=== PATIENT | female | born 1965 | race Caucasian/White ===

== ENCOUNTER → 2017-12-07 10:44 | Outpatient (CLI) | payer MEDICARE, MEDICAID, SELFPAY ==
[2017-12-07 11:14] LABS: Absolute Lymphocyte Count 1.41 X10^3/ul (0.83-4.51); Absolute Neutrophil Count 2.9 X10^3/uL (2.0-7.7); Basophil# 0.03 X10^3/uL; Basophil% 0.6 % (0-1); Eosinophil# 0.07 X10^3/uL; Eosinophils% 1.4 % (0-5); Hematocrit 39.7 % (37-47); Hemoglobin 12.5 g/dl (12.0-15.0); Lymphocyte # 1.41 X10^3/ul (4.0); Mean Corp Hgb Conc 31.5 g/gl (32-36); Mean Corpuscular Hgb 29.7 pg (27.0-32.0); Mean Corpuscular Volume 94.3 fL (81-99); Mean Platelet Vol. 9.4 fl (6.2-12.0); Monocyte# 0.58 X10^3/uL; Monocyte% 11.5 % (0-10); Neutrophil # 2.93 X10^3/uL (2.7-7.7); Neutrophil % 58.3 % (47-70); Platelet Count 241 K/mm3 (150-450); RBC Distribution Width CV 12.9 % (11.6-14.6); Red Blood Count 4.21 M/mm3 (4.2-5.4)
[2017-12-07 11:15] LABS: POSITIVE COUNT NO; POSITIVE DIFFERENTIAL NO; POSITIVE MORPHOLOGY NO
[2017-12-07 11:51] LABS: AST(SGOT) 44 U/L (15-37); Alanine Aminotransfer ALT/SGPT 57 U/L (13-56); Albumin, Serum 3.7 g/dL (3.2-5.0); Alkaline Phosphatase 81 U/L (45-117); Bilirubin, Direct 0.08 mg/dL (0.00-0.30); Cholesterol 209 mg/dL (200); Globulin 3.5 g/dL (2.2-4.2); High Density Lipoprotein 51 mg/dL; Protein, Total 7.2 g/dL (6.4-8.2); Triglycerides 93 mg/dL; Very Low Density Lipoprotein 19 mg/dL (5-40)
[2017-12-07 11:51] LABS: T3 Total - Triiodothyronine 1.12 ng/mL (0.6-1.81)
[2017-12-07 11:53] LABS: T4 Total, Thyroxin 6.1 ug/dL (4.8-13.9); Thyroid Stim Hormone (TSH) 0.47 uIU/mL (0.358-3.74)
== END ==
PROVIDERS: Internal Medicine Cardiovascular Disease; Family Provider Family Medicine; PCP Family Medicine; Referring Provider Internal Medicine Cardiovascular Disease; Visit Provider Family Medicine
DX: R53.83 Other fatigue (principal); R00.1 Bradycardia, unspecified; R55 Syncope and collapse; E78.5 Hyperlipidemia, unspecified; Z95.0 Presence of cardiac pacemaker; I47.1 Supraventricular tachycardia; I51.81 Takotsubo syndrome
CPT/HCPCS: 36415; 80061; 80076; 84436; 84443; 84480; 85025

== ENCOUNTER → 2017-12-14 12:52 | Outpatient (CLI) | payer MEDICARE, MEDICAID, SELFPAY ==
--- NOTE | 2017-12-14 12:54 | ECHOD_ITS ---
Reason For Study: syncope/near syncope Procedure This was a 2D Doppler, Color Flow transthoracic echocardiogram. Exam performed in department. Left Ventricle Normal size and thickness. The estimated ejection fraction is 65 %. Normal diastology for age. No regional wall motion abnormalities noted. Right Ventricle Normal size and thickness. ICD or pacer leads identified within the right ventricle. Normal systolic function. Atria Normal left atrium. Normal right atrium. ICD or pacer leads identified within the right atrium. Normal atrial septum. Mitral Valve The mitral valve is structurally normal. No prolapse or stenosis seen. Tricuspid Valve Normal tricuspid valve. Trivial tricuspid valve insufficiency. Right ventricular systolic pressure estimated to be 29 mmHg. Aortic Valve Normal aortic valve. Trisinus/trileaflet aortic valve. Pulmonic Valve Normal pulmonic valve. Great Vessels Normal aortic root. Normal arch. Normal inferior vena cava. Inferior vena cava collapse with sniff. Pericardium/Pleural No pericardial effusion. MMode/2D Measurements & Calculations LVIDd: 4.1 cm IVSd: 0.90 cm Ao root diam: 2.6 cm LVIDs: 2.7 cm LVPWd: 0.96 cm RVDd: 2.7 cm FS: 34.2 % LAV(MOD-bp): 31.2 ml LA A4 area: 11.2 cm2 LA dimension(2D): 3.2 cm LAV(MOD-bp) Indexed: 20.8 ml/m2 LAV(MOD-sp2): 28.8 ml LAV(MOD-sp4): 28.6 ml RA A4 area: 12.3 cm2 Doppler Measurements & Calculations MV E max brenton: 97.2 cm/sec Lat Peak E' Brenton: 8.5 cm/sec Med Peak E' Brenton: 9.0 cm/sec MV A max brenton: 76.4 cm/sec E/E' lat: 11.5 E/E' med: 10.8 MV E/A: 1.3 Ao V2 max: 112.0 cm/sec LV V1 max: 109.3 cm/sec TR max brenton: 248.6 cm/sec Ao max P.0 mmHg LV V1 max P.8 mmHg TR max P.7 mmHg Interpretation Summary The estimated ejection fraction is 65 %. Normal diastology for age. Right ventricular systolic pressure estimated to be 29 mmHg. There is no comparison study available. Ordering Physician: Fabián Pierson Referring Physician: Tessy Tovar Performed By: Gabriela Amaya RDCS, RVT
== END ==
PROVIDERS: Family Provider Family Medicine; PCP Family Medicine; Referring Provider Internal Medicine Cardiovascular Disease; Visit Provider Internal Medicine Cardiovascular Disease
DX: I47.1 Supraventricular tachycardia (principal)
CPT/HCPCS: 93306

== ENCOUNTER → 2017-12-26 08:53 | Outpatient (CLI) | payer MEDICARE, MEDICAID, SELFPAY ==
--- NOTE | 2017-12-26 11:38 | PFTCOMP ---
COMPLETE PULMONARY FUNCTION TEST INTERPRETATION Brief HPI: Patient is a 52 year old female, currently under the care of myself, who presents to [facility] for complete pulmonary function tests secondary to diagnosis of COPD. Respiratory therapist reports good effort and reproducible results. Interpretation: Forced expiration spirometry shows no large airways obstructive ventilatory defect with an FEV1 of 104% predicted. There is no significant bronchodilator response by strict ATS criteria. Spirograms are of good quality and plateau normally. The respiratory flow volume loop shows a normal pattern. Lung volumes by body plethysmography show a normal total lung capacity at 4.63 L, 106% predicted. All other lung volumes are within normal limits. Diffusion capacity by carbon monoxide is normal at 100% predicted. The airway resistance is normal. No previous pulmonary function tests were available for review. Impression: These pulmonary function tests are within normal limits. The patient does not have COPD, but may have asthma.
--- NOTE | 2017-12-26 11:41 | PFTCOMP_ITS ---
COMPLETE PULMONARY FUNCTION TEST INTERPRETATION Brief HPI: Patient is a 52 year old female, currently under the care of myself, who presents to [facility] for complete pulmonary function tests secondary to diagnosis of COPD. Respiratory therapist reports good effort and reproducible results. Interpretation: Forced expiration spirometry shows no large airways obstructive ventilatory defect with an FEV1 of 104% predicted. There is no significant bronchodilator response by strict ATS criteria. Spirograms are of good quality and plateau normally. The respiratory flow volume loop shows a normal pattern. Lung volumes by body plethysmography show a normal total lung capacity at 4.63 L, 106% predicted. All other lung volumes are within normal limits. Diffusion capacity by carbon monoxide is normal at 100% predicted. The airway resistance is normal. No previous pulmonary function tests were available for review. Impression: These pulmonary function tests are within normal limits. The patient does not have COPD, but may have asthma.
== END ==
PROVIDERS: Family Provider Family Medicine; PCP Family Medicine; Referring Provider Internal Medicine Critical Care Medicine; Visit Provider Internal Medicine Critical Care Medicine
DX: J44.9 Chronic obstructive pulmonary disease, unspecified (principal)
CPT/HCPCS: 94060; 94726; 94729

== ENCOUNTER → 2018-04-10 12:11 | Outpatient (CLI) | payer MEDICARE, MEDICAID, SELFPAY ==
[2018-04-10 11:56] VITALS: BMI 22.6
--- NOTE | 2018-04-10 12:13 | RAD_ITS ---
STUDY: X-RAY - RIGHT HAND REASON FOR EXAM: Female, 53 years old. Pain. TECHNIQUE: 3 view(s) of the hand. COMPARISON: None. FINDINGS: Normal radiocarpal articulation. Normal distal radioulnar joint. Normal visualized carpal bones. Normal carpal articulations Normal carpometacarpal articulation of the thumb. Normal second through fifth carpometacarpal joints. Normal metacarpi. Normal metacarpophalangeal joint of the thumb. Normal interphalangeal joint of the thumb. Normal proximal and distal phalanges of the thumb. Normal metacarpophalangeal joints of the second through fifth fingers. Normal proximal and distal interphalangeal joints of the second through fifth fingers. Normal phalanges of the second through fifth fingers. The soft tissue structures are unremarkable. RAD/Hand Min 3 Views IMPRESSION: Normal x-ray examination of the hand. Electronically Signed: Emiliano Corrales MD at 13:59 EST , Service support ,
== END ==
PROVIDERS: Family Provider Family Medicine; PCP Family Medicine; Referring Provider Physician Assistant; Visit Provider Physician Assistant
DX: M79.641 Pain in right hand (principal)
CPT/HCPCS: 73130

== ENCOUNTER 2018-06-18 11:36 | Day surgery (SDC) | payer MEDICARE, MEDICAID, SELFPAY ==
[2018-04-10 11:56] VITALS: BMI 22.6
[2018-06-07 15:02] VITALS: BMI 24.7
--- NOTE | 2018-06-07 15:55 | RAD_ITS ---
STUDY: X-RAY CHEST REASON FOR EXAM: Female, 53 years old. Pre-op pacemaker change TECHNIQUE: Frontal and lateral views of the chest. COMPARISON: 10/18/2013. FINDINGS: The lungs are clear and expanded. There is no demonstrated pleural abnormality. Normal size heart. Pacemaker is seen with leads terminating in the right atrium and right ventricle. Normal mediastinum and shefali. Normal visualized pulmonary arteries. Normal visualized aortic arch and descending thoracic aorta. Normal visualized thoracic spine. Normal visualized ribs, clavicles, and shoulders. There is no demonstrated abnormality of the visualized soft tissue structures of the upper abdomen. RAD/Chest PA and Lateral IMPRESSION: No acute chest disease. Electronically Signed: Emiliano Corrales MD at 23:57 EDT , Service support ,
[2018-06-07 16:14] LABS: Bacteria 0 SEEN /hpf (None Seen); Mucous, Urine 0 SEEN /hpf (<or=2+); Red Blood Cells-Urine 0 SEEN /hpf (0-5); White Blood Cells 0 SEEN /hpf (0-5)
[2018-06-07 16:54] LABS: Hematocrit 37.4 % (37-47); Hemoglobin 12.2 g/dl (12.0-15.0); Mean Corp Hgb Conc 32.6 g/gl (32-36); Mean Corpuscular Volume 91.9 fL (81-99); Mean Platelet Vol. 9.7 fl (6.2-12.0); Platelet Count 276 K/mm3 (150-450); RBC Distribution Width CV 12.8 % (11.6-14.6); RBC Distribution Width SD 42.9 fl (35.1-43.9); Red Blood Count 4.07 M/mm3 (4.2-5.4); White Blood Count 5.3 K/mm3 (4.4-11.0)
[2018-06-07 16:55] LABS: Scan Indicated on CBC? Y/N NO
[2018-06-07 16:58] LABS: Color, Urine Yellow (Yellow); Glucose, Dipstick Normal (Normal); Ketone-Dipstick Negative (Negative); Leukocyte Esterase-Dipstick Negative /ul (Negative); Nitrite-Dipstick Negative (Negative); Occult Blood-Urine Negative /ul (Negative); Protein-Dipstick Negative (Negative); Specific Gravity, Urine 1.025 (1.002-1.030); Urine Bilirubin Dipstick Negative (Negative); Urine Clarity Clear (Clear); Urine Urobilinogen Normal (Normal)
[2018-06-07 17:11] LABS: Squamous Epithelial Cells - UA 0-5 SEEN /hpf (5-10)
[2018-06-07 17:14] LABS: Anion Gap 5 (5-15); BUN 13 mg/dL (7-18); BUN/Creat Ratio 16.7 RATIO (10-20); Calcium,Total 8.5 mg/dL (8.5-10.1); Chloride 107 mmol/L (98-107); Creatinine, Serum 0.78 mg/dL (0.55-1.02); EST Glomerular Filtration Rate 83 mL/min (>60); Est Glom Filt Rate - Afr Amer 100 mL/min (>60); Glucose 84 mg/dL (74-106); Sodium Level 141 mmol/L (136-145)
[2018-06-07 17:23] LABS: International Normalized Ratio 1.1; Prothrombin Time (Protime)PT. 13.5 SECONDS (11.7-14.9)
[2018-06-14 11:28] VITALS: BMI 24.7
--- NOTE | 2018-06-18 14:00 | CL.IE_ITS ---
Patient: RAUL ARZOLA Study Date: 06/18/2018 Performing: Buddy Lopez MD : 1965 Age: 53 Gender: female PROCEDURES PERFORMED [id number] REMOVAL+REPLACEMENT PACER-DUAL LEAD INDICATIONS End-of-life replacement indicator Sinoatrial node dysfunction/Sick sinus syndrome PROCEDURE DETAILS The patient was brought to the Catheterization Lab in the postabsorptive nonsedated state. Infor med consent was obtained prior to the procedure. Local anesthetic was given subcutaneously to the le ft upper chest area with Lidocaine 2%. Incision was made to the left upper chest. PPM generator was r emoved. PPM atrial lead (existing) was checked and tested. PPM ventricular lead (existing) was checke d and tested. PPM generator was attached to the lead(s) and inserted into the pocket. Device pocket w as irrigated with antibiotic-ancef. The PPM generator was sutured in place with 3-0 Vicryl. Skin clos ure was completed with 4-0 Vicryl. Steri-strips applied to left subclavicular incision. Instrument, s ponge, and needle counts were noted to be normal. The patient tolerated the procedure well. Estimated Blood Loss: < 10 mls IMPLANTED / EX-PLANTED DEVICES IMPLANTED DEVICE(S): PPM Generator - Bailer Operators Supervisor: [employer], Model # L111 , Serial # [id number] DEVICE PARAMETERS DEVICE PARAMETERS: Mode- DDD Lower rate- 50 Upper rate- 140 CONCLUSIONS / RECOMMENDATIONS Device Conclusions: Successful implantation of a dual chamber pacemaker battery change and replacemen t Device Recommendations: Follow up with Primary Care Physician PROCEDURE MEDICATIONS Versed 1 mg IV Fentanyl 50 mcg IV Versed 1 mg IV Versed 1 mg IV Oxygen: 2 L/min via nasal cannula Antibiotic given in appropriate timeframe. Ancef 1 Gm IV @ 06/18/2018 13:01:59 Signed By Buddy Lopez MD On 06/18/2018 13:59:41 Buddy Lopez MD
== END 2018-06-18 15:32 | disposition home or self-care (01) ==
LOC: CLSP 11:37
PROVIDERS: Family Provider Family Medicine; PCP Family Medicine; Referring Provider Internal Medicine Cardiovascular Disease; Visit Provider Internal Medicine Cardiovascular Disease
DX: Z45.010 Encounter for checking and testing of cardiac pacemaker pulse generator [battery] (principal); I47.1 Supraventricular tachycardia; I49.5 Sick sinus syndrome; I51.81 Takotsubo syndrome; F32.9 Major depressive disorder, single episode, unspecified; Z79.899 Other long term (current) drug therapy; Z87.891 Personal history of nicotine dependence; Z79.82 Long term (current) use of aspirin; Z86.73 Personal history of transient ischemic attack (TIA), and cerebral infarction without residual deficits
CPT/HCPCS: 33228; 36415; 71046; 80048; 81001; 85027; 85610; 99152; 99153; J7040; J7050

== ENCOUNTER 2021-01-20 13:56 | Emergency (ER) | payer MEDICARE, MEDICAID, SELFPAY ==
[2021-01-20 13:57] VITALS: BP 147/86; PULSE 88; RESP 15; TEMP 36.7; O2SAT 98; BMI 28.5
--- NOTE | 2021-01-20 15:16 | ED.VIS.DENTA ---
HPI History of Present Illness Chief Complaint: Dental Informant: patient Onset/Context/Timing Onset: Weeks Context: Gradual Onset Timing: Continuous Current Severity: Mild Maximum Severity: Mild Associated Symptoms Assocated Symptom - Dental: jaw swelling and face swelling Narrative Narrative: 35-year-old female history of depression, COPD and pacemaker. Patient had her teeth removed by a dentist around [place] named . She developed an infection and was started on clindamycin. She has been on the clindamycin I think weeks and still has 2 weeks worth of antibiotics. She was told she needed an oral surgeon to go in and work on her osteomyelitis in her jaw. She has been seen at [facility] multiple times. She said no recent admission. She states she has had mild facial swelling for 40 days. Prior similar symptoms: Yes Recent Illness/Hospitalization: No [facility] Medical History (Updated 01/20/21 @ 15:[address] Robbin Taylor MD) Carotid bruit COPD (chronic obstructive pulmonary disease) Hyperlipemia MAJOR DEPRESSION DISORDER Paroxysmal atrial tachycardia Stroke Takotsubo cardiomyopathy Home Medications aspirin 81 mg PO DAILY@0800 10/18/13 [History Last Taken 12/03/14] alprazolam 1 mg tablet 1 mg PO BID PRN tab 12/05/17 [History Last Taken Unknown] Allergy/AdvReac Type Severity Reaction Status Date / Time Iodinated Contrast Media Allergy Anaphylaxis Verified 01/20/21 13:57 [Iodinated Contrast Media - IV Dye] Family History Father CAD (coronary artery disease) Cancer Mother Arthritis Multiple sclerosis Surgical History Cardiac pacemaker in situ History of appendectomy History of cholecystectomy History of hysterectomy Social History Smoking Status: Former smoker quit date: 09/13/17 Tobacco: How many years used: 10 second hand exposure: No alcohol intake: never substance use type: does not use caffeine: Yes Type: carbonated beverages Number of servings: 1 ROS ROS ED ROS Narrative Denies. Review of Systems ROS Unobtainable: Denies due to encephalopathy Constitutional Constitutional ED: Reports fever(s) and subjective Eyes Eyes: Denies change in vision ENT ENT ED: Denies ear pain Cardiovascular Cardiovascular: Denies chest pain Respiratory/Chest Respiratory/Chest: Denies dyspnea Gastrointestinal Gastrointestinal: Denies abdominal pain Genitourinary Genitourinary ED: Denies dysuria Musculoskeletal Musculoskeletal: Denies myalgias Integumentary Denies rash Neurologic Neurologic: Denies headache(s) Psychiatric Psychiatric: Denies depression Endocrine Endocrinology: Denies polyuria Hematologic/Lymphatic Hematologic/Lymphatic: Denies easy bruising Allergic/Immunologic Allergic/Immunologic ED: Denies urticaria EXAM Physical Exam Narrative Exam Narrative: Erythema no acute distress mild. Patient jaw swelling. Centimeters. Her dentition all been completely pulled. There is no abscess. She can open close her mouth easily. Moist mucous membranes. No trouble swallowing or breathing. Floor of her mouth is unremarkable. Neck nontender no lymphadenopathy. Lungs are clear. Heart regular rate and rhythm no murmur. Otherwise exam unremarkable. Const Vital Signs: 01/20/21 13:57 Temperature 98.1 F Temperature Source Temporal Pulse Rate 88 Respiratory Rate 15 Blood Pressure 147/86 H Blood Pressure Mean 106 Pulse Ox 98 Oxygen Delivery Method Room Air Positive well nourished and well developed; Negative for obese, cachectic, contractures or unkempt General Appearance ED: well developed and NAD; Negative for unkempt, cachectic or contractures Nutritional Appearance: Negative for cachectic or obese HEENT HEENT Narrative: Status post having over teeth removed. Mild gum swelling. No abscess. No trismus. No trouble swallowing or breathing. Negative for trauma Teeth and Gingiva: gingiva abnormal Eyes PERRL and EOMs intact bilaterally Neck no lymphadenopathy, supple and no JVD General: normal visual inspection; Negative for anterior neck swelling, tenderness or submandibular swelling Lymph Lymphatic: no lymphadenopathy noted; Negative for lymphadenopathy Chest Wall inspection of chest normal and palpation of chest normal Resp normal respiratory effort and clear to auscultation bilaterally Cardio regular rate, regular rhythm, S1 normal heart sound, S2 normal heart sound and no murmurs GI normal to inspection, nondistended, normoactive bowel sounds, non-tender, non-distended and no masses Palpation: soft Back/Spine no CVA tenderness General Back: Negative for CVA tenderness Thoracic Spine / Upper Back: Negative for thoracic spinal tenderness Extremity normal to inspection Neuro oriented x3, moves all extremities and no focal motor deficits Sensorium / Orientation: alert, oriented to person, oriented to place and oriented to time; Negative for orientation impaired Psych mental status grossly normal Appearance: Negative for unkempt Mood & Affect: Negative for depressed or tearful Skin no rashes or lesions noted and no wounds MDM MDM MDM Narrative Medical decision making narrative: Middle-aged female needs follow-up with neurosurgery after having teeth pulled has osteomyelitis. She is in no distress. Her vital signs are stable. She has no trouble swallowing or breathing only mild swelling to her cheeks and jaw. She is currently on clindamycin. She will be referred to Dr. Aly Guillen. Patient's had recent labs done and the ones done yesterday had a normal white count of 8.4. Discharge Plan Triage Chief Complaint: Dental ED Provider: Robbin Taylor Dx/Rx/DC Orders Clinical Impression: Acute osteomyelitis of mandible Prescriptions: No Action aspirin 81 MG tablet,chewable 81 mg PO DAILY@0800 RF: 0 alprazolam 1 mg tablet 1 mg PO BID PRN (Reason: Anxiety) RF: 0 Primary Care Provider: Tessy Tovar Referrals: Tessy Tovar MD [Primary Care Provider] - Aly Guillen DDS [STAFF PHYSICIAN] - Activity Restrictions/Additional Instructions: Ice to your jaw. Motrin swelling to help with pain. Continue your clindamycin Call and follow-up with Dr. Herber Guillen, a local oral surgeon and see when you get appointment. Disposition Disposition: Home, Self Care
[2021-01-20 15:39] VITALS: BP 139/76; PULSE 76; RESP 14; O2SAT 98
== END 2021-01-20 15:39 | disposition home or self-care (01) ==
PROVIDERS: Emergency Provider Emergency Medicine
DX: M27.2 Inflammatory conditions of jaws (principal); Z95.0 Presence of cardiac pacemaker; Z87.891 Personal history of nicotine dependence
CPT/HCPCS: 99282

== ENCOUNTER 2022-06-06 10:34 | Day surgery (SDC) | payer MEDICARE, MEDICAID, SELFPAY ==
[2022-06-06] VITALS (8 sets, daily range): BP systolic 99–141; BP diastolic 61–90; PULSE 66–81; RESP 16–18; TEMP 36.6–37.2; O2SAT 98–100; BMI 26.6
--- NOTE | 2022-06-06 | GASB_PTH ---
PATIENT: RAUL ARZOLA LOC: EN U#:[id number] AGE/SX: 57/F ROOM: RE06/06/[address]: Dr. Gerardo Cook DO : 1965 BED: DIS: 06/06/2022 SPEC #: [id number] RECD: 06/06/22 13:11 STATUS: NETTIE EDUAR #: [id number] JAJA: 06/06/22 00:[address]: Gerardo Cook DEPT: SURGICAL PATHOLOGY RECD BY: Ochoa Flowers ENTERED: 06/06/22 13:12 SP TYPE: Gastric Bx OTHR DR: Candice Burkett, ETHERNET NETWORK ARCHITECT-C Tissues: A - Duodenum, NOS B - Gastric mucous membrane C - Esophageal mucous membrane D - Ileum, NOS E - COLON BIOPSY Procedures: Special Stain Group II Surgery Specimen Level IV Alcian Blue/PAS (control) HEADER OPERATION: Colonoscopy, EGD (MAC), biopsies PRE-OP DIAGNOSIS: C. difficile colitis, acid reflux, family history of colon cancer TISSUE SUBMITTED: A - Duodenum biopsy, B - Gastric antrum biopsy for H. pylori and path, C - Distal esophagus biopsy, D - Terminal ileum biopsy, E - Random colonic biopsies MICROSCOPIC DIAGNOSIS A. Duodenum, biopsy: No pathologic change. B. Gastric antrum, biopsy: Mild chronic inflammation. See comment. C. Distal esophagus, biopsy: Gastroesophageal junctional mucosa with mild chronic inflammation. No evidence of goblet cell metaplasia. See comment. D. Terminal ileum, biopsy: No pathologic change. E. Colon, random biopsy: No pathologic change. AM:lindsey 06/07/2022 COMMENT B. The results of immunohistochemistry for Helicobacter pylori will be reported separately ([id number]). C. Alcian blue/PAS stain with matched control supports the above diagnosis. MICROSCOPIC DESCRIPTION Slides are reviewed. GROSS DESCRIPTION A - Received in fixative is one container labeled with the patient's name and designated duodenum biopsy. The specimen consists of multiple irregular fragments of light ball soft tissue that in aggregate measure 1.0 x 0.5 x 0.1 cm. The specimen is totally submitted in one cassette. B - Received in fixative is one container labeled with the patient's name and designated gastric antrum biopsy. The specimen consists of two irregular fragments of light ball soft tissue that in aggregate measure 0.6 x 0.2 x 0.1 cm. The specimen is totally submitted in one cassette. C - Received in fixative is one container labeled with the patient's name and designated distal esophagus biopsy. The specimen consists of two irregular fragments of light ball soft tissue that in aggregate measure 0.7 x 0.5 x 0.1 cm. The specimen is totally submitted in one cassette. D - Received in fixative is one container labeled with the patient's name and designated terminal ileum biopsy. The specimen consists of multiple irregular fragments of light ball soft tissue that in aggregate measure 1.0 x 0.5 x 0.1 cm. The specimen is totally submitted in one cassette. E - Received in fixative is one container labeled with the patient's name and designated random colon biopsy. The specimen consists of multiple irregular fragments of light ball soft tissue that in aggregate measure 2.2 x 1.0 x 0.1 cm. The specimen is totally submitted in one cassette. / AM:lindsey 06/06/2022 TC:3 CPT: 32487 x5, 34546
[2022-06-06] MEDS: Lactated Ringers 1,000 ML 15 ML IV (11:12)
--- NOTE | 2022-06-06 11:29 | HP.PCM_ITS ---
History and Physical Date of Admission: 06/06/22 57 F who presents to the office today to establish with GI for recurrent C difficile colitis. 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 She finished her last course of vancomycin 2 wks ago. She says she has bloody diarrhea regardless of taking vancomycin or not. She takes lomotil but says it doesn't help. She has multiple episodes of watery or loose diarrhea per day, malodorous. She can't remember the last time she had formed stool. Diarrhea wakes her at night. Has blood per rectum a majority of days. She gets cramps in lower abd. Takes ondansetron frequently for nausea. No vomiting. She has regurgitation of stomach contents. Gets heartburn. Chronic thrush, does swish and swallow. Takes prednisone for swelling in jaw and fingers. CT abd pel w/o contrast 01/09/22 at [place]: negative EGD and colonoscopy in [address] Cruz, recommended repeat in 3 yrs due to polyps, pathology: tubular adenoma, hyperplastic polyp Sister of colorectal cancer in her late 40s Past medical history includes anxiety, depression, diabetes, COPD, hypertension, hyperlipidemia, Takotsubo cardiomyopathy, PAT, stroke, hypokalemia, restless leg syndrome Past surgical history includes hemorrhoid surgery, cardiac pacemaker, appendectomy, cholecystectomy, hysterectomy ROS Const Constitutional: Positive for fatigue and headache(s) ENT ENT: Positive for headache(s); No difficulty swallowing Gastro GI: Positive for abdominal pain, change in bowel habits, constipation, diarrhea, Blood in stool and nausea/dyspepsia; No belching, bloating, change in stool character, coffee ground emesis, cramping, heartburn, difficulty swallowing, feeling full early, excessive flatus, incontinent of stools, Vomiting blood/hematemesis, loose stools, Black,tarry stools, pain with swallowing, vomiting or other Musc Musculoskeletal: Positive for numbness, tingling, sciatica and restless legs; No joint pain Skin Skin: No yellowing of the eye or itchy eyes Neuro Neurology: Positive for headache(s), numbness, tingling and restless legs Psych Psychiatric: Positive for anxiety and Positive for depression Endo Endocrine: Positive for fatigue Aller/Imm Allergy/Immunologic: No itchy eyes Yusef/Lymp Hematologic/Lymphatic: No easy bleeding or easy bruising Exam Const General: cooperative and no acute distress Orientation: alert, awake and oriented x3 Eyes Sclera: sclerae normal Resp Effort & Inspection: normal respiratory effort GI Inspection: normal to inspection Palpation: soft, no hepatosplenomegaly, no masses and nontender Skin General: no rashes or lesions noted Psych Mood: congruent mood Quality Reporting Tobacco Screening ([facility] 138) Smoking Status: Former smoker Assessment and Plan Assessment and Plan (1) C. difficile colitis: ?Status:?Chronic ?Plan: 57-year-old female with recurrent C difficile infection, has required months of vancomycin Rx for Dificid 200 mg bid x 10 days, will try to get this authorized She has chronic acid reflux and regurgitation EGD and colonoscopy, f/u 2 wks in office to discuss biopsy results (2) Acid reflux: ?Status:?Acute ?Plan: see above (3) FH: colon cancer in relative <50 years old: ?Status:?Acute ?Plan: see above ? ? ? Medications: New fidaxomicin (Dificid) 200 mg? PO BID 10 days 20 tabs 0RF ? ? I have examined the patient and the H&P has been reviewed. There are no clinical changes since date of exam.
[2022-06-06 11:50] LABS: Bedside Glucose 127 mg/dL (74-106)
--- NOTE | 2022-06-06 12:15 | IMM_PTH ---
PATIENT: RAUL ARZOLA LOC: EN U#:[id number] AGE/SX: 57/F ROOM: RE06/06/[address]: Dr. Gerardo Cook DO : 1965 BED: DIS: 06/06/2022 SPEC #: [id number] RECD: 06/06/22 14:31 STATUS: NETTIE EDUAR #: [id number] JAJA: 06/06/22 12:[address]: Gerardo Cook DEPT: IMMUNOHISTOCHEMISTRY RECD BY: Michelle Villagran ENTERED: 06/06/22 14:31 SP TYPE: IMMUNO OTHR DR: Candice Burkett, VENDING ENTERPRISES SUPERVISOR-C Tissues: B - Stomach, NOS Procedures: H Pylori (initial) PHYSICIAN & INSTITUTION [place] [id number] SPECIMEN INFORMATION: Tissue Source: B ? Gastric antrum Clinical Info: C. difficile colitis; acid reflux; family history colon cancer Specimen Number: [id number] CPT code: 86850 METHODOLOGY: Deparaffinized sections of prefer/formalin-fixed tissue or PAP/DQ stained slides are incubated with monoclonal/polyclonal antibodies/oligonucleotide probes. Localization is made via biotin free immunoperoxidase method. Appropriate controls are performed and reacted as expected. Results on target cell population are indicated in the following table: RESULTS: ANTIBODY / CLONE RESULT Block B H Pylori (polyclonal) negative These tests were developed and their performance characteristics determined by [facility]. They may not have been cleared or approved by the U.S. Food and Drug Administration. The FDA has determined that such clearance or approval is not necessary. The above immunohistochemical/dualISH markers are ordered and reviewed by the Pathologist. INTERPRETATION: B. Gastric antrum, biopsy: Negative for Helicobacter pylori organisms. AM:lindsey 06/07/2022
--- NOTE | 2022-06-06 12:50 | OP.CCLET_ITS ---
06/06/2022 Aimee Islas Re : Upper GI endoscopy procedure for Katina Hatch Dear Np. Burkett This procedure was performed on Monday, June 06, 2022. My impressions and recommendations are as follows: Impressions : - LA Grade A reflux esophagitis. Biopsied. - Bile gastritis. Biopsied. - Bile duodenitis. Biopsied. Recommendations : - Discharge patient to home. - Resume previous diet. - Continue present medications. - Await pathology results. - Repeat upper endoscopy in 1 year for surveillance. - Return to GI office. My findings are described in the full procedure note, which is enclosed. If I can be of further assistance, please feel free to contact me at . Sincerely, Gerardo Cook, 06/06/2022 12:50:04 PM This report has been signed electronically.
--- NOTE | 2022-06-06 12:50 | OP.EGD_ITS ---
Patient Name: Katina Hatch Procedure Date: 06/06/2022 12:09 PM Date of : 1965 Age: 57 Procedure: Upper GI endoscopy Indications: Epigastric abdominal pain Providers: Gerardo Cook DO Referring MD: Gerardo Cook DO Medicines: Monitored Anesthesia Care Patient Profile: This is a 57 year old female. Refer to note in patient chart for documentation of history and physical. Patient has symptoms. Complications: No immediate complications. Procedure: Pre-Anesthesia Assessment: - Prior to the procedure, a History and Physical was performed, and patient medications and allergies were reviewed. The patient is competent. The risks and benefits of the procedure and the sedation options and risks were discussed with the patient. All questions were answered and informed consent was obtained. Patient identification and proposed procedure were verified by the physician in the pre-procedure area. Mental Status Examination: alert and oriented. Airway Examination: normal oropharyngeal airway and neck mobility. Respiratory Examination: clear to auscultation. CV Examination: normal. Prophylactic Antibiotics: The patient does not require prophylactic antibiotics. Prior Anticoagulants: The patient has taken no previous anticoagulant or antiplatelet agents. ASA Grade Assessment: II - A patient with mild systemic disease. After reviewing the risks and benefits, the patient was deemed in satisfactory condition to undergo the procedure. The anesthesia plan was to use monitored anesthesia care (MAC). Immediately prior to administration of medications, the patient was re-assessed for adequacy to receive sedatives. The heart rate, respiratory rate, oxygen saturations, blood pressure, adequacy of pulmonary ventilation, and response to care were monitored throughout the procedure. The physical status of the patient was re-assessed after the procedure. After obtaining informed consent, the endoscope was passed under direct vision. Throughout the procedure, the patient's blood pressure, pulse, and oxygen saturations were monitored continuously. The Colonoscope was introduced through the mouth, and advanced to the second part of duodenum. The upper GI endoscopy was accomplished without difficulty. The patient tolerated the procedure well. Scope In: 12:21:57 PM Scope Out: 12:25:59 PM Total Procedure Duration Time 0 hours 4 minutes 2 seconds Findings: LA Grade A (one or more mucosal breaks less than 5 mm, not extending between tops of 2 mucosal folds) esophagitis with no bleeding was found 36 to 38 cm from the incisors. Biopsies were taken with a cold forceps for histology. Verification of patient identification for the specimen was done. Estimated blood loss was minimal. Patchy moderate inflammation characterized by congestion (edema), erosions and erythema was found in the stomach. Biopsies were taken with a cold forceps for histology. Verification of patient identification for the specimen was done. Estimated blood loss was minimal. Diffuse moderate inflammation characterized by erosions, erythema and granularity was found in the duodenal bulb and in the first portion of the duodenum. Biopsies were taken with a cold forceps for histology. Verification of patient identification for the specimen was done. Estimated blood loss was minimal. Impression: - LA Grade A reflux esophagitis. Biopsied. - Bile gastritis. Biopsied. - Bile duodenitis. Biopsied. Recommendation: - Discharge patient to home. - Resume previous diet. - Continue present medications. - Await pathology results. - Repeat upper endoscopy in 1 year for surveillance. - Return to GI office. Procedure Code(s): --- Professional --- 22120, Esophagogastroduodenoscopy, flexible, transoral; with biopsy, single or multiple CPT copyright 2017 [employer]. All rights reserved. The codes documented in this report are preliminary and upon postdoctoral research associate review may be revised to meet current compliance requirements. Gerardo Cook DO 06/06/2022 12:50:04 PM This report has been signed electronically. Number of Addenda: 0 Note Initiated On: 06/06/2022 12:09 PM
--- NOTE | 2022-06-06 12:56 | OP.CCLET_ITS ---
06/06/2022 Aimee Islas Re : Colonoscopy procedure for Katina Hatch Dear Np. Burkett This procedure was performed on Monday, June 06, 2022. My impressions and recommendations are as follows: Impressions : - Anal fissure found on perianal exam. - The entire examined colon is normal. Biopsied. - The examined portion of the ileum was normal. Biopsied. Recommendations : - Discharge patient to home. - Resume previous diet. - Continue present medications. - Await pathology results. - Repeat colonoscopy in 5 years for surveillance. My findings are described in the full procedure note, which is enclosed. If I can be of further assistance, please feel free to contact me at . Sincerely, Gerardo Cook, 06/06/2022 12:56:03 PM This report has been signed electronically.
--- NOTE | 2022-06-06 12:56 | OP.COLON_ITS ---
Patient Name: Katina Hatch Procedure Date: 06/06/2022 12:26 PM Date of : 1965 Age: 57 Procedure: Colonoscopy Indications: Chronic diarrhea Providers: Gerardo Cook DO Referring MD: Gerardo Cook DO Medicines: Monitored Anesthesia Care Patient Profile: This is a 57 year old female. Refer to note in patient chart for documentation of history and physical. Patient has symptoms. Last Colonoscopy: 5 years ago. Complications: No immediate complications. Procedure: Pre-Anesthesia Assessment: - Prior to the procedure, a History and Physical was performed, and patient medications and allergies were reviewed. The patient is competent. The risks and benefits of the procedure and the sedation options and risks were discussed with the patient. All questions were answered and informed consent was obtained. Patient identification and proposed procedure were verified by the physician in the pre-procedure area. Mental Status Examination: alert and oriented. Airway Examination: normal oropharyngeal airway and neck mobility. Respiratory Examination: clear to auscultation. CV Examination: normal. Prophylactic Antibiotics: The patient does not require prophylactic antibiotics. Prior Anticoagulants: The patient has taken no previous anticoagulant or antiplatelet agents. ASA Grade Assessment: II - A patient with mild systemic disease. After reviewing the risks and benefits, the patient was deemed in satisfactory condition to undergo the procedure. The anesthesia plan was to use monitored anesthesia care (MAC). Immediately prior to administration of medications, the patient was re-assessed for adequacy to receive sedatives. The heart rate, respiratory rate, oxygen saturations, blood pressure, adequacy of pulmonary ventilation, and response to care were monitored throughout the procedure. The physical status of the patient was re-assessed after the procedure. After I obtained informed consent, the scope was passed under direct vision. Throughout the procedure, the patient's blood pressure, pulse, and oxygen saturations were monitored continuously. The Colonoscope was introduced through the anus and advanced to the terminal ileum. The colonoscopy was performed without difficulty. The patient tolerated the procedure well. The quality of the bowel preparation was adequate. Scope In: 12:27:55 PM Scope Withdrawal Time 0 hours 8 minutes 12 seconds Scope Out: 12:40:06 PM Total Procedure Duration Time 0 hours 12 minutes 11 seconds Findings: An anal fissure was found on perianal exam. The colon (entire examined portion) appeared normal. Biopsies were taken with a cold forceps for histology. Verification of patient identification for the specimen was done. Estimated blood loss was minimal. The terminal ileum appeared normal. This was biopsied with a cold forceps for histology. Verification of patient identification for the specimen was done. Estimated blood loss was minimal. Impression: - Anal fissure found on perianal exam. - The entire examined colon is normal. Biopsied. - The examined portion of the ileum was normal. Biopsied. Recommendation: - Discharge patient to home. - Resume previous diet. - Continue present medications. - Await pathology results. - Repeat colonoscopy in 5 years for surveillance. Procedure Code(s): --- Professional --- 44332, Colonoscopy, flexible; with biopsy, single or multiple CPT copyright 2017 [employer]. All rights reserved. The codes documented in this report are preliminary and upon media relations intern review may be revised to meet current compliance requirements. Gerardo Cook DO 06/06/2022 12:56:03 PM This report has been signed electronically. Number of Addenda: 0 Note Initiated On: 06/06/2022 12:26 PM
== END 2022-06-06 13:43 | disposition home or self-care (01) ==
LOC: EN 10:39 → AC 10:40
PROVIDERS: PCP Nurse Practitioner Family; Referring Provider Nurse Practitioner Family; Visit Provider Internal Medicine Gastroenterology
PROC: 0DJD8ZZ Inspection of Lower Intestinal Tract, Via Natural or Artificial Opening Endoscopic (ICD-10-PCS; CPT 45378; principal; 2022-06-06 12:10)
DX: K60.2 Anal fissure, unspecified (principal); E11.9 Type 2 diabetes mellitus without complications; K21.00 Gastro-esophageal reflux disease with esophagitis, without bleeding; K29.70 Gastritis, unspecified, without bleeding; K31.89 Other diseases of stomach and duodenum; K29.80 Duodenitis without bleeding; A04.71 Enterocolitis due to Clostridium difficile, recurrent; I10 Essential (primary) hypertension; E87.6 Hypokalemia; E55.9 Vitamin D deficiency, unspecified; Z79.82 Long term (current) use of aspirin; Z79.84 Long term (current) use of oral hypoglycemic drugs; Z79.899 Other long term (current) drug therapy; Z86.73 Personal history of transient ischemic attack (TIA), and cerebral infarction without residual deficits; Z87.891 Personal history of nicotine dependence; Z80.0 Family history of malignant neoplasm of digestive organs
CPT/HCPCS: 45380; 43239; 82962; 88305; 88313; 88342; J7120; J2405

== ENCOUNTER 2022-10-12 10:50 | Day surgery (SDC) | payer MEDICARE, MEDICAID, SELFPAY ==
--- NOTE | 2022-10-12 | HEM_PTH ---
PATIENT: RAUL ARZOLA LOC: [facility] [place] U#:[id number] AGE/SX: 57/F ROOM: RE10/12/[address]: Dr. Marcus Bedolla MD : 1965 BED: DIS: 10/12/2022 SPEC #: [id number] RECD: 10/12/22 15:20 STATUS: NETTIE EDUAR #: [id number] JAJA: 10/12/22 00:[address]: Marcus Bedolla DEPT: SURGICAL PATHOLOGY RECD BY: Ochoa Flowers ENTERED: 10/13/22 09:34 SP TYPE: HEMORRHOID OTHR DR: Candice Burkett, MANAGER PROGRAM-C Tissues: HEMORRHOIDS Procedures: Surgery Specimen Level III HEADER OPERATION: Fissurectomy and hemorrhoidectomy x2 PRE-OP DIAGNOSIS: Anal fissure TISSUE SUBMITTED: Hemorrhoids x2 and fissure MICROSCOPIC DIAGNOSIS Hemorrhoids x2 and fissure, Fissurectomy and hemorrhoidectomy: Pieces of anorectal mucosa with dilated and congested blood vessels, consistent with hemorrhoid. A piece of skin with underlying tissue with reactive changes, clinically fissure. CHARLY:lindsey 10/14/2022 MICROSCOPIC DESCRIPTION Slides are reviewed. GROSS DESCRIPTION Received in fixative is one container labeled with the patient's name and designated hemorrhoids and fissure. The specimen consists of two pieces of congested and hemorrhagic soft tissue measuring in aggregate 1.5 x 2.0 x 1.0 cm. Also present in the container is a detached piece of soft tissue measuring 0.7 x 0.4 x 0.2 cm. Sections of the largest pieces reveal congested and hemorrhagic cut surfaces. The entire specimen is submitted in one cassette. / CHARLY:lindsey 10/13/2022 TC:5 CPT: 74805
[2022-10-12 11:34] VITALS: BP 147/83; PULSE 80; RESP 16; TEMP 36.7; O2SAT 96; BMI 28.0
[2022-10-12 12:22] LABS: Bedside Glucose 115 mg/dL (74-106)
--- NOTE | 2022-10-12 13:20 | PCM.HP.BLA ---
History and Physical Date of Admission: 10/12/22 Intake Vital Signs 06/06/2310:07 Height 5 ft 1 in Intake Visit Reasons: Anal Fissure/Negative for C-diff will fax Chief Complaint: anal fissure Allergies Iodinated Contrast Media [Iodinated Contrast Media - IV Dye] Allergy (Verified 07/04/22 13:41) Anaphylaxis [facility] Medical History Abdominal pain Anxiety Blackout Brown recluse spider bite Cardiology follow-up encounter Carotid bruit Complete edentulism, class III COPD (chronic obstructive pulmonary disease) Diabetes Diarrhea Dietary restriction Difficulty chewing Easy bruising Edema Former smoker Gastritis Hemorrhoid History of Clostridioides difficile infection History of Clostridium difficile infection History of echocardiogram History of edema History of left heart catheterization (LHC) (~03/15/04) History of renal disease History of steroid therapy History of thrush HTN (hypertension) Hyperlipemia Hypokalemia Low iron MAJOR DEPRESSION DISORDER Nerve damage Paroxysmal atrial tachycardia Stroke Takotsubo cardiomyopathy Vitamin D insufficiency Vomiting Surgical History Cardiac pacemaker in situ History of appendectomy History of cholecystectomy History of hysterectomy History of mandibular surgery Hx of colonoscopy Hx of dilation and curettage Hx of oral surgery Family History Father CAD (coronary artery disease) CancerMother Arthritis Multiple sclerosisSister Colon cancer Social History Smoking Status: Former smoker quit date: 09/13/17 Tobacco: How many years used: 10 second hand exposure: No alcohol intake: never substance use type: does not use caffeine: Yes Type: tea HPI HPI HPI: Patient is a 57-year-old female here to follow-up after treatment for anal fissure. She tried the diltiazem cream for a month but she reports she is still bleeding with every bowel movement. She says she is not having any rectal pain only bright red blood. She reports she has multiple bowel movements a day with no firm bowel movements or constipation. ROS General General: Yes fatigue; No weight change, appetite, colon cancer, breast cancer or weakness HEENT HEENT: Yes difficulty swallowing and swollen glands; No eye injury, eye surgery or hoarseness Endo Endocrine: Yes diabetes mellitus; No thyroid disease, thyroid cancer, Hair loss, heat intolerance or cold intolerance Skin Skin: No rash or changing moles Musc Musculoskeletal: Yes arthritis; No back problems, rheumatoid arthritis, gout or joint pain Cardio Cardiovascular: Yes pacemaker, heart disease and high blood pressure; No murmur, atrial fibrillation, heart attack, heart stent, palpitations, shortness of breat with exertion or chest pain Psych Psychiatric: Yes depression and anxiety; No hearing voices Resp Respiratory: No shortness of breath, No sleep apnea, No cough, No COPD, No asthma, No emphysema and No wheezing Gastro Gastrointestinal: Yes abdominal pain, Yes nausea or vomiting, Yes diarrhea, Yes constipation, Yes blood in stool, No acid reflux, Yes hemorrhoids, Yes ulcers, No gallbladder problem and No black,tarry stools Yusef Hematologic: No blood thinners, No blood disorders, No bleeding, No anemia and No blood clots Neuro Neurologic: No system reviewed and no additional complaints, except as documented, No as per HPI, No abnormal gait, No abnormal hearing, No abnormal movements, No abnormal speech, No behavioral changes, No burning sensations, No confusion, No convulsions, No disequilibrium, No dizziness, No localized weakness, No frequent falls, No headache(s), No lack of coordination, No loss of vision, No memory loss, No numbness, No other visual disturbances, No radicular pain, No restless legs, No sensory deficit, No syncope, No tingling, No tremor(s), No weakness and No other Exam Const General: cooperative Orientation: alert and oriented x3 HENMT Head: normal to inspection Neck Neck: normal visual inspection and full ROM Chest Chest palpation & inspection: normal inspection of the chest Resp Effort & Inspection: normal respiratory effort Auscultation: clear to auscultation bilaterally Cardio Rate: regular rate Rhythm: regular rhythm GI Inspection: non-distended Palpation: soft and nontender Skin General: no rashes or lesions noted Neuro General: patient alert and patient oriented x3 Extrem General: full ROM Psych Appearance: grossly normal Mental Status: mental status grossly normal Assessment and Plan Assessment and Plan (1) Anal fissure: Status: Acute Plan: The patient is still having ongoing bleeding despite diltiazem treatment. I did offer the patient lateral internal sphincterotomy OR I did offer the alternative of trying a fissurectomy versus hemorrhoidectomy depending on what we find on exam under anesthesia with the understanding that if this does not work she would need a lateral internal sphincterotomy subsequently. Patient understands this and would like to try fissurectomy as there is less chance of incontinence. I believe this is reasonable and I will have her do a fleets enema the evening before the procedure in the morning of and I will take her to the operating for exam under anesthesia with fissurectomy versus hemorrhoidectomy. I discussed the risks including modality to bleeding, infection, need for further surgery. Patient understands the risks and is willing to proceed. Marcus Bedolla MD Pager: [facility] [address] [place] [address], [address] [place] [address] Office: I have examined the patient and the H&P has been reviewed. There are no clinical changes since date of exam.
[2022-10-12] MEDS: Cefotetan 2 GM in 0.9% NS 100 ML IV (13:55)
[2022-10-12] MEDS: Dibucaine 30 GM Tube 1 APPLIC (14:34)
[2022-10-12] MEDS: Bupivacaine Mpf 0.5% 30 ML VIAL (14:34)
--- NOTE | 2022-10-12 14:45 | PCM.OPRPT ---
Report of Operation Date of Procedure: 10/12/22 Pre-Operative Diagnosis: Bleeding hemorrhoids and fissure Post-Operative Diagnosis: Same Surgery/Procedure Performed:: Exam under anesthesia with hemorrhoidectomy x2 and fissurectomy Type of Anesthesia: General/Regional Specimen's removed: Hemorrhoid x2 Estimated Blood Loss (mL): 5 Description of Procedure: Patient was brought back to the operating room and general anesthesia was induced. The patient was placed in prone jackknife position. The perianal area and perineal area were prepped and draped. Using well-lubricated speculum the anal canal was inspected. The patient had a fissure at the posterior position. Patient also had 2 enlarged hemorrhoids with that appeared irritated and recently bleeding. The 2 hemorrhoids were removed using harmonic hand-held. The one hemorrhoid was right next to the fissure and the fissure mucosa was removed as well. Both of these areas were then reapproximated using running 3-0 Vicryl suture. There was good hemostasis. A Dibucaine Gelfoam was rolled and placed into the anal canal. Local anesthetic was injected. Patient was brought to PACU in stable condition. Admit VTE Documentation VTE Mechan Device Prophylaxis: SCD's
[2022-10-12 14:46] VITALS: BP 147/83; BP 155/82; PULSE 71; RESP 18; TEMP 36.4; O2SAT 96
--- NOTE | 2022-10-12 14:50 | EX.PCM.DISCH ---
Discharge Instructions Diet Discharge Diet: Light diet - advance as tolerated Activity Discharge Activity: Return to Normal Activity and May Not Drive (while you are taking narcotic pain medications. Do not drive, work with heavy equipment or sign legal documents for 24 hours after your surgery.) May resume sexual activity in: No Restrictions Additional Activity Instructions:: Be aware that pain medications may cause nausea. You should typically eat light foods as you take your pain medications. Pain medications may also cause constipation. If you have difficulty with this please discuss with your doctor. Dressing / Incision Call your doctor if your incision/area has: Continuous Slow Oozing, Sudden Increased Bleeding, Increased Pain/ Swelling, Increased Redness, Foul Smelling Discharge and Swelling at the incision site Call your doctor if you observe: Fever of 101 or Higher, Inability to have a bowel movement and Uncontrolled pain Cleanse incision/area with: Soap & Water Additional Dressing/Incision Instructions:: Leave the operative bandage on for 1 days. If a local anesthetic plug was placed in the anal area, try not to expel for [address]ucaine ointment on the perianal area as needed. Sitz baths twice daily and after bowel movements. Follow Up Care Please Follow Up With: Marcus Bedolla MD When: Please call to schedule 2 week follow up appointment. [phone] Test Results: Test results from this visit will be discussed in further detail at your follow-up appointment, if applicable. Discharge Plan Admission Attending Provider: Marcus Bedolla Primary Care Provider: Candice Burkett Discharge Orders/Prescriptions Prescriptions: New oxycodone-acetaminophen [Percocet] 5-325 mg tablet 1 tab PO Q4H PRN (Reason: pain) 5 Days Qty: 30 0RF No Action glipizide 2.5 mg tablet extended release 24hr 5 mg PO 1500 potassium chloride 20 mEq tablet extended release 20 meq PO DAILY clonidine HCl 0.1 mg tablet 0.1 mg PO QHS ondansetron 4 mg tablet,disintegrating 4 mg PO PRN PRN (Reason: Nausea) (DME) Diltiazem 2% / Lidocaine 5% ointment (compound) Ointment See Rx Instructions .ROUTE Qty: 1 1RF Rx Instructions: As directed hydrochlorothiazide 25 mg Tablet 25 mg PO DAILY Januvia 100 mg Tablet 100 mg PO QHS cholecalciferol (vitamin D3) [Vitamin D3] 50 mcg (2,000 unit) Capsule 50,000 mcg PO QWEEK hydrocodone-acetaminophen 7.5-325 mg tablet 1 tab PO Q8H Patient Comments: TAKE ONE TABLET BY MOUTH EVERY 8 HOURS NEEDED pregabalin 100 mg capsule 150 mg PO Q12H Patient Comments: TAKE ONE CAPSULE BY MOUTH TWICE DAILY sucralfate [Carafate] 1 gram tablet 1 g PO TID Qty: 90 0RF Referrals / Follow Up: Candice Burkett TRAINING PROGRAM DEVELOPER-C [Primary Care Provider] - Disposition Disposition (needs filled in before D/C Order can be placed): Home, Self Care
[2022-10-12 15:00] VITALS: BP 147/83; BP 149/73; PULSE 67; RESP 18; O2SAT 99
[2022-10-12 15:15] VITALS: BP 147/83; PULSE 69; RESP 18; O2SAT 96
[2022-10-12 15:30] VITALS: BP 146/67; BP 147/83; PULSE 67; RESP 18; TEMP 36.8; O2SAT 98
[2022-10-12 15:53] LABS: Bedside Glucose 87 mg/dL (74-106)
[2022-10-12] MEDS: oxyCODONE 5 MG Tablet PO (15:56)
[2022-10-12 16:18] VITALS: BP 147/83
== END 2022-10-12 16:31 | disposition home or self-care (01) ==
LOC: SDC 10:52 → AC 10:53
PROVIDERS: PCP Nurse Practitioner Family; Referring Provider Surgery; Visit Provider Surgery
PROC: (CPT 46261; principal; 2022-10-12 12:25)
DX: K60.2 Anal fissure, unspecified (principal); E11.9 Type 2 diabetes mellitus without complications; K64.9 Unspecified hemorrhoids; I10 Essential (primary) hypertension; Z80.0 Family history of malignant neoplasm of digestive organs; Z79.84 Long term (current) use of oral hypoglycemic drugs; Z79.899 Other long term (current) drug therapy; Z86.73 Personal history of transient ischemic attack (TIA), and cerebral infarction without residual deficits; Z95.0 Presence of cardiac pacemaker; Z87.891 Personal history of nicotine dependence
CPT/HCPCS: 46261; 00902; 82962; 88304; J7120; J2405

== ENCOUNTER 2022-10-15 00:17 | Emergency (ER) | payer MEDICARE, MEDICAID, SELFPAY ==
[2022-10-15 00:18] VITALS: BP 180/104; PULSE 95; RESP 16; TEMP 36.9; O2SAT 98; BMI 27.0
[2022-10-15] MEDS: Ondansetron ODT 4 MG Tablet 8 MG PO (01:43)
[2022-10-15] MEDS: Morphine 4 MG/ML Syringe IM (01:43)
--- NOTE | 2022-10-15 02:04 | EDS_ITS ---
HPI History of Present Illness Chief Complaint: Sore Throat Informant: patient Narrative Narrative: Patient presents with significant throat pain that really hurts to swallow, and she is feeling like her neck is swollen like it is her tonsils or adenoids, this started yesterday, the day before that she was intubated for surgery on her colon. She states she has chronic mandible/jaw issues that include chronic swelling and numbness. The numbness is no different, she does not feel swollen like she typically does when it is bad right now. It just really is painful to swallow. [facility], LAT[facility] Medical History Abdominal pain Anxiety Blackout Brown recluse spider bite Cardiology follow-up encounter Carotid bruit Complete edentulism, class III COPD (chronic obstructive pulmonary disease) Diabetes Diarrhea Dietary restriction Difficulty chewing Easy bruising Edema Former smoker Gastritis Hemorrhoid History of Clostridioides difficile infection History of Clostridium difficile infection History of echocardiogram History of edema History of left heart catheterization (LHC) (~03/15/04) History of renal disease History of steroid therapy History of thrush HTN (hypertension) Hyperlipemia Hypokalemia Low iron MAJOR DEPRESSION DISORDER Nerve damage Paroxysmal atrial tachycardia Stroke Takotsubo cardiomyopathy Vitamin D insufficiency Vomiting Home Medications clonidine HCl 0.1 mg tablet 0.1 mg PO QHS 08/10/21 [History Last Taken Unknown] glipizide 2.5 mg tablet, extended release 24 hr 5 mg PO 1500 08/10/21 [History Last Taken Unknown] potassium chloride 20 mEq tablet,extended release 20 meq PO DAILY 08/10/21 [History Last Taken Unknown] ondansetron 4 mg disintegrating tablet 4 mg PO PRN PRN Nausea 01/17/22 [History Last Taken Unknown] cholecalciferol (vitamin D3) 50 mcg (2,000 unit) capsule (Vitamin D3) 50,000 mcg PO QWEEK 05/31/22 [History Last Taken Unknown] hydrochlorothiazide 25 mg tablet 25 mg PO DAILY 05/31/22 [History Last Taken Unknown] sitagliptin phosphate 100 mg tablet (Januvia) 100 mg PO QHS 05/31/22 [History Last Taken Unknown] sucralfate 1 gram tablet (Carafate) 1 g PO TID #90 tabs 06/06/22 [Rx Last Taken Unknown] Diltiazem 2% / Lidocaine 5% ointment (compound) #1 ea 07/04/22 [Rx Last Taken Unknown] hydrocodone 7.5 mg-acetaminophen 325 mg tablet 1 tab PO Q8H 10/04/22 [History Last Taken Unknown] pregabalin 100 mg capsule 150 mg PO Q12H 10/04/22 [History Last Taken Unknown] oxycodone-acetaminophen 5 mg-325 mg tablet (Percocet) 1 tab PO Q4H PRN pain 5 days #30 tabs 10/12/22 [Rx Last Taken Unknown] nystatin 100,000 unit/mL oral suspension 5 ml PO 4X/DAY #473 mL 10/15/22 [Rx Last Taken Unknown] Allergy/AdvReac Type Severity Reaction Status Date / Time Iodinated Contrast Media Allergy Anaphylaxis Verified 10/15/22 00:17 [Iodinated Contrast Media - IV Dye] Family History Father CAD (coronary artery disease) Cancer Mother Arthritis Multiple sclerosis Sister Colon cancer Surgical History (Updated 10/04/22 @ 14:20 by Ambika Ahmadi) Cardiac pacemaker in situ History of appendectomy History of cholecystectomy History of hysterectomy History of mandibular surgery Hx of colonoscopy Hx of dilation and curettage Hx of oral surgery Social History Smoking Status: Former smoker quit date: 09/13/17 Tobacco: How many years used: 10 second hand exposure: No alcohol intake: never substance use type: does not use caffeine: Yes Type: tea ROS ROS ED Constitutional Constitutional ED: Denies chills or fever(s) ENT ENT ED: Reports sore throat; Denies ear pain Gastrointestinal Gastrointestinal: Reports other Details: Postoperative rectal pain, patient is sitting on a pillow Musculoskeletal Musculoskeletal: Denies back pain or neck pain Integumentary Denies abscess or rash Neurologic Neurologic: Denies headache(s), paresthesias or weakness Psychiatric Psychiatric: Reports anxiety; Denies suicidal ideation EXAM Physical Exam Const Vital Signs: 10/15/22 00:18 Temperature 98.4 F Temperature Source Oral Pulse Rate 95 Respiratory Rate 16 Blood Pressure 180/104 H Blood Pressure Mean 129 Pulse Ox 98 Positive well nourished and well developed General Appearance ED: well developed and NAD HEENT HEENT Narrative: Edentulous. Moist oral mucous membranes. Posterior oropharynx is raw appearing, there are some white patches, but only the soft palate there is noth ing on the tongue or the hard palate or anterior mucosal tissues. No trismus. No tongue elevation or swelling. Eyes PERRL and EOMs intact bilaterally Neck supple Neck Narrative: Mildly tender right submandibular if adenopathy anteriorly no posterior nodes. Chest Wall inspection of chest normal and palpation of chest normal Resp normal respiratory effort and clear to auscultation bilaterally Neuro oriented x3, CN's II-XII intact bilaterally and no sensory deficits noted Motor Exam: strength 5/5 throughout Psych Mood & Affect: anxious and tearful Skin no rashes or lesions noted MDM MDM MDM Narrative Medical decision making narrative: This has the appearance of strep pharyngitis also could be candidiasis. Treatment is opposite each other so I sent testing. Rapid strep was negative, sent KEEGAN smear/prep, but lab told us they will not run it tonight on area loss prevention manager because they do not have the proper supplies. Patient was initially concerned about her uvula. It is very short and stubby and does not appear to be the issue. She is doing better after pain medication, will give her a dose of Magic mouthwash in addition to empiric nystatin swish and swallow. Discharge Plan Triage Chief Complaint: Sore Throat ED Provider: Hola Rivers Dx/Rx/DC Orders Clinical Impression: Candidiasis of mouth Instructions: Malou Infection: Thrush Prescriptions: New nystatin 100,000 unit/mL suspension 5 ml PO 4X/DAY Qty: 473 0RF Rx Instructions: swish and swallow QID x 7-14 days No Action glipizide 2.5 mg tablet extended release 24hr 5 mg PO 1500 potassium chloride 20 mEq tablet extended release 20 meq PO DAILY clonidine HCl 0.1 mg tablet 0.1 mg PO QHS ondansetron 4 mg tablet,disintegrating 4 mg PO PRN PRN (Reason: Nausea) (DME) Diltiazem 2% / Lidocaine 5% ointment (compound) Ointment See Rx Instructions .ROUTE Qty: 1 1RF Rx Instructions: As directed hydrochlorothiazide 25 mg Tablet 25 mg PO DAILY Januvia 100 mg Tablet 100 mg PO QHS cholecalciferol (vitamin D3) [Vitamin D3] 50 mcg (2,000 unit) Capsule 50,000 mcg PO QWEEK hydrocodone-acetaminophen 7.5-325 mg tablet 1 tab PO Q8H Patient Comments: TAKE ONE TABLET BY MOUTH EVERY 8 HOURS NEEDED pregabalin 100 mg capsule 150 mg PO Q12H Patient Comments: TAKE ONE CAPSULE BY MOUTH TWICE DAILY oxycodone-acetaminophen [Percocet] 5-325 mg tablet 1 tab PO Q4H PRN (Reason: pain) 5 Days Qty: 30 0RF sucralfate [Carafate] 1 gram tablet 1 g PO TID Qty: 90 0RF Primary Care Provider: Candice Burkett Referrals: Candice Burkett, TOOL GRINDER OPERATOR SURFACE-C [Primary Care Provider] - 3-5 Days if not improving Disposition Disposition: Home, Self Care
[2022-10-15] MEDS: BMX LIQUID 180 ML PO (03:36)
[2022-10-15 03:42] VITALS: BP 145/87; PULSE 78; RESP 5; O2SAT 95
== END 2022-10-15 03:44 | disposition home or self-care (01) ==
PROVIDERS: Emergency Provider Emergency Medicine; PCP Nurse Practitioner Family; Visit Provider Emergency Medicine
DX: B37.0 Candidal stomatitis (principal); E11.9 Type 2 diabetes mellitus without complications; Z79.84 Long term (current) use of oral hypoglycemic drugs; Z87.891 Personal history of nicotine dependence
CPT/HCPCS: 87210; 87880; 96372; 99283

== ENCOUNTER 2023-05-17 06:36 | Day surgery (SDC) | payer MEDICARE, MEDICAID, SELFPAY ==
[2023-05-17 06:57] VITALS: BP 149/86; PULSE 66; RESP 16; TEMP 36.4; O2SAT 100; BMI 25.4
[2023-05-17] MEDS: Lactated Ringers 1,000 ML 15 ML IV (07:05)
[2023-05-17 07:25] LABS: Bedside Glucose 86 mg/dL (74-106)
--- NOTE | 2023-05-17 07:41 | PCM.HP.BLA ---
History and Physical Date of Admission: 05/17/23 RAUL ARZOLA, is a 58 F who presents to the office today for PMH anxiety/depression; DMII; COPD; HTN; HLD; takotsubo cardiomyopathy; stroke; hypokalemia; restless leg? PSH hemorrhoidectomy; cardiac pacemaker; appendectomy; cholecystectomy; hysterectomy *BGI established 03.31.22 with recurrent C.Difficile; history of long-term ATB use for dental/jaw infection. Last vancomycin dose 2 weeks prior. Current symptoms include loose bloody stool with foul odor. ? EGD and colonoscopy 06.06.22 EGD LA Grade A esophagitis; gastritis; duodenitis. Start sucralfate. ? Colonoscopy anal fissure. Random biopsy path WNL. OV 06.22.22 refer to general surgery to address anal fissure. WSA OV 5 start diltiazem cream. OV 8 with continued painless rectal bleeding despite diltiazem cream. ? Hemorrhoidectomy and fissurectomy 10.12.22 hemorrhoids with recent bleeding. [facility] ED 9 with significant throat pain; treated with nystatin and later Diflucan. OV 11.09.22 she has difficulty with Carafate as it causes constipation; reports ongoing postprandial nausea which she feels is related to her surgery with Dr. Bedolla; Zofran is effective. Start dicyclomine, PPI and scopolamine OV 3 continues to have regurgitation with increased abdominal pressure and indigestion. Scopolamine and bentyl continue. ROS Const Constitutional: Positive for fatigue and weight change ENT ENT: Positive for difficulty swallowing Cardio Cardiology: Positive for leg pain with exertion Gastro GI: Positive for abdominal pain, bloating, constipation, diarrhea, heartburn, difficulty swallowing, Blood in stool, nausea/dyspepsia and vomiting; No belching, change in bowel habits, change in stool character, coffee ground emesis, cramping, feeling full early, excessive flatus, incontinent of stools, Vomiting blood/hematemesis, loose stools, Black,tarry stools, pain with swallowing or other Musc Musculoskeletal: Positive for abnormal gait, sciatica, leg pain at night and leg pain with exertion; No joint pain Skin Skin: No yellowing of the eye or itchy eyes Neuro Neurology: Positive for abnormal gait Psych Psychiatric: No anxiety and Positive for depression Endo Endocrine: Positive for fatigue and weight change Aller/Imm Allergy/Immunologic: No itchy eyes Yusef/Lymp Hematologic/Lymphatic: No easy bleeding or easy bruising Exam Const General: anxious Orientation: alert, awake and oriented x3 Eyes Conjunctivae: conjunctivae normal Sclera: sclerae normal Resp Effort & Inspection: normal respiratory effort Quality Reporting Tobacco Screening ([facility] 138) Smoking Status: Former smoker Assessment and Plan Assessment and Plan (1) C. difficile colitis: Status: Chronic Plan: Patient is status post treatment with vancomycin for 7 months prolonged taper (2) IBS (irritable bowel syndrome): Status: Chronic (3) Nausea: Status: Chronic Plan: I think her nausea is multifactorial. I think part of anxiety and some mild gastritis that was seen on upper endoscopy. She is not on PPI therapy. I will put her on PPI therapy with the caveat that if she gets any diarrhea she is to let us know because there can be association of PPIs with C. difficile colitis. She did try Zantac and Carafate without any success and also she developed constipation. She will likely need a gastric emptying study to evaluate upper GI tract for delayed gastric emptying in the future (4) Abdominal pain: Status: Acute Qualifiers: Abdominal location: generalized Qualified Code(s): R10.84 - Generalized abdominal pain Plan: Will perform an upper endoscopy to evaluate upper GI tract. I suspect she may have some element of motility dysfunction and combined with anxiety from frequent C. difficile infections leading to abdominal pain. Orders: Orders EGD 05/17/23 K58.9 - Irritable bowel syndrome without diarrhea I have examined the patient and the H&P has been reviewed. There are no clinical changes since date of exam.
--- NOTE | 2023-05-17 07:45 | IMM_PTH ---
PATIENT: RAUL ARZOLA LOC: EN U#:[id number] AGE/SX: 58/F ROOM: RE05/17/[address]: Dr. Gerardo Cook DO : 1965 BED: DIS: 05/17/2023 SPEC #: [id number] RECD: 05/17/23 13:53 STATUS: NETTIE RECharles #: [id number] JAJA: 05/17/23 07:[address]: Gerardo Cook DEPT: IMMUNOHISTOCHEMISTRY RECD BY: Julito Koroma ENTERED: 05/17/23 13:54 SP TYPE: IMMUNO OTHR DR: Candice Burkett, REHAB TECHNICIAN-C Tissues: B - Stomach, NOS Procedures: H Pylori (initial) PHYSICIAN & INSTITUTION [place] [id number] SPECIMEN INFORMATION: Tissue Source: B. Gastric ulcer biopsy Clinical Info: Irritable bowel syndrome, Nausea Specimen Number: [id number] CPT code: 52992 METHODOLOGY: Deparaffinized sections of prefer/formalin-fixed tissue or PAP/DQ stained slides are incubated with monoclonal/polyclonal antibodies/oligonucleotide probes. Localization is made via biotin free immunoperoxidase method. Appropriate controls are performed and reacted as expected. Results on target cell population are indicated in the following table: RESULTS: ANTIBODY / CLONE RESULT Block B H Pylori (polyclonal) negative These tests were developed and their performance characteristics determined by [facility]. They may not have been cleared or approved by the U.S. Food and Drug Administration. The FDA has determined that such clearance or approval is not necessary. The above immunohistochemical/dualISH markers are ordered and reviewed by the Pathologist. INTERPRETATION: B. Gastric ulcer, biopsy: Negative for Helicobacter pylori organisms. LIU/ 05/18/23
--- NOTE | 2023-05-17 07:45 | EGD_PTH ---
PATIENT: RAUL ARZOLA LOC: EN U#:[id number] AGE/SX: 58/F ROOM: RE05/17/[address]: Dr. Gerardo Cook DO : 1965 BED: DIS: 05/17/2023 SPEC #: [id number] RECD: 05/17/23 10:17 STATUS: NETTIE EDUAR #: [id number] JAJA: 05/17/23 07:[address]: Gerardo Cook DEPT: SURGICAL PATHOLOGY RECD BY: Jennifer Landaverde ENTERED: 05/17/23 11:22 SP TYPE: EGD BIOPSY ÁNGEL DR: Candice Burkett, PLATE SHOP HELPER-C Tissues: A - Duodenum, NOS B - Gastric mucous membrane Procedures: Surgery Specimen Level IV HEADER OPERATION: EGD and biopsy PRE-OP DIAGNOSIS: Irritable bowel syndrome, CDIFF, Nausea TISSUE SUBMITTED: A- Duodenum, B- Gastric ulcer MICROSCOPIC DIAGNOSIS A. Duodenum, biopsy: Minimal non-specific chronic inflammation. B. Gastric ulcer, biopsy: Mild chronic gastritis. Focal acute gastritis. Focal denudation of mucosa. See comment. / 05/18/23 COMMENT B. The results of immunohistochemistry for Helicobacter pylori will be reported separately ([id number]). MICROSCOPIC DESCRIPTION Slides are reviewed. GROSS DESCRIPTION A. Received in fixative is one container labeled with the patient's name and designated Duodenum. The specimen consists of multiple irregular fragments of light ball soft tissue that in aggregate measure 1.0 x 0.3 x 0.1 cm. The specimen is totally submitted in one cassette. B. Received in fixative is one container labeled with the patient's name and designated Gastric ulcer. The specimen consists of two irregular fragments of light ball soft tissue that in aggregate measure 0.8 x 0.4 x 0.1 cm. The specimen is totally submitted in one cassette. / 05/17/23 TC:2 CPT: 87877e4
[2023-05-17 07:56] VITALS: BP 102/60; BP 149/86; PULSE 61; RESP 16; TEMP 36.2; O2SAT 98
--- NOTE | 2023-05-17 07:59 | OP.CCLET_ITS ---
05/17/2023 Aimee Islas Re : Upper GI endoscopy procedure for Katina Hatch Dear Np. Burkett This procedure was performed on Wednesday, May 17, 2023. My impressions and recommendations are as follows: Impressions : - Normal esophagus. - Non-bleeding gastric ulcers with no stigmata of bleeding. Biopsied. - Chronic duodenitis. Biopsied. Recommendations : - Discharge patient to home. - Resume previous diet. - Continue present medications. - Await pathology results. - Repeat upper endoscopy. - Use Protonix (pantoprazole) 40 mg PO BID for 12 weeks. - Use sucralfate tablets 1 gram PO QID for 4 weeks. My findings are described in the full procedure note, which is enclosed. If I can be of further assistance, please feel free to contact me at . Sincerely, Gerardo Cook, 05/17/2023 7:59:32 AM This report has been signed electronically.
--- NOTE | 2023-05-17 07:59 | OP.EGD_ITS ---
Patient Name: Katina Hatch Procedure Date: 05/17/2023 7:36 AM Date of : 1965 Age: 58 Procedure: Upper GI endoscopy Indications: Epigastric abdominal pain Providers: Gerardo Cook DO Referring MD: Aimee Islas Medicines: Monitored Anesthesia Care Patient Profile: This is a 58 year old female. Refer to note in patient chart for documentation of history and physical. Patient has symptoms of acute abdominal cramping, acute epigastric abdominal pain and chronic nausea. Complications: No immediate complications. Procedure: Pre-Anesthesia Assessment: - Prior to the procedure, a History and Physical was performed, and patient medications and allergies were reviewed. The risks and benefits of the procedure and the sedation options and risks were discussed with the patient. All questions were answered and informed consent was obtained. Patient identification and proposed procedure were verified by the physician. Mental Status Examination: normal. Airway Examination: normal oropharyngeal airway and neck mobility. Prophylactic Antibiotics: The patient does not require prophylactic antibiotics. Prior Anticoagulants: The patient has taken no anticoagulant or antiplatelet agents. After reviewing the risks and benefits, the patient was deemed in satisfactory condition to undergo the procedure. The anesthesia plan was to use monitored anesthesia care (MAC). Immediately prior to administration of medications, the patient was re-assessed for adequacy to receive sedatives. The heart rate, respiratory rate, oxygen saturations, blood pressure, adequacy of pulmonary ventilation, and response to care were monitored throughout the procedure. The physical status of the patient was re-assessed after the procedure. After obtaining informed consent, the endoscope was passed under direct vision. Throughout the procedure, the patient's blood pressure, pulse, and oxygen saturations were monitored continuously. The Endoscope was introduced through the mouth, and advanced to the second part of duodenum. The upper GI endoscopy was accomplished without difficulty. The patient tolerated the procedure well. Scope In: 7:47:39 AM Scope Out: 7:51:56 AM Total Procedure Duration Time 0 hours 4 minutes 17 seconds Findings: The examined esophagus was normal. Many non-bleeding linear gastric ulcers with no stigmata of bleeding were found in the gastric body and in the gastric antrum. The largest lesion was 5 mm in largest dimension. Biopsies were taken with a cold forceps for histology. Verification of patient identification for the specimen was done. Biopsies were taken with a cold forceps for Helicobacter pylori testing. Verification of patient identification for the specimen was done. Patchy mild inflammation characterized by friability, granularity and nodularity was found in the duodenal bulb and in the first portion of the duodenum. Biopsies were taken with a cold forceps for histology. Verification of patient identification for the specimen was done. Estimated blood loss was minimal. Impression: - Normal esophagus. - Non-bleeding gastric ulcers with no stigmata of bleeding. Biopsied. - Chronic duodenitis. Biopsied. Recommendation: - Discharge patient to home. - Resume previous diet. - Continue present medications. - Await pathology results. - Repeat upper endoscopy. - Use Protonix (pantoprazole) 40 mg PO BID for 12 weeks. - Use sucralfate tablets 1 gram PO QID for 4 weeks. Procedure Code(s): --- Professional --- 02493, Esophagogastroduodenoscopy, flexible, transoral; with biopsy, single or multiple CPT copyright 2021 [employer]. All rights reserved. The codes documented in this report are preliminary and upon safe technician review may be revised to meet current compliance requirements. Gerardo Cook DO 05/17/2023 7:59:32 AM This report has been signed electronically. Number of Addenda: 0 Note Initiated On: 05/17/2023 7:36 AM
[2023-05-17 08:00] VITALS: BP 103/62; BP 149/86; PULSE 58; RESP 16; O2SAT 98
[2023-05-17 08:05] VITALS: BP 149/86; BP 98/62; PULSE 58; RESP 16; O2SAT 95
[2023-05-17 08:12] VITALS: BP 149/86; BP 97/61; PULSE 59; RESP 16; TEMP 36.3; O2SAT 95
[2023-05-17 08:28] VITALS: BP 149/86
== END 2023-05-17 08:31 | disposition home or self-care (01) ==
LOC: EN 06:37 → AC 06:39
PROVIDERS: PCP Nurse Practitioner Family; Referring Provider Nurse Practitioner Family; Visit Provider Internal Medicine Gastroenterology
PROC: 0DJ08ZZ Inspection of Upper Intestinal Tract, Via Natural or Artificial Opening Endoscopic (ICD-10-PCS; CPT 43235; principal; 2023-05-17 07:40)
DX: K29.50 Unspecified chronic gastritis without bleeding (principal); J44.9 Chronic obstructive pulmonary disease, unspecified; E11.9 Type 2 diabetes mellitus without complications; A04.72 Enterocolitis due to Clostridium difficile, not specified as recurrent; K29.80 Duodenitis without bleeding; K25.9 Gastric ulcer, unspecified as acute or chronic, without hemorrhage or perforation; I10 Essential (primary) hypertension; E78.5 Hyperlipidemia, unspecified; Z79.84 Long term (current) use of oral hypoglycemic drugs; Z79.899 Other long term (current) drug therapy; Z86.73 Personal history of transient ischemic attack (TIA), and cerebral infarction without residual deficits; Z95.0 Presence of cardiac pacemaker; Z87.891 Personal history of nicotine dependence
CPT/HCPCS: 43239; 82962; 88305; 88342; J2405

== ENCOUNTER → 2023-06-14 | Outpatient (CLI) | payer MEDICARE, MEDICAID, SELFPAY ==
--- NOTE | 2023-06-14 09:55 | NM_ITS ---
CLINICAL: 78-year-old female with history of abdominal pain. SEMI-SOLID PHASE 99m Tc SULFUR COLLOID GASTRIC EMPTYING STUDY COMPARISON: None available FINDINGS: The patient was administered 1.2 mCi of 99m Tc sulfur colloid mixed with oatmeal and consumed per os. Image acquisitions in the anterior-posterior projections were obtained for 60 minutes. There is prompt visualization of the stomach. There is no gastroesophageal reflux identified. Zero order kinetics are demonstrated throughout the duration of the acquisitions. The T ? raw data emptying was calculated to be 8.74 minutes, (Normal: 12-56 minutes). NM/Gastric Emptying Study IMPRESSION: 1. ABNORMAL 99m Tc sulfur colloid semi-solid phase (oatmeal) gastric emptying imaging examination. A. There is accelerated semi-solid phase gastric emptying compared to normal controls with visualized zero order kinetics demonstrated throughout all phases of the examination. (Nolvia et al, J Nucl Med Tech 38: 186, 2010).
== END | disposition home or self-care (01) ==
PROVIDERS: PCP Nurse Practitioner Family; Referring Provider Internal Medicine Gastroenterology; Visit Provider Internal Medicine Gastroenterology
DX: R10.9 Unspecified abdominal pain (principal)
CPT/HCPCS: 78264; A9541

== ENCOUNTER → 2023-11-28 | Outpatient (CLI) | payer MEDICARE, MEDICAID, SELFPAY ==
--- NOTE | 2023-11-28 17:10 | CT_ITS ---
INDICATION: abd pain and hiatal hernia -- oral contrast EXAMINATION: CT ABDOMEN AND PELVIS WITHOUT CONTRAST - CT Abdomen And Pelvis W/O Contrast Injection TECHNIQUE: Helically acquired images were obtained of the abdomen and pelvis without oral or IV contrast. A radiation dose optimization technique was used for this scan. IV Contrast dosage and agent: None. Oral contrast: None. RADIATION DOSAGE (If Supplied By Facility): CTDIvol = ( 14.49 ) mGy, DLP = ( 699.48 ) mGycm COMPARISON: 10/05/2016 FINDINGS: LOWER CHEST: 1. Lung bases are clear. 2. No cardiomegaly or pericardial effusion. Transvenous pacer leads are present. 3. No significant coronary vascular calcifications. LIVER: The liver has normal configuration and density given the limitation of noncontrast exam.. No focal mass. Diffuse fatty infiltration liver. GALLBLADDER AND BILIARY TREE: Not visualized and surgically absent. No ductal dilatation. PANCREAS: No focal cystic or solid mass. SPLEEN: Normal size without focal cystic or solid mass. ADRENAL GLANDS: No nodules. KIDNEYS AND URETERS: Normal renal size and position. No hydronephrosis. PERITONEUM: No ascites or free air. No other fluid collection. BOWEL: The appendix is not visualized. No evidence of masses or bowel obstruction. No significant hiatal hernia identified. No distention the stomach. No bowel inflammatory changes. LYMPH NODES: No enlarged mesenteric or retroperitoneal lymph nodes. VESSELS: Aorta is non-dilated. Scattered aortic calcifications. No aneurysmal dilatation. URINARY BLADDER: Unremarkable. REPRODUCTIVE ORGANS: [Postoperative changes of prior hysterectomy. No pelvic masses or abnormal fluid collections. ABDOMINAL WALL: No discrete abdominal or pelvic wall hernia. BONES: No lytic or blastic abnormality. There is a small sclerotic lesion RIGHT iliac crest of, likely representing a bone island, no other focal bony lesions. CT/Abdomen/Pelvis without Cont IMPRESSION: 1. No masses bowel obstruction abscess free fluid or free air. 2. No hiatal hernia identified. 3. Status post cholecystectomy. No ductal dilatation. 4. Diffuse hepatic steatosis. 5. Status post hysterectomy. 6. The appendix is not visualized. 7. No renal calcification or obstructive uropathy. 8. Stable sclerotic lesion in the RIGHT iliac crest. Electronically Signed: Prince Santana MD at 18:18 EDT ,
== END | disposition home or self-care (01) ==
LOC: CT 17:08
PROVIDERS: PCP Nurse Practitioner Family; Referring Provider Internal Medicine Gastroenterology; Visit Provider Internal Medicine Gastroenterology
DX: R10.84 Generalized abdominal pain (principal); K44.9 Diaphragmatic hernia without obstruction or gangrene
CPT/HCPCS: 74176

== ENCOUNTER 2023-11-30 09:14 | Day surgery (SDC) | payer MEDICARE, MEDICAID, SELFPAY ==
[2023-11-30] VITALS (9 sets, daily range): BP systolic 93–118; BP diastolic 62–82; PULSE 62–78; RESP 16; TEMP 36.1–36.6; O2SAT 94–97; BMI 28.7
--- NOTE | 2023-11-30 | IMM_PTH ---
PATIENT: RAUL ARZOLA LOC: EN U#:[id number] AGE/SX: 58/F ROOM: RE11/30/[address]: Dr. Gerardo Cook DO : 1965 BED: DIS: 11/30/2023 SPEC #: [id number] RECD: 12/04/23 15:57 STATUS: NETTIE RECharles #: [id number] JAJA: 11/30/23 00:[address]: Gerardo Cook DEPT: IMMUNOHISTOCHEMISTRY RECD BY: Julito Koroma ENTERED: 12/04/23 15:57 SP TYPE: IMMUNO OTHR DR: Candice Burkett, SIGNALS ANALYST-C Tissues: B - Esophagus, NOS Procedures: P53 (initial) KI-67 (add) PHYSICIAN & INSTITUTION [place] [id number] SPECIMEN INFORMATION: Tissue Source: B- Distal esophagus biopsy Clinical Info: C.diff colitis, irritable bowel syndrome, nausea, abdominal pain Specimen Number: [id number] CPT code: 21489,00546 METHODOLOGY: Deparaffinized sections of prefer/formalin-fixed tissue or PAP/DQ stained slides are incubated with monoclonal/polyclonal antibodies/oligonucleotide probes. Localization is made via biotin free immunoperoxidase method. Appropriate controls are performed and reacted as expected. Results on target cell population are indicated in the following table: RESULTS: ANTIBODY / CLONE RESULT Block B P53 (DO-7) positive, wild to indeterminate type Ki-67 (30-9) positive, mild to moderate These tests were developed and their performance characteristics determined by [facility]. They may not have been cleared or approved by the U.S. Food and Drug Administration. The FDA has determined that such clearance or approval is not necessary. The above immunohistochemical/dualISH markers are ordered and reviewed by the Pathologist. INTERPRETATION: B. Distal esophagus, biopsy: No definitive evidence of dysplasia. AM/ 12/05/2023
--- NOTE | 2023-11-30 09:47 | HP.PCM_ITS ---
History and Physical Date of Admission: 11/30/23 [facility] [address] [place] [address] OFFICE VISIT Date of Service: 11/07/23 MR#: [id number] Acct: [id number] Name: RAUL ARZOLA Rep #: [id number] : 1965 Provider: Gerardo Cook DO Age/Sex: 58/F [place] [facility] Status: Signed Intake Vital Signs 05/16/2405:57 Height 5 ft 1 in Intake Visit Reasons: Abdominal pain and vomiting Allergies Iodinated Contrast Media (Iodinated Contrast Media - IV Dye) Allergy (Verified 05/17/23 06:54) Anaphylaxis Medications ?Medication ?Instructions ?Recorded ?Confirmed ?Type glipizide 2.5 mg tablet, extended 5 mg PO 1500 08/10/21 11/07/23 History release 24 hr potassium chloride 20 mEq 20 meq PO DAILY 08/10/21 11/07/23 History tablet,extended release hydrochlorothiazide 25 mg tablet 25 mg PO DAILY 05/31/22 11/07/23 History sitagliptin phosphate 100 mg 100 mg PO QHS 05/31/22 11/07/23 History tablet (Januvia) Diltiazem 2% / Lidocaine 5% #1 ea 07/04/22 11/07/23 Rx ointment (compound) clonidine HCl 0.2 mg tablet 0.2 mg PO BID 05/15/23 11/07/23 History ergocalciferol (vitamin D2) 1,250 1,250 mcg PO TU 05/15/23 11/07/23 History mcg (50,000 unit) capsule (Vitamin D2) pregabalin 150 mg capsule 150 mg PO BID 05/15/23 11/07/23 History pantoprazole 40 mg tablet,delayed 40 mg PO Q12H 3 months #180 tabs 05/17/23 11/07/23 Rx release sucralfate 1 gram tablet (Carafate) 1 g PO Q6H 4 weeks #112 tabs 05/17/23 11/07/23 Rx dicyclomine 10 mg capsule 10 mg PO TID #90 caps 07/17/23 11/07/23 Rx scopolamine base 1 mg over 3 days 1 patch transdermal Q72H 30 days 07/18/23 11/07/23 Rx transdermal patch #10 ea ondansetron 4 mg disintegrating 4 mg PO Q8H PRN PRN for 07/26/23 11/07/23 Rx tablet nausea/vomiting #36 ea rifaximin 550 mg tablet (Xifaxan) 550 mg PO TID 14 days #42 tabs 09/12/23 11/07/23 Rx fentanyl 25 mcg/hr transdermal 1 patch transdermal Q72H 11/07/23 11/07/23 History patch PFSH Medical History (Updated 05/15/23 @ 12:32 by Alexandria Guy) History of pacemaker History of rectal fissure Complete edentulism, class III Anxiety Low iron History of renal disease Easy bruising Brown recluse spider bite Blackout Dietary restriction History of thrush Former smoker History of echocardiogram Cardiology follow-up encounter History of Clostridium difficile infection Nerve damage History of edema Diabetes Vitamin D insufficiency Hypokalemia HTN (hypertension) Gastritis Hemorrhoid Abdominal pain Vomiting Diarrhea Edema History of left heart catheterization (LHC) (~03/15/04) COPD (chronic obstructive pulmonary disease) Stroke Carotid bruit Hyperlipemia Paroxysmal atrial tachycardia Takotsubo cardiomyopathy MAJOR DEPRESSION DISORDER Surgical History (Updated 10/26/22 @ 13:34 by Patience Arguello) S/P anal fissurectomy Hx of dilation and curettage Hx of colonoscopy History of mandibular surgery Hx of oral surgery History of cholecystectomy History of hysterectomy History of appendectomy Cardiac pacemaker in situ Family History Father CAD (coronary artery disease) CancerMother Arthritis Multiple sclerosisSister Colon cancer Social History Smoking Status: Former smoker quit date: 09/13/17 Tobacco: How many years used: 10 second hand exposure: No alcohol intake: never substance use type: does not use caffeine: Yes Type: tea HPI HPI Details: RAUL ARZOLA, is a 58 F who presents to the office today for follow up. PMH anxiety/depression; DMII; COPD; HTN; HLD; takotsubo cardiomyopathy; stroke; hypokalemia; restless leg? PSH hemorrhoidectomy; cardiac pacemaker; appendectomy; cholecystectomy; hysterectomy *BGI established 03.31.22 with recurrent C.Difficile; history of long-term ATB use for dental/jaw infection. Last vancomycin dose 2 weeks prior. Current symptoms include loose bloody stool with foul odor. ? EGD and colonoscopy 06.06.22 EGD LA Grade A esophagitis; gastritis; duodenitis. Start sucralfate. ? Colonoscopy anal fissure. Random biopsy path WNL. OV 06.22.22 refer to general surgery to address anal fissure. WSA OV 07.04.22 start diltiazem cream. OV 09.23.22 with continued painless rectal bleeding despite diltiazem cream. ? Hemorrhoidectomy and fissurectomy 10.12.22 hemorrhoids with recent bleeding. [facility] ED 10.15.22 with significant throat pain; treated with nystatin and later Diflucan. OV 11.09.22 she has difficulty with Carafate as it causes constipation; reports ongoing postprandial nausea which she feels is related to her surgery with Dr. Bedolla; Zofran is effective. Start dicyclomine, PPI and scopolamine OV 05.03.23 continues to have regurgitation with increased abdominal pressure and indigestion. Scopolamine and bentyl continue. EGD 05.17.23 Normal esophagus. Non-bleeding gastric ulcers with no stigmata of bleeding. Biopsied. Chronic duodenitis. Biopsied. GET .04.08 abnormal 8.74 minutes OV 11.07.23 pt reports continued symptoms from previous visit, N/V, alternating BMs, abd pain, HB. Pt reports that she looks and can't bend over without throwing up if she's recently eaten. ROS Const Constitutional: Positive for fatigue and weight change (weight gain); No fever(s) ENT ENT: No difficulty swallowing Gastro GI: Positive for abdominal pain, constipation, diarrhea, heartburn, Blood in stool, nausea/dyspepsia and vomiting; No belching, bloating, change in bowel habits, change in stool character, coffee ground emesis, cramping, difficulty swallowing, feeling full early, excessive flatus, incontinent of stools, Vomiting blood/hematemesis, loose stools, Black,tarry stools, pain with swallowing or other Musc Musculoskeletal: Positive for joint pain, back pain, Arthritis and sciatica Skin Skin: No yellowing of the eye or itchy eyes Psych Psychiatric: Positive for anxiety and Positive for depression Endo Endocrine: Positive for fatigue and weight change (weight gain) Aller/Imm Allergy/Immunologic: No itchy eyes Yusef/Lymp Hematologic/Lymphatic: Positive for easy bruising; No easy bleeding Exam Const General: anxious Orientation: alert, awake and oriented x3 Eyes Conjunctivae: conjunctivae normal Sclera: sclerae normal Resp Effort & Inspection: normal respiratory effort Assessment and Plan Assessment and Plan (1) C. difficile colitis: Status: Chronic Plan: Patient is status post treatment with vancomycin for 7 months prolonged taper (2) IBS (irritable bowel syndrome): Status: Chronic (3) Nausea: Status: Chronic Plan: I think her nausea is multifactorial. I think part of anxiety and some mild gastritis that was seen on upper endoscopy. She is not on PPI therapy. I will put her on PPI therapy with the caveat that if she gets any diarrhea she is to let us know because there can be association of PPIs with C. difficile colitis. She did try Zantac and Carafate without any success and also she developed constipation. She will likely need a gastric emptying study to evaluate upper GI tract for delayed gastric emptying in the future (4) Abdominal pain: Status: Acute Qualifiers: Abdominal location: generalized Qualified Code(s): R10.84 - Generalized abdominal pain Plan: Will perform an upper endoscopy and colonoscopy to evaluate upper GI tract and the lower GI tract. I suspect she may have some element of motility dysfunction and combined with anxiety from frequent C. difficile infections leading to abdominal pain. He also has been having ongoing GI bleeding and has a family history of colon cancer in her sister. Therefore we will need to evaluate her lower GI tract. Orders: Orders Abdomen/Pelvis WITH Contrast Today K44.9 - Diaphragmatic hernia without obstruction or gangrene, R10.84 - Generalized abdominal pain I have examined the patient and the H&P has been reviewed. There are no clinical changes since date of exam.
--- NOTE | 2023-11-30 10:27 | PRE.ANES_ITS ---
ASA Classification* ASA Classification ASA Classification: 3 Assessment & Plan Anesthesia* Anesthesia Assessment Anesthesia Assessment: Discussed sedation and/or anesthesia options, risks, benefits, and alternatives with patient/parents/legal guardian/POA. Questions invited. The patient/parents/legal guardian/POA seems to understand and agrees to proceed with anesthesia plan. Reviewed the physical assessment, medical history, allergy history and patient home medications list prior to surgery/procedure/anesthetic and documented any changes. Performed airway and anesthesia risk assessments. Anesthesia Type Anesthesia Type: MAC (see written pre anesthesia record for full assessment) Anesthesia Focused Assessment* Temperature: 97.4 F Pulse Rate: 78 Blood Pressure: 118/82 Respiratory Rate: 16 Pulse Ox: 97 Airway Assessment Mouth opens: >3 cm Mallampati Score: II Focused Labs Anesthesia Preop lab: CBC WBC 5.3 K/mm3 (4.4-11.0) 06/18/18 12:30 RBC 4.07 M/mm3 (4.2-5.4) L 06/18/18 12:30 Hgb 12.2 g/dl (12.0-15.0) 06/18/18 12:30 Hct 37.4 % (37-47) 06/18/18 12:30 Plt Count 276 K/mm3 (150-450) 06/18/18 12:30 CHEMISTRY Potassium 4.0 mmol/L (3.5-5.1) 06/18/18 12:30 Sodium 141 mmol/L (136-145) 06/18/18 12:30 BUN 13 mg/dL (7-18) 06/18/18 12:30 Creatinine 0.78 mg/dL (0.55-1.02) 06/18/18 12:30 Glucose 84 mg/dL (74-106) 06/18/18 12:30 POC Glucose 86 mg/dL (74-106) 05/17/23 07:01 TSH 0.47 uIU/mL (0.358-3.74) 12/07/17 10:57 COAG PT 13.5 SECONDS (11.7-14.9) 06/18/18 12:30 Pre-Assessment Diagnosis/Proposed Procedure Planned Operative Procedure(s): COLONOSCOPY/EGD Anesthesia History 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 When Was Last Pacemaker Check 09/2806/18/18 11:57 QUESTION #4 FULL TEXT: You/Your Family Experience fever (hyperthermia) with Anesthesia Last Oral Intake Last Oral intake: Last Oral Intake NPO since 06:00 11/30/23 09:57 Meds taken in AM with sips of Yes 11/30/23 09:57 water? 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 Female Yes 11/28/23 10:53 HX of Motion Sickness No 11/28/23 10:53 HX of N/V After Surgery No 11/28/23 10:53 Non-Smoker Yes 11/28/23 10:53 Duration of Surgery greater No 11/28/23 10:53 than 60 minutes Number of Risk Factors 2 11/28/23 10:53 PONV Score Moderate Risk 11/28/23 10:53 Height & Weight Height & Weight: Anesthesia: Height & Weight Height 5 ft 1 in 11/30/23 09:57 Weight: 69 kg 11/30/23 09:57 Body Mass Index (BMI) 28.7 11/30/23 09:57 Respiratory Assessment Respiratory Assessment - analytical chemistry teacher: Respiratory Tract Infection Hx - analytical chemistry teacher Hx Respiratory Tract Infection No 11/28/23 10:53 STOP Sleep Apnea STOP Sleep Apnea - analytical chemistry teacher: STOP Sleep Apnea - analytical chemistry teacher Hx Hypertension Yes: CONTROLLED WITH MED 11/28/23 10:53 Hx Sleep Apnea No 11/28/23 10:53 CPAP No 11/28/23 10:53 BIPAP No 11/28/23 10:53 Do you snore loudly (louder No 11/28/23 10:53 than talking or can be heard Do you often feel tired/ No 11/28/23 10:53 fatigued/ sleepy during daytime? Has anyone observed you stop No 11/28/23 10:53 breathing during sleep? STOP Results Negative 11/28/23 10:53 QUESTION #5 FULL TEXT : Do you snore loudly (louder than talking or can be heard through closed doors)? 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 Specify any problems Hx of Preganancy in last 3 No 11/28/23 10:53 Months Nurse Filling Out Transfusion VCHRISTIN 11/28/23 10:53 & Questions: Date: 11/28/23 11/28/23 10:53 Time: 10:54 11/28/23 10:53 Patient unable to answer at this time (ie. 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: /Reproductive Hx- analytical chemistry teacher Hx Now Gestational Age (in weeks): EDC: Hx Hx Para Hx Section SAB No 11/28/23 10:53 PFSH Medical History History of pacemaker History of rectal fissure Complete edentulism, class III Anxiety Low iron History of renal disease Easy bruising Brown recluse spider bite Blackout Dietary restriction History of thrush Former smoker History of echocardiogram Cardiology follow-up encounter History of Clostridium difficile infection Nerve damage History of edema Diabetes Vitamin D insufficiency Hypokalemia HTN (hypertension) Gastritis Hemorrhoid Abdominal pain Vomiting Diarrhea Edema History of left heart catheterization (LHC) (~03/15/04) COPD (chronic obstructive pulmonary disease) Stroke Carotid bruit Hyperlipemia Paroxysmal atrial tachycardia Takotsubo cardiomyopathy MAJOR DEPRESSION DISORDER Home Medications ?Medication ?Instructions ?Recorded ?Last Taken ?Type glipizide 2.5 mg tablet, extended 5 mg PO 1500 08/10/21 Unknown History release 24 hr potassium chloride 20 mEq 20 meq PO DAILY 08/10/21 Unknown History tablet,extended release hydrochlorothiazide 25 mg tablet 25 mg PO DAILY PRN WATER PILL 05/31/22 Unknown History sitagliptin phosphate 100 mg 100 mg PO QHS 05/31/22 Unknown History tablet (Januvia) Diltiazem 2% / Lidocaine 5% #1 ea 07/04/22 Unknown Rx ointment (compound) clonidine HCl 0.2 mg tablet 0.2 mg PO BID 05/15/23 Unknown History ergocalciferol (vitamin D2) 1,250 1,250 mcg PO TU 05/15/23 Unknown History mcg (50,000 unit) capsule (Vitamin D2) pregabalin 150 mg capsule 150 mg PO TID 05/15/23 Unknown History sucralfate 1 gram tablet (Carafate) 1 g PO Q6H 4 weeks #112 tabs 05/17/23 U nknown Rx ondansetron 4 mg disintegrating 4 mg PO Q8H PRN PRN for 07/26/23 Unknown Rx tablet nausea/vomiting #36 ea fentanyl 25 mcg/hr transdermal 1 patch transdermal Q72H 11/07/23 Unknown History patch dicyclomine 10 mg capsule 10 mg PO TID #90 caps 11/14/23 Unknown Rx albuterol sulfate 90 mcg/actuation 2 puff inhalation 4X/DAY PRN PRN 11/28/23 Unknown History aerosol inhaler wheezing glipizide 5 mg tablet 2.5 mg PO DAILY PRN HIGH GLUCOSE 11/28/23 Unknown History LEVEL nystatin 100,000 unit/mL oral 5 ml PO DAILY PRN THRUSH 11/28/23 Unknown History suspension pantoprazole 40 mg tablet,delayed 40 mg PO Q12H PRN GERD 11/28/23 Unknown History release simvastatin 20 mg tablet 20 mg PO QPM 11/28/23 Unknown History Allergy/AdvReac Type Severity Reaction Status Date / Time Iodinated Contrast Media Allergy Anaphylaxis Verified 11/28/23 10:29 (Iodinated Contrast Media - IV Dye) Family History Father CAD (coronary artery disease) Cancer Mother Arthritis Multiple sclerosis Sister Colon cancer Surgical History History of esophagogastroduodenoscopy (EGD) S/P anal fissurectomy Hx of dilation and curettage Hx of colonoscopy History of mandibular surgery Hx of oral surgery History of cholecystectomy History of hysterectomy History of appendectomy Cardiac pacemaker in situ Social History Smoking Status: Former smoker quit date: 09/13/17 Tobacco: How many years used: 10 second hand exposure: No alcohol intake: never substance use type: does not use caffeine: Yes Type: tea Review of Systems (Anesthesia) ROS Narrative System reviewed and no additional complaints, except as documented.
--- NOTE | 2023-11-30 10:30 | EGD_PTH ---
PATIENT: RAUL ARZOLA LOC: EN U#:[id number] AGE/SX: 58/F ROOM: RE11/30/[address]: Dr. Gerardo Cook DO : 1965 BED: DIS: 11/30/2023 SPEC #: [id number] RECD: 11/30/23 18:02 STATUS: NETTIE EDUAR #: [id number] JAJA: 11/30/23 10:[address]: Gerardo Cook DEPT: SURGICAL PATHOLOGY RECD BY: Jennifer Landaverde ENTERED: 12/01/23 10:06 SP TYPE: EGD BIOPSY OT DR: Candice Burkett, ERP IMPLEMENTATION CONSULTANT-C Tissues: A - Duodenum, NOS B - Esophagus, NOS C - Ileum, NOS D - COLON BIOPSY Procedures: Special Stain Group I Surgery Specimen Level IV Alcian Blue/PAS (control) HEADER OPERATION: Colonoscopy, biopsy, EGD PRE-OP DIAGNOSIS: C. diff colitis, irritable bowel syndrome, nausea, abdominal pain TISSUE SUBMITTED: A- Duodenum biopsy, B- Distal esophagus biopsy, C- Terminal ileum biopsy,D- Random colonic biopsy MICROSCOPIC DIAGNOSIS A. Duodenum, biopsy: Minimal non-specific chronic inflammation. B. Distal esophagus, biopsy: Gastroesophageal junction mucosa with mild chronic inflammation. 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 No definitive evidence of dysplasia. See comment. C. Terminal ileum, biopsy: No pathologic change. D. Colon, random biopsy: Melanosis coli. AM. 12/04/2023 COMMENT B. Alcian blue/PAS stain with matched control is used in the evaluation of the specimen. Immunohistochemistry ([id number]) for P53 and Ki-67 will be performed and results will be reported separately. MICROSCOPIC DESCRIPTION Slides are reviewed. GROSS DESCRIPTION A. Received in fixative is one container labeled with the patient's name and designated Duodenum biopsy. The specimen consists of multiple irregular fragments of light ball soft tissue that in aggregate measure 0.6 x 0.6 x 0.1 cm. The specimen is totally submitted in one cassette. B. Received in fixative is one container labeled with the patient's name and designated Distal esophagus biopsy. The specimen consists of multiple irregular fragments of light ball soft tissue that in aggregate measure 1.0 x 0.3 x 0.1 cm. The specimen is totally submitted in one cassette. C. Received in fixative is one container labeled with the patient's name and designated Terminal ileum biopsy. The specimen consists of two irregular fragments of light ball soft tissue that in aggregate measure 0.6 x 0.3 x 0.1 cm. The specimen is totally submitted in one cassette. D. Received in fixative is one container labeled with the patient's name and designated Random colonic biopsy. The specimen consists of multiple irregular fragments of light ball soft tissue that in aggregate measure 2.0 x 0.5 x 0.1 cm. The specimen is totally submitted in one cassette. SJGabymr 12/01/2023 TC:3 CPT:03949o9,22005
[2023-11-30 10:34] LABS: Bedside Glucose 129 mg/dL (74-106)
--- NOTE | 2023-11-30 11:22 | PCM.POST.ANE ---
Anesthesia: Postop Eval I Current Vital Signs Temperature: 97 F Pulse Rate: 62 Blood Pressure: 96/64 Respiratory Rate: 16 Pulse Ox: 97 Oxygen Delivery Method: Room Air Assessment Airway patent: Yes Spontaneous unlabored respirations: Yes Mental status: Asleep nausea: No Vomiting: No Anesthesia Complication: No Fluid Hydration Crystalloid volume administer (ml): 60 Total IV fluid infused: 60 Progress Note Anesthesia document: Postop Eval 1 completed: Yes
--- NOTE | 2023-11-30 11:27 | PCM.POSTANE2 ---
Anesthesia Postop Eval I Sum Postop Eval Completion status Anesthesia document: Postop Eval 1 completed: Yes Anesthesia Postop Eval I Summary Anesthesia Postop Eval I Summary: Anesthesia Postop Eval I: Assessment Summary Airway patent Yes 11/30/23 11:23 [email or web address] Spontaneous unlabored Yes 11/30/23 11:23 [email or web address] respirations Mental status Asleep 11/30/23 11:23 [email or web address] nausea No 11/30/23 11:23 [email or web address] Vomiting No 11/30/23 11:23 [email or web address] Anesthesia Postop Eval I: Fluid Summary Crystalloid volume administer 60 11/30/23 11:23 [email or web address] (ml) Colloids volume administered ( ml) Blood Product volume administered (ml) Total IV fluid infused 60 11/30/23 11:23 [email or web address] Anesthesia Postop Eval I: Summary Notes Anesthesia Complication No 11/30/23 11:23 [email or web address] Anesthesia Complication Comment: Post-operative progress note Anesthesia: Postop Eval II Evaluation Mental status: Awake Pain Level: 0 nausea: No Vomiting: No
--- NOTE | 2023-12-04 15:27 | OP.COLON_ITS ---
Patient Name: Katina Hatch Procedure Date: 11/30/2023 10:55 AM Date of : 1965 Age: 58 Procedure: Colonoscopy Indications: Abdominal pain in the left lower quadrant, Clinically significant diarrhea of unexplained origin Providers: Gerardo Cook DO Referring MD: Aimee Islas Patient Profile: This is a 58 year old female. Refer to note in patient chart for documentation of history and physical. Patient has symptoms of chronic abdominal cramping and chronic epigastric abdominal pain. Last Colonoscopy: date unknown. Unable to locate last colonoscopy report. Complications: No immediate complications. Procedure: Pre-Anesthesia Assessment: - Prior to the procedure, a History and Physical was performed, and patient medications and allergies were reviewed. The patient is competent. The risks and benefits of the procedure and the sedation options and risks were discussed with the patient. All questions were answered and informed consent was obtained. Patient identification and proposed procedure were verified by the physician in the pre-procedure area. Mental Status Examination: alert and oriented. Airway Examination: normal oropharyngeal airway and neck mobility. Respiratory Examination: clear to auscultation. CV Examination: normal. Prophylactic Antibiotics: The patient does not require prophylactic antibiotics. Prior Anticoagulants: The patient has taken no anticoagulant or antiplatelet agents except for NSAID medication. ASA Grade Assessment: III - A patient with severe systemic disease. After reviewing the risks and benefits, the patient was deemed in satisfactory condition to undergo the procedure. The anesthesia plan was to use monitored anesthesia care (MAC). Immediately prior to administration of medications, the patient was re-assessed for adequacy to receive sedatives. The heart rate, respiratory rate, oxygen saturations, blood pressure, adequacy of pulmonary ventilation, and response to care were monitored throughout the procedure. The physical status of the patient was re-assessed after the procedure. After I obtained informed consent, the scope was passed under direct vision. Throughout the procedure, the patient's blood pressure, pulse, and oxygen saturations were monitored continuously. The Colonoscope was introduced through the anus and advanced to the terminal ileum. The colonoscopy was performed without difficulty. The patient tolerated the procedure well. The quality of the bowel preparation was adequate. The terminal ileum, ileocecal valve, appendiceal orifice, and rectum were photographed. The patient tolerated the procedure well. Scope In: 10:56:17 AM Scope Withdrawal Time 0 hours 8 minutes 43 seconds Scope Out: 11:07:34 AM Total Procedure Duration Time 0 hours 11 minutes 17 seconds Findings: An area of mildly congested mucosa was found in the entire colon. Biopsies were taken with a cold forceps for histology. Verification of patient identification for the specimen was done. Estimated blood loss was minimal. Impression: - Congested mucosa in the entire examined colon. Biopsied. Recommendation: - Discharge patient to home. - Resume previous diet. - Continue present medications. - Await pathology results. - Repeat colonoscopy is recommended [Repeat reason]. The colonoscopy date will be determined after pathology results from today's exam become available for review. Procedure Code(s): --- Professional --- 82954, Colonoscopy, flexible; with biopsy, single or multiple CPT copyright 2021 [employer]. All rights reserved. The codes documented in this report are preliminary and upon cable engineer review may be revised to meet current compliance requirements. Gerardo Cook DO 11/30/2023 11:19:25 AM This report has been signed electronically. Number of Addenda: 0 Note Initiated On: 11/30/2023 10:55 AM
--- NOTE | 2023-12-04 15:27 | OP.CCLET_ITS ---
11/30/2023 Aimee Islas Re : Colonoscopy procedure for Katina Hatch Dear Np. Burkett This procedure was performed on November. My impressions and recommendations are as follows: Impressions : - Congested mucosa in the entire examined colon. Biopsied. Recommendations : - Discharge patient to home. - Resume previous diet. - Continue present medications. - Await pathology results. - Repeat colonoscopy is recommended [Repeat reason]. The colonoscopy date will be determined after pathology results from today's exam become available for review. My findings are described in the full procedure note, which is enclosed. If I can be of further assistance, please feel free to contact me at . Sincerely, Gerardo Cook, 11/30/2023 11:19:25 AM This report has been signed electronically.
--- NOTE | 2023-12-04 15:27 | OP.EGD_ITS ---
Patient Name: Katina Hatch Procedure Date: 11/30/2023 10:40 AM Date of : 1965 Age: 58 Procedure: Upper GI endoscopy Indications: Epigastric abdominal pain, Functional Dyspepsia Providers: Gerardo Cook DO Referring MD: Aimee Islas Medicines: Monitored Anesthesia Care Patient Profile: This is a 58 year old female. Refer to note in patient chart for documentation of history and physical. Patient has symptoms of chronic abdominal cramping and chronic epigastric abdominal pain. Complications: No immediate complications. Procedure: Pre-Anesthesia Assessment: - Prior to the procedure, a History and Physical was performed, and patient medications and allergies were reviewed. The patient is competent. The risks and benefits of the procedure and the sedation options and risks were discussed with the patient. All questions were answered and informed consent was obtained. Patient identification and proposed procedure were verified by the physician in the pre-procedure area. Mental Status Examination: alert and oriented. Airway Examination: normal oropharyngeal airway and neck mobility. Respiratory Examination: clear to auscultation. CV Examination: normal. Prophylactic Antibiotics: The patient does not require prophylactic antibiotics. Prior Anticoagulants: The patient has taken no anticoagulant or antiplatelet agents except for NSAID medication. ASA Grade Assessment: III - A patient with severe systemic disease. After reviewing the risks and benefits, the patient was deemed in satisfactory condition to undergo the procedure. The anesthesia plan was to use monitored anesthesia care (MAC). Immediately prior to administration of medications, the patient was re-assessed for adequacy to receive sedatives. The heart rate, respiratory rate, oxygen saturations, blood pressure, adequacy of pulmonary ventilation, and response to care were monitored throughout the procedure. The physical status of the patient was re-assessed after the procedure. After obtaining informed consent, the endoscope was passed under direct vision. Throughout the procedure, the patient's blood pressure, pulse, and oxygen saturations were monitored continuously. The Colonoscope was introduced through the mouth, and advanced to the second part of duodenum. The upper GI endoscopy was accomplished without difficulty. The patient tolerated the procedure well. Scope In: 10:49:32 AM Scope Out: 10:54:53 AM Total Procedure Duration Time 0 hours 5 minutes 21 seconds Findings: The examined esophagus was normal. The Z-line was irregular and was found 39 cm from the incisors. Biopsies were taken with a cold forceps for histology. Verification of patient identification for the specimen was done. Estimated blood loss was minimal. No gross lesions were noted in the entire examined stomach. Patchy mild inflammation characterized by erosions and erythema was found in the duodenal bulb. Biopsies were taken with a cold forceps for histology. Verification of patient identification for the specimen was done. Estimated blood loss was minimal. Impression: - Normal esophagus. - Z-line irregular, 39 cm from the incisors. Biopsied. - No gross lesions in the entire stomach. - Chronic duodenitis. Biopsied. Recommendation: - Discharge patient to home. - Resume previous diet. - Continue present medications. - Await pathology results. - Repeat upper endoscopy in 1 year for surveillance. Procedure Code(s): --- Professional --- 00287, Esophagogastroduodenoscopy, flexible, transoral; with biopsy, single or multiple CPT copyright 2021 [employer]. All rights reserved. The codes documented in this report are preliminary and upon turn supervisor review may be revised to meet current compliance requirements. Gerardo Cook DO 11/30/2023 11:13:32 AM This report has been signed electronically. Number of Addenda: 0 Note Initiated On: 11/30/2023 10:40 AM
--- NOTE | 2023-12-04 15:27 | OP.CCLET_ITS ---
11/30/2023 Aimee Islas Re : Upper GI endoscopy procedure for Katina Hatch Dear Np. Burkett This procedure was performed on November. My impressions and recommendations are as follows: Impressions : - Normal esophagus. - Z-line irregular, 39 cm from the incisors. Biopsied. - No gross lesions in the entire stomach. - Chronic duodenitis. Biopsied. Recommendations : - Discharge patient to home. - Resume previous diet. - Continue present medications. - Await pathology results. - Repeat upper endoscopy in 1 year for surveillance. My findings are described in the full procedure note, which is enclosed. If I can be of further assistance, please feel free to contact me at . Sincerely, Gerardo Cook, 11/30/2023 11:13:32 AM This report has been signed electronically.
== END 2023-11-30 12:19 | disposition home or self-care (01) ==
LOC: EN 09:16 → AC 09:20
PROVIDERS: PCP Nurse Practitioner Family; Referring Provider Nurse Practitioner Family; Visit Provider Internal Medicine Gastroenterology
PROC: 0DJD8ZZ Inspection of Lower Intestinal Tract, Via Natural or Artificial Opening Endoscopic (ICD-10-PCS; CPT 45378; principal; 2023-11-30 10:25)
DX: K63.89 Other specified diseases of intestine (principal); J44.9 Chronic obstructive pulmonary disease, unspecified; E11.9 Type 2 diabetes mellitus without complications; K31.89 Other diseases of stomach and duodenum; I10 Essential (primary) hypertension; R10.13 Epigastric pain; Z87.891 Personal history of nicotine dependence; Z79.51 Long term (current) use of inhaled steroids; Z79.84 Long term (current) use of oral hypoglycemic drugs; Z79.899 Other long term (current) drug therapy; Z80.0 Family history of malignant neoplasm of digestive organs; Z95.0 Presence of cardiac pacemaker
CPT/HCPCS: 43239; 45380; 82962; 88305; 88312; 88341; 88342; A4216; J2405

== ENCOUNTER → 2023-12-15 | Outpatient (CLI) | payer MEDICARE, MEDICAID, SELFPAY ==
--- NOTE | 2023-12-15 09:04 | US_ITS ---
STUDY: ABDOMINAL ULTRASOUND - RIGHT UPPER QUADRANT; ELASTOGRAPHY REASON FOR VISIT: Female, 58 years old. Fatty infiltration of the liver. TECHNIQUE: Ultrasound evaluation of the right upper quadrant was performed with real-time and static babcock-scale imaging. Point quantification shear wave elastography was performed ([employer]). TECHNICAL QUALITY: Adequate. COMPARISON: Comparison is made with prior scan dated November 28, 2023. FINDINGS: Liver: The liver is enlarged and measures 19.2 cm. There is increased echogenicity consistent with fatty infiltration. The bile ducts are within normal limits. There is hepatic color flow. The direction of portal flow is hepatopetal. There is no demonstrated mass lesion. Median liver stiffness measured 7.4 kPa. Gallbladder: The patient is status post cholecystectomy. Common Bile Duct (C.B.D.): The common bile duct measures 8.5 mm. Pancreas: There is increased echogenicity of the pancreas. There is no demonstrated pancreatic mass or cyst. Right Kidney: Normal size of the right kidney. The right kidney measures 11.3 cm x 4.9 cm x 3.6 cm. Normal renal cortex. The right cortex measures 1.1 cm. There is no demonstrated renal mass or cyst. There is no right hydronephrosis. US/[facility] Limited w/ Elastography IMPRESSION: 1. Liver stiffness measures 7.4 kPa compatible with F2-F3 (Mild to moderate liver fibrosis) Metavir score. 2. Hepatomegaly. Fatty infiltration of liver. Electronically Signed: Vahid Dent MD at 10:05 EDT ,
== END | disposition home or self-care (01) ==
LOC: US 09:01
PROVIDERS: PCP Nurse Practitioner Family; Referring Provider Student in an Organized Health Care Education/Training Program; Visit Provider Student in an Organized Health Care Education/Training Program
DX: K76.0 Fatty (change of) liver, not elsewhere classified (principal)
CPT/HCPCS: 76705; 76981

== ENCOUNTER → 2024-05-16 | Outpatient (CLI) | payer MEDICARE, SELFPAY ==
--- NOTE | 2024-05-16 09:32 | RAD_ITS ---
EXAM: Air-contrast esophagram barium swallow. CLINICAL HISTORY: Dysphagia. COMPARISON: None TECHNIQUE: The patient ingested barium. Multiple images of the esophagus were obtained. Fluoroscopy: 1 minute and 20 seconds. 5.6 mGy. FINDINGS: The patient ingested barium. No evidence of obstruction to the flow of contrast. No mass lesion is seen. No gastroesophageal reflux is seen. The patient ingested a 12 mm tablet the barium without any difficulty. RAD/Esophagus Dual Contrast IMPRESSION: Unremarkable air contrast barium swallow. Reading Location: [facility]
== END | disposition home or self-care (01) ==
LOC: RAD 09:29
PROVIDERS: Referring Provider Student in an Organized Health Care Education/Training Program; Visit Provider Student in an Organized Health Care Education/Training Program
DX: R13.10 Dysphagia, unspecified (principal)
CPT/HCPCS: 74221

== ENCOUNTER → 2024-10-11 | Outpatient (CLI) | payer MEDICARE, SELFPAY ==
[2024-10-11 16:09] LABS: Hematocrit 37.8 % (37-47); Hemoglobin 12.0 g/dL (12.0-15.0); Immature Granulocytes Count 0.020 X10^3/uL (0.0-0.0); Mean Corp Hgb Conc 31.7 g/dL (32-36); Mean Corpuscular Volume 87.7 fL (81-99); Mean Platelet Vol. 9.7 fl (6.2-12.0); NRBC Flagged by Analyzer 0 % (0-5); Platelet Count 324 K/mm3 (150-450); RBC Distribution Width CV 13.0 % (11.6-14.6); RBC Distribution Width SD 41.6 fl (35.1-43.9); Red Blood Count 4.31 M/mm3 (4.2-5.4); White Blood Count 5.0 K/mm3 (4.4-11.0)
[2024-10-11 16:49] LABS: AST(SGOT) 41 U/L (<=31); Alanine Aminotransfer ALT/SGPT 21 U/L (<=34); Albumin, Serum 4.0 g/dL (3.5-5.0); Alkaline Phosphatase 70 U/L (35-104); Anion Gap 11 (5-15); BUN 9 mg/dL (4-19); BUN/Creat Ratio 8.6 RATIO (10-20); Calcium,Total 9.0 mg/dL (7.6-11.0); Carbon Dioxide 25.9 mmol/L (21.0-32.0); Chloride 106 mmol/L (98-108); Globulin 3.1 g/dL (2.2-4.2); Glucose 110 mg/dL (70-99); Potassium 3.6 mmol/L (3.3-5.1)
--- OUTSIDE RECORDS SUMMARY | 2024-10-11 18:09 | XMS RPT_ITS | CCD ---
Author Organization [facility] Care Team Providers Care Cocoa Room Operator Name Role Phone AnnGabriela Unavailable Unavailable Manisha YUAN, Heavenly Gonzalez Unavailable [phone] Jessy Lopez Unavailable Unavailable Nancy AGUILAR, Fabián Hough Unavailable Tessy Dukes Primary Care Provider [phone] Pcp, No Primary Care Provider Unavailabl e Pcp, No Primary Care Provider Unavailabl e Ungerer Candice LANGSTON Primary Care Provider [phone] [facility] Doctor, Out of Primary Care Provider Unavai vinny [facility] Doctor, Out of Referring Provider Unavailab frank Kramer MEDICAL REGISTRAR, MEDICAL REGISTRAR-C Lisseth Ramachandran Attending Provider Fernandor, NP. Harvey Primary Care Provider NP. Candice Tello Referring Provider FriendDr. Carrillo Attending Provider Friend, Dr. Carrillo Other Provider [facility] Doctor, Out of Referring Provider Unavailab frank Kramer MEDICAL REGISTRAR, MEDICAL REGISTRAR-C Lisseth Ramachandran Attending Provider FernandorNP. Harvey Primary Care Provider [phone] NP. Candice Tello Referring Provider Dr. Marcus Bedolla Attending Provider Dr. Marcus Bedolla Referring Provider Dr. Marcus Bedolla Other Provider Tessy Dukes Primary Care Provider NP. Candice Tello Primary Care Provider Ungerer, MEDICAL REGISTRAR. Candice Referring Provider [phone] Friend, Dr. Carrillo Attending Provider Friend, Dr. Carrillo Other Provider La Tessy Marquis Primary Care Provider [phone] Katerin Farias Attending Provider [phone] Katerin Farias Referring Provider Care Physician, No Primary Primary Care Provider Unavailable Friend, Gerardo Attending Unavailable Friend, Gerardo Referring Unavailable Ungerer, Candice Primary Care Unavailable Care Physician, No Primary Primary Care Unava ilable Katerin Johnson Referring Unavailable Katerin Johnson Attending Unavailable Ungerer, Candice Primary Care Unavailable Friend, Gerrado Referring Unavailable Friend, Gerardo Attending Unavailable Ungerer, Candice Primary Care Unavailable Katerin Johnson Referring Unavailable Katerin Johnson Attending Unavailable Friend, Gerardo Attending Unavailable Ungerer, Candice Referring Unavailable Ungerer, Candice Primary Care Unavailable Friend, Gerardo Consulting Unavailable Friend, Gerardo Attending Unavailable Ungerer, Candice Referring Unavailable Friend, Gerardo Attending Unavailable Ungerer, Candice Referring Unavailable Ungerer, Candice Primary Care Unavailable UNGERER, CANDICE MEDICAL REGISTRAR Admitting Unavailable UNGERER, CANDICE MEDICAL REGISTRAR Primary Care Unavailable UNGERER, CANDICE MEDICAL REGISTRAR Attending Unavailable UNGERER, CANDICE MEDICAL REGISTRAR Consulting Unavailable PROVIDER, UNKNOWN Consulting Unavailable UNGERER, CANDICE MEDICAL REGISTRAR Admitting Unavailable UNGERER, CANDICE MEDICAL REGISTRAR Primary Care Unavailable UNGERER, CANDICE MEDICAL REGISTRAR Attending Unavailable UNGERER, CANDICE MEDICAL REGISTRAR Consulting Unavailable PROVIDER, UNKNOWN Consulting Unavailable PERLA, SHASHI Admitting Unavailable RIOS, SHASHI Primary Care Unavailable PERLA, SHASHI Attending Unavailable UNGERER, CANDICE MEDICAL REGISTRAR Consulting Unavailable PROVIDER, UNKNOWN Consulting Unavailable MAIK, ROGER E Primary Care Unavailable MAIK, ROGER E Admitting Unavailable MAIK, ROGER E Attending Unavailable MAIK, ROGER E Primary Care Unavailable MAIK, ROGER E Admitting Unavailable MAIK, ROGER E Attending Unavailable PERLA, SHASHI Attending Unavailable RIOS, SHASHI Admitting Unavailable RIOS, SHASHI Primary Care Unavailable UNGERER, CANDICE MEDICAL REGISTRAR Primary Care Unavailable UNGERER, CANDICE MEDICAL REGISTRAR Admitting Unavailable UNGERER, CANDICE MEDICAL REGISTRAR Attending Unavailable UNGERER, CANDICE MEDICAL REGISTRAR Consulting Unavailable PROVIDER, UNKNOWN Consulting Unavailable MAIK, ROGER E Primary Care Unavailable MAIK, ROGER E Admitting Unavailable MAIK, ROGER E Attending Unavailable UNGERER, CANDICE MEDICAL REGISTRAR Primary Care Unavailable UNGERER, CANDICE MEDICAL REGISTRAR Admitting Unavailable UNGERER, CANDICE MEDICAL REGISTRAR Attending Unavailable UNGERER, CANDICE MEDICAL REGISTRAR Consulting Unavailable PROVIDER, UNKNOWN Consulting Unavailable UNGERER, CANDICE MEDICAL REGISTRAR Primary Care Unavailable UNGERER, CANDICE MEDICAL REGISTRAR Admitting Unavailable UNGERER, CANDICE MEDICAL REGISTRAR Attending Unavailable UNGERER, CANDICE MEDICAL REGISTRAR Consulting Unavailable PROVIDER, UNKNOWN Consulting Unavailable RIOS, SHASHI Primary Care Unavailable RIOS, SHASHI Attending Unavailable RIOS, SAHSHI Admitting Unavailable RIOS, SHASHI Attending Unavailable RIOS, SHASHI Admitting Unavailable RIOS, SHASHI Primary Care Unavailable RIOS, SHASHI Admitting Unavailable RIOS, SHASHI Primary Care Unavailable RIOS, SHASHI Attending Unavailable UNGERER, CANDICE MEDICAL REGISTRAR Consulting Unavailable PROVIDER, UNKNOWN Consulting Unavailable RIOS, SHASHI Attending Unavailable RIOS, SHASHI Admitting Unavailable RIOS, SHASHI Primary Care Unavailable PAULA, PRINCESS T Admitting Unavailable PAULA, PRINCESS T Primary Care Unavailable PAULA, PRINCESS T Attending Unavailable OSMIN SKINNER DO Attending Unavailable OSMIN SKINNER DO Admitting Unavailable UNGERER, CANDICE MEDICAL REGISTRAR Referring Unavailable OSMIN SKINNER DO Primary Care Unavailable UNGERER, CANDICE MEDICAL REGISTRAR Consulting Unavailable PROVIDER, UNKNOWN Consulting Unavailable DIDJORDAN DUFFY DO Attending Unavailable DIDJORDAN DUFFY DO Admitting Unavailable DIDJORDAN DUFFY DO Primary Care Unavailable UNGERER, CANDICE MEDICAL REGISTRAR Referring Unavailable UNGERER, CANDICE MEDICAL REGISTRAR Consulting Unavailable PROVIDER, UNKNOWN Consulting Unavailable BUSTILLO GILLIAN C Primary Care Unavailable BUSTILLO, GILLIAN C Admitting Unavailable BUSTILLO, GILLIAN C Attending Unavailable PAULA, PRINCESS T Admitting Unavailable PAULA, PRINCESS T Primary Care Unavailable PAULA, PRINCESS T Attending Unavailable UNGERER, CANDICE MEDICAL REGISTRAR Primary Care Unavailable UNGERER, CANDICE MEDICAL REGISTRAR Admitting Unavailable UNGERER, CANDICE MEDICAL REGISTRAR Attending Unavailable UNGERER, CANDICE MEDICAL REGISTRAR Consulting Unavailable PROVIDER, UNKNOWN Consulting Unavailable Care Physician, No Primary Primary Care Provider Unavailable Care Physician, No Primary Referring Provider Un available Katerin Farias Attending Provider [phone] Allergies Allergy Classification Reported Allergen(s) Allergy Type Date of Onset Reaction(s) Facility (5 sources) iodine drug allergy 2 Hives [facility] Work Phone: (17 sources) Contrast media Propensity to adverse reactions [address] [facility] Work Phone: (7 sources) Triiodobenzoic Acids Allergy to substance 3 Anaphylaxis [facility] (1 source) Iodinated Contrast Media Drug allergy (disorder) 4 [facility] (1 source) CONTRAST MEDIA, IODINE RELATED Drug allergy (disorder) [facility] (1 source) 06/29/2021 (+) CDIFF AG; Translations: [06/29/2021 (+) CDIFF AG] Propensity to adverse reactions (disorder) [facility] (1 source) 10/21/22 (+) CDIFF AG; Translations: [10/21/22 (+) CDIFF AG] Propensity to adverse reactions (disorder) [facility] Medications Current Medications Medication Drug Class(es) Dates Sig (Normalized) Sig (Original) [id number] 200 actuat albuterol 0.09 mg/actuat metered dose inhaler (2 sources) beta2-Adrenergic Agonist Start: 11-28-2023 Albuterol Sulfate 90 mcg/actuation HFA aerosol inhaler Active 2 NMA INHALATION 4 TIMES DAILY NEEDED as needed for wheezing November 28, 2023 12:00am amoxicillin 500 mg oral capsule (7 sources) Penicillin-class Antibacterial Start: 08-26-2021 End: 09-05-2021 take 1 capsule by mouth three times daily amoxicillin (POLYMOX, AMOXIL) 500 mg capsule Take 1 capsule by mouth three times daily for 7 days. 21 capsule 0 08/27/2021 09/03/2021 Active Comment on above: Take 1 capsule by mo uth three times daily for 10 days. FOR 10 DAYS. Take 1 capsule by mo uth three times daily for 10 days. Take 1 capsule by mo uth three times daily for 7 days. cholecalciferol 0.05 mg oral capsule (3 sources) Vitamin D Start: 05-31-2022 take 1 capsule by mouth every week Cholecalciferol (Vitamin D3) (Vitamin D3) 50 mcg (2,000 unit) Capsule Active 42944 MCG PO EVERY WEEK May 31, 2022 12:00am Start: 05-31-2022 take 1 capsule by [facility] once daily Cholecalciferol (Vitamin D3) (Vitamin D3) 50 mcg (2,000 unit) Capsule Active 50 MCG PO DAILY May 31, 2022 12:00am cloNIDine hydrochloride 0.2 mg oral tablet (13 sources) Central alpha-2 Adrenergic Agonist Start: 05-15-2023 take 1 tablet by mouth twice daily Clonidine Hcl 0.2 mg tablet Active 0.2 mg PO TWICE A DAY May 15, 2023 12:00am Start: 08-10-2021 End: 05-15-2023 take 1 tablet by mouth at bedtime Clonidine Hcl 0.1 mg tablet Discontinued 0.1 mg PO AT BEDTIME August 10, 2021 12:00am May 15, 2023 12:22pm End: 08-02-2021 cloNIDine TTS (CATAPRES-TTS) 0.1 mg/24 hr Apply 1 Patch as directed one time a week. 0 08/02/2021 Discontinued Comment on above: Apply 1 Patch as dir ected one time a week. Diltiazem 2% / Lidocaine 5% Ointment (Compound) (4 sources) Start: 07-04-2022 Diltiazem 2% / Lidocaine 5% Ointment (Compound) Active 0 .Route 1 July 04, 2022 12:00am As directed Start: 07-04-2022 Diltiazem 2% / Lidocaine 5% Ointment (Compound) Active 0 .ROUTE July 04, 2022 12:00am As directed Diltiazem 2% / Lidocaine 5% Ointment (Compound) ointment (2 sources) Start: 07-04-2022 Diltiazem 2% / Lidocaine 5% Ointment (Compound) ointment Active 0 .Route 1 July 04, 2022 12:00am As directed Start: 07-04-2022 Diltiazem 2% / Lidocaine 5% Ointment (Compound) ointment Active 0 .Route July 04, 2022 12:00am As directed ergocalciferol 1.25 mg oral capsule (4 sources) Provitamin D2 Compound Start: 05-15-2023 Ergocalciferol (Vitamin D2) (Vitamin D2) 1,250 mcg (50,000 unit) capsule Active 1250 ug PO May 15, 2023 12:00am 72 hr fentaNYL 0.025 mg/hr transdermal system (2 sources) Opioid Agonist Start: 11-07-2023 Fentanyl 25 mcg/hr patch 72 hour Active 1 NMA TD Q72H 0 November 07, 2023 12:00am gabapentin-lidocaine -menthol 300-4-1 mg-%-% ktgc (17 sources) gabapentin-lidoc ain e-menthol 300-4-1 mg-%-% ktgc glipiZIDE 5 mg oral tablet (20 sources) Sulfonylurea Start: 11-28-2023 take 2.5 mg by mouth once daily as needed Glipizide 5 mg tablet Active 2.5 mg PO DAILY as needed for HIGH GLUCOSE LEVEL November 28, 2023 12:00am Start: 08-10-2021 take 1 tablet by jose th every twenty-four hours Glipizide 2.5 mg tablet extended release 24hr Active 5 mg PO 1500 August 10, 2021 12:00am Start: 08-10-2021 Glipizide Acti ve 5 MG PO 1500 August 10, 2021 12:00am take 1 tablet by jose th twice daily before mealtime glipiZIDE (GLUCOTROL) 10 mg tablet Take 10 mg by mouth twice daily before meals. 0 Active Comment on above: Take 10 mg by mouth twice daily before meals. hydroCHLOROthiazide 25 mg oral tablet (20 sources) Thiazide Diuretic Start: 023 take 1 tablet by mouth once daily as needed Hydrochlorothiazide 25 mg Tablet Active 25 mg PO DAILY as needed for WATER PILL May 31, 2022 12:00am take 1 capsule by mouth once irene ly hydroCHLOROthiazide (HYDRODIURIL, ESIDRIX) 12.5 mg capsule Take 12.5 mg by mouth once daily. 0 Active Comment on above: Take 12.5 mg by mout h once daily. ibuprofen 800 mg oral tablet (14 sources) Nonsteroidal Anti-inflammatory Drug Start: 05-31-2022 take 800 mg by mouth every six hours Ibuprofen Active 800 MG PO EVERY 6 HOURS May 31, 2022 12:00am Start: 08-26-2021 End: 08-26-2021 take 1 tablet by mouth every six hours as needed ibuprofen (MOTRIN) 600 mg tablet Take 1 tablet by mouth every 6 hours as needed for pain. 30 tablet 0 08/26/2021 Active Comment on above: Take 1 tablet by jose every 6 hours as needed for pain. nystatin 211862 unt/ml oral suspension (9 sources) Polyene Antifungal Start: 11-28-2023 End: 12-15-2023 take 1 mL by mouth once daily as needed Nystatin 100,000 unit/mL suspension Active 5 mL PO DAILY as needed for THRUSH 60 0 December 15, 2023 9:06am Start: 10-15-2022 End: 10-26-2022 take 1 mL by mouth four times daily Nystatin 100,000 unit/mL suspension Discontinued 5 mL PO 4 TIMES DAILY 473 0 October 15, 2022 12:00am October 26, 2022 1:32pm swish and swallow QID x 7-14 days Start: 10-15-2022 End: 10-26-2022 take 1 mL by mouth four times daily Nystatin Discontinued 5 ML PO 4 TIMES DAILY 473 October 15, 2022 12:00am October 26, 2022 1:32pm swish and swallow QID x 7-14 days ondansetron 4 mg disintegrating oral tablet (20 sources) Serotonin-3 Receptor Antagonist Start: 01-17-2022 End: 07-26-2023 take 1 tablet by mouth every eight hours as needed for nausea Ondansetron 4 mg tablet,disintegrating Active 4 mg PO EVERY 8 HOURS NEEDED as needed for for nausea/vomiting 36 5 July 26, 2023 10:41am Start: 10-11-2016 take 1 tablet by [facility] once daily ONDANSETRON HCL 4 MG TABS One tablet by mouth daily ONDANSETRON HCL [id number] Fabián Cruz MD Start: 10-05-2016 End: 12-05-2017 take 1 tablet by mouth every eight hours as needed for nausea Ondansetron 4 MG tablet Discontinued 4 mg PO EVERY 8 HOURS NEEDED as needed for Nausea October 05, 2016 12:00am December 05, 2017 11:40am pantoprazole 40 mg delayed release oral tablet (20 sources) Proton Pump Inhibitor Start: 05-17-2023 End: 11-28-2023 take 1 tablet by mouth every twelve hours as needed for gastroesophageal reflux disease Pantoprazole 40 mg tablet,delayed release (DR/EC) Active 40 mg PO Q12H as needed for GERD November 28, 2023 12:00am Start: 04-17-2023 End: 05-17-2023 take 1 tablet by mouth once daily Pantoprazole 40 mg tablet,delayed release (DR/EC) Discontinued 40 mg PO DAILY 90 0 April 17, 2023 1:58pm May 17, 2023 8:00am Start: 11-09-2022 End: 04-17-2023 take 1 tablet by mouth twice daily Pantoprazole 40 mg tablet,delayed release (DR/EC) Discontinued 40 mg PO TWICE A DAY 60 2 January 16, 2023 9:22am April 17, 2023 1:59pm Start: 10-05-2016 End: 12-05-2017 take 1 tablet by mouth once daily Pantoprazole 40 MG tablet Discontinued 40 mg PO DAILY 30 0 October 05, 2016 12:00am December 05, 2017 11:40am potassium chloride 20 meq extended release oral tablet (9 sources) Start: 08-10-2021 take 1 tablet by mouth once daily Potassium Chloride 20 mEq tablet extended release Active 20 meq PO DAILY August 10, 2021 12:00am End: 08-02-2021 inject 20 mEq intravenously once potassium chloride 20 mEq in D5W 100 mL Inject 20 mEq intravenously one time only. 0 08/02/2021 Discontinued inject 20 mEq intravenously once potassium chloride 20 mEq in D5W 100 mL Inject 20 mEq intravenously one time only. 0 Active Comment on above: Inject 20 mEq intrav enously one time only. predniSONE 1 mg oral tablet (17 sources) take 10 mg by mouth once daily predniSONE (DELTASONE) 1 mg tablet Take 10 mg by mouth once daily. 0 Active take 1 tablet by mouth once deo y predniSONE (DELTASONE) 1 mg tablet Take 1 mg by mouth once daily. 0 Active Comment on above: Take 1 mg by mouth o nce daily. Take 10 mg by mouth once daily. pregabalin 150 mg oral capsule (10 sources) Start: 05-15-2023 take 1 capsule by mouth three times daily Pregabalin 150 mg capsule Active 150 mg PO THREE TIMES A DAY May 15, 2023 12:00am Start: 05-15-2023 take 150 mg by mouth twice daily Pregabalin Active 150 MG PO TWICE A DAY May 15, 2023 12:00am Start: 10-04-2022 End: 05-15-2023 Pregabalin 100 mg capsule Discontinued 150 mg PO Q12H October 04, 2022 12:00am May 15, 2023 12:17pm Start: 10-04-2022 End: 05-15-2023 take 150 mg by mouth every twelve hours Pregabalin Discontinued 150 MG PO Q12H October 04, 2022 12:00am May 15, 2023 12:17pm simvastatin 20 mg oral tablet (2 sources) HMG-CoA Reductase Inhibitor Start: 11-28-2023 take 1 tablet by mouth once daily in the evening Simvastatin 20 mg tablet Active 20 mg PO EVERY EVENING November 28, 2023 12:00am SITagliptin 100 mg oral tablet (7 sources) Dipeptidyl Peptidase 4 Inhibitor Start: 05-31-2022 take 1 tablet by mouth at bedtime Sitagliptin Phosphate (Januvia) 100 mg Tablet Active 100 mg PO AT BEDTIME May 31, 2022 12:00am Completed/Discontinued Medications Medication Drug Class(es) Dates Sig (Normalized) Sig (Original) acetaminophen 325 mg / HYDROcodone bitartrate 10 mg oral tablet (20 sources) Opioid Agonist Start: 05-15-2023 End: 11-07-2023 Hydrocodone-Acetami nophen 10-325 mg tablet Discontinued 1 {tbl} PO THREE TIMES A DAY May 15, 2023 12:00am November 07, 2023 8:29am Start: 05-15-2023 take 1 tablet by jose th three times daily Hydrocodone-Acetaminophen Active 1 TABLE T PO THREE TIMES A DAY May 15, 2023 12:00am Start: 10-04-2022 End: 10-26-2022 Hydrocodone-Acetaminophen 7. 5-325 mg tablet Discontinued 1 {tbl} PO Q8H October 04, 2022 12:00am October 26, 2022 1:32pm Start: 10-04-2022 End: 10-26-2022 take 1 tablet by mouth every eight hours Hydrocodone-Acetaminophen Discontinued 1 TABLET PO Q8H October 04, 2022 12:00am October 26, 2022 1:32pm Start: 05-31-2022 take 1 tablet by jose th every eight hours Hydrocodone-Acetaminophen Active 1 TABLE T PO Q8H May 31, 2022 12:00am Start: 12-05-2017 End: 04-10-2018 Hydrocodone-Acetaminophen (N orco) 5-325 mg tablet Discontinued 1 {tbl} PO Q4H as needed 0 December 05, 2017 12:00am April 10, 2018 1:05pm Start: 10-11-2016 VICODIN 5-300 MG TABS PRN HYDROCODONE-ACETAMINOPHEN [id number] Fabián Cruz MD Start: 12-11-2014 End: 08-26-2021 take 1 tablet by mouth every eight hours as needed HYDROcodone-acetaminophen (NORCO) 5-325 mg per tablet Take 1 tablet by mouth every 8 hours as needed. 10 tablet 0 12/11/2014 08/26/2021 Discontinued (Auto ) Comment on above: Take 1 tablet by jose th every 8 hours as needed. acetaminophen 325 mg / oxyCODONE hydrochloride 5 mg oral tablet (20 sources) Opioid Agonist Start: 10-12-2022 End: 05-15-2023 Oxycodone-Acetaminophen (Percocet) 5-325 mg tablet Discontinued 1 {tbl} PO Q4H as needed for pain 30 5 0 October 12, 2022 May 15, 2023 12:15pm Anal fissure Anal fissure, unspecified Start: 08-26-2021 take 1 tablet by jose th every six hours as needed for pain oxyCODONE-acetaminophen (PERCOCET) 5-325 mg tablet Indications: pain Take 1 tablet by mouth every 6 hours as needed for pain. 10 tablet 0 08/26/2021 Active Start: 12-04-2014 End: 12-06-2014 Oxycodone-Acetaminophen 1 TA BLET tablet Discontinued 1 - 2 {tbl} PO EVERY 4 HOURS NEEDED as needed for Pain 30 0 December 04, 2014 12:00am December 06, 2014 6:22am Start: 12-04-2014 End: 12-06-2014 take 1 tablet by mouth every four hours as needed Oxycodone-Acetaminophen Discontinued 1 - 2 TABLET PO EVERY 4 HOURS NEEDED December 04, 2014 12:00am December 06, 2014 6:22am Comment on above: Take 1 tablet by jose th every 6 hours as needed for pain. ALPRAZolam 1 mg oral tablet (20 sources) Benzodiazepine Start: 12-06-19 End: 08-11-19 take 1 tablet by mouth twice daily as needed for anxiety Alprazolam 1 mg tablet Discontinued 1 mg PO TWICE A DAY as needed for Anxiety December 05, 2017 11:39am August 10, 2021 3:33pm Start: 10-18-2013 End: 12-05-2017 take 1 tablet by mouth three times daily as needed for anxiety Alprazolam (Xanax) 1 MG tablet Discontinued 1 mg PO 3 TIMES DAILY NEEDED as needed for Anxiety October 18, 2013 12:00am December 05, 2017 11:40am Start: 07-06-2011 take 1 tablet by jose th twice daily XANAX 1 MG TABS One tablet by mouth twice daily ALPRAZOLAM [id number] Jim George MD Start: 07-01-2011 take 1 tablet by jose th once daily XANAX 0.5 MG TABS One tablet by mouth daily ALPRAZOLAM [id number] Jessica Perdomo Start: 11-17-2008 End: 08-02-2021 alprazolam(XANAX 0.5 MG TAB) Take twice daily 0 11/17/2008 08/02/2021 Discontinued Comment on above: Take twice daily aspirin 81 mg chewable tablet (20 sources) Platelet Aggregation Inhibitor, Nonsteroidal Anti-inflammatory Drug Start: 4 End: 3 take 1 tablet by mouth once daily Aspirin 81 MG tablet,chewable Discontinued 81 mg PO DAILY@0800 October 18, 2013 12:00am July 04, 2022 1:41pm Start: 07-01-2011 take 1 tablet by jose th once daily ASPIRIN 81 MG TABS One tablet by mouth daily ASPIRIN [id number] Jessica Perdomo Start: 07-01-2011 take 1 tablet by jose th once daily ASPIRIN 81 MG TABS One tablet by mouth daily ASPIRIN [id number] Jessica Perdomo Comment on above: Take 81 mg by mouth. dicyclomine hydrochloride 10 mg oral capsule (20 sources) Anticholinergic Start: 11-10-19 End: 11-14-19 take 1 capsule by mouth three times daily Dicyclomine 10 mg capsule Discontinued 10 mg PO THREE TIMES A DAY 90 3 July 17, 2023 8:56am November 14, 2023 10:59am Start: 12-05-2017 End: 06-07-2018 take 2 capsules by mouth once daily as needed Dicyclomine 10 mg capsule Discontinued 20 mg PO DAILY as needed December 05, 2017 11:40am June 07, 2018 3:03pm Start: 12-05-2017 End: 06-07-2018 take 20 mg by mouth once daily Dicyclomine Discontinue d 20 MG PO DAILY December 05, 2017 11:40am June 07, 2018 3:03pm Start: 12-05-2014 End: 12-05-2017 take 2 capsules by mouth three times daily Dicyclomine 10 MG capsule Discontinued 20 mg PO THREE TIMES A DAY December 05, 2014 12:00am December 05, 2017 11:40am Start: 12-05-2014 End: 12-05-2017 take 20 mg by mouth three times daily Dicyclomine Discontinued 20 MG PO THREE TIMES A DAY December 05, 2014 12:00am December 05, 2017 11:40am Start: 09-19-2014 End: 08-02-2021 take 1 tablet by mouth three times daily before mealtime dicyclomine (BENTYL) 20 mg tablet Take 1 tablet by mouth three times daily before meals. 90 tablet 3 09/19/2014 08/02/2021 Discontinued Comment on above: Take 1 tablet by jose three times daily before meals. dilTIAZem (6 sources) Calcium Channel Oriana Start: 07-04-2022 End: 07-04-2022 Diltiazem 2% Ointment (Compound) (Diltiazem 2% Ointment) ointment Discontinued 0 .Route 1 July 04, 2022 12:00am July 04, 2022 1:48pm As directed Start: 07-04-2022 End: 07-04-2022 Diltiazem 2% Ointment ([place] und) (Diltiazem 2% Ointment) ointment Discontinued 0 .Route 1 July 04, 2022 12:00am July 04, 2022 1:48pm As directed DULoxetine 30 mg delayed release oral capsule (9 sources) Serotonin and Norepinephrine Reuptake Inhibitor Start: 04-10-2018 End: 06-07-2018 take 1 capsule by mouth once daily Duloxetine (Cymbalta) 30 mg capsule,delayed release(DR/EC) Discontinued 30 mg PO DAILY April 10, 2018 1:00am June 07, 2018 3:04pm End: 08-02-2021 take 1 capsule by mouth once daily DULoxetine (CYMBALTA) 20 mg capsule Take 20 mg by mouth once daily. 0 08/02/2021 Discontinued Comment on above: Take 20 mg by mouth once daily. estradiol 0.1 mg/ml vaginal cream (2 sources) Estrogen Start: 3 End: 2 estradiol (ESTRACE) 0.01 % (0.1 mg/gram) vaginal cream Indications: Atrophic vaginitis Apply small amount to external vaginal area nightly X 2weeks, then may decrease to 1-3 times weekly 1 Tube 2 09/13/2012 08/02/2021 Discontinued Comment on above: Apply small amount t o external vaginal area nightly X 2weeks, then may decrease to 1-3 times weekly fidaxomicin 200 mg oral tablet (11 sources) Macrolide Antibacterial Start: 3 End: 3 take 1 tablet by mouth twice daily Fidaxomicin (Dificid) 200 mg tablet Discontinued 200 mg PO TWICE A DAY 20 10 0 March 31, 2022 1:00am April 09, 2022 1:00am April 10, 2022 1:05am Comment on above: Take 200 mg by mouth twice daily. fluconazole 200 mg oral tablet (4 sources) Azole Antifungal Start: 3 End: 4 Fluconazole 200 mg tablet Discontinued mg PO October 26, 2022 12:00am May 15, 2023 12:15pm Start: 10-26-2022 End: 05-15-2023 Fluconazole Discontinued MG PO October 26, 2022 12:00am May 15, 2023 12:15pm hydrocortisone acetate 25 mg rectal suppository (7 sources) Corticosteroid Start: 10-19-2016 End: 12-05-2017 take 25 mg rectal route twice daily as needed Hydrocortisone Acetate 25 MG suppository Discontinued 25 mg RECTAL TWICE DAILY NEEDED as needed for Bleeding 14 0 October 19, 2016 12:00am December 05, 2017 11:40am metFORMIN hydrochloride 500 mg oral tablet (20 sources) Biguanide Start: 08-10-2021 End: 03-31-2022 take 1 tablet by mouth twice daily Metformin 500 mg tablet Discontinued 500 mg PO TWICE A DAY August 10, 2021 12:00am March 31, 2022 2:06pm take 1 tablet by jose once daily at breakfast metFORMIN (GLUCOPHAGE) 1,000 mg tablet T mary 1,000 mg by mouth daily with breakfast. 0 Active Comment on above: Take 1,000 mg by jose th daily with breakfast. midodrine hydrochloride 2.5 mg oral tablet (10 sources) alpha-Adrenergic Agonist Start: 2 End: 2 take 1 tablet by mouth three times daily MIDODRINE HCL 2.5 MG TABS One tablet by mouth three times daily MIDODRINE HCL [id number] Jessica Perdomo 24 hr niacin 1000 mg extended release oral tablet (20 sources) Nicotinic Acid Start: 2 End: 9 take 1 tablet by mouth once daily Niacin 1,000 MG tablet extended release 24 hr Discontinued 1000 mg PO DAILY October 18, 2013 12:00am April 10, 2018 1:06pm Start: 06-27-2006 take 2 tablets by mo [facility] once daily Niacin (Antihyperlipidemic) (NIASPAN) 1,000 mg ORAL TbSR take 2 tablets everyday by mouth 0 06/27/2006 Active Comment on above: take 2 tablets every day by mouth penicillin v potassium 500 mg oral tablet (7 sources) Start: 12-05-2017 End: 04-10-2018 Penicillin V Potassium 500 mg tablet Discontinued 1000 mg PO TWICE A DAY December 05, 2017 12:00am April 10, 2018 1:06pm Start: 12-05-2017 End: 04-10-2018 take 1000 mg by mouth twice daily Penicillin V Potassium Discontinued 1000 MG PO TWICE A DAY December 05, 2017 12:00am April 10, 2018 1:06pm PEG [id number]-NASULF (3 sources) Osmotic Laxative Start: 10-18-2016 End: 10-19-2016 GOLYTELY 236 GM SOLR As directed per package PEG [id number] [id number] Heavenly Dyer PA-C pramipexole dihydrochloride 0.25 mg oral tablet (7 sources) Nonergot Dopamine Agonist Start: 12-21-2017 End: 04-10-2018 take 1 tablet by mouth at bedtim e Pramipexole 0.25 mg tablet Discontinued 0.25 mg PO AT BEDTIME 30 December 21, 2017 1:00am April 10, 2018 1:07pm Restless legs syndrome raNITIdine 150 mg oral tablet (7 sources) Histamine-2 Receptor Antagonist Start: 07-06-2011 End: 08-02-2021 take 1 tablet by mouth twice daily, then take 1 tablet by mouth twice daily ranitidine (ZANTAC) 150 mg tablet Take 1 tablet by mouth twice daily. Take one (1) tablet twice a day. 60 tablet 2 11/19/2014 08/02/2021 Discontinued Comment on above: Take 1 tablet by jose twice daily. Take one (1) tablet twice a day. rifAXIMin 550 mg oral tablet (4 sources) Rifamycin Antibacterial Start: 07-18-2023 End: 11-28-2023 take 1 tablet by mouth three times daily Rifaximin (Xifaxan) 550 mg tablet Discontinued 550 mg PO THREE TIMES A DAY 42 14 2 September 12, 2023 2:12pm November 28, 2023 10:41am 72 hr scopolamine 0.0139 mg/hr transdermal system (14 sources) Anticholinergi c Start: 07-18-2023 End: 11-28-2023 Scopolamine Base 1 mg over 3 days patch 3 day Discontinued 1 NMA TD Q72H 10 30 July 18, 2023 12:00am November 28, 2023 10:39am Start: 11-09-2022 End: 05-15-2023 Scopolamine Base 1 mg over 3 days patch 3 day Discontinued 1 NMA TD Q72H 4 30 March 29, 2023 3:15pm May 15, 2023 12:20pm Start: 11-09-2022 End: 05-15-2023 Scopolamine Base Discontinue d 1 PATCH TD Q72H 4 March 29, 2023 3:15pm May 15, 2023 12:20pm SODIUM [id number] ORAL (1 source) End: 08-02-2021 SODIUM [id number]-DAG ORAL Take by mouth. 0 08/02/2021 Discontinued Comment on above: Take by mouth. sucralfate 1000 mg oral tablet (11 sources) Aluminum Complex Start: 05-17-2023 End: 04-25-2024 take 1 tablet by mouth every six hours Sucralfate (Carafate) 1 gram tablet Discontinued 1 g PO EVERY 6 HOURS 112 28 2 May 17, 2023 12:00am April 25, 2024 9:53am Start: 06-06-2022 End: 05-15-2023 take 1 tablet by mouth three times daily Sucralfate (Carafate) 1 gram tablet Discontinued 1 g PO THREE TIMES A DAY 90 0 June 06, 2022 12:00am May 15, 2023 12:20pm traZODone hydrochloride 100 mg oral tablet (2 sources) Serotonin Reuptake Inhibitor End: 08-02-2021 take 1 tablet by mouth once daily at bedtime traZODone (DESYREL) 100 mg tablet Take 100 mg by mouth daily at bedtime. 0 08/02/2021 Discontinued Comment on above: Take 100 mg by mouth daily at bedtime. Problems Active Problems Problem Classification Problem Date Documented Da te Episodic/Chronic Abdominal pain (8 sources) Abdominal pain; Translations: [Unspecified abdominal pain] Onset: 4 11-09-2022 Episodic Acute cerebrovascular disease (7 sources) Cerebrovascular accident; Translations: [Cerebral infarction, unspecified] 05-31-2022 Chronic Comment on above: 1998 Anal and rectal conditions (12 sources) Anal fissure; Translations: [Anal fissure, unspecified] 06-22-2022 Episodic Anxiety disorders (18 sources) Anxiety; Translations: [Anxiety disorder, unspecified] 11-17-2008 Chronic Cardiac dysrhythmias (20 sources) Atrial paroxysmal tachycardia; Translations: [Sick sinus syndrome] Onset: 2 07-01-2011 Chronic Conduction disorders (20 sources) Cardiac pacemaker in situ; Translations: [Presence of cardiac pacemaker] Onset: 2 07-01-2011 Chronic Comment on above: Initial Implant 03/[address] Arboleda @ [facility]:Sandip/DANIELLA 1294 Insignia, serial# [id number]; Gen change 06/18/[address] Lopez: PPM Generator - Surgical Scrub Technician: I[employer], Model # L111 , Serial # [id number] Diabetes mellitus with complications (1 source) Type 2 diabetes mellitus with diabetic neuropathy, unspecified; Translations: [Type 2 diabetes mellitus with diabetic neuropathy, unspecified] Onset: 5 Chronic Diabetes mellitus without complication (19 sources) Type 2 diabetes mellitus without complication; Translations: [Type 2 diabetes mellitus without complications] Onset: 2 Chronic Disorders of lipid metabolism (12 sources) Hyperlipidemia; Translations: [Hyperlipidemia, unspecified] Onset: 2 07-01-2011 Chronic Disorders of teeth and jaw (20 sources) Periapical abscess; Translations: [Periapical abscess without sinus] Onset: 2 Episodic Esophageal disorders (8 sources) Gastroesophageal reflux disease; Translations: [Gastro-esophageal reflux disease without esophagitis] 03-31-2022 Chronic Essential hypertension (18 sources) Benign essential hypertension; Translations: [Essential (primary) hypertension] Onset: 2 Chronic Gastrointestinal hemorrhage (20 sources) Hematochezia; Translations: [Melena] Onset: 7 10-11-2016 Episodic Intestinal infection (11 sources) Clostridium difficile colitis; Translations: [Enterocolitis due to Clostridium difficile, not specified as recurrent] Onset: 4 03-31-2022 Episodic Mood disorders (20 sources) Manic episode, unspecified; Translations: [Depressive disorder] Onset: 2 07-01-2011 Chronic Mood disorders (7 sources) Mood disorders 05-31-2022 Comment on above: NO MEDS Mycoses (5 sources) Candidiasis of mouth; Translations: [Candidal stomatitis] 10-15-2022 Episodic Nausea and vomiting (20 sources) Nausea and vomiting; Translations: [Nausea] Onset: 7 10-11-2016 Episodic Osteoarthritis (1 source) Unilateral primary osteoarthritis, left knee; Translations: [Unilateral primary osteoarthritis, left knee] Onset: 5 Chronic Other and ill-defined heart disease (7 sources) Takotsubo cardiomyopathy; Translations: [Takotsubo syndrome] 12-04-2017 Chronic Other bone disease and musculoskeletal deformities (1 source) Disorder of bone; Translations: [Other specified disorders of bone, unspecified site] Episodic Other bone disease and musculoskeletal deformities (4 sources) Other specified disorders of bone, unspecified site; Translations: [Other disorders of bone and cartilage] Episodic Other circulatory disease (12 sources) Carotid bruit; Translations: [Other specified symptoms and signs involving the circulatory and respiratory systems] Onset: 2 07-01-2011 Episodic Other gastrointestinal disorders (4 sources) Irritable bowel syndrome; Translations: [Irritable bowel syndrome without diarrhea] 05-03-2023 Chronic Other gastrointestinal disorders (2 sources) Irritable bowel syndrome without diarrhea; Translations: [Irritable bowel syndrome] 05-03-2023 Chronic Other gastrointestinal disorders (2 sources) Dysphagia; Translations: [Dysphagia, unspecified] 04-25-2024 Episodic Other gastrointestinal disorders (1 source) Dysphagia, unspecified; Translations: [Dysphagia, unspecified] Onset: 5 Episodic Other hereditary and degenerative nervous system conditions (7 sources) Restless legs; Translations: [Restless legs syndrome] 12-22-2017 Chronic Other liver diseases (2 sources) Steatosis of liver; Translations: [Fatty (change of) liver, not elsewhere classified] 12-05-2023 Chronic Other liver diseases (1 source) Fatty (change of) liver, not elsewhere classified; Translations: [Fatty (change of) liver, not elsewhere classified] Onset: 4 Chronic Other lower respiratory disease (7 sources) Dyspnea; Translations: [Dyspnea, unspecified] 03-29-2018 Episodic Other nutritional; endocrine; and metabolic disorders (17 sources) Weight loss; Translations: [Abnormal weight loss] 11-17-2008 Episodic Residual codes; unclassified (7 sources) Family history of cancer of colon; Translations: [Family history of malignant neoplasm of digestive organs] 03-31-2022 Episodic Residual codes; unclassified (1 source) Family history of malignant neoplasm of digestive organs; Translations: [Family history of malignant neoplasm of gastrointestinal tract] 03-31-2022 Episodic Spondylosis; intervertebral disc disorders; other back problems (5 sources) Spondylosis without myelopathy or radiculopathy, lumbar region; Translations: [Spondylosis without myelopathy or radiculopathy, lumbosacral region] Onset: 5 Chronic Unclassified (1 source) Long-term drug therapy; Translations: [Other snf (current) drug therapy] Onset: 2 07-01-2011 Unclassified (1 source) Esophagitis, unspecified without bleeding; Translations: [Esophagitis, unspecified without bleeding] Onset: 4 Past or Other Problems Problem Classification Problem Date Documented Da te Episodic/Chronic Abdominal hernia (1 source) Diaphragmatic hernia without obstruction or gangrene; Translations: [Diaphragmatic hernia without obstruction or gangrene] Onset: 11-07-2023 Episodic Allergic reactions (1 source) Radiographic dye allergy status; Translations: [Radiographic dye allergy status] Onset: 05-06-2024 Episodic Bacterial infection; unspecified site (1 source) Other bacterial infections of unspecified site; Translations: [Other bacterial infections of unspecified site] Onset: 03-15-2024 Episodic Conditions associated with dizziness or vertigo (5 sources) Dizziness and giddiness; Translations: [Dizziness and giddiness] Onset: 07-01-2011 07-01-2011 Episodic Fever of unknown origin (4 sources) Pyrexia of unknown origin; Translations: [Fever, unspecified] Onset: 10-11-2016 10-11-2016 Episodic Fluid and electrolyte disorders (1 source) Hypokalemia; Translations: [Hypokalemia] Onset: 12-28-2023 Episodic Nonmalignant breast conditions (1 source) Pain of breast; Translations: [Mastodynia] Onset: 12-29-2008 Resolved: 09-13-2012 09-13-2012 Episodic Other aftercare (5 sources) Other medical terminologist (current) drug therapy; Translations: [Other snf (current) drug therapy] Onset: 07-01-2011 07-01-2011 Episodic Other aftercare (1 source) group home (current) use of oral hypoglycemic drugs; Translations: [group home (current) use of oral hypoglycemic drugs] Onset: 05-06-2024 Episodic Other circulatory disease (1 source) Personal history of transient ischemic attack (TIA), and cerebral infarction without residual deficits; Translations: [Personal history of transient ischemic attack (TIA), and cerebral infarction without residual deficits] Onset: 05-06-2024 Episodic Other female genital disorders (17 sources) Cyst of vagina; Translations: [Other specified noninflammatory disorders of vagina] Onset: 12-29-2008 12-29-2008 Episodic Other gastrointestinal disorders (4 sources) Hemorrhagic diarrhea ; Translations: [Diarrhea, unspecified] Onset: 10-11-2016 10-11-2016 Episodic Other gastrointestinal disorders (1 source) Abdominal mass; Translations: [Right lower quadrant abdominal swelling, mass and lump] Onset: 12-29-2008 Resolved: 08-28-2012 08-28-2012 Episodic Other nervous system disorders (3 sources) Atypical facial pain; Translations: [Atypical facial pain] Onset: 04-23-2024 Episodic Other skin disorders (3 sources) Rash and other nonspecific skin eruption; Translations: [Rash and other nonspecific skin eruption] Onset: 05-06-2024 Episodic Ovarian cyst (1 source) Cyst of ovary; Translations: [Unspecified ovarian cyst, unspecified side] Onset: 12-29-2008 Resolved: 08-28-2012 08-28-2012 Episodic Residual codes; unclassified (7 sources) History of cardiac catheterization; Translations: [Other specified postprocedural states] Onset: 02-14-2004 08-09-2021 Episodic Comment on above: Normal Coronary da clement per cardiac cath 03/15/04 Residual codes; unclassified (1 source) Acquired absence of other specified parts of digestive tract; Translations: [Acquired absence of other specified parts of digestive tract] Onset: 05-06-2024 Episodic Screening and history of mental health and substance abuse codes (1 source) Personal history of nicotine dependence; Translations: [Personal history of nicotine dependence] Onset: 05-23-2024 Episodic Spondylosis; intervertebral disc disorders; other back problems (1 source) Spinal stenosis, lumbar region with neurogenic claudication; Translations: [Spinal stenosis, lumbar region with neurogenic claudication] Onset: 04-23-2024 Episodic Syncope (5 sources) Syncope and collapse; Translations: [Syncope and collapse] Onset: 07-01-2011 07-01-2011 Episodic Results Test Name Value Interpretation Reference Range Facility ED MED ADMINISTRATION DETAIL on 08-17-2024 ED MED ADMINISTRATION DETAIL [employer] Medication Administration Record [address] [address] [id number] 08/13/2024 Patient: RAUL HATCH Sex: Female : 1965 Age: 59y MEASUREMENTS: Wt: 61.2 kg, Ht/Jose Juan: 61.0 in, BMI: 25.51 ALLERGIES: Iodinated Contrast Media Medication Ordered Medication Administration Date/Time IV NS 0.9 % 1000 20:08/13 IV NS 0.9 % 1000 mL started in bag#1 1000 mL at Started mL at 999 mL/hr 999 mL/hr via Site# 1. Allergies verified and confirmed 5 rights. IV 20:08/13/2024 (NOW x1) patency established. IV site checked: no pain, redness, or swelling. Thang Yifan, R.N. IV flushed thoroughly pre-medication administration. Information Stopped reviewed with patient including reason for taking this medication. 00:08/14/2024 Verbalizes understanding. - 20:24 Thang Saha R.N. Thang Saha, R.N. Scanned 00:08/14 Medication Discontinued: bag #1 completed. Total amount infused: 1000 mL. IV patency established. IV site checked: no pain, redness, or swelling. IV flushed thoroughly post-medication administration. - 00: Thang Saha, R.N. Zofran IVP 4 mg 20:08/13 Zofran IVP 4 mg given via Site# 1. Allergies verified Given (NOW x1) and confirmed 5 rights. IV patency established. IV site checked: no 20:08/13/2024 pain, redness, or swelling. IV flushed thoroughly pre-medication Thang Yifan, R.N. administration. Information reviewed with patient including reason Scanned for taking this medication. Verbalizes understanding. - 20:25 Thang Saha, R.N. 1 of 2 [employer] Medication Ordered Medication Administration Date/Time DiphenhydrAMINE 20:08/13 DiphenhydrAMINE (Benadryl) IVP 50 mg given via Given (Benadryl) IVP 50 Site# 1. Allergies verified and confirmed 5 rights. IV patency 20:08/13/2024 mg (NOW x1) established. IV site checked: no pain, redness, or swelling. IV Thangalexandro Bunchp, R.N. flushed thoroughly pre-medication administration. Information Scanned reviewed with patient including reason for taking this medication. Verbalizes understanding. - 20: Chantelle AnayaN. MethylPREDNISolo 20:08/13 MethylPREDNISolone Sodium Succ (Solu-Medrol) IVP Given ne Sodium Succ 125 mg given via Site# 1. Allergies verified and confirmed 5 rights. 20:08/13/2024 (Solu-Medrol) IVP IV patency established. IV site checked: no pain, redness, or Thang Saha R.N. 125 mg (NOW x1) swelling. IV flushed thoroughly pre-medication administration. Scanned Information reviewed with patient including reason for taking this medication. Verbalizes understanding. - 20:31 Thang Saha RGabyN. Flagyl IVPB Premix 23:08/13 Flagyl IVPB Premix 500 mg started at 100 mL/hr via Started 500 mg at 100 Site# 1. Allergies verified and confirmed 5 rights. Via IV pump. IV 23:42 08/13/2024 mL/hr (NOW x1) patency established. IV site checked: no pain, redness, or swelling. Thang Saha R.N. IV flushed thoroughly pre-medication administration. Information Stopped reviewed with patient including reason for taking this medication. 00:42 08/14/2024 Verbalizes understanding. - 23:43 Thang Saha R.N. Thang Saha R.N. Scanned 00:42 08/14 Medication Discontinued: IV completed. Total amount infused: 100 mL. IV patency established. IV site checked: no pain, redness, or swelling. IV flushed thoroughly post-medication administration. - 00:50 Chantelle AnayaN. KetorOLAC 00:39 08/14 KetorOLAC (Toradol) IVP 15 mg given via Site# 1. Given (Toradol) IVP 15 mg Allergies verified and confirmed 5 rights. IV patency established. IV 00:39 08/14/2024 (NOW x1) site checked: no pain, redness, or swelling. IV flushed thoroughly Thagn Saha R.N. pre-medication administration. Information reviewed with patient Scanned including reason for taking this medication. Verbalizes understanding. Medication Wastage: 15 mg wasted. - 00:49 Thang Saha R.N. 2 of 2 Normal [facility] ED NURSES CLINICAL NOTEon ED NURSES CLINICAL NOTE Nurse Narrative Nurse Clinical Narrative [facility] [address] [place] [address] [id number] 08/13/2024 18:54:00 Patient: RAUL HATCH Sex: Female : 1965 Age: 59y Disposition: Discharge to Home Disposition Decision Time: 23:53 08/13/2024 Departure Time: 00:45 08/14/2024 TRIAGE Arrived by private vehicle. Historian: (patient). Accompanied by family. Patient has a primary care physician. Primary physician (none). Triage time: 18:56 08/13/2024. Acuity: LEVEL 3. Chief Complaint: ABDOMINAL PAIN, NAUSEA, VOMITING and DIARRHEA. This started yesterday. SEPSIS SCREEN: NEGATIVE. SIRS criteria negative: heart rate greater than 90. Possible sources of infection. -- 19:08/13/24 EDT Natalya Matamoros R.N. 19:00 08/13/24. BP: 133/86 MAP: 102. HR: 108. RR: 16. O2 saturation: 94% Temperature: 97.9 F (temporal). Pain level now 7/10. -- 19:08/13/24 EDT Natalya Matamoros R.N. Measurements: 19:00 08/13/24 Wt: 61.2 kg, Ht/Jose Juan: 61.0 in, BMI: 25.51 -- 19:00 08/13/24 EDT Natalya Matamoros R.N. Medications: Vitamin D2 1,250 mcg (50,000 unit) capsule: 1 once a week . -- 18:58 08/13/24 EDT Natalya Matamoros R.N. hydrochlorothiazide 50 mg tablet: 1 tablet once a day . -- 18:08/13/24 EDT Natalya Matamoros R.N. glipizide 5 mg tablet: 1/2 tablet once a day . -- 18:08/13/24 EDT Natalya Matamoros R.N. 1 of 5 Nurse Narrative clonidine HCl 0.2 mg tablet: 1 tablet twice a day . -- 18:08/13/24 EDT Natalya Matamoros R.N. ondansetron 4 mg disintegrating tablet: 1 tablet every eight hours. Stopped 08/13/2024. -- 23:33 08/13/24 EDT Jordan Downs D.O. 18:56 08/13/24. Preferred Pharmacy: [facility] [place] -- 19:01 08/13/24 EDT Natalya Matamoros R.N. Allergies: Iodinated Contrast Media -- 18:58 08/13/24 EDT Natalya Matamoros R.N. Problems: shingles -- 18:58 08/13/24 EDT Natalya Matamoros R.N. Hypertension -- 18:58 08/13/24 EDT Natalya Matamoros R.N. TIA - Transient Ischemic Attack -- 18:58 08/13/24 EDT Natalya Matamoros R.N. Diabetes Mellitus -- 18:58 08/13/24 EDT Natalya Matamoros R.N. Pacemaker -- 18:58 08/13/24 EDT Natalya Matamoros R.N. Back Pain -- 18:58 08/13/24 EDT Natalya Matamoros R.N. Clostridium difficile infection -- 18:58 08/13/24 EDT Natalya Matamoros R.N. Rios's esophagus -- 18:58 08/13/24 EDT Natalya Matamoros R.N. Gastroesophageal Reflux Disease -- 18:58 08/13/24 EDT Natalya Matamoros R.N. Anxiety disorder -- 18:58 08/13/24 EDT Natalya Matamoros R.N. Surgeries: fissure surgery -- 18:59 08/13/24 NERYT Natalya Matamoros R.N. Gallbladder Surgery -- 18:59 08/13/24 EDT Natalya Matamoros R.N. Back Surgery -- 18:59 08/13/24 EDT Natalya Matamoros R.N. Appendectomy -- 18:59 08/13/24 EDT Natalya Matamoros R.N. History 18:56 08/13/24. SOCIAL HX: Never smoker. No alcohol use or drug use. The patient has not traveled outside the [place] Infectious disease exposure: No infectious disease exposure. The patient was exposed to C-diff. ABUSE ASSESSMENT: The patient answered yes to the question(s) Do you feel safe in your home? and no to the question(s) Are you afraid to go home?. 2 of 5 Nurse Narrative SELF HARM ASSESSMENT: Self harm assessment was performed. The patient answered no to the question(s) Have you recently felt down, depressed, or hopeless? and Do you have thoughts of harming or killing yourself?. FALL RISK ASSESSMENT: Fall risk assessment completed. No risk factors identified. -- 19:08/13/24 EDT Natalya Matamoros R.N. Interventions 18:56 08/13/24. Advanced care plan discussed with patient. Patient does not have advanced directive. -- 19:08/13/24 EDT Natlaya Matamoros R.N. PHYSICAL ASSESSMENT 21:39 08/13/24. Ambulatory to room. ( diarrhea for past several days. on antibiotics for thrush, states hx of cdiff, states diarrhea smeels like cdiff). GENERAL / NEURO / PSYCH: Alert. Oriented X 4. Appears in distress. RESPIRATORY: Respirations not labored. CVS: Normal sinus rhythm noted. -- 21:08/13/24 EDT Thang Saha R.N. NURSING PROGRESS NOTES 20:08/13/24. Site #1 started in the right antecubital space with a 20g angiocath with aseptic technique and good blood return; 1 attempt. Blood drawn: rainbow set tube(s). Labeled in the presence of the patient and sent to the lab. Saline lock flushed with 5 mL saline. -- 20:08/13/24 EDT Thang Saha R.N. 20:08/13/24. IV NS 0.9 % 1000 mL started in bag#1 1000 mL at 999 mL/hr via Site# 1. Allergies verified and confirmed 5 rights. IV patency established. IV site checked: no pain, redness, or swelling. IV flushed thoroughly pre-medication administration. Information reviewed with patient including reason for taking this medication. Verbalizes understanding. -- 20:08/13/24 MANNY Saha R.N. 20:08/13/24. Zofran IVP 4 mg given via Site# 1. Allergies verified and confirmed 5 rights. IV patency established. IV site checked: no pain, redness, or s (more content not included)... Normal [facility] ED ORDER SHEET (CPOE ONLY)on 08-17-2024 ED ORDER SHEET (CPOE ONLY) Order Sheet Order Sheet [facility] [place] [address] [id number] 08/13/2024 Patient: RAUL HATCH Sex: Female : 1965 Age: 59y MEASUREMENTS: Wt: 61.2 kg, Ht/Jose Juan: 61.0 in, BMI: 25.51 ALLERGIES: Iodinated Contrast Media MEDICATION/IV/DRIP/FLUI D ORDERS Order Description Priority Entered Acknowledged Completed IV NS 0.9 %1000 mL at 999 19:46 08/13/2024 20:12 20:24 mL/hr (NOW x1) Jordan Downs D.O. 08/13/2024 08/13/2024 Tim Anaya R.N. Zofran IVP4 mg (NOW x1) 20:12 08/13/2024 20:12 20:25 Thang Saha R.N. 08/13/2024 08/13/2024 Verbal Order, Auth by: Tim Anaya R.N. David Didur, D.O. Read back and verified DiphenhydrAMINE (Benadryl) 20:27 08/13/2024 20:31 IVP50 mg (NOW x1) Jordan Downs D.O. 08/13/2024 Thang Saha R.N. MethylPREDNISolone Sodium 20:27 08/13/2024 20:31 Succ (Solu-Medrol) [id number] mg Jordan Downs D.O. 08/13/2024 (NOW x1) Thang Saha R.N. Flagyl IVPB [id number] mg at 22:51 08/13/2024 23:03 23:43 1 of 4 Order Sheet 100 mL/hr (NOW x1) Jordan Downs D.O. 08/13/2024 08/13/2024 Tim Anaya R.N. KetorOLAC (Toradol) IVP15 mg 23:55 08/13/2024 23:57 00:49 (NOW x1) Jordan Downs D.O. 08/13/2024 08/14/2024 Tim Anaya, R.N. Reason for ordering with alerts: Clinical consideration given --23:55 08/13/2024 Jordan Downs D.O. LAB ORDERS Order Description Priority Entered Acknowledged Collected Completed CBC w Diff Stat Stat 19:46 08/13/2024 19:59 08/13/2024 20:22 08/13/2024 Alejandro Kramer R.N. Seth Lapp, R.N. CMP Stat Stat 19:46 08/13/2024 19:59 08/13/2024 20:22 08/13/2024 Alejandro Kramer, Tim Saha, R.N. Blood Culture Stat 19:46 08/13/2024 19:58 08/13/2024 20:22 08/13/2024 [[place]] # 1 Stat Alejandro Kramer R.N. Seth Lapp, R.N. Blood Culture Stat 19:46 08/13/2024 19:59 08/13/2024 23:44 08/13/2024 [Tati] # 2 Stat Alejandro Kramer, Tim Saha, R.N. Troponin-I Stat Stat 19:46 08/13/2024 19:59 08/13/2024 20:22 08/13/2024 Alejandro Kramer, Tim Saha, R.N. EKG - ED Stat Stat 19:46 08/13/2024 Cancelled: Unable to Collect Jordan Downs D.O. 00:36 EDT Thang Saha R.NGaby Lactate, Serum Stat Stat 19:46 08/13/2024 19:59 08/13/2024 20:22 08/13/2024 Alejandro Kramer, Tim Saha, R.N. 2 of 4 Order Sheet Urinalysis Stat Stat 19:46 08/13/2024 Cancelled: Unable to Collect Jordan Downs D.O. 23:24 EDT Thang Saha R.N. C Diff Complete Stat Stat 19:46 08/13/2024 19:59 08/13/2024 21:00 08/13/2024 Alejandro Kramer, RGabyNGaby Saha, R.N. Stool Culture Stat 19:46 08/13/2024 19:59 08/13/2024 21:00 08/13/2024 [TATI] Stat Alejandro Kramer, RGabyNGaby Saha, R.N. Occult Blood, Stool Stat 19:46 08/13/2024 19:59 08/13/2024 21:00 08/13/2024 (Non-Cancer Screening) Alejandro Kramer, R.NGaby Saha, R.N. Stat Lipase Stat Stat 20:20 08/13/2024 20:23 08/13/2024 20:23 08/13/2024 Alejandro Kramer, R.NGaby Saha, R.N. Flu Swab (Influenzae Stat 20:20 08/13/2024 20:23 08/13/2024 21:00 08/13/2024 AAg) Stat Alejandro Kramer, R.NGaby Saha, R.N. Rapid COVID (SARS) Stat 20:20 08/13/2024 20:23 08/13/2024 21:00 08/13/2024 ANTIGEN TEST Stat Alejandro Kramer, R.NGaby Saha, R.N. Stool Culture Stat 22:52 08/13/2024 Cancelled: Duplicate Order [TATI] Stat Jordan Downs D.O. 23:03 EDT Thang Saha, R.NGaby DIAGNOSTIC STUDY ORDERS Order Description Priority Entered Acknowledged Completed CT ABD/PEL w Cont Stat Stat 22:06 08/13/2024 23:03 23:03 Jordan Downs D.O. 08/13/2024 08/13/2024 Tim Anaya R.NGaby 3 of 4 Order Sheet Order Comments: 22:06 08/13/2024: Status: Not . Jordan Downs D.O. 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 Seth Lapp RGabyNGaby Oxygen titrate to 92% 19:46 08/13/2024 19:59 08/13/2024 Alejandro Kramer RSamuel Splint (UE) 23:17 08/13/2024 Cancelled: Wrong Patient Jordan Downs D.O. 23:18 EDT Jordan Downs D.O. [Electronically signed by Jordan Downs D.O. (08/14/2024 01:05 EDT)] 4 of 4 Normal [facility] ED PHYSICIAN CLINICAL REPORT on 08-17-2024 ED PHYSICIAN CLINICAL REPORT Narrative Physician Clinical Narrative [address] [address] [id number] 08/13/2024 18:54:00 Patient: RAUL HATCH Sex: Female : 1965 Age: 59y Disposition: Discharge to Home Disposition Decision Time: 23:53 08/13/2024 Departure Time: 00:45 08/14/2024 Measurements Wt: 61.2 kg, Ht/Jose Juan: 61.0 in, BMI: 25.51 Initial Vital Sign Measured Time BP MAP HR RR O2Sat ETCO2 Temp Pain GCS RTS 19:00 08/13/2024 133/86 102 108 16 94% 97.9 F 7 Time Seen: 19:20 08/13/2024. Arrived- By private vehicle. Historian- patient. HISTORY OF PRESENT ILLNESS Chief Complaint: ABDOMINAL PAIN. It is described as sharp and it is described as located in the periumbilical area. This started yesterday. The patient has had nausea and moderate diarrhea. The patient has had vomiting. The vomiting has occurred numerous times. No blood-tinged emesis. Similar symptoms previously. Patient has had similar symptoms several times. Recent medical care: The patient was seen recently at this facility. REVIEW OF SYSTEMS CVS: No chest pain. NEUROLOGICAL: No headache. CONSTITUTIONAL: No fever. The patient has had chills but not had weight loss. : No difficulty with urination, pain with urination or urinary frequency. GI: No 1 of 17 Narrative constipation, black stools or hematemesis. RESPIRATORY: No difficulty breathing or cough. MUSCULOSKELETAL: No joint pain. The patient has had back pain. SKIN: No skin rash. EYES: No blurred vision. THROAT: No sore throat. Status: Not . PAST HISTORY See nurses notes. Anxiety disorder Back Pain Rios's esophagus Clostridium difficile infection Diabetes Mellitus Gastroesophageal Reflux Disease Hypertension Pacemaker shingles TIA - Transient Ischemic Attack Surgeries: Appendectomy Back Surgery fissure surgery Gallbladder Surgery Medications: clonidine HCl 0.2 mg tablet: 1 tablet twice a day . glipizide 5 mg tablet: 1/2 tablet once a day . hydrochlorothiazide 50 mg tablet: 1 tablet once a day . ondansetron 4 mg disintegrating tablet: 1 tablet every eight hours. Stopped 08/13/2024. Vitamin D2 1,250 mcg (50,000 unit) capsule: 1 once a week . Allergies: Iodinated Contrast Media SOCIAL HISTORY Never smoker. No alcohol use. 2 of 17 Narrative ADDITIONAL NOTES The nursing notes have been reviewed. PHYSICAL EXAM Appearance: Alert. Oriented X3. No acute distress. Eyes: Pupils equal, round and reactive to light. ENT: Nose normal. Dry mucous membranes present. Pharynx normal. Neck: Normal inspection. Neck supple. CVS: Normal heart rate and rhythm. Heart sounds normal. Pulses normal. Respiratory: No respiratory distress. Breath sounds normal. Chest nontender. Abdomen: Soft. Moderate tenderness in the periumbilical area with guarding present. No rebound tenderness. Abnormal bowel sounds: diminished. No organomegaly. No mass. No rebound tenderness or distention. Skin: Skin warm and dry. No rash. Extremities: Extremities exhibit normal ROM. No lower extremity edema. Neuro: Oriented X 3. No motor deficit. No sensory deficit. LABS, X-RAYS, AND EKG CT Abdomen - Pelvis: No urinary tract calculi or hydronephrosis. No free air or fluid. No thickened bowel or evidence of appendicitis. No inflammatory changes or hepatic steatosis. No bowel obstruction. Lung bases show no acute process. Abdomen - pelvic CT performed with IV contrast. The study was interpreted by the radiologist. Interpretation time: 22:46 08/13/2024. Laboratory Tests: C DIFF COMPLETE Final JAJA: 08/13/2024 20:49:00 EDT MsgRcvd: 08/13/2024 22:11 EDT Lab Test Result Reference Status Received Comments 0{ C-DIFF TOXIN C DIFF 08/13/2024 _NEGATIVE__ Final COMPLETE 22:11 EDT (NRL: NEGATIVE ) 08/13/24.9.SO . 3 of 17 Narrative Lab Test Result Reference Status Received Comments 08/13/2024 C-DIFF AG NEGATIVE NRL: NEGATIVE Final 22:11 EDT INTERNAL NEG 08/13/2024 PASS Final QC 22:11 EDT INTERNAL POS 08/13/2024 PASS Final QC 22:11 EDT INTERPRETATION: POSITIVE Ag,POSITIVE Tox = C. Diff is present producing toxins POSITIVE Ag,NEGATIVE Tox = C. Diff is present NEGATICE EXTERNAL QC 08/13/2024 Ag,NEGATICE Tox YES Final DONE? 22:11 EDT = C. Diff is not present A low percentage of specimens may test negative for antigen but positive for toxin. A fresh specimen should be resumbitted for retesting. CBC + DIFF Final JAJA: 08/13/2024 20:49:00 EDT MsgRcvd: 08/13/2024 21:20 EDT Lab Test Result Reference Status Received Comments 4 of 17 Narrative Lab Test Result Reference Status Received Comments 08/13/2024 21:20 CBC-COMPLETE CBC + DIFF Final EDT BLOOD COUNT 08/13/2024 21:20 WBC 8.0 x 10/UL 4.5 - 10.8 Final EDT (more content not included)... Normal [facility] ED [facility] 08-17-2024 ED [facility] [address] [place] [address] [id number] 08/13/2024 Patient: RAUL HATCH Sex: Female : 1965 Age: 59y Item Facility Professional Category Description Code Code Quantity Fee Total Drugs Normal Saline 947050 1 $0.00 $0.00 1000cc (930411) Nurse/E/M EMERGENCY 029069 1 $0.00 $0.00 DEPARTMENT VISIT HIGH/URGENT SEVERITY (05664-93) Nurse/IV/IM/Infusions Drip/IVPB initial 851612 1 $0.00 $0.00 (33101) Nurse/IV/IM/Infusions Hydration 577530 3 $0.00 $0.00 additional hour (96193) Nurse/IV/IM/Infusions IVP additional 877798 4 $0.00 $0.00 push (45160) Grand Total $0.00 Providers Jordan Downs D.O. 1 of 2 Superbil Chief Complaint ABDOMINAL PAIN. Principal Diagnosis Acute generalized abdominal pain. Vomiting with nausea and dehydration. Diarrhea ICD-10 Codes R11.2: Nausea with vomiting, unspecified R19.7: Diarrhea, unspecified R10.84: Generalized abdominal pain 2 of 2 Normal [facility] ED VISIT SUMMARYon ED VISIT SUMMARY Visit Overview Visit Overview [address] [address] [id number] 08/13/2024 Patient: RAUL HATCH Sex: Female : 1965 Age: 59y 08/17/2024 12:27 PM EDT ED Arrival:18:54 08/13/2024 EDT Status:not Recent Travel:no Language:eng Adv Directive:No Isolation Status: Ethnicity:N Fall Risk:no risk Infectious Disease Exposure:yes Measurements:5'1 / 154.9 Self-Harm Status:risk Sepsis Screen:negative cm 135.0 lb / 61.2 kg Chief Complaint:ABDOMINAL PAIN, DIARRHEA, NAUSEA, VOMITING, and (none) ALLERGIES Iodinated Contrast Media HOME MEDICATIONS clonidine HCl 0.2 mg tablet: 1 tablet twice a day . glipizide 5 mg tablet: 1/2 tablet once a day . hydrochlorothiazide 50 mg tablet: 1 tablet once a day . ondansetron 4 mg disintegrating tablet: 1 tablet every eight hours. Stopped 08/13/2024. Vitamin D2 1,250 mcg (50,000 unit) capsule: 1 once a week . Visit Overview PAST MEDICAL HISTORY / PROBLEMS Anxiety disorder Back Pain Rios's esophagus Clostridium difficile infection Diabetes Mellitus Gastroesophageal Reflux Disease Hypertension Pacemaker See nurses notes shingles TIA - Transient Ischemic Attack PAST SURGICAL HISTORY Appendectomy Back Surgery fissure surgery Gallbladder Surgery SOCIAL HISTORY Smoking status: No Alcohol use: No Drug use: No ED COURSE MEDICATIONS GIVEN IN EMERGENCY DEPARTMENT 20:24 08/13/24 IV NS 0.9 % 1000 mL 999 mL/hr 20:24 08/13/24 Zofran IVP 4 mg 20:08/13/24 MethylPREDNISolone Sodium Succ (Solu-Medrol) IVP 125 mg 20:08/13/24 DiphenhydrAMINE (Benadryl) IVP 50 mg 23:42 08/13/24 Flagyl IVPB Premix 500 mg 100 mL/hr 00:39 08/14/24 KetorOLAC (Toradol) IVP 15 mg IV SITE INFORMATION INTAKE Visit Overview OUTPUT REASSESMENT (most recent) 21:39 08/13/24. Ambulatory to room. ( diarrhea for past several days. on antibiotics for thrush, states hx of cdiff, states diarrhea smeels like cdiff). GENERAL / NEURO / PSYCH: Alert. Oriented X 4. Appears in distress. RESPIRATORY: Respirations not labored. CVS: Normal sinus rhythm noted. VITAL SIGNS First Vitals Last Vitals Temp 19:00 08/13/24 97.9 F Temp 00:08/14/24 98.2 F BP 19:00 08/13/24 133/86 BP 00:08/14/24 124/72 HR 19:00 08/13/24 108 HR 00:40 08/14/24 68 RR 19:00 08/13/24 16 RR 00:40 08/14/24 18 O2 Sat 19:08/13/24 94% O2 Sat 00:40 08/14/24 98% Pain 19:00 08/13/24 7 Pain 00:40 08/14/24 2 ETCO2 19:08/13/24 ETCO2 00:40 08/14/24 GCS 19:08/13/24 GCS 00:08/14/24 RTS 19:00 08/13/24 RTS 00:40 08/14/24 PROCEDURES NURSING INTERVENTIONS LABS / STUDIES LABS / STUDIES ORDERED Blood Culture [Tati] # 1 Blood Culture [Tati] # 2 C Diff Complete CBC w Diff CMP CT ABD/PEL w Cont Flu Swab (Influenzae AAg) Lactate, Serum Lipase Occult Blood, Stool (Non-Cancer Screening) Rapid COVID (SARS) ANTIGEN TEST Stool Culture [TATI] 3 of 4 Visit Overview Troponin-I LABS / STUDIES PENDING IMPORT CT ABDOMEN/PELVIS W CLINICAL IMPRESSION ACUTE GENERALIZED ABDOMINAL PAIN DIARRHEA VOMITING WITH NAUSEA AND DEHYDRATION 4 of 4 [facility] ED VITALS FLOW SHEETon 08-17 ED VITALS FLOW SHEET Vitals Vital Sign Flow Sheet [address] [address] [id number] 08/13/2024 Patient: RAUL HATCH Sex: Female : 1965 Age: 59y Measurements Wt: 61.2 kg, Ht/Jose Juan: 61.0 in, BMI: 25.51 Measured Time BP MAP HR RR O2Sat ETCO2 Temp Pain GCS RTS 00:40 08/14/2024 124/72 89 68 18 98% 98.2 F 2 19:00 08/13/2024 133/86 102 108 16 94% 97.9 F 7 1 of 1 [facility] ED MED ADMINISTRATION DETAIL on 08-14-2024 ED MED ADMINISTRATION DETAIL Chief [employer] Medication Administration Record [address] [address] [id number] 08/09/2024 Patient: RAUL HATCH Sex: Female : 1965 Age: 59y MEASUREMENTS: Wt: 61.2 kg, Ht/Jose Juan: 61.0 in, BMI: 25.51 ALLERGIES: Iodinated Contrast Media Medication Ordered Medication Administration Date/Time 1 of 1 [facility] ED NURSES CLINICAL NOTEon ED NURSES CLINICAL NOTE Nurse Narrative Nurse Clinical Narrative [address] [address] [id number] 08/09/2024 15:22:00 Patient: RAUL HATCH Sex: Female : 1965 Age: 59y Disposition: Discharge to Home Disposition Decision Time: 15:49 08/09/2024 Departure Time: 16:02 08/09/2024 TRIAGE Arrived by private vehicle. Historian: (patient). Accompanied by family. Primary physician (christian). Triage time: 15:24 08/09/2024. Acuity: LEVEL 5. Chief Complaint: MOUTH SORE. This started last night. ( Pt states was placed on ATB a couple days ago for cellulitis after getting the shingles shot and states she has thrush now. pt states roof of mouth is sore and swollen and has white coating on her tongue.). Treatment SDE: None. SEPSIS SCREEN: NEGATIVE. SIRS criteria negative. No possible sources of infection. -- 15:32 08/09/24 EDT Vidya Rivera R.N. 15:30 08/09/24. BP: 168/105 MAP: 126. HR: 84. RR: 16. O2 saturation: 95% Temperature: 97.9 F. Pain level now 7/10. -- 15:31 08/09/24 EDT Vidya Rivera R.N. Measurements: 15:30 08/09/24 Wt: 61.2 kg, Ht/Jose Juan: 61.0 in, BMI: 25.51 -- 15:30 08/09/24 EDT Vidya Rivera R.N. 1 of 3 Nurse Narrative Medications: Vitamin D2 1,250 mcg (50,000 unit) capsule: 1 once a week . -- 15:28 08/09/24 EDT Vidya Rivera R.N. hydrochlorothiazide 50 mg tablet: 1 tablet once a day. -- 15:40 08/09/24 EDT Vidya Rivera R.N. glipizide 5 mg tablet: 1/2 tablet once a day. -- 15:40 08/09/24 EDT Vidya Rivera R.N. clonidine HCl 0.2 mg tablet: 1 tablet twice a day. -- 15:40 08/09/24 NERYT Vidya Rivera R.N. 15:24 08/09/24. Preferred Pharmacy: ([facility]). -- 15:32 08/09/24 EDT Vidya Rivera R.N. Allergies: Iodinated Contrast Media -- 15:28 08/09/24 EDT Vidya Rivera R.N. Problems: shingles -- 15:28 08/09/24 EDT Vidya Rivera R.N. Hypertension -- 15:28 08/09/24 EDT Vidya Rivera R.N. TIA - Transient Ischemic Attack -- 15:28 08/09/24 EDT Vidya Rivera R.N. Diabetes Mellitus -- 15:28 08/09/24 EDT Vidya Rivera R.N. Pacemaker -- 15:28 08/09/24 EDT Vidya Rivera R.N. Back Pain -- 15:28 08/09/24 EDT Vidya Rivera R.N. Clostridium difficile infection -- 15:28 08/09/24 EDT Vidya Rivera R.N. Rios's esophagus -- 15:28 08/09/24 EDT Vidya Rivera R.N. Gastroesophageal Reflux Disease -- 15:28 08/09/24 EDT Vidya Rivera R.N. Anxiety disorder -- 15:28 08/09/24 EDT Vidya Rivera R.N. Surgeries: fissure surgery -- 15:28 08/09/24 EDT Vidya Rivera R.N. Gallbladder Surgery -- 15:28 08/09/24 EDT Vidya Rivera R.N. Back Surgery -- 15:28 08/09/24 EDT Vidya Rivera R.N. Appendectomy -- 15:28 08/09/24 EDT Vidya Rivera R.N. History 15:08/09/24. SOCIAL HX: Former smoker. No alcohol use or drug use. The patient has not traveled outside the [place] 2 of 3 Nurse Narrative Infectious disease exposure: No infectious disease exposure. ABUSE ASSESSMENT: The patient answered yes to the question(s) Do you feel safe in your home? and no to the question(s) Are you afraid to go home?. SELF HARM ASSESSMENT: Self harm assessment was performed. The patient answered no to the question(s) Have you recently felt down, depressed, or hopeless? and Do you have thoughts of harming or killing yourself?. FALL RISK ASSESSMENT: Fall risk assessment completed. No risk factors identified. -- 15:32 08/09/24 EDT Vidya Rivera R.N. Interventions 15:24 08/09/24. Advanced care plan discussed with patient. Patient does not have advanced directive. -- 15:32 08/09/24 EDT Vidya Rivera R.N. PHYSICAL ASSESSMENT 15:25 08/09/24. Ambulatory to room. GENERAL / NEURO / PSYCH: Alert. Oriented X 4. Appears in no acute distress. HEENT: Pharynx within normal limits. Voice within normal limits. ( roof of mouth with swelling and tongue coated white). RESPIRATORY: Respirations not labored. SKIN: Skin is warm and dry. -- 15:34 08/09/24 EDT Vidya Rivera R.N. DISPOSITION / DISCHARGE Departure time: 16:08/09/2024. Condition at departure: improved. No learning barriers present. Discharge instructions provided and reviewed with the patient. Reviewed medication(s). Treatments reviewed. Follow up contact number. Patient verbalized understanding. Written instructions provided in Belarusian. The patient was discharged by the physician. The patient was discharged home and accompanied by neurocritical care physician. The patient left ambulatory and via private vehicle. Night Supervisor driving. -- 16:11 08/09/24 EDT Ander Matamoros R.N. (Electronically signed by Vidya Rivera R.N. 08/14/24 07:21:15 EDT) Generated by [facility] 3 of 3 Normal [facility] ED ORDER SHEET (CPOE ONLY)on 08-14-2024 ED ORDER SHEET (CPOE ONLY) Order Sheet Order Sheet [address] [address] [id number] 08/09/2024 Patient: RAUL HATCH Sex: Female : 1965 Age: 59y MEASUREMENTS: Wt: 61.2 kg, Ht/Jose Juan: 61.0 in, BMI: 25.51 ALLERGIES: Iodinated Contrast Media MEDICATION/IV/DRIP/FLUI D ORDERS Order Description Priority Entered Acknowledged Completed LAB ORDERS Order Description Priority Entered Acknowledged Collected Completed DIAGNOSTIC STUDY ORDERS Order Description Priority Entered Acknowledged Completed STAFF ORDERS Order Description Priority Entered Acknowledged Collected Completed of 1 Normal [facility] ED PHYSICIAN CLINICAL REPORT on 08-14-2024 ED PHYSICIAN CLINICAL REPORT Narrative Physician Clinical Narrative [facility] [address] [place] [address] [id number] 08/09/2024 15:22:00 [id number] Sex: Female : 1965 Age: 59y Disposition: Discharge to Home Disposition Decision Time: 15:49 08/09/2024 Departure Time: 16:02 08/09/2024 Measurements Wt: 61.2 kg, Ht/Jose Juan: 61.0 in, BMI: 25.51 Initial Vital Sign Measured Time BP MAP HR RR O2Sat ETCO2 Temp Pain GCS RTS 15:30 08/09/2024 168/105 126 84 16 95% 97.9 F 7 Time Seen: 15:20 08/09/2024. Arrived- By private vehicle. Historian- patient. Independent historian- family. HISTORY OF PRESENT ILLNESS Chief Complaint: MOUTH SORE. This started today and is still present. Pain described as moderate. No sore throat, nasal discharge or congestion, ear pain or toothache. No swollen jaw or face, jaw pain or facial pain. The patient has had mouth sores. REVIEW OF SYSTEMS GI: No nausea. CONSTITUTIONAL: No fever. NEUROLOGICAL: No headache. MUSCULOSKELETAL: No joint pain. RESPIRATORY: No cough. PAST HISTORY 1 of 4 Narrative See nurses notes. Anxiety disorder Back Pain Rios's esophagus Clostridium difficile infection Diabetes Mellitus Gastroesophageal Reflux Disease Hypertension Pacemaker shingles TIA - Transient Ischemic Attack Surgeries: Appendectomy Back Surgery fissure surgery Gallbladder Surgery Medications: clonidine HCl 0.2 mg tablet: 1 tablet twice a day. glipizide 5 mg tablet: 1/2 tablet once a day. hydrochlorothiazide 50 mg tablet: 1 tablet once a day. Vitamin D2 1,250 mcg (50,000 unit) capsule: 1 once a week . Allergies: Iodinated Contrast Media SOCIAL HISTORY Never smoker. No alcohol use. ADDITIONAL NOTES The nursing notes have been reviewed. PHYSICAL EXAM 2 of 4 Narrative Appearance: Alert. No acute distress. Head: Normal external inspection. Eyes: Conjunctivae and eyelids normal. ENT: Dental decay. Ears normal. Nose normal. No trismus present. (patient has some gingival swelling in her upper gums. He has no no obvious whitish areas she says feels like her thrush which she has had in the past. She is on antibiotics). Neck: Trachea midline. No adenopathy. CVS: Normal heart rate and rhythm. Heart sounds normal. Respiratory: No respiratory distress. Breath sounds normal. Chest nontender. Abdomen: Soft. No organomegaly. Skin: Normal skin color. No rash. Normal skin turgor. Extremities: Extremities exhibit normal ROM. Extremities nontender. Neuro: Oriented X 3. No motor deficit. PROGRESS AND PROCEDURES MEDICAL DECISION MAKING: (patient came in complaining of pain to her upper gum on the left. Said she had some swelling it felt like her thrush which she has had in the past she is on antibiotics for possible cellulitis. We will treat her for thrush with nystatin and she is told return if increasing pain problems or concerns). Disposition: Condition: stable. Discharged in fair condition. Discharge decision based on the following: patient's condition is stable; patient's exam is stable. CLINICAL IMPRESSION Acute nontraumatic pain in the throat. Possible thrush. DISCHARGE INSTRUCTIONS Prescription Medications: nystatin 100,000 unit/mL oral suspension: Take 5 ml to inside of mouth (buccal) twice a day for 7 days, dispense 70 ml. Refills 0. Pharmacy: [facility] [phone] [place] [address]. Follow-up with: Christin Ly, MARCELLUS, TUBE DISPATCHER, [employer]CHANDISER-C, [facility] Pediatric, Family [facility], Phone: [phone], [address] [facility] [address], [place] [address]. (return if increasing pain problems or concerns. 3 of 4 Narrative I would have your urine test did not about 2 weeks to make sure symptoms resolve. return if any difficulties or concerns.). (Electronically signed by Roger Arrieta D.O. 08/10/24 20:31:13 EDT) Generated by [facility] 4 of 4 Normal [facility] ED SUPER BILLon 08-14-2024 ED SUPER BILL [facility] [address] [address] [id number] 08/09/2024 Patient: RAUL HATCH Sex: Female : 1965 Age: 59y Item Professional Category Description Facility Code Code Quantity Fee Total Nurse/E/M EMERGENCY 853023 1 $0.00 $0.00 DEPARTMENT VISIT LOW/MODER SEVERITY (04950) Grand Total $0.00 Providers Roger Arrieta D.O. Chief Complaint MOUTH SORE. Principal Diagnosis Acute nontraumatic pain in the throat. ICD-10 Codes 1 of 2 [facility] R07.0: Pain in throat 2 of 2 Normal [facility] ED VISIT SUMMARYon ED VISIT SUMMARY Visit Overview Visit Overview [address] [address] [id number] 08/09/2024 Patient: RAUL HATCH Sex: Female : 1965 Age: 59y 08/14/2024 07:21 AM EDT ED Arrival:15:22 08/09/2024 EDT Status: Recent Travel:no Language:eng Adv Directive:No Isolation Status: Ethnicity:N Fall Risk:no risk Infectious Disease Exposure:no Measurements:5'1 / 154.9 Self-Harm Status:risk Sepsis Screen:negative cm 135.0 lb / 61.2 kg Chief Complaint:MOUTH SORE, (Pt states was placed on ATB a couple days ago for cellulitis after getting the shingles shot and states she has thrush now. pt states roof of mouth is sore and swollen and has white coating on her tongue. ), and (christian) ALLERGIES Iodinated Contrast Media HOME MEDICATIONS clonidine HCl 0.2 mg tablet: 1 tablet twice a day. 1 of 3 Visit Overview glipizide 5 mg tablet: 1/2 tablet once a day. hydrochlorothiazide 50 mg tablet: 1 tablet once a day. Vitamin D2 1,250 mcg (50,000 unit) capsule: 1 once a week . PAST MEDICAL HISTORY / PROBLEMS Anxiety disorder Back Pain Rios's esophagus Clostridium difficile infection Diabetes Mellitus Gastroesophageal Reflux Disease Hypertension Pacemaker See nurses notes shingles TIA - Transient Ischemic Attack PAST SURGICAL HISTORY Appendectomy Back Surgery fissure surgery Gallbladder Surgery SOCIAL HISTORY Smoking status: No Alcohol use: No Drug use: No ED COURSE MEDICATIONS GIVEN IN EMERGENCY DEPARTMENT IV SITE INFORMATION INTAKE 2 of 3 Visit Overview OUTPUT REASSESMENT (most recent) 15:25 08/09/24. Ambulatory to room. GENERAL / NEURO / PSYCH: Alert. Oriented X 4. Appears in no acute distress. HEENT: Pharynx within normal limits. Voice within normal limits. ( roof of mouth with swelling and tongue coated white). RESPIRATORY: Respirations not labored. SKIN: Skin is warm and dry. VITAL SIGNS First Vitals Last Vitals Temp 15:30 08/09/24 97.9 F Temp 15:30 08/09/24 97.9 F BP 15:30 08/09/24 168/105 BP 15:30 08/09/24 168/105 HR 15:30 08/09/24 84 HR 15:30 08/09/24 84 RR 15:30 08/09/24 16 RR 15:30 08/09/24 16 O2 Sat 15:30 08/09/24 95% O2 Sat 15:30 08/09/24 95% Pain 15:30 08/09/24 7 Pain 15:30 08/09/24 7 ETCO2 15:30 08/09/24 ETCO2 15:30 08/09/24 GCS 15:30 08/09/24 GCS 15:30 08/09/24 RTS 15:30 08/09/24 RTS 15:30 08/09/24 PROCEDURES NURSING INTERVENTIONS LABS / STUDIES CLINICAL IMPRESSION ACUTE NONTRAUMATIC PAIN IN THE THROAT POSSIBLE THRUSH 3 of 3 Normal [facility] ED VITALS FLOW SHEETon 08-14 ED VITALS FLOW SHEET Vitals Vital Sign Flow Sheet [address] [address] [id number] 08/09/2024 Patient: RAUL HATCH Sex: Female : 1965 Age: 59y Measurements Wt: 61.2 kg, Ht/Jose Juan: 61.0 in, BMI: 25.51 Measured Time BP MAP HR RR O2Sat ETCO2 Temp Pain GCS RTS 15:30 08/09/2024 168/105 126 84 16 95% 97.9 F 7 1 of 1 [facility] [facility] DIFF COMPLETEon 08-13-2024 C DIFF COMPLETE C DIFF COMPLETE 0{ C-DIFF TOXIN _NEGATIVE__ (NRL: NEGATIVE ) 08/13/24.2209.SO . C-DIFF AG NEGATIVE INTERNAL NEG QC PASS INTERNAL POS QC PASS EXTERNAL QC DONE? YES INTERPRETATION: POSITIVE Ag,POSITIVE Tox = C. Diff is present & producing toxins POSITIVE Ag,NEGATIVE Tox = C. Diff is present NEGATICE Ag,NEGATICE Tox = C. Diff is not present A low percentage of specimens may test negative for antigen but positive for toxin. A fresh specimen should be resumbitted for retesting. Normal [facility] Comment on above: Performed By: #### 2 79915 ####[facility],[address] [place] [address] 90000 CBC + DIFFon 08-13-2024 Baso # 0.02 x10EE3/UL Normal 0.00 - 0.10 [facility] Comment on above: Performed By: #### 2 86716 #### [facility],[address] [place] [address] 58526 Basophils/100 WBC (Bld) 0.2 % Normal 0.0 - 2.0 [facility] Comment on above: Performed By: #### 2 71606 #### [facility],[address] [place] [address] 92677 CBC + DIFF Normal [facility] Comment on above: Result Comment: CBC- COMPLETE BLOOD COUNT Performed By: #### 2 41683 #### [facility],[address] [place] [address] 27796 EO # 0.05 x10EE3/UL Normal 0.00 - 0.50 [facility] Comment on above: Performed By: #### 2 62878 #### [facility],[address] [place] [address] 22256 Eosinophils/100 WBC (Bld) 0.6 % Normal 0.0 - 7.0 [facility] Comment on above: Performed By: #### 2 66801 #### [facility],[address] [place] [address] Erythrocyte distribution width (RBC) [Ratio] 13.5 % Normal 12.0 - 15.6 [facility] Comment on above: Performed By: #### 2 18309 #### [facility],[address] [place] [address] Hematocrit (Bld) [Volume fraction] 41.4 % Normal 34.0 - 46.0 [facility] Comment on above: Performed By: #### 2 07560 #### [facility],[address] [place] [address] Hemoglobin (Bld) [Mass/Vol] 14.2 g/dL Normal 12.0 - 16.0 [facility] Comment on above: Performed By: #### 2 85900 #### [facility],[address] [place] [address] Lymph # 0.38 x10EE3/UL Low 0.80 - 2.80 [facility] Comment on above: Performed By: #### 2 88843 #### [facility],[address] [place] [address] Lymphocytes/100 WBC (Bld) 4.7 % Low 20.0 - 45.0 [facility] Comment on above: Performed By: #### 2 60419 #### [facility],[address] [place], [place] [address] MANUAL DIFF N/A Normal [facility] Comment on above: Performed By: #### 2 19127 #### [facility],[address] [place], [place] [address] MCH (RBC) [Entitic mass] 30 pg Normal 27 - 33 [facility] Comment on above: Performed By: #### 2 76572 #### [facility],[address] [place], [place] [address] MCHC 34 X10 3 Normal 32 - 36 [facility] Comment on above: Performed By: #### 2 52476 #### [facility],[address] [place] [address] MCV (RBC) [Entitic vol] 86 fL Normal 80 - 99 [facility] Comment on above: Performed By: #### 2 03757 #### [facility],[address] [place] [address] [place] # 0.35 x10EE3/UL Normal 0.20 - 1.00 [facility] Comment on above: Performed By: #### 2 61637 #### [facility],[address] [place] [address] MONOS % 4.3 % Normal 0.0 - 10.0 [facility] Comment on above: Performed By: #### 2 99184 #### [facility],[address] [place] [address] Morphology Coy (Bld) [Interp] N/A Normal [facility] Comment on above: Performed By: #### 2 82423 #### [facility],[address] [place] [address] Neut # 7.22 x10EE3/UL High 1.50 - 7.10 [facility] Comment on above: Performed By: #### 2 64051 #### [facility],[address] [place] [address] Neutrophils/100 WBC (Bld) 90.1 % High 46.0 - 76.0 [facility] Comment on above: Performed By: #### 2 55395 #### [facility],[address] [place] [address] PLATELET 309 x10EE3/UL Normal 150 - 450 [facility] Comment on above: Performed By: #### 2 53879 #### [facility],[address],[place] [address] Platelet mean volume (Bld) [Entitic vol] 8.1 fL Normal 6.6 - 10.5 [facility] Comment on above: Result Comment: AUTO MATED DIFFERENTIAL Performed By: #### 2 02656 #### [facility],[address] [place] [address] 70522 RBC 4.79 x 10EE6/UL Normal 4.10 - 5.30 [facility] Comment on above: Performed By: #### 2 32384 #### [facility],[address] [place] [address] 68563 WBC 8.0 x 10EE3/UL Normal 4.5 - 10.8 [facility] Comment on above: Performed By: #### 2 32136 #### [facility],[address] [place] [address] 77908 CMP with eGFRon 08-13-2024 AGE 59 years Normal [facility] Comment on above: Performed By: #### 2 34448 #### [facility],[address] [place] [address] 82563 Albumin [Mass/Vol] 3.9 g/dL Normal 3.4 - 5.0 [facility] Comment on above: Performed By: #### 2 64350 #### [facility],[address] [place] [address] 38242 Albumin/Globulin [Mass ratio] 0.9 {ratio} Normal 0.9 - 1.6 [facility] Comment on above: Performed By: #### 2 57944 #### [facility],[address] [place] [address] 58028 ALK PHOS 90 U/L Normal 46 - 116 [facility] Comment on above: Performed By: #### 2 95158 #### [facility],[address] [place] [address] 13967 ALT [Catalytic activity/Vol] 41 U/L Normal 16 - 63 [facility] Comment on above: Performed By: #### 2 80376 #### [facility],[address] [place] [address] 47727 Anion gap [Moles/Vol] 14 mmol/L Normal 10 - 20 [facility] Comment on above: Performed By: #### 2 94630 #### [facility],[address] [place] [address] 89909 AST [Catalytic activity/Vol] 27 U/L Normal 13 - 39 [facility] Comment on above: Performed By: #### 2 03642 #### [facility],[address] [place] [address] 77162 B/C RATIO 19 ratio Normal 0 - 30 [facility] Comment on above: Performed By: #### 2 20613 #### [facility],[address] [place] [address] 33621 Bilirubin [Mass/Vol] 0.5 mg/dL Normal 0.2 - 1.0 [facility] Comment on above: Performed By: #### 2 93301 #### [facility],[address] [place] [address] 18585 Calcium [Mass/Vol] 9.4 mg/dL Normal 8.5 - 10.1 [facility] Comment on above: Performed By: #### 2 67628 #### [facility],[address] [place] [address] 34745 Chloride [Moles/Vol] 103 mmol/L Normal 98 - 107 [facility] Comment on above: Performed By: #### 2 04790 #### [facility],[address] [place] [address] 52128 CMP with eGFR Normal [facility] Comment on above: Result Comment: COMP REHENSIVE METABOLIC PANEL Performed By: #### 2 76072 #### [facility],[address] [place] [address] 11301 CO2 [Moles/Vol] 27.9 mmol/L Normal 21.0 - 32.0 [facility] Comment on above: Performed By: #### 2 03894 #### [facility],[address] [place] [address] 87765 Creatinine [Mass/Vol] 1.02 mg/dL Normal 0.55 - 1.02 [facility] Comment on above: Performed By: #### 2 83091 #### [facility],[address] [place] [address] 78175 eGFR 56 ML/MINUTE Low 60 - 999 [facility] Comment on above: Performed By: #### 2 24662 #### [facility],[address] [place] [address] 91519 GFR/1.73 sq M.predicted among non-blacks MDRD (S/P/Bld) [Vol rate/Area] mL/min/{1.73_m2} Normal 60 - 999 [facility] Comment on above: Result Comment: ACCO RDING TO THE NATIONAL KIDNEY DISEASE EDUCATION PROGRAM(NKDE), A NORMAL eGFR IS A VALUE GREATER THAN OR EQUAL TO 60 ML/MIN/1.73 SQ METERS. CHRONIC KIDNEY DISEASE: <60mL/MIN/1.73 SQ METERS KIDNEY FAILURE: <15mL/MIN/1.73 SQ METERS THIS TEST SHOULD ONLY BE USED FOR PATIENTS 18 YEARS OF AGE AND OLDER. Performed By: #### 2 97259 #### [facility],[address] [place] [address] 90930 Globulin (S) [Mass/Vol] 4.5 g/dL High 1.5 - 3.8 [facility] Comment on above: Performed By: #### 2 08865 #### [facility],[address] [place] [address] 41811 Glucose [Mass/Vol] 148 mg/dL High 74 - 106 [facility] Comment on above: Performed By: #### 2 46002 #### [facility],[address] [place] [address] 93288 Potassium [Moles/Vol] 4.1 mmol/L Normal 3.5 - 5.1 [facility] Comment on above: Performed By: #### 2 37744 #### [facility],[address] [place] [address] 85771 Protein [Mass/Vol] 8.4 g/dL High 6.4 - 8.2 [facility] Comment on above: Performed By: #### 2 20623 #### [facility],[address] [place] [address] 88903 Sodium [Moles/Vol] 141 mmol/L Normal 136 - 145 [facility] Comment on above: Performed By: #### 2 98877 #### [facility],[address] [place] [address] 64581 Urea nitrogen [Mass/Vol] 19 mg/dL High 7 - 18 [facility] Comment on above: Performed By: #### 2 68900 #### [facility],[address] [place] [address] 77343 CORONAVIRUS (SARS) ANTIGEN T ESTon 08-13-2024 EXTERNAL QC DONE? YES Normal [facility] Comment on above: Performed By: #### 2 62207 #### [facility],[address] [place] [address] 30411 INTERNAL CONTROL PASS Normal [facility] Comment on above: Performed By: #### 2 87756 #### [facility],[address] [place] [address] 42466 SARS ANTIGEN Negative Normal NORMAL: NEGATIVE [facility] Comment on above: Performed By: #### 2 37029 #### [facility],[address] [place] [address] 41834 SEND TO ? NO Normal [facility] Comment on above: Result Comment: SARS -CoV-2 THIS TEST IS BEING USED UNDER THE FDA EUA PROCEDURE. THIS ASSAY HAS BEEN VALIDATED AT [facility] FOR USE WITH NASAL AND NASOPHARYNGEAL SWAB SPECIMENS. INTERPRETIVE DATA TEST RESULTS SHOULD ALWAYS BE CONSIDERED IN THE CONTEXT OF CLINICAL OBSERVATIONS AND EPIDEMIOLOGICAL DATA IN MAKING FINAL DIAGNOSIS AND PATIENT MANAGEMENT DECISIONS. PATIENT MANAGEMENT SHOULD FOLLOW CURRENT CDC GUIDELINES. THE CRISTINA SARS ANTIGEN KATHERINE DOES NOT DIFFERENTIATE BETWEEN SARS-CoV & SARS-CoV-2. A POSITIVE TEST RESULT INDICATES THE PRESENCE OF SARS-CoV-2 NUCLEOCAPSID PROTEIN ANTIGEN, AND THE PATIENT IS INFECTED WITH THE VIRUS AND PRESUMED TO BE CONTAGIOUS. A NEGATIVE TEST RESULT FOR THIS TEST MEANS THAT SARS-CoV-2 NUCLEOCAPSID PROTEIN ANTIGEN WAS NOT PRESENT IN THE SPECIMEN ABOVE THE LIMIT OF DETECTION. HOWEVER, A NEGATIVE RESULT DOES NOT RULE OUT COVID-19 AND SHOULD NOT BE USED THE SOLE BASIS FOR TREATMENT OR PATIENT MANAGEMENT DECISIONS. A NEGATIVE RESULT DOES NOT EXCLUDE THE POSSIBILITY OF COVID-19. NEGATIVE RESULTS, FROM PATIENTS WITH SYMPTOM ONSET BEYOND FIVE DAYS, SHOULD BE TREATED PRESUMPTIVE AND CONFIRMATION WITH A MOLECULAR ASSAY, IF NECESSARY, FOR PATIENT MANAGEMENT, MAY BE PERFORMED. WHEN DIAGNOSTIC TESTING IS NEGATIVE, THE POSSIBLILTY OF A FALSE NEGATIVE RESULT SHOULD BE CONSIDERED IN THE CONTEXT OF A PATIENT'S RECENT EXPOSURES AND THE PRESENCE OF CLINICAL SIGNS AND SYMPTOMS CONSISTENT WITH COVID-19. THE POSSIBILITY OF A FALSE NEGATIVE RESULT SHOULD ESPECIALLY BE CONSIDERED IF THE PATIENT'S RECENT EXPOSURES OR CLINICAL PRESENTATION INDICATE THAT COVID-19 IS LIKELY, AND DIAGNOSTIC TESTS FOR OTHER CAUSES OF ILLNESS (e.g., OTHER RESPIRATORY ILLNESS) ARE NEGATIVE. IF COVID-19 IS STILL SUSPECTED BASED ON EXPOSURE HISTORY TOGETHER WITH OTHER CLINICAL FINDINGS, RE-TESTING SHOULD BE CONSIDERED BY HEALTHCARE PROVIDERS IN CONSULTATION WITH PUBLIC HEALTH AUTHORITIES. Performed By: #### 2 34041 #### [facility],[address] [place] [address] CT ABDOMEN/PELVIS Won 2024 CT ABDOMEN/PELVIS [place] [address] Patient: RAUL HATCH Phone#: : [phone] Age: 59 Gender: F Pt. Type: ER Account: [id number] Location: 052 Ordering: JORDAN DOWNS Exam Date: 08/13/2024/22:27 Family Phys: Charge Code: 723958 Physician: Sequoyah Order #: [id number] Dose#: 14.4 PROCEDURE: CT ABDOMEN/PELVIS WITH CONTRAST COMPARISON: [facility], CT, ABDOMEN/PELVIS W W/O CON, 10/22/2022, 2:04. INDICATIONS: Abdominal pain. TECHNIQUE: After obtaining the patient's consent, CT images were created with non-ionic intravenous contrast material. All CT scans at this facility use dose modulation, iterative reconstruction, and/or weight based dosing when appropriate to reduce radiation dose to as low as reasonably achievable. IV CONTRAST: Omnipaque 350,80ml TOTAL DOSE: 14.4 CTDIvol(mGy) FINDINGS: LIVER: Fatty changes of the liver are present. There is no evidence of focal abnormality. BILIARY: The gallbladder is absent. PANCREAS: Normal. No lesion, fluid collection, ductal dilatation, or atrophy. SPLEEN: Normal. No enlargement or focal lesion. KIDNEYS: Normal. No mass, obstruction, or calcification. ADRENALS: Normal. No mass or enlargement. AORTA/VASCULAR: Normal. No aneurysm or dissection. RETROPERITONEUM: Normal. No mass or adenopathy. BOWEL/MESENTERY: Small-bowel mucosal thickening is present. Small bowel is nondilated fluid- filled. Liquid stool is present in the colon. ABDOMINAL WALL: Normal. No mass or hernia. URINARY BLADDER: Normal. No visible focal wall thickening, lesion, or calculus. PELVIC NODES: Normal. No adenopathy. PELVIC ORGANS: Uterus is absent. BONES: Degenerative changes are present at the L4-5 and L5-S1 levels. LUNG BASES: Cardiac pacing device is present. OTHER: Negative. Continued Report - Page 2 of 2 Patient: RAUL HATCH Phone#: : [phone] Age: 59 Gender: F Pt. Type: ER Account: [id number] Location: 052 Ordering: JORDAN DOWNS Exam Date: 08/13/2024/22:27 Family Phys: Charge Code: [id number] Physician: Sequoyah Order #: [id number] Dose#: 14.4 CONCLUSION: 1. Findings consistent with enteritis. Dictated by: Dianna Swanson MD on 08/14/2024 at 11:13 Approved by: Dianna Swanson MD on 08/14/2024 at 11:18 Normal [facility] CULTURE BLOOD [TATI]on Microscopic examination of blood, culture CULTURE BLOOD [TATI] _BLOOD CULTURE_ GO TO CPSI REPORTS AND ATTACHMENTS FOR SCANNED REPORT 08/20/24.1058.DNP.COMPL ETE [facility] Comment on above: Performed By: #### 2 45154 ####[facility],[address] [place] [address] 02594 Microscopic examination of blood, culture CULTURE BLOOD [TATI] _BLOOD CULTURE_ GO TO CPSI REPORTS AND ATTACHMENTS FOR SCANNED REPORT 08/20/24.1058.DNP.COMPL ETE Normal [facility] Comment on above: Performed By: #### 2 89266 ####[facility],[address] [place] [address] 05453 ED MED ADMINISTRATION DETAIL on 08-13-2024 ED MED ADMINISTRATION DETAIL [employer] Medication Administration Record [address] [address] [id number] 08/07/2024 Patient: RAUL HATCH Sex: Female : 1965 Age: 59y MEASUREMENTS: Wt: 61.2 kg, Ht/Jose Juan: 61.0 in, BMI: 25.51 ALLERGIES: Iodinated Contrast Media Medication Ordered Medication Administration Date/Time 1 of 1 [facility] ED NURSES CLINICAL NOTEon ED NURSES CLINICAL NOTE Nurse Narrative Nurse Clinical Narrative [address] [address] [id number] 08/07/2024 17:28:00 Patient: RAUL HATCH Sex: Female : 1965 Age: 59y Disposition: Discharge to Home Disposition Decision Time: 17:58 08/07/2024 Departure Time: 18:04 08/07/2024 TRIAGE Arrived by private vehicle. Historian: (patient). Primary physician (None). Triage time: 17:28 08/07/2024. Acuity: LEVEL 4. Chief Complaint: SKIN PROBLEM and . shingles. Reported as located on the scalp, neck and right shoulder. Onset. (Monday). SEPSIS SCREEN: NEGATIVE. SIRS criteria negative. No possible sources of infection. -- 17:35 08/07/24 MANNY Gallagher R.N. 17:33 08/07/24. BP: 159/96 MAP: 117. HR: 86. RR: 17. O2 saturation: 97% Temperature: 98.3 F. Pain level now 610. -- 17:34 08/07/24 MANNY Gallagher R.N. Measurements: 17:33 08/07/24 Wt: 61.2 kg, Ht/Jose Juan: 61.0 in, BMI: 25.51 -- 17:33 08/07/24 MANNY Gallagher R.N. Medications: Vitamin D2 1,250 mcg (50,000 unit) capsule: 1 once a week. -- 17:37 08/07/24 MANNY Gallagher R.N. ketorolac 0.5 % eye drops: Stopped 08/07/2024. -- 17:37 08/07/24 MANNY Gallagher R.N. 1 of 4 Nurse Narrative 17:28 08/07/24. Preferred Pharmacy: ([facility]). -- 17:35 08/07/24 MANNY Gallagher R.N. Allergies: Iodinated Contrast Media -- 17:31 08/07/24 MANNY Gallagher R.N. Home Medications/Allergy Information Source: patient -- 17:08/07/24 MANNY Gallagher R.N. Problems: Hypertension -- 17:31 08/07/24 MANNY Gallagher R.N. TIA - Transient Ischemic Attack -- 17:31 08/07/24 MANNY Gallagher R.N. Diabetes Mellitus -- 17:08/07/24 MANNY Gallagher R.N. Pacemaker -- 17:31 08/07/24 MANNY Gallagher R.N. Back Pain -- 17:31 08/07/24 MANNY Gallagher R.N. Clostridium difficile infection -- 17:08/07/24 MANNY Gallagher R.N. shingles -- 17:31 08/07/24 MANNY Gallagher R.N. Rios's esophagus -- 17:31 08/07/24 EDT Ansley Gallagher, R.N. Gastroesophageal Reflux Disease -- 17:39 08/07/24 NERYT Ansley Gallagher R.N. Anxiety disorder -- 17:39 08/07/24 NERYT Ansley Gallagher R.N. Surgeries: Gallbladder Surgery -- 17:32 08/07/24 NERYT Ansley Gallagher R.N. Back Surgery -- 17:32 08/07/24 NERYT Ansley Gallagher R.N. Appendectomy -- 17:32 08/07/24 NERYT Ansley Gallagher R.N. fissure surgery -- 17:35 08/07/24 NERYT Ansley Gallagher R.N. History 17:28 08/07/24. PAST MEDICAL HX: Immunizations: up-to-date. SOCIAL HX: Never smoker. Alcohol use. No drug use. The patient has not traveled outside the [place] Infectious disease exposure: No infectious disease exposure. 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 2 of 4 Nurse Narrative ABUSE ASSESSMENT: The patient answered yes to the question(s) Do you feel safe in your home? and no to the question(s) Are you afraid to go home?. Abuse denied. No suspicion of abuse. SELF HARM ASSESSMENT: Self harm assessment was performed. The patient answered no to the question(s) Have you recently felt down, depressed, or hopeless? and Do you have thoughts of harming or killing yourself?. FALL RISK ASSESSMENT: Fall risk assessment completed. No risk factors identified. -- 17:35 08/07/24 NERYT Ansley Gallagher R.N. Interventions 17:28 08/07/24. Advanced care plan discussed with patient (pt request she wants DNR- no paperwork signed). -- 17:35 08/07/24 MANNY Gallagher R.N. PHYSICAL ASSESSMENT 18:00 08/07/24. Ambulatory to room. GENERAL / NEURO / PSYCH: Alert. The patient does not appear to be in acute distress. Oriented X 4. HEENT: Pupils equal, round and reactive to light. Mucous membranes are pink. RESPIRATORY: Respirations not labored. CVS: Capillary refill less than 2 seconds. Pulses within normal limits. GI / : Abdomen nontender. SKIN: Skin is intact, warm and dry. Tenderness on the scalp and right shoulder. -- 18:00 08/07/24 EDT Ray Tarango R.N. NURSING PROGRESS NOTES 17:53 08/07/24. Two patient identifiers checked. Call light placed in reach. Side rails up x 1. Bed placed in lowest position. Brakes of bed on. -- 18:03 08/07/24 EDT Ray Tarango R.N. DISPOSITION / DISCHARGE Departure time: 18:04 08/07/2024. Condition at departure: unchanged. No learning barriers present. Discharge instructions provided and reviewed with the patient. Reviewed medication(s) side effects and course information. Reviewed referral to a route sales delivery driver and family practice for followup. The patient was discharged by the physician. The patient was discharged home and unaccompanied at time of discharge. The patient left ambulatory and via private vehicle. Patient driving. -- 18:04 08/07/24 EDT Ray Tarango R.N. 3 of 4 Nurse Narrative (Electronically signed by Ray Tarango R.N. 08/13/24 11:40:22 EDT) Generated by [facility] 4 of 4 Normal [facility] ED ORDER SHEET ([facility] ONLY)on 08-13-2024 ED ORDER SHEET ([facility] ONLY) Order Sheet Order Sheet [address] [address] [id number] 08/07/2024 Patient: RAUL HATCH Sex: Female : 1965 Age: 59y MEASUREMENTS: Wt: 61.2 kg, Ht/Jose Juan: 61.0 in, BMI: 25.51 ALLERGIES: Iodinated Contrast Media MEDICATION/IV/DRIP/FLUI D ORDERS Order Description Priority Entered Acknowledged Completed LAB ORDERS Order Description Priority Entered Acknowledged Collected Completed DIAGNOSTIC STUDY ORDERS Order Description Priority Entered Acknowledged Completed STAFF ORDERS Order Description Priority Entered Acknowledged Collected Completed 1 of 1 Normal [facility] ED PHYSICIAN CLINICAL REPORT on 08-13-2024 ED PHYSICIAN CLINICAL REPORT Narrative Physician Clinical Narrative [address] [address] [id number] 08/07/2024 17:28:00 Patient: RAUL HATCH Sex: Female : 1965 Age: 59y Disposition: Discharge to Home Disposition Decision Time: 17:58 08/07/2024 Departure Time: 18:04 08/07/2024 Measurements Wt: 61.2 kg, Ht/Jose Juan: 61.0 in, BMI: 25.51 Initial Vital Sign Measured Time BP MAP HR RR O2Sat ETCO2 Temp Pain GCS RTS 17:33 08/07/2024 159/96 117 86 17 97% 98.3 F 6 Time Seen: 17:39 08/07/2024. Arrived- By private vehicle. Historian- patient. HISTORY OF PRESENT ILLNESS Chief Complaint: SKIN RASH. This started 4 days; patient said she has had multiple episodes of shingles. She had the shingle vaccine on Monday and an after the vaccine she had chills she vomited and then she has developed a red rash on her right arm where she has a vaccine. Thinks she may have shingles on her scalp. She went to [place] at [facility] and he said to come back into the emergency department to get the antidote so she is coming in. She is in between providers. I will give her Dr. Hodge for her provider but I do not know if she takes her insurance. I did show her the medical card where it says for member services no further get her a provider. I will write her for antivirals for possible shingles not really sure it is shingles and also write her for Keflex for possible cellulitis where she had her injection. It is described as itchy, painful and burning. REVIEW OF SYSTEMS 1 of 4 Narrative GI: No abdominal pain. EYES: No eye irritation. RESPIRATORY: No cough. THROAT: No sore throat. CONSTITUTIONAL: No fever. CVS: No chest pain. PAST HISTORY See nurses notes. Anxiety disorder Back Pain Rios's esophagus Clostridium difficile infection Diabetes Mellitus Gastroesophageal Reflux Disease Hypertension Pacemaker shingles TIA - Transient Ischemic Attack Surgeries: Appendectomy Back Surgery fissure surgery Gallbladder Surgery Medications: ketorolac 0.5 % eye drops: Stopped 08/07/2024. Vitamin D2 1,250 mcg (50,000 unit) capsule: 1 once a week. Allergies: Iodinated Contrast Media Home Medications/Allergy Information Source: patient - Ansley Gallagher R.N., 08/07/2024 17:31 EDT SOCIAL HISTORY Never smoker. No alcohol use. 2 of 4 Narrative ADDITIONAL NOTES The nursing notes have been reviewed. PHYSICAL EXAM Appearance: Alert. Oriented X3. No acute distress. Eyes: Pupils equal, round and reactive to light. Conjunctivae and eyelids normal. ENT: Ears normal. Neck: Neck supple. CVS: Normal heart rate and rhythm. Heart sounds normal. Respiratory: No respiratory distress. Breath sounds normal. Abdomen: Nontender. Skin: Skin warm. Normal skin color. No rash. Rash present on the scalp. The rash is maculopapular. There is warmth and tenderness. Extremities: Normal external inspection. Extremities nontender. Neuro: Oriented X 3. No motor deficit. PROGRESS AND PROCEDURES MEDICAL DECISION MAKING: (patient said she has had multiple episodes of shingles. She had the shingle vaccine on Monday and an after the vaccine she had chills she vomited and then she has developed a red rash on her right arm where she has a vaccine. Thinks she may have shingles on her scalp. She went to [place] at [facility] and he said to come back into the emergency department to get the antidote so she is coming in. She is in between providers. I will give her Dr. Hodge for her provider but I do not know if she takes her insurance. I did show her the medical card where it says for member services no further get her a provider. I will write her for antivirals for possible shingles not really sure it is shingles and also write her for Keflex for possible cellulitis where she had her injection.). Disposition: Condition: stable. Discharged in fair condition. Discharge decision based on the following: patient's condition is stable; patient's exam is stable. CLINICAL IMPRESSION Acute nontraumatic pain. Skin rash. Possible cellulitis of the right upper arm. Possible herpes zoster. 3 of 4 Narrative DISCHARGE INSTRUCTIONS Prescription Medications: acyclovir 800 mg tablet: Take 1 tablet by mouth five times a day for 7 days, dispense 35 tablet. Refills 0. Pharmacy: [facility] [id number] [place] [address]. cephalexin 500 mg tablet: Take 1 tablet by mouth three times a day for 7 days, dispense 21 tablet. Refills 0. Pharmacy: [facility] [id number] [place] [address]. Follow-up with: Татьяна Hodge MD, [facility], Internal Medicine, Phone: [phone], [address] [facility] [address] [facility], [place] [id number]. Follow up in (more content not included)... Normal [facility] ED SUPER BILLon 08-13-2024 ED SUPER BILL [facility] [address] [address] [phone] 08/07/2024 Patient: RAUL HATCH Sex: Female : 1965 Age: 59y Item Professional Category Description Facility Code Code Quantity Fee Total Nurse/E/M EMERGENCY 954825 1 $0.00 $0.00 DEPARTMENT VISIT LOW/MODER SEVERITY (91020) Grand Total $0.00 Providers Roger Arrieta D.O. Chief Complaint SKIN RASH. Principal Diagnosis Acute nontraumatic pain. Skin rash. 1 of 2 [facility] ICD-10 Codes R52: Pain, unspecified R21: Rash and other nonspecific skin eruption 2 of 2 [facility] ED VISIT SUMMARYon ED VISIT SUMMARY Visit Overview Visit Overview [address] [address] [id number] 08/07/2024 Patient: RAUL HATCH Sex: Female : 1965 Age: 59y 08/13/2024 11:40 AM EDT ED Arrival:17:28 08/07/2024 EDT Status: Recent Travel:no Language:eng Adv Directive: Isolation Status: Ethnicity:N Fall Risk:no risk Infectious Disease Exposure:no Measurements:5'1 / 154.9 Self-Harm Status:risk Sepsis Screen:negative cm 135.0 lb / 61.2 kg Chief Complaint:SKIN PROBLEM, (None), (Monday ), and (shingles) ALLERGIES Iodinated Contrast Media HOME MEDICATIONS ketorolac 0.5 % eye drops: Stopped 08/07/2024. Vitamin D2 1,250 mcg (50,000 unit) capsule: 1 once a week. PAST MEDICAL HISTORY / PROBLEMS Anxiety disorder 1 of 3 Visit Overview Back Pain Rios's esophagus Clostridium difficile infection Diabetes Mellitus Gastroesophageal Reflux Disease Hypertension Immunizations: up-to-date Pacemaker See nurses notes shingles TIA - Transient Ischemic Attack PAST SURGICAL HISTORY Appendectomy Back Surgery fissure surgery Gallbladder Surgery SOCIAL HISTORY Smoking status: No Alcohol use: Yes Drug use: No ED COURSE MEDICATIONS GIVEN IN EMERGENCY DEPARTMENT IV SITE INFORMATION INTAKE OUTPUT REASSESMENT (most recent) 2 of 3 Visit Overview 18:00 08/07/24. Ambulatory to room. GENERAL / NEURO / PSYCH: Alert. The patient does not appear to be in acute distress. Oriented X 4. HEENT: Pupils equal, round and reactive to light. Mucous membranes are pink. RESPIRATORY: Respirations not labored. CVS: Capillary refill less than 2 seconds. Pulses within normal limits. GI / : Abdomen nontender. SKIN: Skin is intact, warm and dry. Tenderness on the scalp and right shoulder. VITAL SIGNS First Vitals Last Vitals Temp 17:33 08/07/24 98.3 F Temp 17:33 08/07/24 98.3 F BP 17:33 08/07/24 159/96 BP 17:33 08/07/24 159/96 HR 17:33 08/07/24 86 HR 17:33 08/07/24 86 RR 17:33 08/07/24 17 RR 17:33 08/07/24 17 O2 Sat 17:33 08/07/24 97% O2 Sat 17:33 08/07/24 97% Pain 17:33 08/07/24 6 Pain 17:33 08/07/24 6 ETCO2 17:33 08/07/24 ETCO2 17:33 08/07/24 GCS 17:33 08/07/24 GCS 17:33 08/07/24 RTS 17:33 08/07/24 RTS 17:33 08/07/24 PROCEDURES NURSING INTERVENTIONS LABS / STUDIES CLINICAL IMPRESSION ACUTE NONTRAUMATIC PAIN POSSIBLE CELLULITIS OF THE RIGHT UPPER ARM POSSIBLE HERPES ZOSTER SKIN RASH 3 of 3 Normal [facility] ED VITALS FLOW SHEETon 08-13 ED VITALS FLOW SHEET Vitals Vital Sign Flow Sheet [facility] [address] [place] [address]. [place] [address] [phone] 08/07/2024 Patient: RAUL HATCH Sex: Female : 1965 Age: 59y Measurements Wt: 61.2 kg, Ht/Jose Juan: 61.0 in, BMI: 25.51 Measured Time BP MAP HR RR O2Sat ETCO2 Temp Pain GCS RTS 17:33 08/07/2024 159/96 117 86 17 97% 98.3 F 6 1 of 1 Normal [facility] INFLUENZA VIRUS RAPID A/Bon 08-13-2024 INFLUENZA VIRUS RAPID A/B INFLUENZA A NEGATIVE INFLUENZA B NEGATIVE INTERNAL NEG QC PASS INTERNAL POS QC PASS EXTERNAL QC DONE? YES SEND TO IC? NO A NEGATIVE TEST RESULT DOES NOT EXCLUDE INFECTION WITH INFLUENZA A OR B. THEREFORE, THE RESULTS OBTAINED FROM THIS FLU TEST SHOULD BE USED IN CONJUCTION WITH CLINICAL FINDINGS TO MAKE AN ACCURATE DIAGNOSIS. A POSITIVE RESULT DOES NOT RULE OUT CO-INFECTIONS WITH OTHER PATHOGENS OR IDENTIFY ANY SPECIFIC INFLUENZA A VIRUS SUBTYPE.CO-INFECTION WITH INFLUENZA A AND B IS RARE. IT IS RECOMMENDED THAT DUAL POSITIVE RESULTS BE CONFIRMED BY VIRAL CULTURE OR AN FDA-CLEARED INFLUENZA A AND B MOLECULAR ASSAY. INDIVIDUALS WHO HAVE RECEIVED NASALLY ADMINISTERED INFLUENZA A VACCINE MAY TEST POSITIVE IN COMMERCIALLY AVAILABLE INFLUENZA RAPID DIAGNOSTIC TESTS FOR UP TO THREE DAYS. RESULT CRITICAL? NO Normal [facility] Comment on above: Performed By: #### 2 18993 ####[address] [address] LACTATEon 08-13-2024 Lactate [Moles/Vol] 2.2 mmol/L High 0.4 - 2.0 [facility] Comment on above: Result Comment: LACT ATE 3 HR NOTIFIED TO: _RAUL,_RN_AT_2200 08/13/24.SO . . . LACTATE 3 HR NOTIFIED BY: _SO 08/13/24.SO . . . Performed By: #### 2 81632 #### [facility],[address] [place] [address] LIPASEon 08-13-2024 Lipase [Catalytic activity/Vol] 45.0 U/L Normal 15.0 - 78.0 [facility] Comment on above: Result Comment: *PLE ASE NOTE THAT RANGES FOR LIPASE HAVE CHANGED OF 02/10/23 DUE TO AN ASSAY UPDATE BY THE ACCOUNT COLLECTOR.THE NEW ASSAY RANGE IS 6-250 U/L, WITH A REFERENCE RANGE OF 16-77 U/L. Performed By: #### 2 22599 #### [facility],[address] [place], [place] [address] OCCULT BLOOD STOOL(NON-CANCE R SCREENING)on 08-13-2024 OCCULT BLOOD STOOL Positive Abnormal [facility] Comment on above: Performed By: #### 2 66869 #### [facility],[address] [place], [place] [address] STOOL CULTURE [TATI]on Stool culture STOOL CULTURE [AULTM AN] 08/19/24.0938.DNP.COMPL ETE Normal [facility] Comment on above: Performed By: #### 2 34730 ####[facility],[address] [place], [place] [address] TROPONINon 08-13-2024 HS TROPONIN 5.5 pg/mL Normal 0.0 - 51.4 [facility] Comment on above: Performed By: #### 2 86449 #### [facility],[address] [place] [address] OPERATIVE PROCEDURESon 07-29 OPERATIVE PROCEDURES [facility] OPERATIVE REPORT NAME ACCOUNT SEX AGE ADMIT DISCHARGE PT MED. RECORD# NUMBER DATE DATE TYPE JUSTICE, [id number] F 59 07/29/24 07/29/24 2 RAUL Joseph [id number] ROOM: DATE OF : 1965 DICTATING PHYSICIAN: Shashi Rios DATE OF PROCEDURE: July 29, 2024 SURGEON: Shashi Rios DO STAFFING RN: None. ANESTHESIA: Local. PREPROCEDURE DIAGNOSES: 1. Osteoarthritis left knee. 2. Left knee/joint pain. POSTPROCEDURE DIAGNOSES: 1. Osteoarthritis left knee. 2. Left knee/joint pain. PROCEDURE: Left knee injections under palpatory guidance. COMPLICATIONS: None. IV FLUIDS: None. ESTIMATED BLOOD LOSS: None. INDICATIONS OF PROCEDURE: This is a 59-year-old female who has had previous injection therapy, injection x1. It was quite effective to decrease her pain, and her pain is now returning and it is swollen back into the left knee. The patient agrees to repeat injection, and if this continues we will have to send her for orthopedic evaluation. Given the patient's lability of her sugars from 70 to 300, we will use a low-dose Kenalog injection. The patient agrees with the risks and benefits. DESCRIPTION OF OPERATION: This 59-year-old female was taken to the Pain Block room and was placed in the sitting position. Under sterile prep of the left knee on the medial inferior aspect, a #25 gauge needle was placed into the left knee/joint space under palpatory guidance. After negative aspiration, Kenalog 20 mg with Marcaine Page 1 of 2 RAUL HATCH Operative Report RAUL HATCH : 1965 0.25% preservative-free 4 mL was then injected. The needle was then removed intact. Dictated By: Shashi Rios DO 07/29/24 13:22 JOB #: [id number] Transcribed By: liu 07/29/24 13:39 Electronically signed by: E-SIGN: SHASHI RIOS 07/29/24 14:52 Page 2 of 2 RAUL HATCH Operative Report Normal [facility] Final Surgical Pathology Rep [facility] 06-10-2024 Final Surgical Pathology Report . Pathology Reports Accession: Collected Date/Time: Received Date/Time: Pathologist: [id number] 06/06/2024 11:45 EDT 06/07/2024 08:52 EDT FABIÁN VANG MD Final Surgical Pathology Report DIAGNOSIS: GASTROESOPHAGEAL JUNCTION, BIOPSY: - GASTRIC BODY OR FUNDIC TYPE MUCOSA WITHOUT SIGNIFICANT MICROSCOPIC PATHOLOGY COMMENT: JP - [id number] CLINICAL INFORMATION: RIOS'S ESOPHAGUS SPECIMEN: A GE JUNCTION GROSS DESCRIPTION: All parts labelled with patient name and [id number] Received in formalin labeled GE junction are 2 ball-brown tissue fragments each measuring 0.3 x 0.2 cm. TS-1 Saloni Barros, Grossing Pipe Fitter Welding/ Dr. Fabián Vang, Pathologist Performed by Saloni Barros MICROSCOPIC DESCRIPTION: The microscopic examination is performed, except in the case of Gross Only. Verified by Pathology Report verified by [facility] FABIÁN VANG Sign out Date: 06/10/2024 16:34 Performing Lab: [facility], [address] [place] [address] Pathology Dept Disclaimer If ancillary studies were utilized, the following Laboratory Developed Test (LDT) disclaimer will apply: Under CLIA requirements, [facility] Laboratory is qualified to perform high complexity testing. For all ancillary stains, positive and negative controls stain appropriately. Performance characteristics of immunohistochemical and chromogenic in-situ hybridization tests have been determined by [facility]. These tests are used for clinical purposes, They should not be regarded as investigational or for research. . Normal [facility] BMP with eGFRon 06-03-2024 AGE 59 years Normal [facility] Comment on above: Performed By: #### 2 30468 ####[facility],[address] [place] [address] Anion gap [Moles/Vol] 6 mmol/L Low 10 - 20 [facility] Comment on above: Performed By: #### 2 98290 ####[facility],[address] [place] [address] BMP with eGFR Normal [facility] Comment on above: Result Comment: BASI C METABOLIC PANEL Performed By: #### 2 20973 ####[facility],[address] [place] [address] Calcium [Mass/Vol] 8.7 mg/dL Normal 8.5 - 10.1 [facility] Comment on above: Performed By: #### 2 21614 ####[facility],[address] [place] [address] Chloride [Moles/Vol] 98 mmol/L Normal 98 - 107 [facility] Comment on above: Performed By: #### 2 93434 ####[facility],[address] [place] [address] CO2 [Moles/Vol] 32.5 mmol/L High 21.0 - 32.0 [facility] Comment on above: Performed By: #### 2 07075 ####[facility],[address] [place] [address] Creatinine [Mass/Vol] 0.82 mg/dL Normal 0.55 - 1.02 [facility] Comment on above: Performed By: #### 2 71684 ####[facility],[address] [place] [address] GFR/1.73 sq M.predicted among non-blacks MDRD (S/P/Bld) [Vol rate/Area] mL/min/{1.73_m2} Normal 60 - 999 [facility] Comment on above: Performed By: #### 2 60407 ####[facility],[address] [place] [address] Result Comment: ACCO RDING TO THE NATIONAL KIDNEY DISEASE EDUCATION PROGRAM(NKDE), A NORMAL eGFR IS A VALUE GREATER THAN OR EQUAL TO 60 ML/MIN/1.73 SQ METERS. CHRONIC KIDNEY DISEASE: <60mL/MIN/1.73 SQ METERS KIDNEY FAILURE: <15mL/MIN/1.73 SQ METERS THIS TEST SHOULD ONLY BE USED FOR PATIENTS 18 YEARS OF AGE AND OLDER. Glucose [Mass/Vol] 114 mg/dL High 74 - 106 [facility] Comment on above: Performed By: #### 2 51583 ####[facility],[address] [place] [address] Potassium [Moles/Vol] 4.4 mmol/L Normal 3.5 - 5.1 [facility] Comment on above: Performed By: #### 2 14591 ####[facility],[address] [place] [address] Sodium [Moles/Vol] 132 mmol/L Low 136 - 145 [facility] Comment on above: Performed By: #### 2 68605 ####[facility],[address] [place] [address] Urea nitrogen [Mass/Vol] 15 mg/dL Normal 7 - 18 [facility] Comment on above: Performed By: #### 2 27906 ####[facility],[address] [place] [address] CBC + DIFFon 06-03-2024 Baso # 0.02 x10EE3/UL Normal 0.00 - 0.10 [facility] Comment on above: Performed By: #### 2 41244 #### [facility],[address] [place] [address] Basophils/100 WBC (Bld) 0.3 % Normal 0.0 - 2.0 [facility] Comment on above: Performed By: #### 2 69998 #### [facility],[address] [place] [address] CBC + DIFF Normal [facility] Comment on above: Result Comment: CBC- COMPLETE BLOOD COUNT Performed By: #### 2 37102 #### [facility],[address] [place] [address] EO # 0.06 x10EE3/UL Normal 0.00 - 0.50 [facility] Comment on above: Performed By: #### 2 32928 #### [facility],[address] [place], [place] [address] Eosinophils/100 WBC (Bld) 0.8 % Normal 0.0 - 7.0 [facility] Comment on above: Performed By: #### 2 50564 #### [facility],[address] [place] [address] Erythrocyte distribution width (RBC) [Ratio] 13.6 % Normal 12.0 - 15.6 [facility] Comment on above: Performed By: #### 2 60059 #### [facility],[address] [place] [address] Hematocrit (Bld) [Volume fraction] 35.9 % Normal 34.0 - 46.0 [facility] Comment on above: Performed By: #### 2 40177 #### [facility],[address] [place], [place] [address] Hemoglobin (Bld) [Mass/Vol] 12.4 g/dL Normal 12.0 - 16.0 [facility] Comment on above: Performed By: #### 2 82613 #### [facility],[address] [place] [address] Lymph # 2.05 x10EE3/UL Normal 0.80 - 2.80 [facility] Comment on above: Performed By: #### 2 52846 #### [facility],[address] [place] [address] Lymphocytes/100 WBC (Bld) 26.4 % Normal 20.0 - 45.0 [facility] Comment on above: Performed By: #### 2 91712 #### [facility],[address] [place] [address] MANUAL DIFF N/A Normal [facility] Comment on above: Performed By: #### 2 12453 #### [facility],[address] [place] [address] MCH (RBC) [Entitic mass] 30 pg Normal 27 - 33 [facility] Comment on above: Performed By: #### 2 61087 #### [place] [address] MCHC 34 X10 3 Normal 32 - 36 [facility] Comment on above: Performed By: #### 2 37741 #### [place] [address] MCV (RBC) [Entitic vol] 86 fL Normal 80 - 99 [facility] Comment on above: Performed By: #### 2 17024 #### [place] [address] [place] # 0.70 x10EE3/UL Normal 0.20 - 1.00 [facility] Comment on above: Performed By: #### 2 69797 #### [place] [address] MONOS % 9.0 % Normal 0.0 - 10.0 [facility] Comment on above: Performed By: #### 2 56773 #### [facility],[address] [place] [address] Morphology Coy (Bld) [Interp] N/A Normal [facility] Comment on above: Performed By: #### 2 74777 #### [facility],[address] [place] [address] Neut # 4.93 x10EE3/UL Normal 1.50 - 7.10 [facility] Comment on above: Performed By: #### 2 83312 #### [place] [id number] Neutrophils/100 WBC (Bld) 63.5 % Normal 46.0 - 76.0 [facility] Comment on above: Performed By: #### 2 63497 #### [place] [address] PLATELET 369 x10EE3/UL Normal 150 - 450 [facility] Comment on above: Performed By: #### 2 01441 #### [place] [address] Platelet mean volume (Bld) [Entitic vol] 7.9 fL Normal 6.6 - 10.5 [facility] Comment on above: Result Comment: AUTO MATED DIFFERENTIAL Performed By: #### 2 97521 #### [facility],[address] [place], [place] [address] RBC 4.15 x 10EE6/UL Normal 4.10 - 5.30 [facility] Comment on above: Performed By: #### 2 91248 #### [place] [id number] WBC 7.8 x 10EE3/UL Normal 4.5 - 10.8 [facility] Comment on above: Performed By: #### 2 93432 #### [facility],[address] [place] [address] HEMOGLOBIN A1C (POM)on 06-03 Glucose [Mass/Vol] 151.3 mg/dL High 0.0 - 0.0 [facility] Comment on above: Result Comment: BLDo HEMOGLOBIN A1C REFERENCE RANGESBLDo Suggested Diagnosis HbA1c(%) HbA1C (mmol/mol Diabetic >/=6.5 >/=48 Prediabetes 5.7 - 6.4 39 - 47 Normal <5.7 <39 Performed By: #### 2 54728 #### [facility],[address] [place] [address] HbA1c (Bld) [Mass fraction] 6.9 % High 0.0 - 6.5 [facility] Comment on above: Performed By: #### 2 78519 #### [place] [address] OPERATIVE PROCEDURESon 05-23 OPERATIVE PROCEDURES [facility] OPERATIVE REPORT NAME ACCOUNT SEX AGE ADMIT DISCHARGE PT MED. RECORD# NUMBER DATE DATE TYPE HOLDEN, [id number] F 59 05/23/24 2 RAUL Joseph [id number] ROOM: [facility] DATE OF : 1965 DICTATING PHYSICIAN: Shashi Rios DATE OF PROCEDURE: May 23, 2024 SURGEON: Shashi Rios DO STAFFING RN: None. ANESTHESIA: Local. PREPROCEDURE DIAGNOSIS: Lumbar spondylosis without myelopathy/M47.816. POSTPROCEDURE DIAGNOSIS: Lumbar spondylosis without myelopathy/M47.816. PROCEDURE: Bilateral medial branch block of the L5-S1 and L4-5 lumbar facets under fluoroscopic guidance. COMPLICATIONS: None. IV FLUIDS: None. ESTIMATED BLOOD LOSS: None. INDICATIONS OF PROCEDURE: This is a 59-year-old female with severe lumbar axial pain refractory to medications. She agrees with the risks and benefits of the procedure under local anesthesia. DESCRIPTION OF OPERATION: This 59-year-old female was taken to the operating room and was placed in the prone position. Under sterile prep of the lumbar region, the bilateral L5-S1 and L4-5 lumbar facets were identified utilizing fluoroscopy. A #25 gauge needle was placed into the lateral aspect of each joint under live fluoroscopic x-ray. After appropriate confirmation and negative aspiration, Kenalog 20 mg with lidocaine 1% preservative-free 0.5 mL was injected into each needle. The needles were then removed intact, and the patient was transferred to Ambulatory Surgery in satisfactory condition. The patient was put through the range of motion of the lumbar spine with almost 100% pain relief as she is states she is numb. Page 1 of 2 RAUL HATCH Operative Report RAUL HATCH : 1965 Dictated By: Shashi Rios DO 05/23/24 10:24 JOB #: [id number] Transcribed By: am 05/23/24 10:32 Electronically signed by: E-SIGN: SHASHI RIOS 05/23/24 14:13 Page 2 of 2 RAUL HATCH Operative Report Normal [facility] Esophagus Dual Contraston Esophagus Dual Contrast [facility] [address] [place] [id number] Esophagus Dual Contrast MR#: [id number] Acct: [id number] Name: RAUL HATCH Rep #: [id number] : 1965 F 59 From: Vahid fofana MD PCP: Care Physician,No Primary Status: REG CLI Study: Esophagus Dual Contrast Date of Exam: 05/16/24 Exam# [id number] Ordering Dr: Katerin Johnson EXAM: Air-contrast esophagram barium swallow. CLINICAL HISTORY: Dysphagia. COMPARISON: None TECHNIQUE: The patient ingested barium. Multiple images of the esophagus were obtained. Fluoroscopy: 1 minute and 20 seconds. 5.6 mGy. FINDINGS: The patient ingested barium. No evidence of obstruction to the flow of contrast. No mass lesion is seen. No gastroesophageal reflux is seen. The patient ingested a 12 mm tablet the barium without any difficulty. RAD/Esophagus Dual Contrast IMPRESSION: Unremarkable air contrast barium swallow. Reading Location: [facility] CC: MIRELLA Zaragoza; No Primary Care Physician Water Truck Driver: Signed [facility] ED MED ADMINISTRATION DETAIL on 05-06-2024 ED MED ADMINISTRATION DETAIL Chief Engineer [employer] Medication Administration Record [address] [address] [id number] 05/06/2024 Patient: RAUL HATCH Sex: Female : 1965 Age: 59y MEASUREMENTS: Wt: 61.2 kg, Ht/Jose Juan: 61.0 in, BMI: 25.51 ALLERGIES: Iodinated Contrast Media Medication Ordered Medication Administration Date/Time PredniSONE PO 20 14:43 05/06 PredniSONE PO 20 mg given. Confirmed 5 rights. - Given mg 14:43 Brandon Benton R.N. 14:43 05/06/2024 Brandon Benton R.N. Scanned 1 of 1 Normal [facility] ED NURSES CLINICAL NOTEon ED NURSES CLINICAL NOTE Nurse Narrative Nurse Clinical Narrative [address] [address] [id number] 05/06/2024 Patient: RAUL HATCH Sex: Female : 1965 Age: 59y Primary Insurance: [facility] [employer] MEDICARE OUTPATIENT Policy Number: [id number] Group Number: [id number] Subscriber: Other Disposition: Discharge to Home Disposition Decision Time: 14:41 05/06/2024 Departure Time: 14:46 05/06/2024 TRIAGE Arrived by private vehicle. Historian: (patient). Primary physician (No PCP). Triage time: 13:28 05/06/2024. Acuity: LEVEL 4. Chief Complaint: (Shingles). Alert. Onset. (about 1 week). SEPSIS SCREEN: NEGATIVE. SIRS criteria negative. No possible sources of infection. -- 13:36 05/06/24 EDT Diego Beckett RGabyNGaby 13:34 05/06/24. BP: 153/101 MAP: 118. HR: 80. RR: 16. O2 saturation: 98% on room air. Temperature: 98.2 F. Pain level now 7/10. -- 13:36 05/06/24 NERYT Diego Beckett RSamuel Measurements: 13:34 05/06/24 Wt: 61.2 kg, Ht/Jose Juan: 61.0 in, BMI: 25.51 -- 13:34 05/06/24 EDT Chantelle CaballeroNGaby Medications: 1 of 4 Nurse Narrative venlafaxine ER 75 mg capsule,extended release 24 hr: 1 capsule once a day . -- 13:05/06/24 MANNY Beckett R.N. tizanidine 4 mg tablet: 1 tablet twice a day . -- 13:05/06/24 [facility] Diego Beckett R.N. sucralfate 1 gram tablet: 1 tablet four times a day . -- 13:05/06/24 [facility] Diego Beckett R.N. simvastatin 20 mg tablet: 1 tablet every evening . -- 13:05/06/24 [facility] Diego Beckett R.N. pregabalin 150 mg capsule: 1 capsule three times a day . -- 13:05/06/24 NERY Diego Beckett R.N. potassium chloride ER 20 mEq tablet,extended release(part/cryst): 1 tablet once a day . -- 13:05/06/24 NERY Diego Beckett R.N. ondansetron 4 mg disintegrating tablet: 1 tablet every eight hours . -- 13:05/06/24 [facility] Diego Beckett R.N. Januvia 100 mg tablet: 1 tablet once a day . -- 13:05/06/24 NERY Diego Beckett R.N. hydrochlorothiazide 50 mg tablet: 1 tablet once a day . -- 13:05/06/24 NERY Dieog Beckett R.N. glipizide 5 mg tablet: 1/2 tablet once a day . -- 13:05/06/24 NERY Diego Beckett R.N. fentanyl 25 mcg/hr transdermal patch: 1 patch every 72 hours . -- 13:05/06/24 NERY Diego Beckett R.N. clonidine HCl 0.2 mg tablet: 1 tablet twice a day . -- 13:05/06/24 MANNY Beckett R.N. ketorolac 0.5 % eye drops -- 13:05/06/24 NERY Diego Beckett R.N. Vitamin D2 1,250 mcg (50,000 unit) capsule -- 13:05/06/24 MANNY Beckett R.N. 13:05/06/24. Preferred Pharmacy: ([facility]). -- 13:05/06/24 EDT Diego Beckett R.N. Allergies: Iodinated Contrast Media -- 13:05/06/24 EDT Diego Beckett R.N. Problems: Hypertension -- 13:05/06/24 NERYT Tesha Caballero.Lee. TIA - Transient Ischemic Attack -- 13:05/06/24 EDT Tesha Caballero.N. Diabetes Mellitus -- 13:05/06/24 EDT Tesha Caabllero.N. Pacemaker -- 13:05/06/24 NERYT Tesha Caballero.Lee. Back Pain -- 13:05/06/24 NERYT Tesha Caballero.Lee. Clostridium difficile infection -- 13:05/06/24 NERYT Tesha Caballero.Lee. ADDITIONAL SURGERIES: Gallbladder Surgery -- 13:05/06/24 NERYT Tesha Caballero.Lee. Back Surgery -- 13:05/06/24 EDT Tesha Caballero.N. Appendectomy -- 13:05/06/24 NERYT Diego Beckett R.N. 2 of 4 Nurse Narrative History 13:05/06/24. SOCIAL HX: Never smoker. No alcohol use or drug use. The patient has not traveled outside the [place] Infectious disease exposure: No infectious disease exposure. ABUSE ASSESSMENT: The patient answered yes to the question(s) Do you feel safe in your home? and no to the question(s) Are you afraid to go home?. SELF HARM ASSESSMENT: Self harm assessment was performed. The patient answered no to the question(s) Have you recently felt down, depressed, or hopeless? and Do you have thoughts of harming or killing yourself?. FALL RISK ASSESSMENT: Fall risk assessment completed. No risk factors identified. -- 13:05/06/24 MANNY Beckett R.N. Interventions 13:05/06/24. Identification band and allergy band on patient. -- 13:05/06/24 MANNY Beckett R.N. PHYSICAL ASSESSMENT 14:05/06/24. ( PATIENT STATES THAT SHE HAS SHINGLES SHE HAS A SMALL RASH RIGHT LOWER BACK LEFT AC RIGHT AC AND RIGHT BREAST). GENERAL / NEURO / PSYCH: Alert. Oriented X 4. RESPIRATORY: Respirations not labored. Breath sounds within normal limits. CVS: Normal sinus rhythm noted. Capillary refill less than 2 seconds. GI / : Abdomen soft and nontender. SKIN: Skin is warm and dry. -- 14:05/06/24 EDT Brandon Benton R.N. NURSING PROGRESS NOTES 14:05/06/24. RESPIRATORY: No respiratory distress. Breath sounds normal. Two patient identifiers checked. Call light placed in reach. Side rails up x 2. Bed placed in lowest position. Brakes of bed on. Brakes of chair on. -- 14:05/06/24 EDT Brandon Hernandes (more content not included)... [facility] ED ORDER SHEET (CPOE ONLY)on 05-06-2024 ED ORDER SHEET (CPOE ONLY) Order Sheet Order Sheet [address] [address] [id number] 05/06/2024 Patient: RAUL HATCH Sex: Female : 1965 Age: 59y MEASUREMENTS: Wt: 61.2 kg, Ht/Jose Juan: 61.0 in, BMI: 25.51 ALLERGIES: Iodinated Contrast Media MEDICATION/IV/DRIP/FLUI D ORDERS Order Description Priority Entered Acknowledged Completed PredniSONE PO20 mg 14:38 05/06/2024 14:41 14:43 Roger Arrieta, 05/06/2024 05/06/2024 Brandon Resendez R.N. R.N. LAB ORDERS Order Description Priority Entered Acknowledged Collected Completed DIAGNOSTIC STUDY ORDERS Order Description Priority Entered Acknowledged Completed STAFF ORDERS Order Description Priority Entered Acknowledged Collected Completed [Electronically signed by Roger Arrieta D.O. (05/06/2024 18:23 EDT)] 1 of 1 [facility] ED PHYSICIAN CLINICAL REPORT on 05-06-2024 ED PHYSICIAN CLINICAL REPORT Narrative Physician Clinical Narrative [address] [address] [id number] 05/06/2024 Patient: RAUL HATCH Sex: Female : 1965 Age: 59y Primary Insurance: [facility] [employer] CROSS MEDICARE OUTPATIENT Policy Number: [id number] Group Number: [id number] Subscriber: Other Disposition: Discharge to Home Disposition Decision Time: 14:41 05/06/2024 Departure Time: 14:46 05/06/2024 Measurements Wt: 61.2 kg, Ht/Jose Juan: 61.0 in, BMI: 25.51 Initial Vital Sign Measured Time BP MAP HR RR O2Sat ETCO2 Temp Pain GCS RTS 13:34 05/06/2024 153/101 118 80 16 98% RA 98.2 F 7 Time Seen: 14:16 05/06/2024. Arrived- By private vehicle. Historian- patient. Independent historian- family. HISTORY OF PRESENT ILLNESS Chief Complaint: SKIN RASH, LESION and TENDER AREA. (1 month rash right lumber area itch and durbin). Is still present. It is described as itchy, painful and burning. It has not been generalized in location. No rash to face or trunk. REVIEW OF SYSTEMS EYES: No eye irritation. RESPIRATORY: No cough or difficulty breathing. THROAT: No sore throat. CONSTITUTIONAL: No fever. GI: No nausea. NEUROLOGICAL: No headache. 1 of 4 Narrative PAST HISTORY See nurses notes. Back Pain Clostridium difficile infection Diabetes Mellitus Hypertension Pacemaker TIA - Transient Ischemic Attack Surgeries: Appendectomy Back Surgery Gallbladder Surgery Medications: clonidine HCl 0.2 mg tablet: 1 tablet twice a day . fentanyl 25 mcg/hr transdermal patch: 1 patch every 72 hours . glipizide 5 mg tablet: 1/2 tablet once a day . hydrochlorothiazide 50 mg tablet: 1 tablet once a day . Januvia 100 mg tablet: 1 tablet once a day . ketorolac 0.5 % eye drops ondansetron 4 mg disintegrating tablet: 1 tablet every eight hours . potassium chloride ER 20 mEq tablet,extended release(part/cryst): 1 tablet once a day . pregabalin 150 mg capsule: 1 capsule three times a day . simvastatin 20 mg tablet: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 [address] Morphology Coy (Bld) [Interp] N/A Normal [facility] Comment on above: Performed By: #### 2 31028 #### [facility],[address] [place] [address] Neut # 3.02 x10EE3/UL Normal 1.50 - 7.10 [facility] Comment on above: Performed By: #### 2 20265 #### [facility],[address] [place] [address] 28196 Neutrophils/100 WBC (Bld) 56.1 % Normal 46.0 - 76.0 [facility] Comment on above: Performed By: #### 2 25725 #### [facility],[address] [place] [address] 10755 PLATELET 266 x10EE3/UL Normal 150 - 450 [facility] Comment on above: Performed By: #### 2 71115 #### [facility],[address] [place] [address] 10001 Platelet mean volume (Bld) [Entitic vol] 8.1 fL Normal 6.6 - 10.5 [facility] Comment on above: Result Comment: AUTO MATED DIFFERENTIAL Performed By: #### 2 60831 #### [facility],[address] [place] [address] 71307 RBC 4.28 x 10EE6/UL Normal 4.10 - 5.30 [facility] Comment on above: Performed By: #### 2 18136 #### [facility],[address] [place] [address] 67312 WBC 5.4 x 10EE3/UL Normal 4.5 - 10.8 [facility] Comment on above: Performed By: #### 2 71898 #### [facility],[address] [place] [address] 99257 CMP with eGFRon 03-19-2024 AGE 59 years Normal [facility] Comment on above: Performed By: #### 2 22780 #### [facility],[address] [place] [address] 77678 Albumin [Mass/Vol] 3.6 g/dL Normal 3.4 - 5.0 [facility] Comment on above: Performed By: #### 2 54143 #### [facility],[address] [place] [address] 46120 Albumin/Globulin [Mass ratio] 1.1 {ratio} Normal 0.9 - 1.6 [facility] Comment on above: Performed By: #### 2 67869 #### [facility],[address] [place] [address] 48861 ALK PHOS 79 U/L Normal 46 - 116 [facility] Comment on above: Performed By: #### 2 57413 #### [facility],[address] [place] [address] 48706 ALT [Catalytic activity/Vol] 25 U/L Normal 16 - 63 [facility] Comment on above: Performed By: #### 2 94274 #### [facility],[address] [place] [address] 55762 Anion gap [Moles/Vol] 13 mmol/L Normal 10 - 20 [facility] Comment on above: Performed By: #### 2 38339 #### [facility],[address] [place] [address] 42453 AST [Catalytic activity/Vol] 31 U/L Normal 13 - 39 [facility] Comment on above: Performed By: #### 2 40665 #### [facility],[address] [place] [address] 61260 B/C RATIO 11 ratio Normal 0 - 30 [facility] Comment on above: Performed By: #### 2 02942 #### [facility],[address] [place] [address] 99304 Bilirubin [Mass/Vol] 0.4 mg/dL Normal 0.2 - 1.0 [facility] Comment on above: Performed By: #### 2 18165 #### [facility],[address] [place] [address] 75051 Calcium [Mass/Vol] 9.1 mg/dL Normal 8.5 - 10.1 [facility] Comment on above: Performed By: #### 2 05396 #### [facility],[address] [place] [address] 83498 Chloride [Moles/Vol] 105 mmol/L Normal 98 - 107 [facility] Comment on above: Performed By: #### 2 27421 #### [facility],[address] [place] [address] 61747 CMP with eGFR Normal [facility] Comment on above: Result Comment: COMP REHENSIVE METABOLIC PANEL Performed By: #### 2 60260 #### [facility],[address] [place] [address] 37217 CO2 [Moles/Vol] 28.7 mmol/L Normal 21.0 - 32.0 [facility] Comment on above: Performed By: #### 2 05520 #### [facility],[address] [place] [address] 22091 Creatinine [Mass/Vol] 0.89 mg/dL Normal 0.55 - 1.02 [facility] Comment on above: Performed By: #### 2 98674 #### [facility],[address] [place] [address] 09397 GFR/1.73 sq M.predicted among non-blacks MDRD (S/P/Bld) [Vol rate/Area] mL/min/{1.73_m2} Normal 60 - 999 [facility] Comment on above: Performed By: #### 2 23094 #### [facility],[address] [place], [place] [address] Result Comment: ACCO RDING TO THE NATIONAL KIDNEY DISEASE EDUCATION PROGRAM(NKDE), A NORMAL eGFR IS A VALUE GREATER THAN OR EQUAL TO 60 ML/MIN/1.73 SQ METERS. CHRONIC KIDNEY DISEASE: <60mL/MIN/1.73 SQ METERS KIDNEY FAILURE: <15mL/MIN/1.73 SQ METERS THIS TEST SHOULD ONLY BE USED FOR PATIENTS 18 YEARS OF AGE AND OLDER. Globulin (S) [Mass/Vol] 3.3 g/dL Normal 1.5 - 3.8 [facility] Comment on above: Performed By: #### 2 12723 #### [facility],[address] [place] [address] 92224 Glucose [Mass/Vol] 88 mg/dL Normal 74 - 106 [facility] Comment on above: Performed By: #### 2 18370 #### [facility],[address] [place] [address] 85375 Potassium [Moles/Vol] 4.0 mmol/L Normal 3.5 - 5.1 [facility] Comment on above: Performed By: #### 2 95594 #### [facility],[address] [place] [address] 17590 Protein [Mass/Vol] 6.9 g/dL Normal 6.4 - 8.2 [facility] Comment on above: Performed By: #### 2 61349 #### [facility],[address] [place] [address] 52558 Sodium [Moles/Vol] 143 mmol/L Normal 136 - 145 [facility] Comment on above: Performed By: #### 2 09527 #### [facility],[address] [place] [address] 98061 Urea nitrogen [Mass/Vol] 10 mg/dL Normal 7 - 18 [facility] Comment on above: Performed By: #### 2 74752 #### [facility],[address] [place] [address] 63187 LIPID PROFILEon 03-19-2024 Cholesterol [Mass/Vol] 165 mg/dL Normal 0 - 240 [facility] Comment on above: Performed By: #### 2 65481 #### [facility],[address] [place] [address] 17536 Cholesterol in HDL [Mass/Vol] 41 mg/dL Normal 40 - 60 [facility] Comment on above: Performed By: #### 2 50056 #### [facility],[address] [place] [address] 94300 Cholesterol in LDL [Mass/Vol] 100 mg/dL Normal 0 - 129 [facility] Comment on above: Performed By: #### 2 38990 #### [facility],[address] [place] [address] 26062 Cholesterol.total/Ch olesterol in HDL [Mass ratio] 4.0 {ratio} Normal 0.0 - 5.0 [facility] Comment on above: Performed By: #### 2 67411 #### [facility],[address] [place] [address] 77739 Lipid 1996 panel Normal [facility] Comment on above: Result Comment: LIPI D PROFILE Performed By: #### 2 58286 #### [facility],[address] [place] [address] Triglyceride [Mass/Vol] 121 mg/dL Normal 0 - 150 [facility] Comment on above: Performed By: #### 2 66398 #### [facility],[address] [place], [place] [address] OPERATIVE PROCEDURESon 01-23 OPERATIVE PROCEDURES [facility] OPERATIVE REPORT NAME ACCOUNT SEX AGE ADMIT DISCHARGE PT MED. RECORD# NUMBER DATE DATE TYPE JUSTICE, [id number] F 58 01/23/24 01/23/24 2 RAUL Joseph [id number] ROOM: DATE OF : 1965 DICTATING PHYSICIAN: Shashi Rios DATE OF PROCEDURE: January 23, 2024 SURGEON: Shashi Rios DO STAFFING RN: None. ANESTHESIA: Local. PREPROCEDURE DIAGNOSES: 1. Left joint/knee pain/M25.562. 2. Osteoarthritis left knee/M17.12. POSTPROCEDURE DIAGNOSES: 1. Left joint/knee pain/M25.562. 2. Osteoarthritis left knee/M17.12. PROCEDURE: Left knee injection under palpatory guidance. COMPLICATIONS: None. IV FLUIDS: None. ESTIMATED BLOOD LOSS: None. INDICATIONS OF PROCEDURE: This is a 58-year-old female who complains of continued left knee pain, medial more than lateral, with swelling. There are no signs of infection. She is on opioid therapy for benign pain with no change in the pain pattern. X-ray shows osteoarthritis of the left knee, and she was seen in the emergency department. The patient agrees with the risks and benefits of diagnostic/therapeutic left knee injection under palpatory guidance. DESCRIPTION OF OPERATION: This 58-year-old female was taken to the Pain Block room and was placed in the sitting position. Under sterile prep with Betadine and alcohol to the medial inferior aspect of the left knee, a #25 gauge needle was placed Page 1 of 2 RAUL HATCH Operative Report RAUL Jake HOLDEN : 1965 into the left knee/joint space. After negative aspiration, Kenalog 40 mg with Marcaine 0.25% preservative-free 4 mL was then injected through the needle. The needle was then removed intact. Dictated By: Shashi Rios DO 01/23/24 13:50 JOB #: [id number] Transcribed By: am 01/24/24 06:47 Electronically signed by: E-SIGN: SHASHI RIOS 01/24/24 12:53 Page 2 of 2 RAUL HATCH Operative Report Normal [facility] DRUG SCREEN URINE MEDICon AMPHETAMINES [facility] Comment on above: Performed By: #### 2 88429 ####[facility],[address] [place] [address] B-DIAZEPINES [facility] Comment on above: Performed By: #### 2 39124 ####[facility],[address] [place], [place] [address] BARBITURATES [facility] Comment on above: Performed By: #### 2 87089 ####[facility],[address] [place] [address] COCAINE Negative [facility] Comment on above: Performed By: #### 2 35598 ####[facility],[address] [place] [address] DRUG SCREEN URINE MEDIC Normal [facility] Comment on above: Result Comment: DRUG SCREEN - URINE Performed By: #### 2 97644 ####[facility],[address] [place] [address] 74739 METHADONE Negative [facility] Comment on above: Performed By: #### 2 42758 ####[facility],[address] [place] [address] 51345 OPIATES Negative Normal [facility] Comment on above: Performed By: #### 2 46899 ####[facility],[address] [place] [address] 39237 PCP Negative Normal [facility] Comment on above: Performed By: #### 2 55897 ####[facility],[address] [place] [address] 96676 THC Negative Normal [facility] Comment on above: Result Comment: CHRISTIAN ENTS RECEIVING PROTON PUMP INHIBITORS MAY DEMONSTRATE FALSE POSITIVE THC/CANNABINOID RESULTS. AN ALTERNATIVE CONFIRMATORY METHOD SHOULD BE CONSIDERED TO VERIFY POSITIVE RESULTS. Performed By: #### 2 69678 ####[facility],[address] [place] [address] 44437 3D MAMM UNILAT RT DIAGNOSTIC on 01-19-2024 3D MAMM UNILAT RT DIAGNOSTIC [place] [address] Patient: RAUL HATCH Phone#: : 1965 Age: 58 Gender: F Pt. Type: Out Account: [id number] Location: [facility] Ordering: CANDICE TELLO Exam Date: 01/19/2024/10:15 Family Phys: Charge Code: [id number] Physician: Sequoyah Order #: [id number] Dose#: PROCEDURE: RIGHT DIAGNOSTIC BREAST TOMOSYNTHESIS MAMMOGRAM WITH CAD COMPARISON: [facility], 3D BILAT SCREEN, 01/08/2024, 9:46. INDICATIONS: Abnormal mammogram. BREAST COMPOSITION: Heterogeneously dense, which may obscure small masses. FINDINGS: DIAGNOSTIC CATEGORY 1--NEGATIVE: RIGHT BREAST: No significant suspicious finding with spot compression. RECOMMENDATIONS: ROUTINE MAMMOGRAM AND CLINICAL EVALUATION IN 12 MONTHS. PLEASE NOTE: A NORMAL MAMMOGRAM DOES NOT EXCLUDE THE POSSIBILITY OF BREAST CANCER. A CLINICALLY SUSPICIOUS PALPABLE LUMP SHOULD BE BIOPSIED. THIS FACILITY UTILIZES A REMINDER SYSTEM TO ENSURE THAT ALL PATIENTS RECEIVE REMINDER LETTERS FOR APPOINTMENTS. THIS INCLUDES REMINDERS FOR ROUTINE MAMMOGRAMS, DIAGNOSITC MAMMOGRAMS, OR OTHER BREAST IMAGING INTERVENTIONS WHEN APPROPRIATE. THIS PATIENT WILL BE PLACED IN THE APPROPRIATE REMINDER SYSTEM. Dictated by: Rocío Sorensen MD on 01/19/2024 at 13:09 Approved by: Rocío Sorensen MD on 01/19/2024 at 13:11 [facility] 3D MAMM BILAT SCREENon 01-07 3D MAMM BILAT SCREEN [place] [address] Patient: RAUL HATCH Phone#: : 1965 Age: 58 Gender: F Pt. Type: Out Account: [id number] Location: [facility] Ordering: CANDICE TELLO Exam Date: 01/08/2024/9:46 Family Phys: Charge Code: [id number] Physician: Sequoyah Order #: [id number] Dose#: PROCEDURE: BILATERAL SCREENING BREAST TOMOSYNTHESIS MAMMOGRAM WITH CAD COMPARISON: [facility], 3D BILAT DIAGNOSTIC, 08/23/2022, 13:44. INDICATIONS: Screening. BREAST COMPOSITION: Heterogeneously dense, which may obscure small masses. FINDINGS: DIAGNOSTIC CATEGORY 0--INCOMPLETE: NEED ADDITIONAL IMAGING EVALUATION. RIGHT BREAST: ASYMMETRY visible on only the cc view, located in the central breast, at the mid-breast depth, with size of approximately 5 x 5 mm. Additional spot compression views will be obtained. LEFT BREAST: No significant suspicious finding. No significant change has occurred. RECOMMENDATIONS: ADDITIONAL MAMMOGRAPHIC VIEWS REQUIRED: RIGHT BREAST --We will call the patient back for additional views and issue an addendum report. PLEASE NOTE: A NORMAL MAMMOGRAM DOES NOT EXCLUDE THE POSSIBILITY OF BREAST CANCER. A CLINICALLY SUSPICIOUS PALPABLE LUMP SHOULD BE BIOPSIED. THIS FACILITY UTILIZES A REMINDER SYSTEM TO ENSURE THAT ALL PATIENTS RECEIVE REMINDER LETTERS FOR APPOINTMENTS. THIS INCLUDES REMINDERS FOR ROUTINE MAMMOGRAMS, DIAGNOSITC MAMMOGRAMS, OR OTHER BREAST IMAGING INTERVENTIONS WHEN APPROPRIATE. THIS PATIENT WILL BE PLACED IN THE APPROPRIATE REMINDER SYSTEM. Dictated by: Dianna Swanson MD on 01/08/2024 at 17:33 Approved by: Dianna Swanson MD on 01/08/2024 at 17:41 [facility] KNEE COMPLETE LT MIN 4 VIEWS on 01-08-2024 KNEE COMPLETE LT MIN 4 VIEWS [place] [address] Patient: RAUL HATCH Phone#: : 1965 Age: 58 Gender: F Pt. Type: Out Account: [id number] Location: [facility] Ordering: CANDICE ETLLO Exam Date: 01/08/2024/14:17 Family Phys: Charge Code: [id number] Physician: Sequoyah Order #: [id number] Dose#: PROCEDURE: X-RAY KNEE LT COMPLETE 4 VIEWS COMPARISON: None. INDICATIONS: Knee Pain. FINDINGS: BONES: Charlene degenerative changes of the knee are present. There is narrowing of medial compartment. SOFT TISSUES: Negative. No visible soft tissue swelling. EFFUSION: Small suprapatellar joint effusion is present. OTHER: Negative. CONCLUSION: 1. Mild degenerative changes of the knee are present. Dictated by: Dianna Swanson MD on 01/08/2024 at 16:34 Approved by: Dianna Swanson MD on 01/08/2024 at 16:36 Normal [facility] C-REACTIVE PROTEINon 024 CRP 0.63 mg/dl Normal 0.00 - 0.90 [facility] Comment on above: Performed By: #### 2 92797 ####[facility],[address] [place] [address] 86074 CBC + DIFFon 12-28-2023 Baso # 0.02 x10EE3/UL Normal 0.00 - 0.10 [facility] Comment on above: Performed By: #### 2 72588 #### [facility],[address] [place] [address] 24315 Basophils/100 WBC (Bld) 0.3 % Normal 0.0 - 2.0 [facility] Comment on above: Performed By: #### 2 67189 #### [facility],[address] [place] [address] 69037 CBC + DIFF Normal [facility] Comment on above: Result Comment: CBC- COMPLETE BLOOD COUNT Performed By: #### 2 75326 #### [facility],[address] [place] [address] 01692 EO # 0.10 x10EE3/UL Normal 0.00 - 0.50 [facility] Comment on above: Performed By: #### 2 49792 #### [facility],[address] [place] [address] 68875 Eosinophils/100 WBC (Bld) 1.9 % Normal 0.0 - 7.0 [facility] Comment on above: Performed By: #### 2 25277 #### [facility],[address] [place], [place] [address] Erythrocyte distribution width (RBC) [Ratio] 13.0 % Normal 12.0 - 15.6 [facility] Comment on above: Performed By: #### 2 35391 #### [facility],[address] [place], [place] [address] Hematocrit (Bld) [Volume fraction] 37.7 % Normal 34.0 - 46.0 [facility] Comment on above: Performed By: #### 2 46224 #### [facility],[address] [place] [address] 50622 Hemoglobin (Bld) [Mass/Vol] 12.4 g/dL Normal 12.0 - 16.0 [facility] Comment on above: Performed By: #### 2 21738 #### [facility],[address] [place] [address] 62854 Lymph # 1.38 x10EE3/UL Normal 0.80 - 2.80 [facility] Comment on above: Performed By: #### 2 27389 #### [facility],[address] [place] [address] 78553 Lymphocytes/100 WBC (Bld) 24.6 % Normal 20.0 - 45.0 [facility] Comment on above: Performed By: #### 2 80695 #### [facility],[address] [place] [address] MANUAL DIFF N/A Normal [facility] Comment on above: Performed By: #### 2 51009 #### [facility],[address] [place] [address] MCH (RBC) [Entitic mass] 29 pg Normal 27 - 33 [facility] Comment on above: Performed By: #### 2 00278 #### [facility],[address] [place] [address] MCHC 33 X10 3 Normal 32 - 36 [facility] Comment on above: Performed By: #### 2 64761 #### [facility],[address] [place] [address] MCV (RBC) [Entitic vol] 89 fL Normal 80 - 99 [facility] Comment on above: Performed By: #### 2 53299 #### [facility],[address] [place] [address] [place] # 0.46 x10EE3/UL Normal 0.20 - 1.00 [facility] Comment on above: Performed By: #### 2 84972 #### [facility],[address] [place] [address] MONOS % 8.2 % Normal 0.0 - 10.0 [facility] Comment on above: Performed By: #### 2 27192 #### [facility],[address] [place] [address] Morphology Coy (Bld) [Interp] N/A Normal [facility] Comment on above: Performed By: #### 2 01496 #### [facility],[address] [place] [address] Neut # 3.65 x10EE3/UL Normal 1.50 - 7.10 [facility] Comment on above: Performed By: #### 2 70197 #### [facility],[address] [place] [address] 01729 Neutrophils/100 WBC (Bld) 65.1 % Normal 46.0 - 76.0 [facility] Comment on above: Performed By: #### 2 73573 #### [facility],[address] [place] [address] 85055 PLATELET 252 x10EE3/UL Normal 150 - 450 [facility] Comment on above: Performed By: #### 2 29932 #### [facility],[address] [place] [address] 80189 Platelet mean volume (Bld) [Entitic vol] 8.0 fL Normal 6.6 - 10.5 [facility] Comment on above: Result Comment: AUTO MATED DIFFERENTIAL Performed By: #### 2 58864 #### [facility],[address] [place] [address] 11680 RBC 4.26 x 10EE6/UL Normal 4.10 - 5.30 [facility] Comment on above: Performed By: #### 2 87527 #### [facility],[address] [place] [address] 01876 WBC 5.6 x 10EE3/UL Normal 4.5 - 10.8 [facility] Comment on above: Performed By: #### 2 29422 #### [facility],[address] [place] [address] 47190 CMP with eGFRon 12-28-2023 AGE 58 years Normal [facility] Comment on above: Performed By: #### 2 16345 #### [facility],[address] [place] [address] 14338 Albumin [Mass/Vol] 3.6 g/dL Normal 3.4 - 5.0 [facility] Comment on above: Performed By: #### 2 59461 #### [facility],[address] [place] [address] 24698 Albumin/Globulin [Mass ratio] 1.1 {ratio} Normal 0.9 - 1.6 [facility] Comment on above: Performed By: #### 2 45123 #### [facility],[address] [place] [address] 67721 ALK PHOS 72 U/L Normal 46 - 116 [facility] Comment on above: Performed By: #### 2 25928 #### [facility],[address] [place] [address] 61440 ALT [Catalytic activity/Vol] 23 U/L Normal 16 - 63 [facility] Comment on above: Performed By: #### 2 27281 #### [facility],[address] [place] [address] 82951 Anion gap [Moles/Vol] 10 mmol/L Normal 10 - 20 [facility] Comment on above: Performed By: #### 2 76914 #### [facility],[address] [place] [address] 42661 AST [Catalytic activity/Vol] 17 U/L Normal 13 - 39 [facility] Comment on above: Performed By: #### 2 78662 #### [facility],[address] [place] [address] 61027 B/C RATIO 12 ratio Normal 0 - 30 [facility] Comment on above: Performed By: #### 2 58201 #### [facility],[address] [place] [address] 15692 Bilirubin [Mass/Vol] 0.4 mg/dL Normal 0.2 - 1.0 [facility] Comment on above: Performed By: #### 2 40746 #### [facility],[address] [place] [address] 25368 Calcium [Mass/Vol] 9.0 mg/dL Normal 8.5 - 10.1 [facility] Comment on above: Performed By: #### 2 10513 #### [facility],[address] [place] [address] 33094 Chloride [Moles/Vol] 105 mmol/L Normal 98 - 107 [facility] Comment on above: Performed By: #### 2 39563 #### [facility],[address] [place] [address] 69728 CMP with eGFR Normal [facility] Comment on above: Result Comment: COMP REHENSIVE METABOLIC PANEL Performed By: #### 2 50065 #### [facility],[address] [place], [place] [id number] CO2 [Moles/Vol] 30.9 mmol/L Normal 21.0 - 32.0 [facility] Comment on above: Performed By: #### 2 46365 #### [facility],[address] [place] [address] Creatinine [Mass/Vol] 0.95 mg/dL Normal 0.55 - 1.02 [facility] Comment on above: Performed By: #### 2 73263 #### [place] [address] GFR/1.73 sq M.predicted among non-blacks MDRD (S/P/Bld) [Vol rate/Area] mL/min/{1.73_m2} Normal 60 - 999 [facility] Comment on above: Performed By: #### 2 60737 #### [facility],[address] [place] [address] Result Comment: ACCO RDING TO THE NATIONAL KIDNEY DISEASE EDUCATION PROGRAM(NKDE), A NORMAL eGFR IS A VALUE GREATER THAN OR EQUAL TO 60 ML/MIN/1.73 SQ METERS. CHRONIC KIDNEY DISEASE: <60mL/MIN/1.73 SQ METERS KIDNEY FAILURE: <15mL/MIN/1.73 SQ METERS THIS TEST SHOULD ONLY BE USED FOR PATIENTS 18 YEARS OF AGE AND OLDER. Globulin (S) [Mass/Vol] 3.2 g/dL Normal 1.5 - 3.8 [facility] Comment on above: Performed By: #### 2 76106 #### [place] [id number] Glucose [Mass/Vol] 133 mg/dL High 74 - 106 [facility] Comment on above: Performed By: #### 2 14295 #### [facility],[address] [place] [address] 71183 Potassium [Moles/Vol] 3.9 mmol/L Normal 3.5 - 5.1 [facility] Comment on above: Performed By: #### 2 95822 #### [facility],[address] [place] [address] 79301 Protein [Mass/Vol] 6.8 g/dL Normal 6.4 - 8.2 [facility] Comment on above: Performed By: #### 2 85593 #### [place] [id number] Sodium [Moles/Vol] 142 mmol/L Normal 136 - 145 [facility] Comment on above: Performed By: #### 2 55121 #### [facility],[address] [place], [place] [address] Urea nitrogen [Mass/Vol] 11 mg/dL Normal 7 - 18 [facility] Comment on above: Performed By: #### 2 40957 #### [place] [id number] HEMOGLOBIN A1C (POM)on 12-27 Glucose [Mass/Vol] 134.1 mg/dL High 0.0 - 0.0 [facility] Comment on above: Result Comment: BLDo HEMOGLOBIN A1C REFERENCE RANGESBLDo Suggested Diagnosis HbA1c(%) HbA1C (mmol/mol Diabetic >/=6.5 >/=48 Prediabetes 5.7 - 6.4 39 - 47 Normal <5.7 <39 Performed By: #### 2 32343 #### [facility],[address] [place] [address] 02018 HbA1c (Bld) [Mass fraction] 6.3 % Normal 0.0 - 6.5 [facility] Comment on above: Performed By: #### 2 27015 #### [facility],[address] [place] [address] 54385 SEDRATEon 12-28-2023 SEDRATE 12 mm/hr Normal 0 - 30 [facility] Comment on above: Performed By: #### 2 38000 #### [facility],[address] [place] [address] 19026 ABD Limited w/ Elastographyo n 12-15-2023 ABD Limited w/ Elastography [facility] Services [address] [place], [place] [address] ABD Limited w/ Elastography MR#: [id number] Acct: [id number] Name: RAUL HATCH Rep #: [id number] : 1965 F 58 From: Vahid fofana MD PCP: MEDICAL REGISTRAR. EFREN Islas Status: REG CLI Study: ABD Limited w/ Elastography Date of Exam: 03/08 Exam# [id number] Ordering Dr: Katerin Johnson [id number] STUDY: ABDOMINAL ULTRASOUND - RIGHT UPPER QUADRANT; ELASTOGRAPHY REASON FOR VISIT: Female, 58 years old. Fatty infiltration of the liver. TECHNIQUE: Ultrasound evaluation of the right upper quadrant was performed with real-time and static babcock-scale imaging. Point quantification shear wave elastography was performed ([employer]). TECHNICAL QUALITY: Adequate. COMPARISON: Comparison is made with prior scan dated November 28, 2023. FINDINGS: Liver: The liver is enlarged and measures 19.2 cm. There is increased echogenicity consistent with fatty infiltration. The bile ducts are within normal limits. There is hepatic color flow. The direction of portal flow is hepatopetal. There is no demonstrated mass lesion. Median liver stiffness measured 7.4 kPa. Gallbladder: The patient is status post cholecystectomy. Common Bile Duct (C.B.D.): The common bile duct measures 8.5 mm. Pancreas: There is increased echogenicity of the pancreas. There is no demonstrated pancreatic mass or cyst. Right Kidney: Normal size of the right kidney. The right kidney measures 11.3 cm x 4.9 cm x 3.6 cm. Normal renal cortex. The right cortex measures 1.1 cm. There is no demonstrated renal mass or cyst. There is no right hydronephrosis. US/ABD Limited w/ Elastography IMPRESSION: 1. Liver stiffness measures 7.4 kPa compatible with F2-F3 (Mild to moderate liver fibrosis) Metavir score. 2. Hepatomegaly. Fatty infiltration of liver. Electronically Signed: Vahid Dent MD at 10:05 EDT , CC: EFREN Tello; MIRELLA Zaragoza Water Truck Driver: Signed [facility] Colonoscopy Reporton 024 Colonoscopy Report [facility] Medical Records Department [address] [place] [address] Colonoscopy Report MR#: [id number] Acct: [id number] Name: RAUL HATCH Rep #: [id number] : 1965 58 From: Gerardo Cook DO PCP: EFREN Medina Status:[facility] Patient Name: Raul Hatch Procedure Date: 11/30/2023 10:55 AM Date of : 1965 Age: 58 Procedure: Colonoscopy Indications: Abdominal pain in the left lower quadrant, Clinically significant diarrhea of unexplained origin Providers: Gerardo Cook DO Referring MD: Efren Islas Patient Profile: This is a 58 year old female. Refer to note in patient chart for documentation of history and physical. Patient has symptoms of chronic abdominal cramping and chronic epigastric abdominal pain. Last Colonoscopy: date unknown. Unable to locate last colonoscopy report. Complications: No immediate complications. Procedure: Pre-Anesthesia Assessment: - Prior to the procedure, a History and Physical was performed, and patient medications and allergies were reviewed. The patient is competent. The risks and benefits of the procedure and the sedation options and risks were discussed with the patient. All questions were answered and informed consent was obtained. Patient identification and proposed procedure were verified by the physician in the pre-procedure area. Mental Status Examination: alert and oriented. Airway Examination: normal oropharyngeal airway and neck mobility. Respiratory Examination: clear to auscultation. CV Examination: normal. Prophylactic Antibiotics: The patient does not require prophylactic antibiotics. Prior Anticoagulants: The patient has taken no anticoagulant or antiplatelet agents except for NSAID medication. ASA Grade Assessment: III - A patient with severe systemic disease. After reviewing the risks and benefits, the patient was deemed in satisfactory condition to undergo the procedure. The anesthesia plan was to use monitored anesthesia care (MAC). Immediately prior to administration of medications, the patient was re-assessed for adequacy to receive sedatives. The heart rate, respiratory rate, oxygen saturations, blood pressure, adequacy of pulmonary ventilation, and response to care were monitored throughout the procedure. The physical status of the patient was re-assessed after the procedure. After I obtained informed consent, the scope was passed under direct vision. Throughout the procedure, the patient's blood pressure, pulse, and oxygen saturations were monitored continuously. The Colonoscope was introduced through the anus and advanced to the terminal ileum. The colonoscopy was performed without difficulty. The patient tolerated the procedure well. The quality of the bowel preparation was adequate. The terminal ileum, ileocecal valve, appendiceal orifice, and rectum were photographed. The patient tolerated the procedure well. Scope In: 10:56:17 AM Scope Withdrawal Time 0 hours 8 minutes 43 seconds Scope Out: 11:07:34 AM Total Procedure Duration Time 0 hours 11 minutes 17 seconds Findings: An area of mildly congested mucosa was found in the entire colon. Biopsies were taken with a cold forceps for histology. Verification of patient identification for the specimen was done. Estimated blood loss was minimal. Impression: - Congested mucosa in the entire examined colon. Biopsied. Recommendation: - Discharge patient to home. - Resume previous diet. - Continue present medications. - Await pathology results. - Repeat colonoscopy is recommended [Repeat reason]. The colonoscopy date will be determined after pathology results from today's exam become available for review. Procedure Code(s): --- Professional --- 03283, Colonoscopy, flexible; with biopsy, single or multiple CPT copyright 2021 [employer]. All rights reserved. The codes documented in this report are preliminary and upon surgical coder review may be revised to meet current compliance requirements. Gerardo Cook DO 11/30/2023 11:19:25 AM This report has been signed electronically. Number of Addenda: 0 Note Initiated On: 11/30/2023 10:55 AM 11/30/23 1119 Date Gerardo Cook DO Cosigner Signature: Date (if indicated) CC: MEDICAL REGISTRAR-C TANNER. Candice Tello; Gerardo Cook DO Date Dictated: 11/30/23 1055 Date Transcribed: Water Truck Driver: DAYLIN Signed [facility] EGD Reporton 12-04-2023 EGD Report [facility] Medical Records Department [address] [place] [address] 18971 EGD Report MR#: [id number] Acct: [id number] Name: RAUL HATCH Rep #: [id number] : 1965 58 From: Gerardo Cook DO PCP: EFREN Medina Status:[facility] Patient Name: Raul Hatch Procedure Date: 11/30/2023 10:40 AM Date of : 1965 Age: 58 Procedure: Upper GI endoscopy Indications: Epigastric abdominal pain, Functional Dyspepsia Providers: Gerardo Cook DO Referring MD: Efren Islas Medicines: Monitored Anesthesia Care Patient Profile: This is a 58 year old female. Refer to note in patient chart for documentation of history and physical. Patient has symptoms of chronic abdominal cramping and chronic epigastric abdominal pain. Complications: No immediate complications. Procedure: Pre-Anesthesia Assessment: - Prior to the procedure, a History and Physical was performed, and patient medications and allergies were reviewed. The patient is competent. The risks and benefits of the procedure and the sedation options and risks were discussed with the patient. All questions were answered and informed consent was obtained. Patient identification and proposed procedure were verified by the physician in the pre-procedure area. Mental Status Examination: alert and oriented. Airway Examination: normal oropharyngeal airway and neck mobility. Respiratory Examination: clear to auscultation. CV Examination: normal. Prophylactic Antibiotics: The patient does not require prophylactic antibiotics. Prior Anticoagulants: The patient has taken no anticoagulant or antiplatelet agents except for NSAID medication. ASA Grade Assessment: III - A patient with severe systemic disease. After reviewing the risks and benefits, the patient was deemed in satisfactory condition to undergo the procedure. The anesthesia plan was to use monitored anesthesia care (MAC). Immediately prior to administration of medications, the patient was re-assessed for adequacy to receive sedatives. The heart rate, respiratory rate, oxygen saturations, blood pressure, adequacy of pulmonary ventilation, and response to care were monitored throughout the procedure. The physical status of the patient was re-assessed after the procedure. After obtaining informed consent, the endoscope was passed under direct vision. Throughout the procedure, the patient's blood pressure, pulse, and oxygen saturations were monitored continuously. The Colonoscope was introduced through the mouth, and advanced to the second part of duodenum. The upper GI endoscopy was accomplished without difficulty. The patient tolerated the procedure well. Scope In: 10:49:32 AM Scope Out: 10:54:53 AM Total Procedure Duration Time 0 hours 5 minutes 21 seconds Findings: The examined esophagus was normal. The Z-line was irregular and was found 39 cm from the incisors. Biopsies were taken with a cold forceps for histology. Verification of patient identification for the specimen was done. Estimated blood loss was minimal. No gross lesions were noted in the entire examined stomach. Patchy mild inflammation characterized by erosions and erythema was found in the duodenal bulb. Biopsies were taken with a cold forceps for histology. Verification of patient identification for the specimen was done. Estimated blood loss was minimal. Impression: - Normal esophagus. - Z-line irregular, 39 cm from the incisors. Biopsied. - No gross lesions in the entire stomach. - Chronic duodenitis. Biopsied. Recommendation: - Discharge patient to home. - Resume previous diet. - Continue present medications. - Await pathology results. - Repeat upper endoscopy in 1 year for surveillance. Procedure Code(s): --- Professional --- 93196, Esophagogastroduodenosc opy, flexible, transoral; with biopsy, single or multiple CPT copyright 2021 [employer]. All rights reserved. The codes documented in this report are preliminary and upon surgical coder review may be revised to meet current compliance requirements. Gerardo Cook DO 11/30/2023 11:13:32 AM This report has been signed electronically. Number of Addenda: 0 Note Initiated On: 11/30/2023 10:40 AM 11/30/23 1113 Date Gerardo Cook DO Cosigner Signature: Date (if indicated) CC: MEDICAL REGISTRAR-C NP. Candice Tello; Gerardo Cook DO Date Dictated: 11/30/23 1040 Date Transcribed: Water Truck Driver: DAYLIN Signed [facility] Bedside Glucoseon 11-30-2023 FINGERSTICK GLU 129 mg/dL High 74-106 [facility] Comment on above: Result Comment: ALEX ANDRADE OF PATIENT CARE PER NURSING PROTOCOL Performed By: #### L 501.080 #### [facility] [address] [facility] [place], [address] MR/POSTOP.ANEon 11-30-2023 MR/POSTOP.[facility] Medical Records Department [address] [place] [address] Anesthesia Postop Eval I 11/30/23 1122 MR#: [id number] Acct: [id number] Name: RAUL HATCH Rep #: [id number] : 1965 58 From: Grant Ontiveros PCP: NP. Candice Tello, MEDICAL REGISTRAR-C Status:REG SDC Y Race: C Location: [place] [address] Anesthesia: Postop Eval I Current Vital Signs Temperature: 97 F Pulse Rate: 62 Blood Pressure: 96/64 Respiratory Rate: 16 Pulse Ox: 97 Oxygen Delivery Method: Room Air Assessment Airway patent: Yes Spontaneous unlabored respirations: Yes Mental status: Asleep nausea: No Vomiting: No Anesthesia Complication: No Fluid Hydration Crystalloid volume administer (ml): 60 Total IV fluid infused: 60 Progress Note Anesthesia document: Postop Eval 1 completed: Yes 11/30/23 1123 Date Grant Campbellraine Mohanigner Signature: Date CC: Signed [facility] MR/[id number] 11-30-2023 [facility] Medical Records Department [address] [place] [address] Anesthesia Postop Eval II 11/30/23 1127 MR#: [id number] Acct: [id number] Name: RAUL HATCH Rep #: [id number] : 1965 58 From: Sonu Cho MD PCP: EFREN Medina Status:REG SDC Y Race: C Location: [place] [address] Anesthesia Postop Eval I Sum Postop Eval Completion status Anesthesia document: Postop Eval 1 completed: Yes Anesthesia Postop Eval I Summary Anesthesia Postop Eval I Summary: Anesthesia Postop Eval I: Assessment Summary Airway patent Yes 11/30/23 11:23 [email or web address] Spontaneous unlabored Yes 11/30/23 11:23 [email or web address] respirations Mental status Asleep 11/30/23 11:23 [email or web address] nausea No 11/30/23 11:23 [email or web address] Vomiting No 11/30/23 11:23 [email or web address] Anesthesia Postop Eval I: Fluid Summary Crystalloid volume administer 60 11/30/23 11:23 [email or web address] (ml) Colloids volume administered ( ml) Blood Product volume administered (ml) Total IV fluid infused 60 11/30/23 11:23 [email or web address] Anesthesia Postop Eval I: Summary Notes Anesthesia Complication No 11/30/23 11:23 [email or web address] Anesthesia Complication Comment: Post-operative progress note Anesthesia: Postop Eval II Evaluation Mental status: Awake Pain Level: 0 nausea: No Vomiting: No 11/30/23 1127 Date Sonu Vela Signature: Date CC: Signed [facility] P53 (initial)on 11-30-2023 P53 (initial) --- Patient Age/Sex Location Account Attending Physician RAUL HATCH 58/F EN [id number] Gerardo Cook DO Specimen: [id number] Received: 12/04/23-4106 Status: NETTIE James Num: [id number] Spec Type: IMMUNO Subm Dr: Gerardo Cook DO PHYSICIAN INSTITUTION [place] [address] SPECIMEN INFORMATION: Tissue Source: B- Distal esophagus biopsy Clinical Info: C.diff colitis, irritable bowel syndrome, nausea, abdominal pain Specimen Number: [id number] CPT code: 84894,71547 METHODOLOGY: Deparaffinized sections of prefer/formalin-fixed tissue or PAP/DQ stained slides are incubated with monoclonal/polyclonal antibodies/oligonucleot saud probes. Localization is made via biotin free immunoperoxidase method. Appropriate controls are performed and reacted as expected. Results on target cell population are indicated in the following table: RESULTS: ANTIBODY / CLONE RESULT Block B P53 (DO-7) positive, wild to indeterminate type Ki-67 (30-9) positive, mild to moderate These tests were developed and their performance characteristics determined by [facility]. They may not have been cleared or approved by the U.S. Food and Drug Administration. The FDA has determined that such clearance or approval is not necessary. The above immunohistochemical/bk Fabiano markers are ordered and reviewed by the Pathologist. INTERPRETATION: B. Distal esophagus, biopsy: No definitive evidence of dysplasia. LIU/ 12/05/2023 Signed (signature on file) Dr. Vadim Mac DO 12/05/23 1052 [facility] Comment on above: Performed By: #### P P53 #### [facility] [address] [place] [address], [address] Special Stain Group Ion 10- Special Stain Group I Patient Age/Sex Location Account Attending Physician RAUL HATCH 58/F EN [id number] Gerardo Cook DO Specimen: [id number] Received: 11/30/23 Status: NETTIE James Num: [id number] Spec Type: EGD BIOPSY Boone Hopkins: Gerardo Cook DO HEADER OPERATION: Colonoscopy, biopsy, EGD PRE-OP DIAGNOSIS: C. diff colitis, irritable bowel syndrome, nausea, abdominal pain TISSUE SUBMITTED: A- Duodenum biopsy, B- Distal esophagus biopsy, C- Terminal ileum biopsy,D- Random colonic biopsy MICROSCOPIC DIAGNOSIS A. Duodenum, biopsy: Minimal non-specific chronic inflammation. B. Distal esophagus, biopsy: Gastroesophageal junction mucosa with mild chronic inflammation. 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 No definitive evidence of dysplasia. See comment. C. Terminal ileum, biopsy: No pathologic change. D. Colon, random biopsy: Melanosis coli. AM. 12/04/2023 COMMENT B. Alcian blue/PAS stain with matched control is used in the evaluation of the specimen. Immunohistochemistry ([id number]) for P53 and Ki-67 will be performed and results will be reported separately. MICROSCOPIC DESCRIPTION Slides are reviewed. GROSS DESCRIPTION A. Received in fixative is one container labeled with the patient's name and designated Duodenum biopsy. The specimen consists of multiple irregular fragments of light ball soft tissue that in aggregate measure 0.6 x 0.6 x 0.1 cm. The specimen is totally submitted in one cassette. B. Received in fixative is one container labeled with the patient's name and designated Distal esophagus biopsy. The specimen consists of multiple irregular fragments of light ball soft tissue that in aggregate measure 1.0 x 0.3 x 0.1 cm. The specimen is totally submitted in one cassette. C. Received in fixative is one container labeled with the patient's name and designated Terminal ileum biopsy. The specimen consists of two irregular fragments of light ball soft tissue that in aggregate measure 0.6 x 0.3 x 0.1 cm. The specimen is totally submitted in one cassette. Patient Age/Sex Location Account Attending Physician RAUL HATCH 58/ EN [id number] Gerardo Cook DO D. Received in fixative is one container labeled with the patient's name and designated Random colonic biopsy. The specimen consists of multiple irregular fragments of light ball soft tissue that in aggregate measure 2.0 x 0.5 x 0.1 cm. The specimen is totally submitted in one cassette. 12/01/2023 TC: CPT:13457y2,24743 Patient Age/Sex Location Account Attending Physician RAUL HATCH 58/ EN [id number] Gerardo Cook DO Signed (signature on file) Dr. Vadim aMc DO 12/05/23 1043 [facility] Comment on above: Performed By: #### P SSI #### [facility] [address] [facility] [place], [address] Abdomen/Pelvis without Conto n 11-28-2023 Abdomen/Pelvis without Cont [facility] Services [address] [place] [address] Abdomen/Pelvis without Cont MR#: [id number] Acct: [id number] Name: RAUL HATCH Rep #: [id number] : 1965 F 58 From: Prince Lambert PCP: EFREN Medina Status: REG CLI Study: Abdomen/Pelvis without Cont Date of Exam: 11/13 07/06 Exam# [id number] Ordering Dr: [place] [id number] INDICATION: abd pain and hiatal hernia -- oral contrast EXAMINATION: CT ABDOMEN AND PELVIS WITHOUT CONTRAST - CT Abdomen And Pelvis W/O Contrast Injection TECHNIQUE: Helically acquired images were obtained of the abdomen and pelvis without oral or IV contrast. A radiation dose optimization technique was used for this scan. IV Contrast dosage and agent: None. Oral contrast: None. RADIATION DOSAGE (If Supplied By Facility): CTDIvol = ( 14.49 ) mGy, DLP = ( 699.48 ) mGycm COMPARISON: 10/05/2016 FINDINGS: LOWER CHEST: 1. Lung bases are clear. 2. No cardiomegaly or pericardial effusion. Transvenous pacer leads are present. 3. No significant coronary vascular calcifications. LIVER: The liver has normal configuration and density given the limitation of noncontrast exam.. No focal mass. Diffuse fatty infiltration liver. GALLBLADDER AND BILIARY TREE: Not visualized and surgically absent. No ductal dilatation. PANCREAS: No focal cystic or solid mass. SPLEEN: Normal size without focal cystic or solid mass. ADRENAL GLANDS: No nodules. KIDNEYS AND URETERS: Normal renal size and position. No hydronephrosis. PERITONEUM: No ascites or free air. No other fluid collection. BOWEL: The appendix is not visualized. No evidence of masses or bowel obstruction. No significant hiatal hernia identified. No distention the stomach. No bowel inflammatory changes. LYMPH NODES: No enlarged mesenteric or retroperitoneal lymph nodes. VESSELS: Aorta is non-dilated. Scattered aortic calcifications. No aneurysmal dilatation. URINARY BLADDER: Unremarkable. REPRODUCTIVE ORGANS: [Postoperative changes of prior hysterectomy. No pelvic masses or abnormal fluid collections. ABDOMINAL WALL: No discrete abdominal or pelvic wall hernia. BONES: No lytic or blastic abnormality. There is a small sclerotic lesion RIGHT iliac crest of, likely representing a bone island, no other focal bony lesions. CT/Abdomen/Pelvis without Cont IMPRESSION: 1. No masses bowel obstruction abscess free fluid or free air. 2. No hiatal hernia identified. 3. Status post cholecystectomy. No ductal dilatation. 4. Diffuse hepatic steatosis. 5. Status post hysterectomy. 6. The appendix is not visualized. 7. No renal calcification or obstructive uropathy. 8. Stable sclerotic lesion in the RIGHT iliac crest. Electronically Signed: Prince Santana MD at 18:18 EDT , CC: EFREN HART. Candice Tello; Gerardo Friend, Water Truck Driver: Signed [facility] Gastroenterology Visit Repor ton 11-07-2023 Gastroenterology Visit Report [facility] Gastroenterology [address] [place] [address] OFFICE VISIT Date of Service: 11/07/23 MR#: [id number] Acct: [id number] Name: RAUL HATCH Rep #: [id number] : 1965 Provider: Gerardo Cook DO Age/Sex: 58/F Location[place] [facility] [place] [facility] [place] Status: Signed Intake Vital Signs 05/17/23 06:57 Height 5 ft 1 in Intake Visit Reasons: Abdominal pain and vomiting Allergies Iodinated Contrast Media (Iodinated Contrast Media - IV Dye) Allergy (Verified 05/17/23 06:54) Anaphylaxis Medications ???Medication ???Instructions ???Recorded ???Confirmed ???Type glipizide 2.5 mg tablet, extended 5 mg PO 1500 08/10/21 11/07/23 History release 24 hr potassium chloride 20 mEq 20 meq PO DAILY 08/10/21 11/07/23 History tablet,extended release hydrochlorothiazide 25 mg tablet 25 mg PO DAILY 05/31/22 11/07/23 History sitagliptin phosphate 100 mg 100 mg PO QHS 05/31/22 11/07/23 History tablet (Januvia) Diltiazem 2% / Lidocaine 5% #1 ea 07/04/22 11/07/23 Rx ointment (compound) clonidine HCl 0.2 mg tablet 0.2 mg PO BID 05/15/23 11/07/23 History ergocalciferol (vitamin D2) 1,250 1,250 mcg PO TU 05/15/23 11/07/23 History mcg (50,000 unit) capsule (Vitamin D2) pregabalin 150 mg capsule 150 mg PO BID 05/15/23 11/07/23 History pantoprazole 40 mg tablet,delayed 40 mg PO Q12H 3 months #180 tabs 05/17/23 11/07/23 Rx release sucralfate 1 gram tablet (Carafate) 1 g PO Q6H 4 weeks #112 tabs 05/17/23 11/07/23 Rx dicyclomine 10 mg capsule 10 mg PO TID #90 caps 07/17/23 11/07/23 Rx scopolamine base 1 mg over 3 days 1 patch transdermal Q72H 30 days 07/18/23 11/07/23 Rx transdermal patch #10 ea ondansetron 4 mg disintegrating 4 mg PO Q8H PRN PRN for 07/26/23 11/07/23 Rx tablet nausea/vomiting #36 ea rifaximin 550 mg tablet (Xifaxan) 550 mg PO TID 14 days #42 tabs 09/12/23 11/07/23 Rx fentanyl 25 mcg/hr transdermal 1 patch transdermal Q72H 11/07/23 11/07/23 History patch PFSH Medical History (Updated 05/15/23 @ 12:32 by Alexandria Guy) History of pacemaker History of rectal fissure Complete edentulism, class III Anxiety Low iron History of renal disease Easy bruising Brown recluse spider bite Blackout Dietary restriction History of thrush Former smoker History of echocardiogram Cardiology follow-up encounter History of Clostridium difficile infection Nerve damage History of edema Diabetes Vitamin D insufficiency Hypokalemia HTN (hypertension) Gastritis Hemorrhoid Abdominal pain Vomiting Diarrhea Edema History of left heart catheterization (LHC) ( 03/15/04) COPD (chronic obstructive pulmonary disease) Stroke Carotid bruit Hyperlipemia Paroxysmal atrial tachycardia Takotsubo cardiomyopathy MAJOR DEPRESSION DISORDER Surgical History (Updated 10/26/22 @ 13:34 by Patience Arugello) S/P anal fissurectomy Hx of dilation and curettage Hx of colonoscopy History of mandibular surgery Hx of oral surgery History of cholecystectomy History of hysterectomy History of appendectomy Cardiac pacemaker in situ Family History Father CAD (coronary artery disease) Cancer Mother Arthritis Multiple sclerosis Sister Colon cancer Social History Smoking Status: Former smoker quit date: 09/13/17 Tobacco: How many years used: 10 second hand exposure: No alcohol intake: never substance use type: does not use caffeine: Yes Type: tea HPI HPI Details: RAUL HATCH, is a 58 F who presents to the office today for follow up. PMH anxiety/depression; DMII; COPD; HTN; HLD; takotsubo cardiomyopathy; stroke; hypokalemia; restless leg? PSH hemorrhoidectomy; cardiac pacemaker; appendectomy; cholecystectomy; hysterectomy *BGI established 03.31.22 with recurrent C.Difficile; history of long-term ATB use for dental/jaw infection. Last vancomycin dose 2 weeks prior. Current symptoms include loose bloody stool with foul odor. ? EGD and colonoscopy 06.06.22 EGD LA Grade A esophagitis; gastritis; duodenitis. Start sucralfate. ? Colonoscopy anal fissure. Random biopsy path WNL. OV 06.22.22 refer to general surgery to address anal fissure. WSA OV 07.04.22 start diltiazem cream. OV 09.23.22 with continued painless rectal bleeding despite diltiazem cream. ? Hemorrhoidectomy and fissurectomy 10.12.22 hemorrhoids with recent bleeding. [facility] ED .04.07 with significant throat pain; treated with nystatin and later Diflucan. OV 11.09.22 she has difficulty with Carafate as it causes constipati (more content not included)... [facility] SHOULDER COMPLETE LTon 10-26 SHOULDER COMPLETE LT [place] [address] Patient: RAUL HATCH Phone#: : 1965 Age: 58 Gender: F Pt. Type: Out Account: [id number] Location: 2 Ordering: CANDICE TELLO Exam Date: 10/27/2023/15:18 Family Phys: Charge Code: [id number] Physician: Sequoyah Order #: [id number] Dose#: PROCEDURE: X-RAY SHOULDER LT MIN 2 VIEWS COMPARISON: None. INDICATIONS: Injury of left shoulder. FINDINGS: BONES: Normal. No significant arthropathy or acute abnormality. SOFT TISSUES: Negative. No visible soft tissue swelling. EFFUSION: None visible. OTHER: Cardiac pacing device is present overlying the left upper thorax CONCLUSION: No acute disease. Dictated by: Dianna Swanson MD on 10/27/2023 at 15:50 Approved by: Dianna Swanson MD on 10/27/2023 at 15:52 [facility] NAIN BY IFA SCREENon 07-28-19 24 Nuclear Ab Ql (S) Negative Normal Negative [facility] Comment on above: Order Comment: Melody lau Type: BLOOD SPECIMEN Ordering Facility: [facility] Address: [address] [place] [address] Result Comment: Anti -nuclear antibody test is used as an aid in diagnosis of systemic autoimmune diseases. Where positive and clinically warranted, follow-up using disease-specific testing is recommended. Low positive titers are not uncommon with advanced age, certain chronic infections, and malignancies among others. Test methodology: Indirect fluorescence immunoassay (IFA) using HEp-2 cells. Performed By: #### A MENDEZ [id number] #### [facility] CLIA [id number] [address] [place] [address] [place] Rheumatoid fact SerPl-aCncon 07-28-2023 Rheumatoid factor Qn [IU]/mL Normal <16 [facility] Comment on above: Order Comment: Melody lau Type: BLOOD SPECIMEN [facility]ing [facility]: [facility] [place] [address] Performed By: #### A MENDEZ, 59680-9 #### [facility] CLIA [id number] [address] [place] [address] [place] CNPNon 07-18-2023 CNPN Telephone ([facility]) HOLDENRAUL Jake ([id number]) 1965 F Date Time Provider Department 07/18/23 [facility] During your visit today, we recorded the following information about you: Gavin King [facility] 07/18/2023 3:32 PM Signed Patient chart reviewed as part of population health initiative focused on statin use in patients with diabetes (DM) or cardiovascular disease (CVD). It appears patient is not currently connected to care at [facility] for Primary Care, Cardiology, or Endocrinology (primary prescribers for statins). Please assist the patient with contacting their insurance so they may be attributed to the correct health care team. Thank you for your time. Gavin King [facility] Chio Childers MA 07/19/2023 2:35 PM Signed POPULATION HEALTH NAVIGATION OUTREACH Action/FYI July 19, 2023 2:25 PM Spoke with patient She advises that Tessy Dukes MD retired about two years ago. She has been seeing Candice Marquezelham, GYNECOLOGICAL ASSISTANT Did discuss confirming with insurance that PCP is currently listed with them. She expressed her understanding. Reason for Outreach Med Adherence Patient Contacted: Spoke to patient/parent/or legal guardian Patient identified by name and date of : Yes Med Adherence actions taken: PCP Confirmed Navigation Signature: Chio Childers MA July 19, 2023 2:25 PM Allergies As of Date: 07/18/2023 Noted Allergy Reaction CONTRAST DYE 06/27/2006 10 - Anaphylaxis Date Reviewed: 04/28/2022 Reviewed by: Anisa Chambers Dent-A - Fully Assessed Reason for Visit: Medication Question [2488] Cmt: Statin use review Prescriptions as of 07/19/2023 - fidaxomicin (DIFICID) 200 mg tablet Take 200 mg by mouth twice daily. - ibuprofen (MOTRIN) 600 mg tablet Take 1 tablet by mouth every 6 hours as needed for pain. - oxyCODONE-acetaminophen (PERCOCET) 5-325 mg tablet Take 1 tablet by mouth every 6 hours as needed for pain. - jqcslqyaci-hgtcitxis-ly nthol 300-4-1 mg-%-% ktgc - predniSONE (DELTASONE) 1 mg tablet Take 10 mg by mouth once daily. - glipiZIDE (GLUCOTROL) 10 mg tablet Take 10 mg by mouth twice daily before meals. - metFORMIN (GLUCOPHAGE) 1,000 mg tablet Take 1,000 mg by mouth daily with breakfast. - hydroCHLOROthiazide (HYDRODIURIL, ESIDRIX) 12.5 mg capsule Take 12.5 mg by mouth once daily. - Aspirin 81 mg Tab Take 81 mg by mouth. - Niacin (Antihyperlipidemic) (NIASPAN) 1,000 mg ORAL TbSR take 2 tablets everyday by mouth Problem List As Of Date 07/18/2023 Noted Resolved MELENA, BLOOD IN STOOL [K92.1] 06/30/2006 Rectal Bleeding [K62.5] Depression [F32.A] Anxiety [F41.9] Weight Loss [R63.4] Other and unspecified ovarian cyst [N83.209] 12/29/2008 08/28/2012 RLQ abdominal mass [R19.03] 12/29/2008 08/28/2012 Mastalgia [N64.4] 12/29/2008 09/13/2012 Vaginal Inclusion Cyst [N89.8] 12/29/2008 Periapical abscess [K04.7] 08/03/2021 Type 2 diabetes mellitus without complication, *08/03/2021 Essential hypertension, benign [I10] 08/03/2021 Pacemaker [Z95.0] 08/03/2021 Nausea [R11.0] 08/03/2021 Encounter Status:Closed by GAVNI KING on 07/18/23 Normal [facility] Gastric Emptying Studyon Gastric Emptying Study [facility] Imaging Services [address] [place] [address] Gastric Emptying Study MR#: [id number] Acct: [id number] Name: RAUL HATCH Jake Rep #: [id number] : 1965 F 58 From: [place] PCP: EFREN Medina Status: REG CLI Study: Gastric Emptying Study Date of Exam: 06/14/23 Exam# [id number] Ordering Dr: [place] [id number] CLINICAL: 78-year-old female with history of abdominal pain. SEMI-SOLID PHASE 99m Tc SULFUR COLLOID GASTRIC EMPTYING STUDY COMPARISON: None available FINDINGS: The patient was administered 1.2 mCi of 99m Tc sulfur colloid mixed with oatmeal and consumed per os. Image acquisitions in the anterior-posterior projections were obtained for 60 minutes. There is prompt visualization of the stomach. There is no gastroesophageal reflux identified. Zero order kinetics are demonstrated throughout the duration of the acquisitions. The T ? raw data emptying was calculated to be 8.74 minutes, (Normal: 12-56 minutes). NM/Gastric Emptying Study IMPRESSION: 1. ABNORMAL 99m Tc sulfur colloid semi-solid phase (oatmeal) gastric emptying imaging examination. A. There is accelerated semi-solid phase gastric emptying compared to normal controls with visualized zero order kinetics demonstrated throughout all phases of the examination. (Nolvia et al, J Nucl Med Tech 38: 186, 2010). Electronically Signed: Prince Yancey DO at 6:42 EDT , CC: EFREN HART. 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 [facility] Thin prep Papanicolaou smear with manual screeningOrdered By: Gerardo Cook on 05-17-2023 Thin prep Papanicolaou smear with manual screening 86 mg/dL 74-106 [facility] Comment on above: MANAGEMENT OF PATIEN T CARE PER NURSING PROTOCOL HbA1c (Bld)on 10-20-2022 Average glucose Estimated from glycated hemoglobin (Bld) [Mass/Vol] 114 mg/dL Normal [facility] Comment on above: Order Comment: Speci men Type: BLOOD SPECIMEN Ordering Facility: [facility] Address: [address] [place] [address] Result Comment: eAG: (Estimated average glucose) is a calculated value from HgbA1c and is sales representative health insurance of the average blood glucose level in the last 2-3 month period. Performed By: #### 5 5454-3 #### [facility] CLIA [id number] [address] [place] [address] [place] HbA1c (Bld) [Mass fraction] 5.6 % Normal 4.3-5.6 [facility] Comment on above: Order Comment: Melody lau Type: BLOOD SPECIMEN Ordering Facility: [facility] Address: [facility] [place] [address] Result Comment: Amer [place] Diabetes Association guidelines indicate that patients with HgbA1c in the range 5.7-6.4% are at increased risk for development of diabetes, and intervention by lifestyle modification may be beneficial. HgbA1c greater or equal to 6.5% is considered diagnostic of diabetes. Performed By: #### 5 5454-3 #### [facility] CLIA [id number] [address] [place], [place] [id number] [place] Glucose Glucometer (BldC) [M ass/Vol]Ordered By: Marcus Bedolla on 10-12-2022 Glucose [Mass/Vol] 87 mg/dL 74-106 [facility] Comment on above: MANAGEMENT OF PATIEN T CARE PER NURSING PROTOCOL HbA1c (Bld)on 08-23-2022 Average glucose Estimated from glycated hemoglobin (Bld) [Mass/Vol] 126 mg/dL Normal [facility] Comment on above: Order Comment: Melody lau Type: BLOOD SPECIMEN Ordering Facility: [facility] Address: [facility] [place] [address] Result Comment: eAG: (Estimated average glucose) is a calculated value from HgbA1c and is sales representative health insurance of the average blood glucose level in the last 2-3 month period. Performed By: #### 5 5454-3 #### [facility] CLIA [id number] [address] [place] [id number] [place] HbA1c (Bld) [Mass fraction] 6.0 % High 4.3-5.6 [facility] Comment on above: Order Comment: Melody lau Type: BLOOD SPECIMEN Ordering Facility: [facility] Address: [facility] [place] [id number] Result Comment: Amer ican Diabetes Association guidelines indicate that patients with HgbA1c in the range 5.7-6.4% are at increased risk for development of diabetes, and intervention by lifestyle modification may be beneficial. HgbA1c greater or equal to 6.5% is considered diagnostic of diabetes. Performed By: #### 5 5454-3 #### [facility] CLIA [id number] [address] [place] [address] [place] Glucose Glucometer (BldC) [M ass/Vol]Ordered By: Gerardo Cook on 06-06-2022 Glucose [Mass/Vol] 127 mg/dL 74-106 [facility] Comment on above: MANAGEMENT OF PATIEN T CARE PER NURSING PROTOCOL No Panel Informationon 08-25 BLANK _ [facility] Implant Date 06/18/[address] [facility] PACEMAKER CLINIC CHECKon AV Delay Adaptive Paced Minimum (ms) [address] [facility] AV Delay Adaptive Sensed Minimum (ms) [address] [facility] AV Delay Paced (ms) 160 ms [facility] AV Delay Sensed (ms) [address] [facility] Hussein RA Pacing Amplitude (volts) [address] [facility] Hussein RA Pacing Polarity BI [facility] Hussein RA Pacing Pulse Width (ms) 0.[address] [facility] Hussein RA Sensing Amplitude (mvolts) 0.[address] [facility] Hussein RA Sensing Polarity BI [facility] Hussein RV Pacing Amplitude (volts) [address] [facility] Hussein RV Pacing Polarity BI [facility] Hussein RV Pacing Pulse Width (ms) 0.[address] [facility] Hussein RV Sensing Amplitude (mvolts) 0.[address] [facility] Hussein RV Sensing Polarity BI [facility] Lead1 Mfg CPM [facility] Lead2 Mfg CPM [facility] Location RA [facility] Location RV [facility] Lower Rate (bpm) 50 {beats}/min [facility] Max Sensor Rate (bmp) 130 {beats}/min [facility] Model L111 ESSENTIO MRI [facility] Model 4469 Fineline II Edilson priyanka EZ [facility] Model 4470 Fineline II Edilson priyanka EZ [facility] Pacemaker Dependent? NO [facility] Pacing Mode DDD [facility] PM-Device Mfg BSX [facility] PM-Percent Pacing (A) 0 % [facility] PM-Percent Pacing (V) 0 % [facility] RA Bipolar Impedance ohms [address] [facility] Rhythm Sinus Rhythm [facility] RV Bipolar Impedance ohms [address] [facility] Serial Number [id number] [facility] Serial Number [id number] [facility] Serial Number [id number] [facility] Thresh RA Capture Amplitude (volts) 0.[address] [facility] Thresh RA Capture Duration (ms) 0.[address] [facility] Thresh RV Capture Amplitude (volts) 0.[address] [facility] Thresh RV Capture Duration (ms) 0.[address] [facility] Tracking Rate (bpm) 140 {beats}/min [facility] DHEA-Son 03-03-2021 DHEA-S 19.1 ug/dL Low 35.4-256.[address] [facility] Reference Lab Comment on above: Performed By: #### D RAFA #### [facility] Routine Lab [address] [place] [address] Ultra-sensitive CRPon 2021 UltraSens C-ReacProt 2.2 mg/L Normal <3.[address] [facility] Reference Lab Comment on above: Performed By: #### H SCRP #### [facility] Routine Lab [address] [place] [address] Hemoglobin A1con 02-04-2021 Glucose [Mass/Vol] 137 mg/dL Normal [facility] Reference Lab Comment on above: Performed By: #### H BA1C #### [facility] Routine Lab [address] [place] [address] HbA1c (Bld) [Mass fraction] 6.4 % High 4.3-5.[address] [facility] Reference [facility] Comment on above: Performed By: #### H BA1C #### [facility] Routine Lab [address] [place] [address] Microbiology: Ova and Parasi charlie 8623on 10-18-2016 ova and parasites identification, stool . Invalid Interpretation Code [facility] Work Phone: Microbiology: ENTERIC PATHOG EN PANEL STOOLon 10-12-2016 EP PANEL . [facility] Work Phone: GE use only - for LinkLogic import when terms are not otherwise specified . Invalid Interpretation Code [facility] [employer] Work Phone: Office Visiton 10-11-2016 Documentation of current medications (procedure) Done Invalid Interpretation Code [facility] [employer] Work Phone: Fall risk assessment No Invalid Interpretation Code [facility] [employer] Work Phone: Tobacco smoking status NHIS Never Invalid Interpretation Code [facility] [employer] Work Phone: Tobacco use HS Former smoker Invalid Interpretation Code [facility] [employer] Work Phone: Office Visiton 10-13-2014 Breast Mammogram screening Normal Invalid Interpretation Code [facility] [employer] Work Phone: Office Visiton 09-15-2013 Colonoscopy (procedure) Colonoscopy (procedure) Invalid Interpretation Code [facility] [employer] Work Phone: Office Visiton 07-06-2011 Protein mass conc Done [facility] Lynette gical [employer] Work Phone: Tobacco smoking status NHIS never smoker [facility] [employer] Work Phone: Vital Signs Date Time Vital Sign Value Performing Clinician Facility 05-17-2023 08:12-0400 Body temperature 97.4 [degF] MEDICAL REGISTRAR. Candice Marquezerer Work Phone: [facility] 05-17-2023 08:12-0400 Diastolic blood pressure 61 mm[Hg] MEDICAL REGISTRAR. Candice Visual IQerer Work Phone: [facility] 05-17-2023 08:12-0400 Heart rate 59 /min MEDICAL REGISTRAR. Candice Visual IQerer Work Phone: [facility] 05-17-2023 08:12-0400 Respiratory rate 16 /min MEDICAL REGISTRAR. Candice Marquezerer Work Phone: [facility] 05-17-2023 08:12-0400 SaO2% (BldA) [Mass fraction] 95 % MEDICAL REGISTRAR. Candice Marquezerer Work Phone: [facility] 05-17-2023 08:12-0400 Systolic blood pressure 97 mm[Hg] MEDICAL REGISTRAR. Candice Tello Work Phone: [facility] 05-17-2023 07:56-0400 Inhaled oxygen flow rate 3 L/min MEDICAL REGISTRAR. Candice Marquezerer Work Phone: [facility] 05-17-2023 06:57-0400 Body height 154.94 cm MEDICAL REGISTRAR. Candice Kingr Work Phone: [facility] 05-17-2023 06:57-0400 Body mass index (BMI) [Ratio] 25.4 kg/m2 MEDICAL REGISTRAR. Candice Tello Work Phone: [facility] 05-17-2023 06:57-0400 Body weight 61 kg MEDICAL REGISTRAR. Candice Tello Work Phone: [facility] 10-15-2022 03:42-0400 Diastolic blood pressure 87 mm[Hg] Out [facility] 10-15-2022 03:42-0400 Heart rate 78 /min Out [facility] 10-15-2022 03:42-0400 Respiratory rate 5 /min Out [facility] 10-15-2022 03:42-0400 SaO2% (BldA) [Mass fraction] 95 % Out [facility] 10-15-2022 03:42-0400 Systolic blood pressure 145 mm[Hg] Out [facility] 10-15-2022 00:18-0400 Body height 154.94 cm Out [facility] 10-15-2022 00:18-0400 Body mass index (BMI) [Ratio] 27 kg/m2 Out [facility] 10-15-2022 00:18-0400 Body temperature 98.4 [degF] Out [facility] 10-15-2022 00:18-0400 Body weight 64.86 kg Out [facility] 10-12-2022 15:30-0400 Body temperature 98.2 [degF] Out [facility] 10-12-2022 15:30-0400 Diastolic blood pressure 67 mm[Hg] Out [facility] 10-12-2022 15:30-0400 Heart rate 67 /min Out [facility] 10-12-2022 15:30-0400 Respiratory rate 18 /min Out [facility] 10-12-2022 15:30-0400 SaO2% (BldA) [Mass fraction] 98 % Out [facility] 10-12-2022 15:30-0400 Systolic blood pressure 146 mm[Hg] Out [facility] 10-12-2022 11:34-0400 Body height 154.94 cm Out [facility] 10-12-2022 11:34-0400 Body mass index (BMI) [Ratio] 28 kg/m2 Out [facility] 10-12-2022 11:34-0400 Body weight 67.5 kg [facility] [facility] 07-04-2022 13:40-0400 Body temperature 97.6 [degF] Out [facility] 07-04-2022 13:40-0400 Body weight 65.48 kg Out [facility] 07-04-2022 13:40-0400 Diastolic blood pressure 86 mm[Hg] Out [facility] 07-04-2022 13:40-0400 Heart rate 81 /min Out [facility] 07-04-2022 13:40-0400 Respiratory rate 17 /min Out [facility] 07-04-2022 13:40-0400 SaO2% (BldA) [Mass fraction] 96 % Out [facility] 07-04-2022 13:40-0400 Systolic blood pressure 147 mm[Hg] Out [facility] 06-22-2022 14:10-0400 Body weight 68.03 kg Out [facility] 06-22-2022 14:10-0400 Diastolic blood pressure 101 mm[Hg] Out [facility] 06-22-2022 14:10-0400 Heart rate 84 /min Out [facility] 06-22-2022 14:10-0400 SaO2% (BldA) [Mass fraction] 96 % Out [facility] 06-22-2022 14:10-0400 Systolic blood pressure 173 mm[Hg] Out [facility] 06-06-2022 13:09-0400 Body temperature 98.7 [degF] Out [facility] 06-06-2022 13:09-0400 Diastolic blood pressure 90 mm[Hg] Out [facility] 06-06-2022 13:09-0400 Heart rate 72 /min Out [facility] 06-06-2022 13:09-0400 Respiratory rate 16 /min Out [facility] 06-06-2022 13:09-0400 SaO2% (BldA) [Mass fraction] 98 % Out [facility] 06-06-2022 13:09-0400 Systolic blood pressure 102 mm[Hg] Out [facility] 06-06-2022 11:07-0400 Body height 154.94 cm Out [facility] 06-06-2022 11:07-0400 Body mass index (BMI) [Ratio] 26.6 kg/m2 Out [facility] 06-06-2022 11:07-0400 Body weight 64 kg Out [facility] 03-31-2022 13:08-0500 Body mass index (BMI) [Ratio] 30.8 kg/m2 Out [facility] 03-31-2022 13:08-0500 Body weight 73.93 kg Out [facility] 03-31-2022 13:08-0500 Diastolic blood pressure 82 mm[Hg] Out [facility] 03-31-2022 13:08-0500 Heart rate 78 /min Out [facility] 03-31-2022 13:08-0500 SaO2% (BldA) [Mass fraction] 94 % Out [facility] 03-31-2022 13:08-0500 Systolic blood pressure 146 mm[Hg] Out [facility] 06-20-2022 14:15-0400 Body height 154.9 cm Pacc 1 Work Phone: [facility] 08-02-2021 14:15-0400 Body temperature 97.7 [degF] Pacc 1 Work Phone: [facility] 08-02-2021 14:15-0400 Body weight 66.22 kg Pacc 1 Work Phone: [facility] 08-02-2021 14:15-0400 Diastolic blood pressure 78 mm[Hg] Pacc 1 Work Phone: [facility] 08-02-2021 14:15-0400 Heart rate 88 /min Pacc 1 Work Phone: [facility] 08-02-2021 14:15-0400 Respiratory rate 16 /min Pacc 1 Work Phone: [facility] 08-02-2021 14:15-0400 SaO2% (BldA) [Mass fraction] 97 % Pacc 1 Work Phone: [facility] 08-02-2021 14:15-0400 Systolic blood pressure 136 mm[Hg] Pacc 1 Work Phone: [facility] 10-11-2016 09:00-0400 BMI (Body Mass Index) 20.22 kg/m2 Jsesy Lopez [facility] Work Phone: 10-11-2016 09:00-0400 Body Temperature 98 [degF] [facility] Work Phone: 10-11-2016 09:00-0400 Body Temperature 98.01 [degF] [facility] Work Phone: 10-11-2016 09:00-0400 BP Diastolic 71 mm[Hg] [facility] Work Phone: 10-11-2016 09:00-0400 BP Systolic 114 mm[Hg] [facility] Work Phone: 10-11-2016 09:00-0400 Height 154.94 cm [facility] Work Phone: 10-11-2016 09:00-0400 Pulse (Heart Rate) 76 /min Jessy Lopez [facility] Work Phone: 10-11-2016 09:00-0400 Respiratory Rate 18 /min Jessy Lopez [facility] Work Phone: 10-11-2016 09:00-0400 Weight 48.54 kg Jessy Lopez [facility] Work Phone: 10-11-2016 09:00-0400 Weight 48.53 kg Jessy Lopez [facility] Work Phone: 07-06-2011 12:45-0400 BMI (Body Mass Index) 18.96 kg/m2 Fabián Cruz MD [facility] Work Phone: 07-06-2011 12:45-0400 BP Diastolic 60 mm[Hg] Fabián Cruz MD [facility] Work Phone: 07-06-2011 12:45-0400 BP Systolic 102 mm[Hg] Fabián Cruz MD [facility] Work Phone: 07-06-2011 12:45-0400 Height 154.94 cm Fabián Cruz MD [facility] [employer] Work Phone: 07-06-2011 12:45-0400 Pulse (Heart Rate) 80 /min Fabián Cruz MD [facility] [employer] Work Phone: 07-06-2011 12:45-0400 Respiratory Rate 14 /min Fabián Cruz MD [facility] [employer] Work Phone: 07-06-2011 12:45-0400 Weight 45.36 kg Fabián Cruz MD [facility] [employer] Work Phone: Encounters Encounter Date Encounter Type Care Provider Facility Start: 10-11-2024 End: 10-11-2024 ambulatory No Primary Care Physician -[facility] Start: 10-11-2024 End: 10-11-2024 Patient encounter procedure Katerin VU -[facility] Work Phone: Start: 09-30-2024 ambulatory SHASHI RIOS [facility] Start: 08-13-2024 End: 08-14-2024 Emergency department patient visit GILLIAN BUSTILLO [facility] Start: 08-09-2024 End: 08-09-2024 Emergency department patient visit ROGER Rayo [facility] Start: 08-07-2024 End: 08-07-2024 Emergency department patient visit ROGER Rayo [facility] Start: 07-29-2024 End: 07-29-2024 ambulatory SHASHI RIOS [facility] Start: 06-06-2024 End: 06-06-2024 ambulatory PRINCESS Loya [facility] Start: 06-03-2024 End: 06-03-2024 ambulatory PRINCESS Loya [facility] Start: 05-23-2024 End: 05-23-2024 ambulatory SHASHI ROIS [facility] Start: 05-16-2024 End: 05-16-2024 ambulatory Katerin VU [facility] Work Phone: Start: 05-16-2024 End: 05-16-2024 Patient encounter procedure Katerin VU -Radiology, [facility] Work Phone: Start: 05-16-2024 End: 05-16-2024 ambulatory No Primary Care Physician Facility[facility] Start: 05-06-2024 End: 05-06-2024 Emergency department patient visit ROGER Rayo [facility] Start: 04-23-2024 End: 04-23-2024 ambulatory SHASHI RIOS [facility] Start: 04-01-2024 End: 04-02-2024 Emergency department patient visit OSMIN CERVANTES [facility] Start: 03-19-2024 End: 03-19-2024 ambulatory CANDICE HART [facility] Start: 03-15-2024 ambulatory CANDICE HART [facility] Start: 01-23-2024 End: 01-23-2024 ambulatory SHASHI RIOS [facility] Start: 01-19-2024 End: 01-19-2024 ambulatory CANDICE HART [facility] Start: 01-08-2024 End: 01-08-2024 ambulatory CANDICE MEDICAL REGISTRAR [facility] Start: 12-28-2023 End: 12-28-2023 ambulatory CANDICE [facility] Start: 12-15-2023 End: 12-15-2023 ambulatory Candice Marquezerer [facility] Start: 11-30-2023 End: 11-30-2023 ambulatory Gerardo Cook [facility] Start: 11-28-2023 End: 11-28-2023 ambulatory Candice Ungerer [facility] Start: 11-07-2023 End: 11-07-2023 ambulatory Gerardo Cook Facility:[facility] Start: 10-27-2023 End: 10-27-2023 ambulatory CANDICE HART [facility] Start: 10-18-2023 End: 10-18-2023 ambulatory SHASHI RIOS [facility] Start: 10-10-2023 End: 10-10-2023 Emergency department patient visit JORDAN MEDINA [facility] Start: 07-18-2023 Telephone encounter Gavin Richards [facility] Work Phone: [employer] Comment on above: Medication Question (Statin use review ) Start: 06-14-2023 End: 06-14-2023 ambulatory MEDICAL REGISTRAR. Candice Tello Work Phone: [facility] Work Phone: Start: 06-14-2023 End: 06-14-2023 Patient encounter procedure MEDICAL REGISTRAR. Candice Tello Work Phone: [facility], [facility] Work Phone: Start: 06-14-2023 End: 06-14-2023 ambulatory Gerardo Cook [facility] Start: 05-17-2023 Non-patient / Non-visit MEDICAL REGISTRAR. Chuck Tello Work Phone: [facility] Start: 05-17-2023 End: 05-17-2023 Admission to same day surgery center MEDICAL REGISTRAR. Candice Tello Work Phone: [facility] Work Phone: Start: 05-17-2023 End: 05-17-2023 ambulatory MEDICAL REGISTRAR. Candice Tello Work Phone: [facility] Work Phone: Start: 05-09-2023 Orders Only Gavin Maria Elena Parkinson Ph Work Phone: [facility] Start: 05-03-2023 End: 05-03-2023 Patient encounter procedure MEDICAL REGISTRAR. Candice Tello Work Phone: [facility] Gastroenterology Work Phone: Start: 03-29-2023 ambulatory Tessy Cho Fausto isidoro Work Phone: [facility] Comment on above: Allied Health Visit (Medication Adherence Outreach/) Start: 10-15-2022 End: 10-15-2022 Emergency department patient visit Out [facility] Work Phone: Start: 10-12-2022 Non-patient / Non-visit Out [facility] Salvador lindsey [facility] Start: 10-12-2022 End: 10-12-2022 Admission to same day surgery center [place] [facility] Start: 10-12-2022 End: 10-12-2022 ambulatory Out of [facility] Work Phone: Start: 09-23-2022 End: 09-23-2022 Patient encounter procedure Out [facility] Work Phone: Start: 07-04-2022 End: 07-04-2022 Patient encounter procedure Out [facility] Work Phone: Start: 06-22-2022 End: 06-22-2022 Patient encounter procedure [place] [facility] G[facility] Work Phone: Start: 06-06-2022 Non-patient / Non-visit [place] [facility] Start: 06-06-2022 End: 06-06-2022 Admission to same day surgery center [place] [facility] Start: 06-06-2022 End: 06-06-2022 ambulatory Out of [place] [facility] Work Phone: Start: 04-28-2022 End: 04-28-2022 Patient encounter procedure Abner Bo DDS Work Phone: Dentistry Comment on above: Bony growth (Primary Dx) Start: 04-25-2022 ambulatory Stephen Kim [facility] Work Phone: [facility] Comment on above: Medication Update (S tatin use review ) Start: 03-31-2022 End: 03-31-2022 Patient encounter procedure [place] [facility] Gastroenterology Start: 03-21-2022 ambulatory Jessica Quiles [facility] Comment on above: Population Health Na vigation Outreach (Care Gaps) Start: 11-10-2021 ambulatory Macrina Waters MA [facility] Comment on above: Population Health Na vigation Outreach ([place] Attribution /) Start: 09-29-2021 End: 09-29-2021 Patient encounter procedure Abner Bo DDS Work Phone: Dentistry Comment on above: Periapical abscess ( Primary Dx); Bony growth Start: 09-02-2021 End: 09-02-2021 Patient encounter procedure Abner Bo DDS Work Phone: Dentistry Comment on above: Bony growth (Primary Dx); Periapical abscess Start: 08-27-2021 Telephone encounter Abner novoa DDS Work Phone: Dentistry Comment on above: Post-Op Visit Start: 08-26-2021 ambulatory Jessica Quiles MA [facility] Comment on above: Population Health Na vigation Outreach ([place] Care Gaps) Periapical abscess ( Primary Dx) Start: 08-25-2021 Follow-up encounter Jeremias Wiseman MD Work Phone: [facility] Start: 08-25-2021 Patient encounter procedure Jeremias Wiseman MD Work Phone: [facility] Department Start: 08-20-2021 Orders Only Abner Lambert DS Work Phone: Dentistry Comment on above: Bony growth (Primary Dx) Start: 08-12-2021 Telephone encounter Angeline Lopez ( [facility]) [facility] Comment on above: Patient Question Start: 08-10-2021 Patient encounter status [facility] Start: 08-02-2021 End: 08-02-2021 [place]mission to [place] [id number] Work Phone: [facility] Start: 08-02-2021 End: 08-02-2021 ambulatory [place] [address] Work Phone: Pre Anesthesia Comment on above: Pre-operative examin ation (Primary Dx); Periapical abscess; Pacemaker; Essential hypertension, benign; Type 2 diabetes mellitus without complication, without long-term current use of insulin (HCC); Anxiety; Nausea Start: 08-02-2021 End: 08-02-2021 Preprocedural examination done [place] [address] Work Phone: Pre Anesthesia Start: 06-04-2021 End: 06-04-2021 Patient encounter procedure Abner Bo DDS Work Phone: Dentistry Comment on above: Periapical abscess ( Primary Dx); Bony growth Procedures Date Procedure Procedure Detail Performing Clinician Start: 05-16-2024 X-ray of esophagus with double contrast Katerin VU Work Phone: Start: 06-14-2023 Radionuclide gastric emptying study MEDICAL REGISTRAR. Candice Tello Work Phone: Start: 05-17-2023 Esophagogastroduodenoscopy NP. Candice Tello Work Phone: Start: 10-12-2022 Hemorrhoidectomy [place] Doctor Start: 06-06-2022 Colonoscopy [place] Doctor Start: 09-29-2021 POST-OP OMFS Abner Elmoreanna LEONA Work Phone: Start: 08-25-2021 PACEMAKER CLINIC CHECK Jeremias Wiseman MD Work Phone: Start: 10-13-2014 Colonoscopy Abner Anupam DELGADILLO Work Phone: Start: 04-17-2013 End: 04-17-2013 Pm device progr eval, dual Jim riley MD Start: 09-20-2012 End: 09-20-2012 Pm device progr eval, dual Jim riley MD Start: 07-06-2011 End: 07-06-2011 Follow Up Appt 1 year Jim George MD Start: 12-29-2008 Mammography Abner Bo DDS Work Phone: H/O: hysterectomy History of hysterectomy [place] Doctor Comment on above: 1998 History of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 Navigation Signature: Tati Cline MA February 28, 2023 8:36 AM Allergies As of Date: 02/28/2023 Noted Allergy Reaction CONTRAST DYE 06/27/2006 10 - Anaphylaxis Date Reviewed: 04/28/2022 Reviewed by: Anisa Chambers Dent-A - Fully Assessed Reason for Visit: Population Health Navigation Outreach [3910] Cmt: [employer] [facility] Prescriptions as of 02/28/2023 - fidaxomicin (DIFICID) 200 mg tablet Take 200 mg by mouth twice daily. - ibuprofen (MOTRIN) 600 mg tablet Take 1 tablet by mouth every 6 hours as needed for pain. - oxyCODONE-acetaminophen (PERCOCET) 5-325 mg tablet Take 1 tablet by mouth every 6 hours as needed for pain. - qvxypevegy-buupbyuii-yetowya 300-4-1 mg-%-% ktgc - predniSONE (DELTASONE) 1 mg tablet Take 10 mg by mouth once daily. - glipiZIDE (GLUCOTROL) 10 mg tablet Take 10 mg by mouth twice daily before meals. - metFORMIN (GLUCOPHAGE) 1,000 mg tablet Take 1,000 mg by mouth daily with breakfast. - hydroCHLOROthiazide (HYDRODIURIL, ESIDRIX) 12.5 mg capsule Take 12.5 mg by mouth once daily. - Aspirin 81 mg Tab Take 81 mg by mouth. - Niacin (Antihyperlipidemic) (NIASPAN) 1,000 mg ORAL TbSR take 2 tablets everyday by mouth Problem List As Of Date 02/28/2023 Noted Resolved MELENA, BLOOD IN STOOL [K92.1] 06/30/2006 Rectal Bleeding [K62.5] Depression [F32.A] Anxiety [F41.9] Weight Loss [R63.4] Other and unspecified ovarian cyst [N83.209] 12/29/2008 08/28/2012 RLQ abdominal mass [R19.03] 12/29/2008 08/28/2012 Mastalgia [N64.4] 12/29/2008 09/13/2012 Vaginal Inclusion Cyst [N89.8] 12/29/2008 Periapical abscess [K04.7] 08/03/2021 Type 2 diabetes mellitus without complication, *08/03/2021 Essential hypertension, benign [I10] 08/03/2021 Pacemaker [Z95.0] 08/03/2021 Nausea [R11.0] 08/03/2021 Encounter Status:Closed by TATI CLINE on 02/28/23 [facility] 10-12-2022 History and physi mariely note Note Date/Time October 12, 2022 1:20pm [facility] Medical Records Department [address] [place] [address] History & Physical Exam 10/12/22 1320 MR#: [id number] Acct: [id number] Name: RAUL HATCH Rep #:[id number] : 1965 57 From: Marcus coffman MD PCP: EFREN Medina Status: [facility] Location: [place] [address]- History and Physical Date of Admission: 10/12/22 Intake Vital Signs 06/06/2310:07 Height 5 ft 1 in Intake Visit Reasons: Anal Fissure/Negative for C-diff will fax Chief Complaint: anal fissure Allergies Iodinated Contrast Media [Iodinated Contrast Media - IV Dye] Allergy (Verified 07/04/22 13:41) Anaphylaxis PFSH Medical History Abdominal pain Anxiety Blackout Brown recluse spider bite Cardiology follow-up encounter Carotid bruit Complete edentulism, class III COPD (chronic obstructive pulmonary disease) Diabetes Diarrhea Dietary restriction Difficulty chewing Easy bruising Edema Former smoker Gastritis Hemorrhoid History of Clostridioides difficile infection History of Clostridium difficile infection History of echocardiogram History of edema History of left heart catheterization (LHC) (~03/15/04) History of renal disease History of steroid therapy History of thrush HTN (hypertension) Hyperlipemia Hypokalemia Low iron MAJOR DEPRESSION DISORDER Nerve damage Paroxysmal atrial tachycardia Stroke Takotsubo cardiomyopathy Vitamin D insufficiency Vomiting Surgical History Cardiac pacemaker in situ History of appendectomy History of cholecystectomy History of hysterectomy History of mandibular surgery Hx of colonoscopy Hx of dilation and curettage Hx of oral surgery Family History Father CAD (coronary artery disease) CancerMother Arthritis Multiple sclerosisSister Colon cancer Social History Smoking Status: Former smoker quit date: 09/13/17 Tobacco: How many years used: 10 second hand exposure: No alcohol intake: never substance use type: does not use caffeine: Yes Type: tea HPI HPI HPI: Patient is a 57-year-old female here to follow-up after treatment for anal fissure. She tried the diltiazem cream for a month but she reports she is stillbleeding with every bowel movement. She says she is not having any rectal pain only bright red blood. She reports she has multiple bowel movements a day with no firm bowel movements or constipation. ROS General General: Yes fatigue; No weight change, appetite, colon cancer, breast cancer or weakness HEENT HEENT: Yes difficulty swallowing and swollen glands; No eye injury, eye surgery or hoarseness Endo Endocrine: Yes diabetes mellitus; No thyroid disease, thyroid cancer, Hair loss, heat intolerance or cold intolerance Skin Skin: No rash or changing moles Musc Musculoskeletal: Yes arthritis; No back problems, rheumatoid arthritis, gout or joint pain Cardio Cardiovascular: Yes pacemaker, heart disease and high blood pressure; No murmur, atrial fibrillation, heart attack, heart stent, palpitations, shortness of breat with exertion or chest pain Psych Psychiatric: Yes depression and anxiety; No hearing voices Resp Respiratory: No shortness of breath, No sleep apnea, No cough, No COPD, No asthma, No emphysema and No wheezing Gastro Gastrointestinal: Yes abdominal pain, Yes nausea or vomiting, Yes diarrhea, Yes constipation, Yes blood in stool, No acid reflux, Yes hemorrhoids, Yes ulcers, No gallbladder problem and No black,tarry stools Yusef Hematologic: No blood thinners, No blood disorders, No bleeding, No anemia and No blood clots Neuro Neurologic: No system reviewed and no additional complaints, except as documented, No as per HPI, No abnormal gait, No abnormal hearing, No abnormal movements, No abnormal speech, No behavioral changes, No burning sensations, No confusion, No convulsions, No disequilibrium, No dizziness, No localized weakness, No frequent falls, No headache(s), No lack of coordination, No loss ofvision, No memory loss, No numbness, No other visual disturbances, No radicular pain, No restless legs, No sensory deficit, No syncope, No tingling, No tremor(s), No weakness and No other Exam Const General: cooperative Orientation: alert and oriented x3 HENMT Head: normal to inspection Neck Neck: normal visual inspection and full ROM Chest Chest palpation & inspection: normal inspection of the chest Resp Effort & Inspection: normal respiratory effort Auscultation: clear to auscultation bilaterally Cardio Rate: regular rate Rhythm: regular rhythm GI Inspection: non-distended Palpation: soft and nontender Skin General: no rashes or lesions noted Neuro General: patient alert and patient oriented x3 Extrem General: full ROM Psych Appearance: grossly normal Mental Status: mental status grossly normal Assessment and Plan Assessment and Plan (1) Anal fissure: Status: Acute Plan: The patient is still having ongoing bleeding despite diltiazem treatment. I didoffer the patient lateral internal sphincterotomy OR I did offer the alternativeof trying a fissurectomy versus hemorrhoidectomy depending on what we find on exam under anesthesia with the understanding that if this does not work she would need a lateral internal sphincterotomy subsequently. Patient understands this and would like to try fissurectomy as there is less chance of incontinence. I believe this is reasonable and I will have her do a fleets enema the evening before the procedure in the morning of and I will take her to the operating for exam under anesthesia with fissurectomy versus hemorrhoidectomy. I discussed the risks including modality to bleeding, infection, need for further surgery. Patient understands the risks and is willing to proceed. Marcus Bedolla MD Pager: [facility] [address] [place] [address], [address] [place] [address] Office: I have examined the patient and the H&P has been reviewed. There are no clinicalchanges since date of exam. 10/12/22 1320 <Electronically signed by Marcus Bedolla MD> Cosigner Signature (if applicable): CC: MEDICAL REGISTRAR-C NP. Candice Tello; Dr. Marcus Bedolla MD~ [facility]igned [facility] Work Phone: 1(231) 169-313108-30-2023 Procedure [facility] 06-06-2022 History and physical note Author Gerardo [facility] June 06, 2022 11:30am Note Date/Time June 06, 2022 11: 30am [facility] Medical Records Department [address] [place] [id number] History & Physical Exam 06/06/22 1129 MR#: [id number] Acct: [id number] Name: RAUL HATCH Rep #:[id number] : 1965 57 From: Gerardo Cook DO PCP: EFREN Medina Status: [facility] Location: [address] History and Physical Date of Admission: 06/06/22 57 F who presents to the office today to establish with GI for recurrent C difficile colitis. She required medical terminologist antibiotic for dental and jaw infection. She finished her last course of vancomycin 2 wks ago. She says she has bloody diarrhea regardless of taking vancomycin or not. She takes lomotil but says it doesn't help. She has multiple episodes of watery or loose diarrhea per day, malodorous. She can't remember the last time she had formed stool. Diarrhea wakes her at night. Has blood per rectum a majority of days. She gets cramps in lower abd. Takes ondansetron frequently for nausea. No vomiting. She has regurgitation of stomach contents. Gets heartburn. Chronic thrush, does swish and swallow. Takes prednisone for swelling in jaw and fingers. CT abd pel w/o contrast 01/09/22 at [facility]: negative EGD and colonoscopy in [address] Cruz, recommended repeat in 3 yrs due to polyps, pathology: tubular adenoma, hyperplastic polyp Sister of colorectal cancer in her late 40s Past medical history includes anxiety, depression, diabetes, COPD, hypertension,hyperlipidemia, Takotsubo cardiomyopathy, PAT, stroke, hypokalemia, restless legsyndrome Past surgical history includes hemorrhoid surgery, cardiac pacemaker, appendectomy, cholecystectomy, hysterectomy ROS Const Constitutional: Positive for fatigue and headache(s) ENT ENT: Positive for headache(s); No difficulty swallowing Gastro GI: Positive for abdominal pain, change in bowel habits, constipation, diarrhea,Blood in stool and nausea/dyspepsia; No belching, bloating, change in stool character, coffee ground emesis, cramping, heartburn, difficulty swallowing, feeling full early, excessive flatus, incontinent of stools, Vomiting blood/hematemesis, loose stools, Black,tarry stools, pain with swallowing, vomiting or other Musc Musculoskeletal: Positive for numbness, tingling, sciatica and restless legs; No joint pain Skin Skin: No yellowing of the eye or itchy eyes Neuro Neurology: Positive for headache(s), numbness, tingling and restless legs Psych Psychiatric: Positive for anxiety and Positive for depression Endo Endocrine: Positive for fatigue Aller/Imm Allergy/Immunologic: No itchy eyes Yusef/Lymp Hematologic/Lymphatic: No easy bleeding or easy bruising Exam Const General: cooperative and no acute distress Orientation: alert, awake and oriented x3 Eyes Sclera: sclerae normal Resp Effort & Inspection: normal respiratory effort GI Inspection: normal to inspection Palpation: soft, no hepatosplenomegaly, no masses and nontender Skin General: no rashes or lesions noted Psych Mood: congruent mood Quality Reporting Tobacco Screening ([facility] 138) Smoking Status: Former smoker Assessment and Plan Assessment and Plan (1) C. difficile colitis: ?Status:?Chronic ?Plan: 57-year-old female with recurrent C difficile infection, has required months of vancomycin Rx for Dificid 200 mg bid x 10 days, will try to get this authorized She has chronic acid reflux and regurgitation EGD and colonoscopy, f/u 2 wks in office to discuss biopsy results (2) Acid reflux: ?Status:?Acute ?Plan: see above (3) FH: colon cancer in relative <50 years old: ?Status:?Acute ?Plan: see above ? ? ? Medications: New fidaxomicin (Dificid) 200 mg? PO BID 10 days 20 tabs 0RF ? ? I have examined the patient and the H&P has been reviewed. There are no clinicalchanges since date of exam. 06/06/22 1130 <Electronically signed by Gerardo Cook DO> Cosigner Signature (if applicable): CC: MEDICAL REGISTRARSherri HART. Candice Tello; Gerardo Cook DO~ [facility]igned [facility] Work Phone: 1(148) 518-704804-24-2023 Procedure [facility] 06-06-2022 Procedure [facility]04-24-2023 Procedure note [facility]2023 Procedure [facility] 05-24-2022 Note. MICRO - Microbiology PROCEDURE: Blood Culture (bacterial) [*1] SOURCE: Blood BODY SITE: COLLECTED DATE/TIME: 05/18/2022 23:45 EDT RECEIVED DATE/TIME: 05/19/2022 16:22 EDT START DATE/TIME: 05/19/2022 16:22 EDT FREE TEXT SOURCE: FINAL REPORTS Final Report [] Verified Date/Time/Personnel: 05/24/2022 16:59 EDT Blood Culture: No Growth at 5 days. PRELIMINARY REPORTS Preliminary Report [] Verified Date/Time/Personnel: 05/19/2022 16:59 EDT Culture has been received in lab and is no growth to date. Routine cultures are held for 5 days. Performing Locations *1: This test was performed at: [facility], [address] [place] [address], [id number] , [facility] ([place])05-09-2022 History of Present illness Narrative* Duarte Rg - 05/09/2022 12:17 PM EDT 05/09/22 attempt 3 - no answer * Duarte Rg - 05/02/2022 12:15 PM EDT 05/02/22 attempt 2 - no answer LVM * Duarte Rg - 04/25/2022 12:28 PM EDT Pt chart reviewed as part of population health initiative focused on statin use in patients with diabetes (DM) or cardiovascular disease (CVD). Raul Hatch is identified through data from [employer] (insurer) as a potential candidate for statin therapy with no prescriptions claims processed for a statin medication in this calendar year. Chart Review The following case components were reviewed for current or historic statin use: Confirmed diabetes and or CVD: yes Current/Active med list includes a statin: no IF YES, Last order date and quantity: N/A Last pharmacy fill date: Per Epic: N/A, Per pharmacy phone call: N/A IF NO, reason identified (contraindication, intolerance, exclusion, etc.): N/A ALLERGIES Allergen Reactions Contrast Dye Anaphylaxis PAST MEDICAL HISTORY Diagnosis Date Anxiety Benign neoplasm of colon Depression Diabetes (HCC) Excessive or frequent menstruation Heavy periods External hemorrhoids without mention of complication Hemorrhage of gastrointestinal tract, unspecified Hemorrhage of gastrointestinal tract, unspecified Hemorrhage of rectum and anus Loss of weight Other and unspecified ovarian cyst Ovarian cyst Pacemaker PMH - PAST MEDICAL HISTORY OF low heart rate PMH - PAST MEDICAL HISTORY OF fibrocystic breasts PMH - PAST MEDICAL HISTORY OF stroke Rectal bleeding Weight loss No results found for: CHOL, HDL, LDL, TG Patient Outreach: 04/29/22 attempt 1 - no answer LVM Duarte Rg * Stephen Kim RPh - 04/25/2022 12:28 PM EDT Approving student documentation and outreach below. Stephen Kim alexandro PharmD BCACP documented in this encounterMer[facility]03-[facility] History of Present illness Narrative* Abner Bo DDS - 04/30/2022 4:26 PM EDT [facility] [place] alcoholism worker Raul Jake Hatch RTC for follow up s/p extraction of multiple teeth with maxillary and mandibularalveoloplasty. Endorses left lower lip and chin hypoesthesia which has not improved. Also reports she has sensitivity and pain to upper left gum. Exam: No facial swelling Able to feel soft and directional sensation to left V3 Intra oral: mucosa is well healed. Tenderness to palpation in upper left maxilla. No signs of acute infection. No ulceration noted. Assessment: S/p extraction of multiple teeth and alveoloplasty. No traumatic lesions or sharp areas of bone noted. Plan: No further surgical intervention needed. Okay to start the process of denture fabrication. RTC as needed. documented in this encounterMercy Health St. [facility]02-06-2023 History of Present illness Narrative* Jessica Quiles MA - 03/21/2022 11:13 AM EST POPULATION HEALTH NAVIGATION OUTREACH Action/FYI Due for: PCP verify/establish Spoke with her sister; updated PCP (outside provider) Patient present but unavailable Patient Identified by Name and : YES, via phone Outreach Outcome/Action Spoke to patient / parent / legal guardian: PCP confirmed / updated PCP field updated Did you use a PCP flex slot to schedule this appointment? N/A Reason for Outreach Care Gap or Scheduling/Wellness visits Payer: Payor: [employer] / Plan: [employer] HMO / Product Type: HMO / Care Gap Reviewed:: Annual Wellness visit Reminder: Reminder note to check Health Maintenance for items below Health Maintenance items due: HEPATITIS B(1 of 3 - 3-dose series) Never done COVID-19 VACCINE(1) Never done PNEUMOCOCCAL(1 - PCV) Never done URINE ALBUMIN:CREATININE RATIO Never done DILATED RETINAL EXAM Never done DIABETIC FOOT EXAM Never done LDL CHOLESTEROL Never done ANNUAL PCP TEAM CHRONIC DISEASE VISIT Never done HEPATITIS C SCREENING Never done BP CONTROLLED (<130/80) Never done DTAP,TDAP,TD(1 - Tdap) Never done HPV TESTING Never done MAMMOGRAM due on 12/29/2009 PAP TESTING due on 01/01/2014 SHINGRIX VACCINE(1 of 2) Never done COLORECTAL CANCER SCREENING due on 10/14/2019 INFLUENZA(1) Never done Navigation Signature: Jessica Quiles MA March 21, 2022 11:13 AM documented in this encounterMercy [facility] St. [facility]09-28-2022 History of Present illness Narrative* Macrina Waters MA - 11/10/2021 8:47 AM EDT POPULATION HEALTH NAVIGATION OUTREACH Action/FYI Need to verify PCP / onboard Left voice mail for patient to call back. [employer] message sent. Pt identified by name and : NO Outreach Outcome/Action Unable to reach patient: Left message MyChart message sent Did you use a PCP flex slot to schedule this appointment? N/A Reason for Outreach Care Gap or Scheduling/Wellness visits Payer: Payor: SIRENA [employer] [facility] / Plan: ANTHEM MED[employer]LUE HMO / Product Type: HMO / Care Gap Reviewed:: Annual Wellness visit Reminder: Reminder note to check Health Maintenance for items below Health Maintenance items due: HEPATITIS B(1 of 3 - 3-dose series) Never done COVID-19 VACCINE(1) Never done PNEUMOCOCCAL(1 - PCV) Never done URINE ALBUMIN:CREATININE RATIO Never done DILATED RETINAL EXAM Never done DIABETIC FOOT EXAM Never done LDL CHOLESTEROL Never done ANNUAL PCP TEAM CHRONIC DISEASE VISIT Never done HEPATITIS C SCREENING Never done BP CONTROLLED (<130/80) Never done DTAP,TDAP,TD(1 - Tdap) Never done HPV TESTING Never done MAMMOGRAM due on 12/29/2009 PAP TESTING due on 01/01/2014 SHINGRIX VACCINE(1 of 2) Never done COLORECTAL CANCER SCREENING due on 10/14/2019 INFLUENZA(1) due on 10/14/2021 Message Sent to Practice: No Navigation Signature: Macrina Waters MA November 10, 2021 8:47 AM documented in this encounterMer[facility]. [facility]08-17-2022 History of Present illness Narrative* Abner Bo DDS - 09/29/2021 4:55 PM EDT [facility] [place] alcoholism worker Raul Joseph Holden RTC for follow yp s/p extraction of multiple teeth with maxillary and mandibularalveoloplasty. Reports she developed C.diff recently and needed to be hospitalized for dehydration secondary to non stop diarrhea. Currently on ABX for C.diff. Reports she doesn't feel well because of C. Diff. Endorses left lower lip and chin hypoesthesia. Tingling sensation to lower lip and chin Exam: No facial swelling Hypoesthesia of left V3. Able to feel soft and sharp sensation but feels more pressure than sharp on the left side. Intra oral: mucosa is well healed. Minimal tenderness to palpation in anterior mandible and upper left maxilla. No signs of acute infection. Assessment: S/p extraction of multiple teeth and alveoloplasty. Recovering well. V3 left hypoesthesia is resolving. Plan: No further surgical intervention needed. Okay to start the process of denture fabrication. RTC as needed. documented in this encounterMercy Health St. [facility]07-21-2022 History of Present illness Narrative* Abner Bo DDS - 09/02/2021 1:15 PM EDT [facility] [place] alcoholism worker Rual Joseph Holden RTC for 1 week follow up s/p extraction of retained roots and alveoloplasty of maxillary and mandibular arches. Reports she doesn't feel good. Face feels swollen. Reports numbness of left chin and feels puffy. Tolerating soft diet. Compliant with ABX. Sutures have started to resorb. Exam: Mild bilateral facial swelling Left V3 hypoesthesia limited to left chin Intra oral: surgical site healing without signs of infection or erythema. Sutures intact. No vestibular swelling or edema. Assessment: s/p extraction of retained roots and alveoloplasty of maxillary and mandibular arches. Patient is recovering expectantly. Plan: RTC in 2 weeks. Okay to advance diet as tolerated. Numbness to left chin will return to full function once the swelling resolves. This may take up to few months. documented in this encounterMercy Health St. [facility]07-15-2022 Miscellaneous Notes* Telephone Encounter - Abner Bo DDS - 08/27/2021 11:00 AM EDT Called patient to follow up on the procedure yesterday. Patient reports she is doing okay. Her faceis swollen and gums are purple. Advised her this is consistent with the procedure. She is taking ibuprofen and [place] for pain. Percocet was making her sick. Advised her not to take percocet and continue with ibuprofen. Pain is tolerable and is able to tolerate soft foods. Advised patient to reach out to the office if there are any issues. documented in this encounterMercy Health St. [facility]07-14-2022 History of Present illness Narrative* Jessica Quiles MA - 08/26/2021 10:23 AM EDT POPULATION HEALTH NAVIGATION OUTREACH Action/I Due for: PCP verify/Wellness Mammogram Dilated Retinal Exam Urine Albumin Colonoscopy Left VM; MyChart message sent Pt identified by name and : NO Outreach Outcome/Action Unable to reach patient: Left message MyChart message sent Did you use a PCP flex slot to schedule this appointment? N/A Reason for Outreach Care Gap or Scheduling/Wellness visits Payer: Payor: [employer] / Plan: [employer] HMO / Product Type: HMO / Care Gap Reviewed:: Annual Wellness visit Breast Cancer screening Colorectal Cancer Screening Diabetic Eye Exam Nephropathy (Albumin/Creatinine) Urine Reminder: Reminder note to check Health Maintenance for items below Health Maintenance items due: COVID-19 VACCINE(1) Never done PNEUMOCOCCAL(1 - PCV) Never done URINE ALBUMIN:CREATININE RATIO Never done DILATED RETINAL EXAM Never done DIABETIC FOOT EXAM Never done LDL CHOLESTEROL Never done ANNUAL PCP TEAM CHRONIC DISEASE VISIT Never done HEPATITIS C SCREENING Never done BP CONTROLLED (<130/80) Never done DTAP,TDAP,TD(1 - Tdap) Never done HEPATITIS B(1 of 3 - Risk 3-dose series) Never done HPV TESTING Never done MAMMOGRAM due on 12/29/2009 PAP TESTING due on 01/01/2014 SHINGRIX VACCINE(1 of 2) Never done COLORECTAL CANCER SCREENING due on 10/14/2019 Message Sent to Practice: No Navigation Signature: Jessica Quiles MA August 26, 2021 10:23 AM documented in this encounterMercy Health St. [facility]07-01-2022 Miscellaneous Notes* Telephone Encounter - Maria A Kolb RN - 08/13/2021 8:09 AM EDT Called and spoke with patient, already addressed and taken care of. * Telephone Encounter - Angeline Sinclair - 08/12/2021 5:09 PM EDT Patient called in requesting call back about having device check prior surgery. Patient stated she was already seen was wonder what she need to do next. Please call patient back at [phone]. documented in this encounterMercy Health St. [facility]06-20-2022 Instructions* Patient Instructions* Erin Vargas APRN.GYNECOLOGICAL ASSISTANT - 08/02/2021 2:48 PM EDT PATIENT PREOPERATIVE INSTRUCTIONS Abner Bo DDS has scheduled you for your procedure at this surgery center: [facility] Scheduling Office: [phone] --[address] [place] [address]. Please read below carefully for your personalized instructions. Dietary Restrictions: - No solid food after midnight. - You may have 12 ounces of clear liquids (water, clear juices such as apple juice or gatorade, carbonated beverages, clear tea, black coffee, jello) until 2 hours before scheduled arrival at facility. No red/purple coloring and no creamer/sugar Medications: Unless instructed differently below, stay on all of your medications until your surgery. Approved medications to take the morning of surgery with a sip of water: NONE - No diabetic medication the morning of surgery. - Accucheck day of surgery. If you start any new medications after today's visit, please contact the surgeon's office. Blood Thinning Medications: - Stop NSAIDS (Ibuprofen, Advil, Aleve, Motrin, Celebrex, Mobic, etc.) 7 days before surgery, as directed by your surgeon. - Stop Aspirin 7 days before surgery, as directed by your surgeon. - Stop Vitamin E, ALL multi-vitamins, herbals and dietary supplements 7 days before surgery. - You may take Tylenol (Acetaminophen) or any of your pain medications that do not contain aspirin or NSAIDS as needed. Important Reminders: - If you use CPAP/BIPAP, bring the machine with you to the surgery center. - If you are prescribed inhalers for breathing, continue using them. - Candy, mints, and tobacco products are NOT permitted the morning of surgery. - Hearing aids, dentures and glasses may be worn the morning of surgery. - NO jewelry, body piercings, makeup, hairpins or contacts are to be worn the day of surgery. If you develop symptoms such as a fever, cold, or flu, or have other changes to your health within TWO DAYS of scheduled surgery or the morning of surgery, please contact the surgery center above. Personal Belongings: -Please have photo ID and insurance cards. -If you do not have a copy of advance directives on file with us, please bring a copy with you on the day of surgery. - Leave ALL valuables and money at home or with family members. For Outpatient Procedures: - YOU MUST HAVE A RESPONSIBLE CANDY SEPARATOR HARD TAKE YOU HOME. A DROP HAMMER MECHANIC OR CEMENT BOAT AND BARGE LOADER CANNOT BE MADE A RESPONSIBLE CANDY SEPARATOR HARD. - We recommend that a responsible person stays with you overnight to take care of you. - You cannot stay in a hotel alone after outpatient surgery. You will not be permitted to have yoursurgery, if you do not have someone to take care of you. Arrival Time for Surgery: - To obtain your arrival time for surgery, call your physician's office the day before your surgery. - If your surgery is scheduled for Monday, call the Monday before. Your surgeon s agricultural engineering technicians will tell you what time to call the office. - If you have not reached the departmental agricultural engineering technicians by 5 P.M., call [phone] after 5 P.M. the day before your surgery. Please be aware that emergency situations arise, which may delay or change your surgical time. If this happens, we will notify you as soon as possible and regret any inconvenience. If you already have an Advance Directive, please fax a copy to [phone] or email to for it to be added to your chart. If you do not have an Advance Directive, you can find the appropriate form and more information at [email or web address]. We recommend that youcomplete the Advance Directive form found on the website and bring it with you the day of your surgery. It can be witnessed and scanned into your chart that day. Erin Vargas APRN.CNP documented in this encounterMercy Health St. [facility]06-20-2022 History and physical note * Erin Vargas APRN.CNP - 08/02/2021 2:47 PM EDT HISTORY AND PHYSICAL EXAMINATION SERVICE DATE: 08/02/2021 SERVICE TIME: 2:47 PM PRIMARY CARE PHYSICIAN: Tessy Dukes MD REASON FOR VISIT: Raul Hatch is a 56 year old female who is scheduled for Procedure(s): ALVEOLOPLASTY (N/A) EXTRACTION TEETH (N/A) at the request of Dr. Abner Bo for consultation. My final recommendationwill be communicated back to the requesting physician by way of shared medical record or letter. Subjective The patient has the following: ACTIVE PROBLEM LIST Blood in Stool Rectal Bleeding Depression Anxiety Weight Loss Vaginal Inclusion Cyst Periapical Abscess Type 2 Diabetes Mellitus Without Complication, Without Long-Term Current Use of Insulin (Hcc) Essential Hypertension, Benign Pacemaker Nausea COVID-19 Immunization Status Overdue - COVID-19 VACCINE (1) Overdue - never done No completion, postpone, frequency change, or communication history exists for this topic. CHIEF COMPLAINT: Pre-op exam HPI: JESÚS is a 56 yo seen for PAC due to scheduled above surgery because of periapical abscess. 06/04/2021 Dr. Anupam Joseph Holden is 56 year old female who was referred by Candiec Tello for oral facial pain. History is provided by the patient and chart review. Patient is poor historian as speech is often tangential. Patients h/o dates back to November of 2020 when she underwent dental extractions. Reportedly had 20 teeth extracted by an outside provider. Per patient, teeth kept breaking and now she has roots in her jaw. After the surgery her face was significantly swollen and she is taking taking clindamycin for an infection for about 5 months now. Reports pain and swelling on eating. Sometimes feels like her tongue is swollen and she cant talk. She was also seen by Dr. Batista who referred her to [facility] for alveoloplasty and extraction of remaining teeth. Patient was unable to be seen at [facility] and has been looking to see an oral surgeon for her oral cavity related problems. Reports she had developed thrush and was on nystatin for 3 months. Reports she is still on clindamycin and a nystatin rinse. Denies numbness to lower lip and chin. REVIEW OF SYSTEMS: General: No weight loss, malaise or fevers. Neurological: No history of TIA's, stroke, BUILDING SUPPLIES SALESPERSON RETAIL tumor, impaired sensorium, hemiplegia, paraplegia orquadraplegia. No neurological symptoms or problems. Respiratory: No history of current cough or dyspnea, or pneumonia in the past 6 weeks. No history of respiratory/pulmonary symptoms or problems. Cardiovascular: Positive for: AICD/PPM (2/2 broken heart syndrome) and hypertension (on rx) Negative for: anticoagulation therapy, arrhythmia, atrial fibrillation, CAD, chest pain, CHF, congenital heart defect, DVT/PE, hyperlipidemia, recent AL, murmur/valvular heart disease, open heart surgery and valve surgery. GI: Positive for: nausea (rx as needed) : No history of dysuria, frequency or incontinence, stones or chronic kidney disease. No difficulty urinating, nocturia > 1 time per night or hematuria. CHIEF WELLNESS OFFICER: Negative for abnormal vaginal bleeding, abnormal vaginal discharge. Endocrine: Positive for: diabetes mellitus. Patient's diabetes mellitus is controlled by oral agents. Negative for: hypothyroidism. Hematology: Positive for: chronic anti-coagulation/platelet meds. Patient is on anti- coagulation/platelet medication(s): Aspirin. Negative for: anemia, bruises/bleeds easily and transfusion of at least 4 units within 72 hours prior to surgery. Oncology: No history of CA metastasis, chemo within 30 days, or radiotherapy within 90 days. No history of oncological symptoms or problems. Psych: Positive for: anxiety and depression. Musculoskeletal: Negative for joint pain or swelling, back pain or muscle pain. Skin: Negative for lesions, rash and itching. PAST MEDICAL HISTORY Diagnosis Date Anxiety Benign neoplasm of colon Depression Excessive or frequent menstruation Heavy periods External hemorrhoids without mention of complication Hemorrhage of gastrointestinal tract, unspecified Hemorrhage of gastrointestinal tract, unspecified Hemorrhage of rectum and anus Loss of weight Other and unspecified ovarian cyst Ovarian cyst Pacemaker PMH - PAST MEDICAL HISTORY OF low heart rate PMH - PAST MEDICAL HISTORY OF fibrocystic breasts PMH - PAST MEDICAL HISTORY OF stroke Rectal bleeding Weight loss PAST SURGICAL HISTORY Procedure Laterality Date APPENDECTOMY COLONOSCOPY FLX DX W/COLLJ SPEC WHEN PFRMD 11/27/2008 COLONOSCOPY FLX DX W/COLLJ SPEC WHEN PFRMD 10/13/2014 Colonoscopy COLSC FLX W/REMOVAL LESION BY HOT BX FORCEPS 07/11/2006 ?small polyp 15cm DILATION & CURETTAGE DX&/THER NONOBSTETRIC Dilation & curettage EGD 07/11/2006 normal EXTRACTION, ERUPTED TOOTH OR EXPOSED ROOT (ELEVATION AND/OR FORCEPS REMOVAL) wisdom teeth HEMORRHOIDECTOMY INT & XTRNL 2/> COLUMN/NICOLA INSER SOTO PACER XVENOUS ATRIAL LAPAROSCOPY SURG CHOLECYSTECTOMY 12/04/2014 PAST SURGICAL HISTORY OF 02/14/2004 pacemaker REMOVAL GALLBLADDER TOOTH EXTRACTION VAGINAL HYSTERECTOMY UTERUS 250 GM/< Hysterectomy, vaginal FAMILY HISTORY Adopted: Yes Problem Relation Age of Onset Colon Cancer Sister colono cancer age 44 Diabetes Father Hypertension Father Stroke Father Social History Tobacco Use Smoking status: Former Smoker Quit date: 11/19/2012 Years since quittin.7 Smokeless tobacco: Never Used Tobacco comment: Stress Smoker Vaping Use Vaping Use: Never used Substance Use Topics Alcohol use: No Drug use: No Prior to Admission medications as of 08/02/21 1415 Medication Sig Last Dose Taking SODIUM [id number]-[id number]-MTP ORAL Take by mouth. Taking Yes oxtioggxiv-rtxvonuoq-pamvxya 300-4-1 mg-%-% ktgc Taking Yes predniSONE (DELTASONE) 1 mg tablet Take 10 mg by mouth once daily. Taking Yes glipiZIDE (GLUCOTROL) 10 mg tablet Take 10 mg by mouth twice daily before meals. Taking Yes metFORMIN (GLUCOPHAGE) 1,000 mg tablet Take 1,000 mg by mouth daily with breakfast. Taking Yes hydroCHLOROthiazide (HYDRODIURIL, ESIDRIX) 12.5 mg capsule Take 12.5 mg by mouth once daily. TakingYes HYDROcodone-acetaminophen (NORCO) 5-325 mg per tablet Take 1 tablet by mouth every 8 hours as needed. Taking Yes Aspirin 81 mg Tab Take 81 mg by mouth. Taking Yes Niacin (Antihyperlipidemic) (NIASPAN) 1,000 mg ORAL TbSR take 2 tablets everyday by mouth Taking Yes potassium chloride 20 mEq in D5W 100 mL Inject 20 mEq intravenously one time only. Patient not taking: Reported on 08/02/2021 Not Taking DULoxetine (CYMBALTA) 20 mg capsule Take 20 mg by mouth once daily. Patient not taking: Reported on 08/02/2021 Not Taking cloNIDine TTS (CATAPRES-TTS) 0.1 mg/24 hr Apply 1 Patch as directed one time a week. Patient not taking: Reported on 08/02/2021 Not Taking traZODone (DESYREL) 100 mg tablet Take 100 mg by mouth daily at bedtime. Patient not taking: Reported on 08/02/2021 Not Taking ranitidine (ZANTAC) 150 mg tablet Take 1 tablet by mouth twice daily. Take one (1) tablet twice a day. Patient not taking: Reported on 08/02/2021 Not Taking dicyclomine (BENTYL) 20 mg tablet Take 1 tablet by mouth three times daily before meals. Patient not taking: Reported on 08/02/2021 Not Taking estradiol (ESTRACE) 0.01 % (0.1 mg/gram) vaginal cream Apply small amount to external vaginal area nightly X 2weeks, then may decrease to 1-3 times weekly Patient not taking: Reported on 08/02/2021 Not Taking alprazolam(XANAX 0.5 MG TAB) Take twice daily Patient not taking: No sig reported Not Taking No medication comments found. ALLERGIES Allergen Reactions Contrast Dye Anaphylaxis Objective PHYSICAL EXAM: General: alert and oriented (x3) and healthy appearance. Pertinent negatives noted - not distressed. Skin: normal color, no rash or lesions. HEENT: EOM intact and pupils equal round. Pertinent negatives noted - no carotid bruit. Cardiovascular: regular rate and rhythm, normal S1 and S2, no rub, murmurs, or gallop. Respiratory: normal breath sounds, no wheezes or crackles. No chest wall deformity or tenderness. Abdomen: soft. Pertinent negatives noted - not tender. Extremities: no deformity, no edema or tenderness, no joint swelling or clubbing. Neurological: normal cognition and motor skills. Gait normal. No weakness or sensory deficit. PAIN ASSESSMENT: Pain Pain Level: 8 Pain Location: Mouth Description: Other: See comment (piercing) Duration Amount of Time: 8 Duration Units: Months Frequency: Continuous Intervention/Comfort measure: Medication VITALS: BP 136/78 Pulse 88 Temp (Src) 97.7 (Temporal) Resp 16 Ht 5' 1 (1.55m) Wt 146 lb (66.2kg) SpO2 97% BMI 27.60 kg/(m^2). Diagnostic tests reviewed for today's visit: Lab Value Units Date High Low HB No results within date range. HCT No results within date range. WBC No results within date range. PLT No results within date range. NA 139 mmol/L 07/13/2021 144 136 K 4.4 mmol/L 07/13/2021 5.1 3.7 GLUC 193 mg/dL 07/13/2021 99 74 BUN 13 mg/dL 07/13/2021 21 7 CREAT 0.86 mg/dL 07/13/2021 0.96 0.58 PTSEC No results within date range. INR No results within date range. APTT No results within date range. ALT 27 U/L 07/13/2021 38 7 AST 25 U/L 07/13/2021 35 13 TBILI 0.2 mg/dL 07/13/2021 1.3 0.2 TSH No results within date range. Lab Value Units Date High Low HCGQT No results within date range. UHCG No results within date range. HCG, BODY* No results within date range. Lab Value Units Date High Low ABORHD No results within date range. ABSCREEN No results within date range. Hemoglobin A1C (%) Date Value 05/21/2021 6.0 No results found for this or any previous visit (from the past 8760 hour(s)). No results found for this or any previous visit (from the past 30861 hour(s)). 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, no longer treating, pt was emotional during H&P when recalling HPI Type 2 diabetes mellitus without complication, without long-term current use of insulin (HCC) Assessment: controlled on oral agent Hemoglobin A1C (%) Date Value 05/21/2021 6.0 Essential hypertension, benign Assessment: controlled on rx Last 14 BP Last 14 Encounter BP Readings: Date: BP: 08/02/2021 136/78 12/05/2014 122/60 11/26/2014 108/70 11/19/2014 106/68 09/19/2014 120/73 09/18/2014 117/75[right arm[ 08/28/2012 110/68 12/29/2008 140/82 11/17/2008 100/80 06/30/2006 120/74 06/27/2006 120/74 Pacemaker Assessment: per pt states 2/2 hx broken heart syndrome, states following OSH cardiology, [facility], records requested. Nausea Assessment: chronic, rx as needed Chen Activity Status Index: METS: Climb a flight of stairs or walk up a hill (5.50 METs) DASI Score: 5.5 Clinical Frailty Scale: 3. Well, with treated comorbid disease STOP-Bang Score: Patient over 50 years old Denies snoring loudly Denies feeling tired, fatigued, or sleepy during the daytime Has not been observed to stop breathing or choking/gasping during sleep Denies having high blood pressure BMI less than or equal to 35 kg/m^2 Does not have a large neck Non-male patient STOP-Bang Score: 1 [id number] Score: Age: <65 Sex: female CHF history: No Hypertension history: Yes Stroke/TIA/thromboembolism history: No Vascular disease history: No Diabetes history: Yes [id number] Score: 3 ARISCAT Score: Age: 51-80 Preoperative SpO2: >=96% Respiratory infection in the last month: No Preoperative anemia: No Surgical incision: peripheral Duration of surgery: <2 hrs Emergency procedure: No ARISCAT Score: 3 ASA Class: 3 ANESTHESIA FINDINGS: Intubation History: No abnormal airway history Significant Anesthesia Considerations: none Airway History: No abnormal airway history I - PHYSICAL EVALUATION AIRWAY Tracheostomy tube not present Mallampati: III. TM distance: >3 FB. Neck ROM: full ROM without neurological symptoms. Mouth opening: adequate. Short neck: no. Thick neck: no DENTAL Dental findings: poor dentition. II - ANESTHESIA PLAN ASA Score: 3 Anesthetic Plan: other Anesthetic plan additional comments: *PACC/TCI - anesthesia choice. Informed Consent Anesthetic risks, benefits, alternatives, personnel and consent discussed: yes. Patient / Responsible Democrat agrees to proceed: yes Patient / Surrogate agrees to blood products: blood products not planned Prepared for Surgery: optimally prepared for surgery. CONSULTS: Patient does not require consults for optimization at this time Planned Anesthetic: other anesthesia choice The Following Tests/Procedures Have Been Initiated: Orders Placed This Encounter SODIUM [id number] ORAL Sig: Take by mouth. Instructions Given to Patient: Instructions located in the after visit summary. Patient given verbal and written preop instructions and voices comprehension and compliance. SIGNATURE: Erin Vargas APRN.CNP PATIENT NAME: Raul Hatch DATE: August 02, 2021 TIME: 2:47 PM PAGER/CONTACT #: [facility] History of Present illness Narrative* Abner Bo DDS - 06/04/2021 2:53 PM EDT [facility] [place] alcoholism worker Raul Hatch is 56 year old female who was referred by Candice Tello for oral facial pain. History is provided by the patient and chart review. Patient is poor historian as speech is often tangential. Patients h/o dates back to November of 2020 when she underwent dental extractions. Reportedly had 20 teeth extracted by an outside provider. Per patient, teeth kept breaking and now she has roots in her jaw. After the surgery her face was significantly swollen and she is taking taking clindamycin for an infection for about 5 months now. Reports pain and swelling on eating. Sometimes feels like her tongue is swollen and she cant talk. She was also seen by Dr. Batista who referred her to [facility] for alveoloplasty and extraction of remaining teeth. Patient was unable to be seen at [facility] and has been looking to see an oral surgeon for her oral cavity related problems. Reports she had developed thrush and was on nystatin for 3 months. Reports she is still on clindamycin and a nystatin rinse. Denies numbness to lower lip and chin. PAST MEDICAL HISTORY Diagnosis Date Anxiety Benign neoplasm of colon Depression Excessive or frequent menstruation Heavy periods External hemorrhoids without mention of complication Hemorrhage of gastrointestinal tract, unspecified Hemorrhage of gastrointestinal tract, unspecified Hemorrhage of rectum and anus Loss of weight Other and unspecified ovarian cyst Ovarian cyst Pacemaker PMH - PAST MEDICAL HISTORY OF low heart rate PMH - PAST MEDICAL HISTORY OF fibrocystic breasts PMH - PAST MEDICAL HISTORY OF stroke Rectal bleeding Weight loss diabetic per patient PAST SURGICAL HISTORY Procedure Laterality Date APPENDECTOMY COLONOSCOP W/ OR W/O [facility] SPEC 11/27/08 COLONOSCOP W/ OR W/O [facility] SPEC 10/13/2014 Colonoscopy COLONS W/REM POLYP HT BX 07/11/2006 ?small polyp 15cm D&C, DIAG AND/OR THERAPEUTIC Dilation & curettage EGD 07/11/2006 normal EXTRACTION ERUPTED TOOTH/EXR wisdom teeth HEMORRHOIDECTOMY,INT/EXT,COMPLX LAPAROSCOPIC CHOLEYCYSTECTOMY 12/04/14 PAST SURGICAL HISTORY OF 2004 pacemaker VAGINAL HYSTERECTOMY Hysterectomy, vaginal Current Outpatient Medications Medication Sig Dispense Refill HYDROcodone-acetaminophen (NORCO) 5-325 mg per tablet Take 1 tablet by mouth every 8 hours as needed. 10 tablet 0 ranitidine (ZANTAC) 150 mg tablet Take 1 tablet by mouth twice daily. Take one (1) tablet twice a day. 60 tablet 2 dicyclomine (BENTYL) 20 mg tablet Take 1 tablet by mouth three times daily before meals. 90 tablet 3 estradiol (ESTRACE) 0.01 % (0.1 mg/gram) vaginal cream Apply small amount to external vaginal area nightly X 2weeks, then may decrease to 1-3 times weekly 1 Tube 2 Aspirin 81 mg Tab Take 81 mg by mouth. alprazolam(XANAX 0.5 MG TAB) Take twice daily 0 Niacin (Antihyperlipidemic) (NIASPAN) 1,000 mg ORAL TbSR take 2 tablets everyday by mouth 0 No current facility-administered medications for this visit. Potassium Gabapentin for nerve pain in the jaw Duloxetine Prednisone Vitamin D Nystatin Clonidine Glipizide Metformin HCTZ Trazodone ALLERGIES Allergen Reactions Contrast Dye Anaphylaxis General appearance: alert, pleasant, no distress, cooperative. Extraoral, Head and Neck exam: No extraoral swelling or erythema Parotid and submandibular glands soft, nonpainful to palpation bilaterally No lymphadenopathy Intraoral Soft Tissues: Clear saliva extruded from bilateral Lutz's and Olivia's ducts. Tongue soft and non-tender with no apparent lesions. Buccal mucosa without lesions bilaterally. Hard palate is without any lesions Soft palate is without erythema or gross lesions Oropharynx is WNL. Floor of mouth is soft, non tender. No palpable masses on bidigital manipulation. Sharp areas of bone in all 4 quadrants. +TTP. No exposed tooth roots. No signs of acute infection. Dentition: Edentulous Radiographic examination: AMTA reviewed. Questionable retained root in ULQ and LRQ. Assessment: Retained dental root Irregular alveolar bone Plan: Advised to stop clindamycin as there is no clinical or radiographic signs of infection. Alveoloplasty of maxillary and mandibular alveolar ridge Extraction of remaining dental roots. Once the alveolar ridge is smooth, it is likely her her pain will improve while eating. As of now chewing will cause pain on sharp edges of the bone. This procedure will be performed in the OR. 30 Minutes total visit spent face to face with patient. Greater than 50% of the time was spent for counseling and coordination of care, discussing treatment options and recommendations. All of patients questions answered to the best of my ability. The diagnosis and treatment plan options including risks, benefits, options and personnel involved were discussed with the patient. There are no contraindications to the procedure. Raul Hatchexpressed understanding and agreed to proceed. My final recommendations will be communicated back to the requesting physician by way of shared medical record or letter via [place] mail. documented in this encounter[address]16-2009 History of Past illness Narrative* Problem Noted Date Resolved Date Other and unspecified ovarian cyst 12/29/2008 08/28/2012 RLQ abdominal mass 12/29/2008 08/28/2012 Mastalgia 12/29/2008 09/13/2012 documented as of this encounter (statuses as of 06/04/2021) [address] History of Past illness Narrative* Problem Noted Date Resolved Date Other and unspecified ovarian cyst 12/29/2008 08/28/2012 RLQ abdominal mass 12/29/2008 08/28/2012 Mastalgia 12/29/2008 09/13/2012 documented as of this encounter (statuses as of 08/03/2021) [address] History of Past illness Narrative* Problem Noted Date Resolved Date Other and unspecified ovarian cyst 12/29/2008 08/28/2012 RLQ abdominal mass 12/29/2008 08/28/2012 Mastalgia 12/29/2008 09/13/2012 documented as of this encounter (statuses as of 08/13/2021) [address] History of Past illness Narrative* Problem Noted Date Resolved Date Other and unspecified ovarian cyst 12/29/2008 08/28/2012 RLQ abdominal mass 12/29/2008 08/28/2012 Mastalgia 12/29/2008 09/13/2012 documented as of this encounter (statuses as of 08/20/2021) [address] History of Past illness Narrative* Problem Noted Date Resolved Date Other and unspecified ovarian cyst 12/29/2008 08/28/2012 RLQ abdominal mass 12/29/2008 08/28/2012 Mastalgia 12/29/2008 09/13/2012 documented as of this encounter (statuses as of 08/25/2021) [address] History of Past illness Narrative* Problem Noted Date Resolved Date Other and unspecified ovarian cyst 12/29/2008 08/28/2012 RLQ abdominal mass 12/29/2008 08/28/2012 Mastalgia 12/29/2008 09/13/2012 documented as of this encounter (statuses as of 08/26/2021) [address] History of Past illness Narrative* Problem Noted Date Resolved Date Other and unspecified ovarian cyst 12/29/2008 08/28/2012 RLQ abdominal mass 12/29/2008 08/28/2012 Mastalgia 12/29/2008 09/13/2012 documented as of this encounter (statuses as of 08/26/2021) [address] History of Past illness Narrative* Problem Noted Date Resolved Date Other and unspecified ovarian cyst 12/29/2008 08/28/2012 RLQ abdominal mass 12/29/2008 08/28/2012 Mastalgia 12/29/2008 09/13/2012 documented as of this encounter (statuses as of 08/27/2021) [address] History of Past illness Narrative* Problem Noted Date Resolved Date Other and unspecified ovarian cyst 12/29/2008 08/28/2012 RLQ abdominal mass 12/29/2008 08/28/2012 Mastalgia 12/29/2008 09/13/2012 documented as of this encounter (statuses as of 09/02/2021) [address] History of Past illness Narrative* Problem Noted Date Resolved Date Other and unspecified ovarian cyst 12/29/2008 08/28/2012 RLQ abdominal mass 12/29/2008 08/28/2012 Mastalgia 12/29/2008 09/13/2012 documented as of this encounter (statuses as of 09/29/2021) [address] History of Past illness Narrative* Problem Noted Date Resolved Date Other and unspecified ovarian cyst 12/29/2008 08/28/2012 RLQ abdominal mass 12/29/2008 08/28/2012 Mastalgia 12/29/2008 09/13/2012 documented as of this encounter (statuses as of 11/10/2021) [address] History of Past illness Narrative* Problem Noted Date Resolved Date Other and unspecified ovarian cyst 12/29/2008 08/28/2012 RLQ abdominal mass 12/29/2008 08/28/2012 Mastalgia 12/29/2008 09/13/2012 documented as of this encounter (statuses as of 03/22/2022) [address] History of Past illness Narrative* Problem Noted Date Resolved Date Other and unspecified ovarian cyst 12/29/2008 08/28/2012 RLQ abdominal mass 12/29/2008 08/28/2012 Mastalgia 12/29/2008 09/13/2012 documented as of this encounter (statuses as of 04/30/2022) [address] History of Past illness Narrative* Problem Noted Date Resolved Date Other and unspecified ovarian cyst 12/29/2008 08/28/2012 RLQ abdominal mass 12/29/2008 08/28/2012 Mastalgia 12/29/2008 09/13/2012 documented as of this encounter (statuses as of 05/12/2022) [address] History of Past illness Narrative* Problem Noted Date Diagnosed Date Resolved Date Other and unspecified ovarian cyst 12/29/2008 08/28/2012 RLQ abdominal mass 12/29/2008 3 Mastalgia 12/29/2008 09/13/2012 documented as of this encounter (statuses as of 03/29/2023) [address] History of Past illness Narrative* Problem Noted Date Diagnosed Date Resolved Date Other and unspecified ovarian cyst 12/29/2008 08/28/2012 RLQ abdominal mass 12/29/2008 3 Mastalgia 12/29/2008 09/13/2012 documented as of this encounter (statuses as of 05/09/2023) [facility] October 12, 2022 2:54pm Note Date/Time October 12, 2022 2: 52pm [facility] Medical Records Department [address] [place] [address] Instructions for Home/Discharge Instructions 10/12/22 1450 MR#: [id number] Acct: [id number] Name: RAUL HATCH Rep #:[id number] : 1965 57 From: Marcus coffman MD PCP: TANNER. EFREN Islas Status: REG [facility] Discharge Instructions Diet Discharge Diet: Light diet - advance as tolerated Activity Discharge Activity: Return to Normal Activity and May Not Drive (while you are taking narcotic pain medications. Do not drive, work with heavy equipment or sign legal documents for 24 hours after your surgery.) May resume sexual activity in: No Restrictions Additional Activity Instructions:: Be aware that pain medications may cause nausea. You should typically eat light foods as you take your pain medications. Pain medications may also cause constipation. If you have difficulty with thisplease discuss with your doctor. Dressing / Incision Call your doctor if your incision/area has: Continuous Slow Oozing, Sudden Increased Bleeding, Increased Pain/ Swelling, Increased Redness, Foul Smelling Discharge and Swelling at the incision site Call your doctor if you observe: Fever of 101 or Higher, Inability to have a bowel movement and Uncontrolled pain Cleanse incision/area with: Soap & Water Additional Dressing/Incision Instructions:: Leave the operative bandage on for 1days. If a local anesthetic plug was placed in the anal area, try not to expel for [address] dibucaine ointment on the perianal area as needed. Sitz baths twice daily and after bowel movements. Follow Up Care Please Follow Up With: Marcus Bedolla MD When: Please call to schedule 2 week follow up appointment. [phone] Test Results: Test results from this visit will be discussed in further detail at your follow- up appointment, if applicable. Discharge Plan Admission Attending Provider: Marcus Bedolla Primary Care Provider: Candice Tello Discharge Orders/Prescriptions Prescriptions: New oxycodone-acetaminophen [Percocet] 5-325 mg tablet 1 tab PO Q4H PRN (Reason: pain) 5 Days Qty: 30 0RF No Action glipizide 2.5 mg tablet extended release 24hr 5 mg PO 1500 potassium chloride 20 mEq tablet extended release 20 meq PO DAILY clonidine HCl 0.1 mg tablet 0.1 mg PO QHS ondansetron 4 mg tablet,disintegrating 4 mg PO PRN PRN (Reason: Nausea) (DME) Diltiazem 2% / Lidocaine 5% ointment (compound) Ointment See Rx Instructions .ROUTE Qty: 1 1RF Rx Instructions: As directed hydrochlorothiazide 25 mg Tablet 25 mg PO DAILY Januvia 100 mg Tablet 100 mg PO QHS cholecalciferol (vitamin D3) [Vitamin D3] 50 mcg (2,000 unit) Capsule 50,000 mcg PO QWEEK hydrocodone-acetaminophen 7.5-325 mg tablet 1 tab PO Q8H Patient Comments: TAKE ONE TABLET BY MOUTH EVERY 8 HOURS NEEDED pregabalin 100 mg capsule 150 mg PO Q12H Patient Comments: TAKE ONE CAPSULE BY MOUTH TWICE DAILY sucralfate [Carafate] 1 gram tablet 1 g PO TID Qty: 90 0RF Referrals / Follow Up: Candice Tello, MEDICAL REGISTRAR-C [Primary Care Provider] - Disposition Disposition (needs filled in before D/C Order can be placed): Home, Self Care 10/12/22 8424<Electronically signed by Marcus Bedolla MD>Marcus Bedolla MD CC: MEDICAL REGISTRAR-C MEDICAL REGISTRAR. 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 documented in this encounter [facility] note* Diagnosis Pre-operative examination- Primary Preoperative examination, unspecified Periapical abscess Periapical abscess without sinus Pacemaker Cardiac pacemaker in situ Essential hypertension, benign Type 2 diabetes mellitus without complication, without long-term current use of insulin ([facility]) Anxiety Anxiety state, unspecified Nausea Nausea alone Periapical abscess Periapical abscess without sinus [facility]* Diagnosis Bony growth- Primary Other and unspecified congenital anomaly of musculoskeletal system Periapical abscess Periapical abscess without sinus documented in this encounter [facility] note* Diagnosis Periapical abscess- Primary Periapical abscess without sinus [facility] [facility] Diagnosis Bony growth- Primary Other and unspecified congenital anomaly of musculoskeletal system Periapical abscess Periapical abscess without sinus documented in this encounter [facility] note* Diagnosis Periapical abscess- Primary Periapical abscess without sinus 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 difficile colitis [facility] Work Phone: Evaluation note* Diagnosis Onset Date Resolution Status Anal fissure acute Anal fissure acute Anal fissure acute [facility] Work Phone: Evaluation note* Diagnosis Onset Date Resolution Status Abdominal pain acute C. difficile colitis chronic IBS (irritable bowel syndrome) chronic Nausea chronic [facility] Work Phone: Evaluation noteNo assessment information available [facility] Work Phone: History and physical note Author Gerardo [facility] May 17, 2023 7:41am Note Date/Time May 17, 2023 7:41 am [facility] Medical Records Department [address] [place] [address] History & Physical Exam 05/17/23 0741 MR#: [id number] Acct: [id number] Name: RAUL HATCH Rep #:[id number] : 1965 58 From: Gerardo Friend DO PCP: EFREN Medina Status: [facility] Location: [place] [address] History and Physical Date of Admission: 05/17/23 RAUL HATCH, is a 58 F who presents to the office today for PMH anxiety/depression; DMII; COPD; HTN; HLD; takotsubo cardiomyopathy; stroke; hypokalemia; restless leg? PSH hemorrhoidectomy; cardiac pacemaker; appendectomy; cholecystectomy; hysterectomy *BGI established 03.31.22 with recurrent C.Difficile; history of long-term ATB use for dental/jaw infection. Last vancomycin dose 2 weeks prior. Current symptoms include loose bloody stool with foul odor. ? EGD and colonoscopy 06.06.22 EGD LA Grade A esophagitis; gastritis; duodenitis. Start sucralfate. ? Colonoscopy anal fissure. Random biopsy path WNL. OV 06.22.22 refer to general surgery to address anal fissure. WSA OV 07.04.22 start diltiazem cream. OV 09.23.22 with continued painless rectal bleeding despite diltiazem cream. ? Hemorrhoidectomy and fissurectomy 10.12.22 hemorrhoids with recentbleeding. [facility] ED 9.04.07 with significant throat pain; treated with nystatin and later Diflucan. OV 9.27.23 she has difficulty with Carafate as it causes constipation; reports ongoing postprandial nausea which she feels is related to her surgery with Dr. Bedolla; Zofran is effective. Start dicyclomine, PPI and scopolamine OV 3..24 continues to have regurgitation with increased abdominal pressure andindigestion. Scopolamine and bentyl continue. ROS Const Constitutional: Positive for fatigue and weight change ENT ENT: Positive for difficulty swallowing Cardio Cardiology: Positive for leg pain with exertion Gastro GI: Positive for abdominal pain, bloating, constipation, diarrhea, heartburn, difficulty swallowing, Blood in stool, nausea/dyspepsia and vomiting; No belching, change in bowel habits, change in stool character, coffee ground emesis, cramping, feeling full early, excessive flatus, incontinent of stools, Vomiting blood/hematemesis, loose stools, Black,tarry stools, pain with swallowing or other Musc Musculoskeletal: Positive for abnormal gait, sciatica, leg pain at night and legpain with exertion; No joint pain Skin Skin: No yellowing of the eye or itchy eyes Neuro Neurology: Positive for abnormal gait Psych Psychiatric: No anxiety and Positive for depression Endo Endocrine: Positive for fatigue and weight change Aller/Imm Allergy/Immunologic: No itchy eyes Yusef/Lymp Hematologic/Lymphatic: No easy bleeding or easy bruising Exam Const General: anxious Orientation: alert, awake and oriented x3 Eyes Conjunctivae: conjunctivae normal Sclera: sclerae normal Resp Effort & Inspection: normal respiratory effort Quality Reporting Tobacco Screening ([facility] 138) Smoking Status: Former smoker Assessment and Plan Assessment and Plan (1) C. difficile colitis: Status: Chronic Plan: Patient is status post treatment with vancomycin for 7 months prolonged taper (2) IBS (irritable bowel syndrome): Status: Chronic (3) Nausea: Status: Chronic Plan: I think her nausea is multifactorial. I think part of anxiety and some mild gastritis that was seen on upper endoscopy. She is not on PPI therapy. I will put her on PPI therapy with the caveat that if she gets any diarrhea she is to let us know because there can be association of PPIs with C. difficile colitis. She did try Zantac and Carafate without any success and also she developed constipation. She will likely need a gastric emptying study to evaluate upper GI tract for delayed gastric emptying in the future (4) Abdominal pain: Status: Acute Qualifiers: Abdominal location: generalized Qualified Code(s): R10.84 - Generalizedabdominal pain Plan: Will perform an upper endoscopy to evaluate upper GI tract. I suspect she may have some element of motility dysfunction and combined with anxiety from frequent C. difficile infections leading to abdominal pain. Orders: Orders EGD 05/17/23 K58.9 - Irritable bowel syndrome without diarrhea I have examined the patient and the H&P has been reviewed. There are no clinicalchanges since date of exam. 05/17/23 0741 <Electronically signed by Gerardo Cook DO> Cosigner Signature (if applicable): CC: MEDICAL REGISTRARSherri HART. Candice Tello; Gerardo Cook DO~ Signed [facility] Work Phone: Reason for referral (narrative)No reason for referral [facility] Work Phone: Summary Purpose Family History Relationship Condition Age at Onset Recorded Date/T blanco father Coronary artery disease Unknown Malignant neoplasm Unknown mother Arthritis Unknown Multiple sclerosis Unknown sister Malignant neoplasm of colon Unknown Advance Directives Documents on File Type Date Recorded Patient Rn Clinical Documentation Expl anation Advance Directive(s) 08/26/2021 9:20 AM Advance Directive Response Recorded Date/ Time Advance Directives No June 18, 2018 11:57am Living Will No May 31, 2022 3:31pm Power of Warehouse Operations Associate No May 31 3:31pm Advance Directive Response Recorded Date/ Time Advance Directives No June 18, 2018 11:57am Living Will No October 04 2:20pm Power of Warehouse Operations Associate No October 04 023 2:20pm Advance Directive Response Recorded Date/ Time Advance Directives No June 18, 2018 11:57am Living Will No October 15 023 12:20am Power of Warehouse Operations Associate No October 15, 2022 12:20am Advance Directive Response Recorded Date/ Time Advance Directives No June 18, 2018 11:57am Living Will No May 15, 2023 12:27pm Power of Warehouse Operations Associate No May 14 12:27pm Advance Directive Response Recorded Date/ Time Advance Directives No June 18, 2018 11:57am Reason for Referral Specialty Diagnoses / Procedures Referred By Contromario t Referred To Contact Diagnoses Periapical abscess Procedures REFER TO PACC - PRE ANESTHESIA CONSULTATION CLINIC OFFICE/OUTPATIENT [facility] 60-74 MINUTES Abner Bo, DDS [address] [place] [address] Referral ID Status Reason Start Date Expiration Date Visits Requested Visits Authorized [id number] Authorized PCP Requested Referral 06/04/2021 06/04/2022 1 1 Chief Complaint and Reason for Visit Chief Complaint Consult Reason for Visit Acid reflux FH: colon cancer in relative <50 years old C. difficile colitis Chief Complaint 2 WK FU ANAL FISSURE Anal Fissure/Negative for C-diff will fax Fissurectomy Fissurectomy Reason for Visit Anal fissure Anal fissure Anal fissure Chief Complaint 2 WK FU ANAL FISSURE Anal Fissure/Negative for C-diff will fax Fissurectomy Fissurectomy SORE THROAT Reason for Visit Anal fissure Anal fissure Anal fissure Chief Complaint 6 mo fu Reason for Visit Abdominal pain C. difficile colitis IBS (irritable bowel syndrome) Nausea Chief Complaint 6 mo fu ABD PAIN Reason for Visit Abdominal pain C. difficile colitis IBS (irritable bowel syndrome) Nausea Chief Complaint Admit Date DYSPHAGIA May 16, 2024 9:25 am Chief Complaint Admit Date F/u C. difficile colitis October 11 3:07pm Additional Source Comments INFORMATION SOURCE (unrecogn ized section and content) DATE CREATED AUTHOR 03/04/[address] [facility] DATE CREATED AUTHOR AUTHOR'S ORGANIZ ATION 05/26/2022 [facility] ([place]) DATE CREATED AUTHOR AUTHOR'S ORGANIZ ATION 08/02/2023 [facility] DATE CREATED AUTHOR AUTHOR'S ORGANIZ ATION 05/24/2024 [facility] DATE CREATED AUTHOR AUTHOR'S ORGANIZ ATION 08/22/2024 [facility] DATE CREATED AUTHOR AUTHOR'S ORGANIZ ATION 09/30/2024 [facility] Source Comments (unrecognize d section and content) In the event this informatio n is protected by the Federal Confidentiality of Alcohol and Drug Abuse Patient Records regulations: The Federal rules restrict any use of the information to criminally investigate or prosecute any alcohol or drug abuse patient.[facility] the event this information is protected by the Federal Confidentiality of Alcohol and Drug Abuse Patient Records regulations: The Federal rules restrict any use of the information to criminally investigate or prosecute any alcohol or drug abuse patient.[facility] Hospital[facility] the event this information is protected by the Federal Confidentiality of Alcohol and Drug Abuse Patient Records regulations: The Federal rules restrict any use of the information to criminally investigate or prosecute any alcohol or drug abuse patient.[facility] Hospital[facility] the event this information is protected by the Federal Confidentiality of Alcohol and Drug Abuse Patient Records regulations: The Federal rules restrict any use of the information to criminally investigate or prosecute any alcohol or drug abuse patient.[facility] Hospital[facility] the event this information is protected by the Federal Confidentiality of Alcohol and Drug Abuse Patient Records regulations: The Federal rules restrict any use of the information to criminally investigate or prosecute any alcohol or drug abuse patient.[facility] HospitalIn the event this information is protected by the Federal Confidentiality of Alcohol and Drug Abuse Patient Records regulations: The Federal rules restrict any use of the information to criminally investigate or prosecute any alcohol or drug abuse patient.[facility] HospitalIn the event this information is protected by the Federal Confidentiality of Alcohol and Drug Abuse Patient Records regulations: The Federal rules restrict any use of the information to criminally investigate or prosecute any alcohol or drug abuse patient.[facility] HospitalIn the event this information is protected by the Federal Confidentiality of Alcohol and Drug Abuse Patient Records regulations: The Federal rules restrict any use of the information to criminally investigate or prosecute any alcohol or drug abuse patient.[facility] HospitalIn the event this information is protected by the Federal Confidentiality of Alcohol and Drug Abuse Patient Records regulations: The Federal rules restrict any use of the information to criminally investigate or prosecute any alcohol or drug abuse patient.[facility] HospitalIn the event this information is protected by the Federal Confidentiality of Alcohol and Drug Abuse Patient Records regulations: The Federal rules restrict any use of the information to criminally investigate or prosecute any alcohol or drug abuse patient.[facility] HospitalIn the event this information is protected by the Federal Confidentiality of Alcohol and Drug Abuse Patient Records regulations: The Federal rules restrict any use of the information to criminally investigate or prosecute any alcohol or drug abuse patient.[facility] HospitalIn the event this information is protected by the Federal Confidentiality of Alcohol and Drug Abuse Patient Records regulations: The Federal rules restrict any use of the information to criminally investigate or prosecute any alcohol or drug abuse patient.[facility] HospitalIn the event this information is protected by the Federal Confidentiality of Alcohol and Drug Abuse Patient Records regulations: The Federal rules restrict any use of the information to criminally investigate or prosecute any alcohol or drug abuse patient.[facility] HospitalIn the event this information is protected by the Federal Confidentiality of Alcohol and Drug Abuse Patient Records regulations: The Federal rules restrict any use of the information to criminally investigate or prosecute any alcohol or drug abuse patient.[facility] HospitalIn the event this information is protected by the Federal Confidentiality of Alcohol and Drug Abuse Patient Records regulations: The Federal rules restrict any use of the information to criminally investigate or prosecute any alcohol or drug abuse patient.[facility] HospitalIn the event this information is protected by the Federal Confidentiality of Alcohol and Drug Abuse Patient Records regulations: The Federal rules restrict any use of the information to criminally investigate or prosecute any alcohol or drug abuse patient.[facility] HospitalIn the event this information is protected by the Federal Confidentiality of Alcohol and Drug Abuse Patient Records regulations: The Federal rules restrict any use of the information to criminally investigate or prosecute any alcohol or drug abuse patient.[facility] Reason for Visit (unrecogniz ed section and content) Reason Comments Consult Reason Comments Consult Reason Comments Patient Question Reason Onset Date Comments Population Health Navigation Outreach 08/26/2021 [place] Care Gaps Reason Comments Post-Op Visit Reason Comments Dental Continuing Treatment post op Reason Comments Dental Postop Visit Reason Onset Date Comments Population Health Navigation Outreach 11/10/2021 [place] Attribution Reason Onset Date Comments Population Health Navigation Outreach 03/21/2022 Care Gaps Reason Onset Date Comments Medication Update 04/25/2022 Statin use rev iew Reason Onset Date Comments Allied Health Visit 03/29/2023 Medication A dherence Outreach Reason Comments Medication Question Statin use review Care Teams (unrecognized sec tion and content) Cocoa Room Operator Relationship Specialty Start Date End Date Tessy Dukes [address] [facility] [address] [place] [id number] PCP - General 06/30/06 Cocoa Room Operator Relationship Specialty Start Date End Date Tessy Dukes [address] [place] [id number] PCP - General 06/30/06 Cocoa Room Operator Relationship Specialty Start Date End Date Tessy Dukes [address] [place] [id number] PCP - General 06/30/06 Cocoa Room Operator Relationship Specialty Start Date End Date Tessy Dukes [address] [place] [address] PCP - General 06/30/06 Cocoa Room Operator Relationship Specialty Start Date End Date Tessy Dukes [address] [facility] [address] [place] [address] PCP - General 06/30/06 Cocoa Room Operator Relationship Specialty Start Date End Date Pcp, No PCP - General 08/26/21 Cocoa Room Operator Relationship Specialty Start Date End Date Pcp, No PCP - General 08/26/21 Cocoa Room Operator Relationship Specialty Start Date End Date Pcp, No PCP - General 08/26/21 03/15/22 Cocoa Room Operator Relationship Specialty Start Date End Date Pcp, No PCP - General 08/26/21 03/15/22 Cocoa Room Operator Relationship Specialty Start Date End Date Pcp, No PCP - General 08/26/21 03/15/22 Cocoa Room Operator Relationship Specialty Start Date End Date Candice Tello, GYNECOLOGICAL ASSISTANT [address] [place] [address] PCP - General Family Medicine 03/21/22 Cocoa Room Operator Relationship Specialty Start Date End Date Candice Tello, GYNECOLOGICAL ASSISTANT [address] [place] [address] PCP - General Family Medicine 03/21/22 Team Status: Active Member Role Status Dates Dr. Tessy Dukes MD Family Provider Active NP. Candice Tello MEDICAL REGISTRAR-C Primary Care Provider Activ e Team Status: Inactive Member Role Status Dates Out of [facility] Doctor Primary Care Provider, Referring Pr ovider Active Lisseth Kramer MEDICAL REGISTRAR, MEDICAL REGISTRAR-C Attending Provider Active Team Status: Active Member Role Status Dates NP. Candice Tello MEDICAL REGISTRAR-C Primary Care Provider, Refe rring Provider Active Dr. Gerardo Cook DO Attending Provider, Other Prov ider Active Team Status: Inactive Member Role Status Dates NP. Candice Tello MEDICAL REGISTRAR-C Primary Care Provider, Refe rring Provider Active Dr. Gerardo Cook DO Attending Provider Active Team Status: Inactive Member Role Status Dates Out of Town Doctor Referring Provider Active Lisseth Kramer MEDICAL REGISTRAR, MEDICAL REGISTRAR-C Attending Provider Active NP. Candice Tello MEDICAL REGISTRAR-C Primary Care Provider Activ e Team Status: Inactive Member Role Status Dates NP. Candice Tello MEDICAL REGISTRAR-C Primary Care Provider, Refe rring Provider Active Dr. Marcus Bedolla MD Attending Provider Active Team Status: Active Member Role Status Dates NP. Candice Tello NP-C Primary Care Provider Activ e Dr. Marcus Bedolla MD Attending Pr ovider, Referring Provider, Other Provider Active Team Status: Inactive Member Role Status Dates NP. Candice Tello NP-C Primary Care Provider Activ e Dr. Marcus Bedolla MD Attending Provider, Referr ing Provider Active Team Status: Inactive Member Role Status Dates NP. Candice Tello NP-C Primary Care Provider Activ e Dr. Hola Rivers MD Emergency Provider Active Cocoa Room Operator Relationship Specialty Start Date End Date Tessy Dukes [address] [place] [address] PCP - General Family Medicine 02/28/23 Cocoa Room Operator Relationship Specialty Start Date End Date Tessy Dukes [address] [place] [address] PCP - General Family Medicine 02/28/23 Team Status: Inactive Member Role Status Dates NP. Candice Tello NP-C Primary Care Provider Activ e Dr. Gerardo Cook DO Attending Provider, Referring Provider Active Cocoa Room Operator Relationship Specialty Start Date End Date Tessy Dukes [address] [place] [address] PCP - General Family Medicine 02/28/23 Team Status: Active Member Role Status Dates No Primary Care Physician Primary Care Provider Active Team Status: Inactive Member Role Status Dates MIRELLA Zaragoza Attending Provider Active Start: May 16, 2024 End: May 16, 2024 MIRELLA Zaragoza Referring Provider Active Start: May 16, 2024 End: May 16, 2024 No Primary Care Physician Primary Care Provider Active Start: May 16, 2024 End: May 16, 2024 Team Status: Active Member Role/Relationship Status Dates No Primary Care Physician Primary Care Provider Active Team Status: Inactive Member Role/Relationship Status Dates No Primary Care Physician Primary Care Provider Active Start: October 11, 2024 End: October 11, 2024 No Primary Care Physician Referring Provider Active Start: October 11, 2024 End: October 11, 2024 MIRELLA Zaragoza Attending Provider Active Start: October 11, 2024 End: October 11, 2024 Goals (unrecognized section and content) Goals may be documented in a n alternate sectionGoals may be documented in an alternate section FOR RECORDS PERTAINING TO PATIENTS WHO ARE OR HAVE BEEN ENROLLED IN A CHEMICAL DEPENDENCY/SUBSTANCEABUSE PROGRAM, SOME INFORMATION MAY BE OMITTED. This clinical summary was aggregated from multiple sources. Caution should be exercised in using it in the provision of clinical care. This summary normalizes information from multiple sources, and as a consequence, information in this document may materially change the coding, format and clinical context of patient data. In addition, data may be omitted in some cases. CLINICAL DECISIONS SHOULD BE BASED ON THE PRIMARY CLINICAL RECORDS. [employer] provides no warranty or guarantee of the accuracy or completeness of information in this document.
== END | disposition home or self-care (01) ==
LOC: LAB 15:52
PROVIDERS: Referring Provider Student in an Organized Health Care Education/Training Program; Visit Provider Student in an Organized Health Care Education/Training Program
DX: A04.72 Enterocolitis due to Clostridium difficile, not specified as recurrent (principal); R13.10 Dysphagia, unspecified
CPT/HCPCS: 36415; 80053; 85025

== ENCOUNTER → 2024-10-21 | Outpatient (CLI) | payer MEDICARE, SELFPAY ==
[2024-10-21 12:07] LABS: Cholesterol 214 mg/dL (<=200); Ferritin 81 ng/mL (22-378); Low Density Lipoprotein Calc. 139 mg/dL; Magnesium 2.0 mg/dL (1.5-2.2); Triglycerides 210 mg/dL; Very Low Density Lipoprotein 42 mg/dL (5-40); Vitamin B12 540 pg/mL (180-914); Vitamin D,25 Hydroxy 83.3 ng/mL (30-100); cholesterol:hdl ratio screen 6.45
[2024-10-21 12:45] LABS: Microalbumin,Random Urine < 12.0 mg/L (<20 mg/L)
[2024-10-24 16:09] LABS: Calprotectin, Stool 994 ug/g (0-120)
== END | disposition home or self-care (01) ==
PROVIDERS: Family Medicine; Referring Provider Student in an Organized Health Care Education/Training Program; Visit Provider Student in an Organized Health Care Education/Training Program
DX: E55.9 Vitamin D deficiency, unspecified (principal); E11.9 Type 2 diabetes mellitus without complications; F39 Unspecified mood [affective] disorder
CPT/HCPCS: 36415; 80061; 82043; 82306; 82607; 82728; 83735; 83993; 84443; 87493

== ENCOUNTER → 2024-10-25 | Outpatient (CLI) | payer MEDICARE, SELFPAY | END | disposition home or self-care (01) | PROVIDERS: Referring Provider Student in an Organized Health Care Education/Training Program; Visit Provider Student in an Organized Health Care Education/Training Program | DX: K58.9 Irritable bowel syndrome, unspecified (principal); R10.84 Generalized abdominal pain; R13.10 Dysphagia, unspecified; R11.0 Nausea; A04.72 Enterocolitis due to Clostridium difficile, not specified as recurrent | CPT/HCPCS: 83630; 87177; 87209 ==

== ENCOUNTER 2024-11-14 08:43 | Day surgery (SDC) | payer MEDICARE, SELFPAY ==
--- NOTE | 2024-11-12 14:30 | PAT.ANESEVAL ---
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 When Was Last Pacemaker Check 09/2806/18/18 11:57 QUESTION #4 FULL TEXT: You/Your Family Experience fever (hyperthermia) with Anesthesia Last Oral Intake Last Oral intake: Last Oral Intake NPO since Meds taken in AM with sips of water? Meds patient instructed to take am of surgery PONV PONV - commutator inspector: PONV - commutator inspector Female Yes 11/12/24 09:37 HX of Motion Sickness No 11/12/24 09:37 HX of N/V After Surgery No 11/12/24 09:37 Non-Smoker Yes 11/12/24 09:37 Duration of Surgery greater No 11/12/24 09:37 than 60 minutes Number of Risk Factors 2 11/12/24 09:37 PONV Score Moderate Risk 11/12/24 09:37 Height & Weight Height & Weight: Anesthesia: Height & Weight Height 5 ft 1 in 11/30/23 09:57 Respiratory Assessment Respiratory Assessment - commutator inspector: Respiratory Tract Infection Hx - commutator inspector Hx Respiratory Tract Infection No 11/12/24 09:37 STOP Sleep Apnea STOP Sleep Apnea - commutator inspector: STOP Sleep Apnea - commutator inspector Hx Hypertension Yes: CONTROLLED WITH MED 11/12/24 09:37 Hx Sleep Apnea No 11/12/24 09:37 CPAP No 11/12/24 09:37 BIPAP No 11/12/24 09:37 Do you snore loudly (louder No 11/12/24 09:37 than talking or can be heard Do you often feel tired/ Yes 11/12/24 09:37 fatigued/ sleepy during daytime? Has anyone observed you stop No 11/12/24 09:37 breathing during sleep? STOP Results Positive 11/12/24 09:37 QUESTION #5 FULL TEXT : Do you snore loudly (louder than talking or can be heard through closed doors)? 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 Specify any problems Hx of Preganancy in last 3 No 11/12/24 09:37 Months Nurse Filling Out Transfusion DSCHRIBER 11/12/24 09:37 & Questions: Date: 11/12/24 11/12/24 09:37 Time: 09:38 11/12/24 09:37 Patient unable to answer at this time (ie. 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 - commutator inspector: /Reproductive Hx- commutator inspector Hx Now No 11/12/24 09:37 Gestational Age (in weeks): EDC: Hx Hx Para Hx Section SAB No 11/12/24 09:37 PFSH Medical History (Updated 11/12/24 @ 09:45 by Alexandria Guy) History of ulceration Rios esophagus Gastric reflux Hoarseness History of pacemaker History of rectal fissure Complete edentulism, class III Anxiety Low iron History of renal disease Easy bruising Brown recluse spider bite Blackout Dietary restriction History of thrush Former smoker History of echocardiogram Cardiology follow-up encounter History of Clostridium difficile infection Nerve damage History of edema Diabetes Vitamin D insufficiency Hypokalemia HTN (hypertension) Gastritis Hemorrhoid Abdominal pain Vomiting Diarrhea Edema History of left heart catheterization (LHC) (~03/15/04) COPD (chronic obstructive pulmonary disease) Stroke Carotid bruit Hyperlipemia Paroxysmal atrial tachycardia Takotsubo cardiomyopathy MAJOR DEPRESSION DISORDER Home Medications ?Medication ?Instructions ?Recorded ?Last Taken ?Type potassium chloride 20 mEq 20 meq PO DAILY 08/10/21 Unknown History tablet,extended release hydrochlorothiazide 25 mg tablet 25 mg PO DAILY PRN WATER PILL 05/31/22 Unknown History sitagliptin phosphate 100 mg 100 mg PO QHS 05/31/22 Unknown History tablet (Januvia) Diltiazem 2% / Lidocaine 5% #1 ea 07/04/22 Unknown Rx ointment (compound) clonidine HCl 0.2 mg tablet 0.2 mg PO 1700 05/15/23 Unknown History ergocalciferol (vitamin D2) 1,250 1,250 mcg PO TU 05/15/23 Unknown History mcg (50,000 unit) capsule (Vitamin D2) pregabalin 150 mg capsule 150 mg PO TID 05/15/23 Unknown History ondansetron 4 mg disintegrating 4 mg PO Q8H PRN PRN for 07/26/23 Unknown Rx tablet nausea/vomiting #36 ea fentanyl 25 mcg/hr transdermal 1 patch transdermal Q72H 11/07/23 Unknown History patch dicyclomine 10 mg capsule 10 mg PO TID #90 caps 11/14/23 Unknown Rx albuterol sulfate 90 mcg/actuation 2 puff inhalation 4X/DAY PRN PRN 11/28/23 Unknown History aerosol inhaler wheezing glipizide 5 mg tablet 2.5 mg PO DAILY PRN HIGH GLUCOSE 11/28/23 Unknown History LEVEL pantoprazole 40 mg tablet,delayed 40 mg PO Q12H PRN GERD 11/28/23 Unknown History release simvastatin 20 mg tablet 20 mg PO QPM 11/28/23 Unknown History nystatin 100,000 unit/mL oral 5 ml PO DAILY PRN THRUSH #60 mL 12/15/23 Unknown Rx suspension Allergy/AdvReac Type Severity Reaction Status Date / Time Iodinated Contrast Media Allergy Anaphylaxis Verified 11/12/24 09:25 (Iodinated Contrast Media - IV Dye) Family History Father CAD (coronary artery disease) Cancer Mother Arthritis Multiple sclerosis Sister Colon cancer Surgical History (Updated 11/12/24 @ 09:42 by Alexandria Guy) History of cardiac catheterization History of esophagogastroduodenoscopy (EGD) S/P anal fissurectomy Hx of dilation and curettage Hx of colonoscopy History of mandibular surgery Hx of oral surgery History of cholecystectomy History of hysterectomy History of appendectomy Cardiac pacemaker in situ Social History Smoking Status: Former smoker quit date: 09/13/17 Tobacco: How many years used: 10 second hand exposure: No alcohol intake: never substance use type: does not use caffeine: Yes Type: tea Audit: Pertinent Findings Pertinent Findings EKG Perinent findings: 08/10/2021. Sinus versus ectopic atrial rhythm. Poor R wave progression. Consult pertinent findings: 08/10/2021. Dr. George. 1. Paroxysmal atrial tachycardia-this is by history. Currently symptomatically and hemodynamically stable. Pacemaker is in place and functioning properly. 2. Sick sinus syndrome-stable with functioning pacemaker. 3. Takotsubo cardiomyopathy-this is by history. Last echo in 2018 demonstrated preserved ejection fraction. No current concerns. 4. Preop cardiovascular exam-no additional cardiac studies or intervention. Patient is to reestablish care for future outpatient CV follow-up. Recommendation Anesthesia Recommendation Anesthesia recommendation: OPTIMIZED for anesthesia
[2024-11-14] VITALS (8 sets, daily range): BP systolic 97–117; BP diastolic 57–81; PULSE 61–78; RESP 16–18; TEMP 36.2–36.6; O2SAT 95–97; BMI 28.3
[2024-11-14] MEDS: Lactated Ringers 1,000 ML 15 ML IV (09:19)
--- NOTE | 2024-11-14 09:44 | PCM.HP.STD ---
HPI - General General Date of Admission: 11/14/24 Date of Service: 11/14/24 Chief Complaint: diarrhea HPI Narrative RAUL ARZOLA, is a 59 F who presents for the evaluation of diarrhea. PMH anxiety/depression; DMII; COPD; HTN; HLD; takotsubo cardiomyopathy; stroke; hypokalemia; restless leg PSH hemorrhoidectomy; cardiac pacemaker; appendectomy; cholecystectomy; hysterectomy *BGI established 2 with recurrent C.Difficile; history of long-term ATB use for dental/jaw infection. Last vancomycin dose 2 weeks prior. Current symptoms include loose bloody stool with foul odor. EGD and colonoscopy 06.06.22 EGD LA Grade A esophagitis; gastritis; duodenitis. Start sucralfate. Colonoscopy anal fissure. Random biopsy path WNL. OV 5 refer to general surgery to address anal fissure. WSA OV 5 start diltiazem cream. OV 8 with continued painless rectal bleeding despite diltiazem cream. Hemorrhoidectomy and fissurectomy 10.12.22 hemorrhoids with recent bleeding. [facility] ED 10.15.22 with significant throat pain; treated with nystatin and later Diflucan. OV 9. she has difficulty with Carafate as it causes constipation; reports ongoing postprandial nausea which she feels is related to her surgery with Dr. Bedolla; Zofran is effective. Start dicyclomine, PPI and scopolamine OV 3..24 continues to have regurgitation with increased abdominal pressure and indigestion. Scopolamine and bentyl continue. EGD .05.06 Normal esophagus. Non-bleeding gastric ulcers with no stigmata of bleeding. Biopsied. Chronic duodenitis. Biopsied. GET 5..24 abnormal 8.74 minutes OV 9..24 pt reports continued symptoms from previous visit, N/V, alternating BMs, abd pain, HB. Pt reports that she looks and can't bend over without throwing up if she's recently eaten. EGD - Normal esophagus. - Z-line irregular, 39 cm from the incisors. Biopsied. - No gross lesions in the entire stomach. - Chronic duodenitis. Biopsied. Colonoscopy - Congested mucosa in the entire examined colon. Biopsied. OV 8.. patient endorsing a recent episode of C. difficile infection. She notes that on August 16 she tested positive for C. difficile and was treated with metronidazole and Dificid. She continues to have loose bowel movements daily. Yesterday she had 10 bowel movements. She has epigastric pain that is constant and worse when eating. Orders: ] [facility] Medical History (Updated 11/14/24 @ 09:[address] Carrillo Friend, DO) History of ulceration Rios esophagus Gastric reflux Hoarseness History of pacemaker History of rectal fissure Complete edentulism, class III Anxiety Low iron History of renal disease Easy bruising Brown recluse spider bite Blackout Dietary restriction History of thrush Former smoker History of echocardiogram Cardiology follow-up encounter History of Clostridium difficile infection Nerve damage History of edema Diabetes Vitamin D insufficiency Hypokalemia HTN (hypertension) Gastritis Hemorrhoid Abdominal pain Vomiting Diarrhea Edema History of left heart catheterization (LHC) (~03/15/04) COPD (chronic obstructive pulmonary disease) Stroke Carotid bruit Hyperlipemia Paroxysmal atrial tachycardia Takotsubo cardiomyopathy MAJOR DEPRESSION DISORDER Home Medications ?Medication ?Instructions ?Recorded ?Last Taken ?Type potassium chloride 20 mEq 20 meq PO DAILY 08/10/21 11/13/24 History tablet,extended release hydrochlorothiazide 25 mg tablet 25 mg PO DAILY PRN WATER PILL 05/31/22 11/11/24 History sitagliptin phosphate 100 mg 100 mg PO QHS 05/31/22 11/13/24 History tablet (Januvia) Diltiazem 2% / Lidocaine 5% #1 ea 07/04/22 Unknown Rx ointment (compound) clonidine HCl 0.2 mg tablet 0.2 mg PO 1700 05/15/23 11/13/24 History ergocalciferol (vitamin D2) 1,250 1,250 mcg PO TU 05/15/23 11/13/24 History mcg (50,000 unit) capsule (Vitamin D2) pregabalin 150 mg capsule 150 mg PO TID 05/15/23 11/14/24 History ondansetron 4 mg disintegrating 4 mg PO Q8H PRN PRN for 07/26/23 11/13/24 Rx tablet nausea/vomiting #36 ea fentanyl 25 mcg/hr transdermal 1 patch transdermal Q72H 11/07/23 11/12/24 History patch dicyclomine 10 mg capsule 10 mg PO TID #90 caps 11/14/23 11/13/24 Rx albuterol sulfate 90 mcg/actuation 2 puff inhalation 4X/DAY PRN PRN 11/28/23 Unknown History aerosol inhaler wheezing glipizide 5 mg tablet 2.5 mg PO DAILY PRN HIGH GLUCOSE 11/28/23 11/13/24 History LEVEL pantoprazole 40 mg tablet,delayed 40 mg PO Q12H PRN GERD 11/28/23 11/13/24 History release simvastatin 20 mg tablet 20 mg PO QPM 11/28/23 11/13/24 History nystatin 100,000 unit/mL oral 5 ml PO DAILY PRN THRUSH #60 mL 12/15/23 11/13/24 Rx suspension Allergy/AdvReac Type Severity Reaction Status Date / Time Iodinated Contrast Media Allergy Anaphylaxis Verified 11/14/24 09:07 (Iodinated Contrast Media - IV Dye) Family History Father CAD (coronary artery disease) Cancer Mother Arthritis Multiple sclerosis Sister Colon cancer Surgical History History of cardiac catheterization History of esophagogastroduodenoscopy (EGD) S/P anal fissurectomy Hx of dilation and curettage Hx of colonoscopy History of mandibular surgery Hx of oral surgery History of cholecystectomy History of hysterectomy History of appendectomy Cardiac pacemaker in situ Social History Smoking Status: Former smoker quit date: 09/13/17 Tobacco: How many years used: 10 second hand exposure: No alcohol intake: never substance use type: does not use caffeine: Yes Type: tea ROS Constitutional Constitutional: Denies fatigue, fever(s), poor appetite, weight gain or weight loss Gastrointestinal Gastrointestinal: Denies belching, bloating, change in bowel habits, change in stool character, chewing difficulty, coffee ground emesis, constipation, cramping, diarrhea, dyspepsia, dysphagia, early satiety, excessive flatus, fecal incontinence, heartburn, hematemesis, hematochezia, hemorrhoids, loose stools, melena, nausea, odynophagia, rectal bleeding, tenesmus, vomiting or weight changes Vital Signs Vital Signs Vital Signs: 11/14/24 09:10 11/14/24 09:10 Temperature 97.9 F Temperature Source Temporal Pulse Rate 78 Respiratory Rate 18 Respiratory Pattern Normal Blood Pressure 117/81 H Blood Pressure Mean 93 Blood Pressure Source Monitor Blood Pressure Position Semi-Fowlers Blood Pressure Location Right Arm Pulse Ox 97 Oxygen Delivery Method Room Air Weight Weight: 149 lb 14.629 oz Body Mass Index (BMI) 28.3 Physical Exam Const alert, oriented x3, no apparent distress and healthy appearing General Appearance: cooperative GI normal to inspection, nondistended, normoactive bowel sounds, soft to palpation, non-tender and non-distended Percussion: normal to percussion Rectal Exam: deferred Results Lab / Micro Data Labs: Laboratory Results - last 24 hr 11/14/24 09:06: POC Glucose 130 H Assessment & Plan Assessment/Plan (1) Rios esophagus: (2) IBS (irritable bowel syndrome): (3) Diarrhea: PLAN: Assessment and Plan Assessment and Plan (1) IBS (irritable bowel syndrome): Status: Chronic Plan: Raul is a 59-year-old female patient here today for follow-up. Patient diagnosed with C. difficile in August 2024 and had treatment which included Dificid and metronidazole. Patient continues to have loose stool daily up to 10 times per day. Patient also having epigastric pain that is burning. Patient has a history of Rios's esophagus with last EGD being about 1 year ago. I have reordered stool testing to test for inflammation or infection still in her colon. CBC and CMP also ordered. She will undergo repeat EGD and colonoscopy for assessment of her upper and lower GI symptoms. - Repeat EGD and colonoscopy - CBC and CMP - Stool testing for infection or inflammation - Follow-up after endoscopy (2) Nausea: Status: Chronic (3) C. difficile colitis: Status: Chronic (4) Difficulty swallowing: Status: Acute (5) Rios esophagus: Status: Acute
--- NOTE | 2024-11-14 10:05 | PCM.PRE.AN2 ---
ASA Classification* ASA Classification ASA Classification: 3 Assessment & Plan Anesthesia* Anesthesia Assessment Anesthesia Assessment: Discussed sedation and/or anesthesia options, risks, benefits, and alternatives with patient/parents/legal guardian/POA. Questions invited. The patient/parents/legal guardian/POA seems to understand and agrees to proceed with anesthesia plan. Reviewed the physical assessment, medical history, allergy history and patient home medications list prior to surgery/procedure/anesthetic and documented any changes. Performed airway and anesthesia risk assessments. Anesthesia Type Anesthesia Type: MAC History Source History Obtained from:: Patient and Chart Anesthesia Focused Assessment* Temperature: 97.9 F Pulse Rate: 78 Blood Pressure: 117/81 Respiratory Rate: 18 Pulse Ox: 97 Oxygen Delivery Method: Room Air Airway Assessment Mouth opens: >3 cm Mallampati Score: I Teeth Condition: Missing (Patient is edentulous.) Neck Range of motion (ROM): Full ROM Labs Anesthesia Preop lab: CBC WBC, (4.4-11.0) 5.0 K/mm3 10/11/24, 15:56 RBC, (4.2-5.4) 4.31 M/mm3 10/11/24, 15:56 Hgb, (12.0-15.0) 12.0 g/dL 10/11/24, 15:56 Hct, (37-47) 37.8 % 10/11/24, 15:56 Plt Count, (150-450) 324 K/mm3 10/11/24, 15:56 CHEMISTRY Potassium, (3.3-5.1) 3.6 mmol/L 10/11/24, 15:56 Sodium, (133-145) 143 mmol/L 10/11/24, 15:56 Magnesium, (1.5-2.2) 2.0 mg/dL 10/21/24, 10:33 BUN, (4-19) 9 mg/dL 10/11/24, 15:56 Creatinine, (0.70-1.20) 1.05 mg/dL 10/11/24, 15:56 Glucose, (70-99) 110 mg/dL H 10/11/24, 15:56 POC Glucose, (74-106) 130 mg/dL H Today, 09:06 TSH, (0.300-4.200) 0.866 uIU/mL 10/21/24, 10:33 COAG PT, (11.7-14.9) 13.5 SECONDS 06/18/18, 12:30 Pre-Assessment Diagnosis/Proposed Procedure Planned Operative Procedure(s): EGD/CSCOPE Anesthesia History 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 When Was Last Pacemaker Check 09/2806/18/18 11:57 QUESTION #4 FULL TEXT: You/Your Family Experience fever (hyperthermia) with Anesthesia Last Oral Intake Last Oral intake: Last Oral Intake NPO since 07:00 11/14/24 09:10 Meds taken in AM with sips of Yes 11/14/24 09:10 water? Meds patient instructed to lyrica 11/14/24 09:10 take am of surgery Any additional information?: Yes NPO since: 05:00 (Patient finished her prep at 5 AM.) Meds taken in AM with sips of water?: Yes Meds patient instructed to take am of surgery: Lyrica PONV PONV - advertising sales agent: PONV - advertising sales agent Female Yes 11/12/24 09:37 HX of Motion Sickness No 11/12/24 09:37 HX of N/V After Surgery No 11/12/24 09:37 Non-Smoker Yes 11/12/24 09:37 Duration of Surgery greater No 11/12/24 09:37 than 60 minutes Number of Risk Factors 2 11/12/24 09:37 PONV Score Moderate Risk 11/12/24 09:37 Height & Weight Height & Weight: Anesthesia: Height & Weight Height 5 ft 1 in 11/14/24 09:10 Weight: 68 kg 11/14/24 09:10 Body Mass Index (BMI) 28.3 10/02/25 09:10 Respiratory Assessment Respiratory Assessment - advertising sales agent: Respiratory Tract Infection Hx - advertising sales agent Hx Respiratory Tract Infection No 11/12/24 09:37 STOP Sleep Apnea STOP Sleep Apnea - advertising sales agent: STOP Sleep Apnea - advertising sales agent Hx Hypertension Yes: CONTROLLED WITH MED 11/12/24 09:37 Hx Sleep Apnea No 11/12/24 09:37 CPAP No 11/12/24 09:37 BIPAP No 11/12/24 09:37 Do you snore loudly (louder No 11/12/24 09:37 than talking or can be heard Do you often feel tired/ Yes 11/12/24 09:37 fatigued/ sleepy during daytime? Has anyone observed you stop No 11/12/24 09:37 breathing during sleep? STOP Results Positive 11/12/24 09:37 QUESTION #5 FULL TEXT : Do you snore loudly (louder than talking or can be heard through closed doors)? 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 Specify any problems Hx of Preganancy in last 3 No 11/12/24 09:37 Months Nurse Filling Out Transfusion DSCHRIBER 11/12/24 09:37 & Questions: Date: 11/12/24 11/12/24 09:37 Time: 09:38 11/12/24 09:37 Patient unable to answer at this time (ie. 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 - advertising sales agent: /Reproductive Hx- advertising sales agent Hx Now No 11/12/24 09:37 Gestational Age (in weeks): EDC: Hx Hx Para Hx Section SAB No 11/12/24 09:37 Active Medications Active Medications: Current Medications Generic Name Dose Route Start Last Admin Trade Name Freq PRN Reason Stop Dose Admin Lactated Ringer's 1,000 mls @ 15 mls/hr 11/14/24 09:00 11/14/24 09:19 IV 15 mls/hr .Q48H KARL Administration PFSH Medical History History of ulceration Rios esophagus Gastric reflux Hoarseness History of pacemaker History of rectal fissure Complete edentulism, class III Anxiety Low iron History of renal disease Easy bruising Brown recluse spider bite Blackout Dietary restriction History of thrush Former smoker History of echocardiogram Cardiology follow-up encounter History of Clostridium difficile infection Nerve damage History of edema Diabetes Vitamin D insufficiency Hypokalemia HTN (hypertension) Gastritis Hemorrhoid Abdominal pain Vomiting Diarrhea Edema History of left heart catheterization (LHC) (~03/15/04) COPD (chronic obstructive pulmonary disease) Stroke Carotid bruit Hyperlipemia Paroxysmal atrial tachycardia Takotsubo cardiomyopathy MAJOR DEPRESSION DISORDER Home Medications ?Medication ?Instructions ?Recorded ?Last Taken ?Type potassium chloride 20 mEq 20 meq PO DAILY 08/10/21 11/13/24 History tablet,extended release hydrochlorothiazide 25 mg tablet 25 mg PO DAILY PRN WATER PILL 05/31/22 11/11/24 History sitagliptin phosphate 100 mg 100 mg PO QHS 05/31/22 11/13/24 History tablet (Januvia) Diltiazem 2% / Lidocaine 5% #1 ea 07/04/22 Unknown Rx ointment (compound) clonidine HCl 0.2 mg tablet 0.2 mg PO 1700 05/15/23 11/13/24 History ergocalciferol (vitamin D2) 1,250 1,250 mcg PO TU 05/15/23 11/13/24 History mcg (50,000 unit) capsule (Vitamin D2) pregabalin 150 mg capsule 150 mg PO TID 05/15/23 11/14/24 History ondansetron 4 mg disintegrating 4 mg PO Q8H PRN PRN for 07/26/23 11/13/24 Rx tablet nausea/vomiting #36 ea fentanyl 25 mcg/hr transdermal 1 patch transdermal Q72H 11/07/23 11/12/24 History patch dicyclomine 10 mg capsule 10 mg PO TID #90 caps 11/14/23 11/13/24 Rx albuterol sulfate 90 mcg/actuation 2 puff inhalation 4X/DAY PRN PRN 11/28/23 Unknown History aerosol inhaler wheezing glipizide 5 mg tablet 2.5 mg PO DAILY PRN HIGH GLUCOSE 11/28/23 11/13/24 History LEVEL pantoprazole 40 mg tablet,delayed 40 mg PO Q12H PRN GERD 11/28/23 11/13/24 History release simvastatin 20 mg tablet 20 mg PO QPM 11/28/23 11/13/24 History nystatin 100,000 unit/mL oral 5 ml PO DAILY PRN THRUSH #60 mL 12/15/23 11/13/24 Rx suspension Allergy/AdvReac Type Severity Reaction Status Date / Time Iodinated Contrast Media Allergy Anaphylaxis Verified 11/14/24 09:07 (Iodinated Contrast Media - IV Dye) Family History Father CAD (coronary artery disease) Cancer Mother Arthritis Multiple sclerosis Sister Colon cancer Surgical History History of cardiac catheterization History of esophagogastroduodenoscopy (EGD) S/P anal fissurectomy Hx of dilation and curettage Hx of colonoscopy History of mandibular surgery Hx of oral surgery History of cholecystectomy History of hysterectomy History of appendectomy Cardiac pacemaker in situ Social History Smoking Status: Former smoker quit date: 09/13/17 Tobacco: How many years used: 10 second hand exposure: No alcohol intake: never substance use type: does not use caffeine: Yes Type: tea Review of Systems (Anesthesia) ROS Narrative System reviewed and no additional complaints, except as documented.
--- NOTE | 2024-11-14 10:15 | COLBX_PTH ---
PATIENT: RAUL ARZOLA LOC: EN U#:[id number] AGE/SX: 59/F ROOM: RE11/14/[address]: Dr. Gerardo Cook DO : 1965 BED: DIS: 11/14/2024 SPEC #: [id number] RECD: 11/14/24 12:21 STATUS: NETTIE EDUAR #: [id number] JAJA: 11/14/24 10:[address]: Gerardo Cook DEPT: SURGICAL PATHOLOGY RECD BY: Julito Koroma ENTERED: 11/14/24 14:18 SP TYPE: COLON BX OT DR: Angeline Carpenter, NARROW GAUGE ENGINEER-C Tissues: A - Duodenum, NOS B - COLON BIOPSY Procedures: Surgery Specimen Level IV HEADER OPERATION: Colonoscopy, EGD with biopsy PRE-OP DIAGNOSIS: Irritable bowel syndrome, nausea, C. difficile colitis, difficulty swallowing TISSUE SUBMITTED: A- Duodenum biopsy, B- Random colon biopsy MICROSCOPIC DIAGNOSIS A. Duodenum, biopsy: * Normal villous architecture with no specific pathologic change. B. Colon, random, biopsy: * Focal active colitis - see note. Note: Focal mild acute inflammation is noted without features of chronicity. This is a nonspecific finding which may result from bowel prep artifact, mild infection, medication injury (eg: NSAIDs) and ischemia. Recommend correlation with clinical and endoscopic findings. MICROSCOPIC DESCRIPTION Slides are reviewed. GROSS DESCRIPTION A. Received in fixative is one container labeled with the patient's name and designated Duodenum biopsy. The specimen consists of two irregular fragments of ball tissue that measure 0.3 and 0.4 cm. The specimen is totally submitted in one cassette. B. Received in fixative is one container labeled with the patient's name and designated Random colon biopsy. The specimen consists of multiple irregular fragments of ball tissue that in aggregate measure 0.8 x 0.8 x 0.1 cm. The specimen is totally submitted in one cassette. HI 11/14/2024 CPT:24855u7
--- NOTE | 2024-11-14 11:13 | PCM.POST.ANE ---
Anesthesia: Postop Eval I Current Vital Signs Temperature: 97.1 F Pulse Rate: 64 Blood Pressure: 97/57 Respiratory Rate: 16 Pulse Ox: 97 Oxygen Delivery Method: Room Air Assessment Airway patent: Yes Spontaneous unlabored respirations: Yes Mental status: Asleep nausea: No Vomiting: No Anesthesia Complication: No Fluid Hydration Crystalloid volume administer (ml): 600 Total IV fluid infused: 600 Progress Note Anesthesia document: Postop Eval 1 completed: Yes
--- NOTE | 2024-11-14 11:21 | OP.PROVAT_ITS ---
11/14/2024 Aimee Hayes Re : Upper GI endoscopy procedure for Katina Hacth Dear Jayden This procedure was performed on November. My impressions and recommendations are as follows: Impressions : - Z-line irregular, 40 cm from the incisors. - Small hiatal hernia. - Duodenitis. Biopsied. Recommendations : - Discharge patient to home. - Resume previous diet. - Continue present medications. - Await pathology results. - Repeat upper endoscopy in 1 year for surveillance. My findings are described in the full procedure note, which is enclosed. If I can be of further assistance, please feel free to contact me at . Sincerely, Gerardo Cook, 11/14/2024 11:20:33 AM This report has been signed electronically.
--- NOTE | 2024-11-14 11:21 | OP.EGD_ITS ---
Patient Name: Katina aHtch Procedure Date: 11/14/2024 10:33 AM Date of : 1965 Age: 59 Procedure: Upper GI endoscopy Indications: Epigastric abdominal pain, Abdominal pain in the right upper quadrant, Functional Dyspepsia Providers: Gerardo Cook DO Referring MD: Aimee Hayes Medicines: Monitored Anesthesia Care Patient Profile: This is a 59 year old female. Refer to note in patient chart for documentation of history and physical. Patient has symptoms of acute abdominal cramping, chronic abdominal distention, chronic right upper quadrant abdominal pain, acute left upper quadrant abdominal pain and chronic dyspepsia. Complications: No immediate complications. Procedure: Pre-Anesthesia Assessment: - Prior to the procedure, a History and Physical was performed, and patient medications and allergies were reviewed. The patient is competent. The risks and benefits of the procedure and the sedation options and risks were discussed with the patient. All questions were answered and informed consent was obtained. Patient identification and proposed procedure were verified by the physician in the pre-procedure area. Mental Status Examination: alert and oriented. Airway Examination: normal oropharyngeal airway and neck mobility. Respiratory Examination: clear to auscultation. CV Examination: normal. Prophylactic Antibiotics: The patient does not require prophylactic antibiotics. Prior Anticoagulants: The patient has taken no anticoagulant or antiplatelet agents. ASA Grade Assessment: II - A patient with mild systemic disease. After reviewing the risks and benefits, the patient was deemed in satisfactory condition to undergo the procedure. The anesthesia plan was to use monitored anesthesia care (MAC). Immediately prior to administration of medications, the patient was re-assessed for adequacy to receive sedatives. The heart rate, respiratory rate, oxygen saturations, blood pressure, adequacy of pulmonary ventilation, and response to care were monitored throughout the procedure. The physical status of the patient was re-assessed after the procedure. After obtaining informed consent, the endoscope was passed under direct vision. Throughout the procedure, the patient's blood pressure, pulse, and oxygen saturations were monitored continuously. The Colonoscope was introduced through the mouth, and advanced to the fourth part of the duodenum. Small bowel enteroscopy was deemed necessary. The upper GI endoscopy was accomplished without difficulty. The patient tolerated the procedure well. Scope In: 10:48:03 AM Scope Out: 10:51:57 AM Total Procedure Duration Time 0 hours 3 minutes 54 seconds Findings: The Z-line was irregular and was found 40 cm from the incisors. A small hiatal hernia was present. No other significant abnormalities were identified in a careful examination of the stomach. Patchy mild inflammation characterized by congestion (edema) and erythema was found in the entire duodenum. Biopsies were taken with a cold forceps for histology. Verification of patient identification for the specimen was done. Estimated blood loss was minimal. Impression: - Z-line irregular, 40 cm from the incisors. - Small hiatal hernia. - Duodenitis. Biopsied. Recommendation: - Discharge patient to home. - Resume previous diet. - Continue present medications. - Await pathology results. - Repeat upper endoscopy in 1 year for surveillance. Procedure Code(s): --- Professional --- 04993, Small intestinal endoscopy, enteroscopy beyond second portion of duodenum, not including ileum; with biopsy, single or multiple CPT copyright 2021 [employer]. All rights reserved. The codes documented in this report are preliminary and upon plastic molding operator review may be revised to meet current compliance requirements. Gerardo Cook DO 11/14/2024 11:20:33 AM This report has been signed electronically. Number of Addenda: 0 Note Initiated On: 11/14/2024 10:33 AM
--- NOTE | 2024-11-14 11:23 | OP.PROVAT_ITS ---
11/14/2024 Aimee Hayes Re : Colonoscopy procedure for Katina Hatch Dear Jayden This procedure was performed on November. My impressions and recommendations are as follows: Impressions : - Preparation of the colon was fair. - Diverticulosis in the recto-sigmoid colon and in the sigmoid colon. - Congested mucosa in the recto-sigmoid colon, in the sigmoid colon, in the descending colon and in the transverse colon. Biopsied. Recommendations : - Discharge patient to home. - Resume previous diet. - Continue present medications. - Await pathology results. - Repeat colonoscopy in 5 years for surveillance. My findings are described in the full procedure note, which is enclosed. If I can be of further assistance, please feel free to contact me at . Sincerely, Gerardo Cook, 11/14/2024 11:22:32 AM This report has been signed electronically.
--- NOTE | 2024-11-14 11:23 | OP.COLON_ITS ---
Patient Name: Katina Hatch Procedure Date: 11/14/2024 10:53 AM Date of : 1965 Age: 59 Procedure: Colonoscopy Indications: Chronic diarrhea Providers: Gerardo Cook DO Referring MD: Aimee Hayes Medicines: Monitored Anesthesia Care Patient Profile: This is a 59 year old female. Refer to note in patient chart for documentation of history and physical. Patient has symptoms of acute abdominal cramping, chronic abdominal distention, chronic right upper quadrant abdominal pain, acute left upper quadrant abdominal pain and chronic dyspepsia. Last Colonoscopy: 3 years ago. Complications: No immediate complications. Procedure: Pre-Anesthesia Assessment: - Prior to the procedure, a History and Physical was performed, and patient medications and allergies were reviewed. The patient is competent. The risks and benefits of the procedure and the sedation options and risks were discussed with the patient. All questions were answered and informed consent was obtained. Patient identification and proposed procedure were verified by the physician in the pre-procedure area. Mental Status Examination: alert and oriented. Airway Examination: normal oropharyngeal airway and neck mobility. Respiratory Examination: clear to auscultation. CV Examination: normal. Prophylactic Antibiotics: The patient does not require prophylactic antibiotics. Prior Anticoagulants: The patient has taken no anticoagulant or antiplatelet agents. ASA Grade Assessment: II - A patient with mild systemic disease. After reviewing the risks and benefits, the patient was deemed in satisfactory condition to undergo the procedure. The anesthesia plan was to use monitored anesthesia care (MAC). Immediately prior to administration of medications, the patient was re-assessed for adequacy to receive sedatives. The heart rate, respiratory rate, oxygen saturations, blood pressure, adequacy of pulmonary ventilation, and response to care were monitored throughout the procedure. The physical status of the patient was re-assessed after the procedure. After I obtained informed consent, the scope was passed under direct vision. Throughout the procedure, the patient's blood pressure, pulse, and oxygen saturations were monitored continuously. The Colonoscope was introduced through the anus and advanced to the cecum, identified by appendiceal orifice and ileocecal valve. The colonoscopy was performed without difficulty. The patient tolerated the procedure well. The quality of the bowel preparation was fair. The ileocecal valve, appendiceal orifice, and rectum, the terminal ileum, the ileocecal valve, the appendiceal orifice and the rectum were photographed. Scope In: 10:53:24 AM Scope Withdrawal Time 0 hours 9 minutes 15 seconds Scope Out: 11:04:12 AM Total Procedure Duration Time 0 hours 10 minutes 48 seconds Findings: The perianal and digital rectal examinations were normal. A few small-mouthed diverticula were found in the recto-sigmoid colon and sigmoid colon. An area of mildly congested mucosa was found in the recto-sigmoid colon, in the sigmoid colon, in the descending colon and in the transverse colon. Biopsies were taken with a cold forceps for histology. Verification of patient identification for the specimen was done. Estimated blood loss was minimal. Impression: - Preparation of the colon was fair. - Diverticulosis in the recto-sigmoid colon and in the sigmoid colon. - Congested mucosa in the recto-sigmoid colon, in the sigmoid colon, in the descending colon and in the transverse colon. Biopsied. Recommendation: - Discharge patient to home. - Resume previous diet. - Continue present medications. - Await pathology results. - Repeat colonoscopy in 5 years for surveillance. Procedure Code(s): --- Professional --- 85908, Colonoscopy, flexible; with biopsy, single or multiple CPT copyright 2021 [employer]. All rights reserved. The codes documented in this report are preliminary and upon rn training review may be revised to meet current compliance requirements. Gerardo Cook DO 11/14/2024 11:22:32 AM This report has been signed electronically. Number of Addenda: 0 Note Initiated On: 11/14/2024 10:53 AM
--- NOTE | 2024-11-14 12:12 | PCM.POSTANE2 ---
Anesthesia Postop Eval I Sum Postop Eval Completion status Anesthesia document: Postop Eval 1 completed: Yes Anesthesia Postop Eval I Summary Anesthesia Postop Eval I Summary: Anesthesia Postop Eval I: Assessment Summary Airway patent Yes 11/14/24 11:14 [email or web address] Spontaneous unlabored Yes 11/14/24 11:14 [email or web address] respirations Mental status Asleep 11/14/24 11:14 [email or web address] nausea No 11/14/24 11:14 [email or web address] Vomiting No 11/14/24 11:14 [email or web address] Anesthesia Postop Eval I: Fluid Summary Crystalloid volume administer 600 11/14/24 11:14 [email or web address] (ml) Colloids volume administered ( ml) Blood Product volume administered (ml) Total IV fluid infused 600 11/14/24 11:14 [email or web address] Anesthesia Postop Eval I: Summary Notes Anesthesia Complication No 11/14/24 11:14 [email or web address] Anesthesia Complication Comment: Post-operative progress note Anesthesia: Postop Eval II Evaluation Mental status: Awake and Calm Pain Level: 0 nausea: No Vomiting: No Complications Anesthesia Complication: No
== END 2024-11-14 12:09 | disposition home or self-care (01) ==
LOC: EN 08:45 → AC 08:46
PROVIDERS: PCP Nurse Practitioner Family; Referring Provider Nurse Practitioner Family; Visit Provider Internal Medicine Gastroenterology
PROC: 0DJD8ZZ Inspection of Lower Intestinal Tract, Via Natural or Artificial Opening Endoscopic (ICD-10-PCS; CPT 45378; principal; 2024-11-14 10:10)
DX: R19.7 Diarrhea, unspecified (principal); J44.9 Chronic obstructive pulmonary disease, unspecified; E11.9 Type 2 diabetes mellitus without complications; K44.9 Diaphragmatic hernia without obstruction or gangrene; K29.80 Duodenitis without bleeding; Z90.710 Acquired absence of both cervix and uterus; E78.5 Hyperlipidemia, unspecified; K57.30 Diverticulosis of large intestine without perforation or abscess without bleeding; I10 Essential (primary) hypertension; Z87.891 Personal history of nicotine dependence; K22.70 Barrett's esophagus without dysplasia; Z86.73 Personal history of transient ischemic attack (TIA), and cerebral infarction without residual deficits; Z95.0 Presence of cardiac pacemaker; Z90.49 Acquired absence of other specified parts of digestive tract; Z79.899 Other long term (current) drug therapy; Z79.84 Long term (current) use of oral hypoglycemic drugs; R11.0 Nausea; A04.72 Enterocolitis due to Clostridium difficile, not specified as recurrent; R13.10 Dysphagia, unspecified; K22.89 Other specified disease of esophagus; K58.9 Irritable bowel syndrome, unspecified
CPT/HCPCS: 44361; 45380; 82962; 88305; J2405